=== PATIENT | female | born 1940 | race Caucasian/White ===

== ENCOUNTER 2017-03-20 16:36 | Emergency (ER) | payer MEDICARE, MEDICAID ==
[~2017-03-20] VITALS: Ht 165.1 cm; Wt 63.5 kg
[~2017-03-20 16:36] MED LIST: ACET-93 PO; ACHD5005 PO; ACYC800T PO; ALBU0.632 IH; ALPR.25T PO; ALPR0.254 PO; ALPR0.2550; AMIT50TA3 PO; ASP325T PO; ASP81TEC PO; ATOR40TA; AZIT-21 PO; AZIT500T2 PO; AZTH250C PO; BACL10TA PO; BSP10T; BSP10T PO; BSP5T; BUDE10.2 IH; BUDE6HFA IH; CEFD300C3 PO; CLOP75TA28 PO; CPR500T PO; DEXL60CA3; DIAZ5TAB3 PO; DICLOFENAC; DOXY100C2 PO; DULO30CA PO; DULO30CA48 PO; ENAL2.5T PO; ENXP60I.6 SQ; ESZO2TAB4 PO; FLUO20CA42; FLUT16SP22; FLUT1AER IH; FRSM20T PO; HYDR1TAB PO; IBUP-2055 PO; LEVO88TA54 PO; LOPE2CAP PO; LOSA100T28 PO; LOSA100T3 PO; LRT10T; LVT.025T; LVT.05T; LVT.1T PO; MECL-106 PO; MELO-198 PO; MESA1.2T2 PO; METH10TA8 PO; METH4TAB PO; METO-370 PO; METO25TA PO; METR500T PO; MRTZ15T; MSL400TEC PO; MTHL5T PO; NITR-65 PO; NYST1000 PO; OMEG1CAP57 PO; OMEP20CA12 PO; OMEP20TA2 PO; ONDA4TAB10 PO; ONDA4TAB11 PO; ONDN4T PO; PANT40SU; PANT40TA3 PO; PHEN200T27 PO; PNT40TEC; PNT40TEC PO; POLY17PO23 PO; POTA8TAB PO; PRD20T PO; PRM25T; PRM25T PO; PROM12.59 PO; PRX10T PO; SENN1TAB76 PO; SIMV40TA2 PO; SIMV40TA4 PO; SLMFT1E; SLMFT1E INH; TIOT18CA IH; TIOT18CA2 IH; TLT2T; TOLTA4 PO; TRAM50TA2 PO; TRM50T; TRM50T PO; WRF1T PO; WRF2T PO; WRF5T PO; methylin PO
--- OUTSIDE RECORDS SUMMARY | 2017-03-20 16:43 | XMS REPORT | Continuity of Care Document ---
Author Author [facility] Organization [facility] Address Unknown Phone Unavailable Allergies Active Description Code Type Severity Reaction Onset Reported/Identified Relationship to Patient Clinical Status Yes Penicillins [id number] Drug Allergy Moderate HIVES, CAN TAKE 12/18/2011 Yes propoxyphene [id number] Drug Allergy Unknown N/A 12/18/2011 Yes codeine [id number] Drug Allergy Unknown N/A 02/09/2015 Yes morphine [id number] Drug Allergy Unknown PATIENT TAKES V 02/09/2015 Medications There is no data. Problems Date Dx Coded Attending Type Code Diagnosis Diagnosed By 09/07/2009 Ot 244.9 09/07/2009 Ot 300.4 09/07/2009 Ot 305.1 09/07/2009 Ot 491.22 09/07/2009 Ot 530.81 09/07/2009 Ot 715.90 09/07/2009 Ot 737.10 09/07/2009 Ot 780.52 09/07/2009 Ot 780.71 09/07/2009 Ot V12.79 12/16/2009 Ot 724.5 12/16/2009 Ot 787.03 12/16/2009 Ot 787.91 12/16/2009 Ot V58.69 12/25/2009 Ot 241.0 12/25/2009 Ot 244.9 12/25/2009 Ot 255.9 12/25/2009 Ot 496 12/25/2009 Ot 518.89 12/25/2009 Ot 723.4 12/25/2009 Ot 789.00 12/25/2009 Ot 791.9 12/25/2009 Ot 794.30 01/15/2010 Ot 305.1 01/15/2010 Ot 491.22 01/15/2010 Ot V12.61 05/18/2010 Ot 244.9 05/18/2010 Ot 300.4 05/18/2010 Ot 305.1 05/18/2010 Ot 414.01 05/18/2010 Ot 426.3 05/18/2010 Ot 491.21 05/18/2010 Ot 530.81 05/18/2010 Ot 715.90 05/18/2010 Ot 780.79 05/18/2010 Ot 780.99 05/18/2010 Ot 799.02 05/26/2010 Ot 244.9 05/26/2010 Ot 266.2 05/26/2010 Ot 272.4 05/26/2010 Ot 285.29 05/26/2010 Ot 300.4 05/26/2010 Ot 305.1 05/26/2010 Ot 401.9 05/26/2010 Ot 410.72 05/26/2010 Ot 414.01 05/26/2010 Ot 434.91 05/26/2010 Ot 496 05/26/2010 Ot 530.81 05/26/2010 Ot 715.90 05/26/2010 Ot 780.71 05/26/2010 Ot 784.59 06/02/2010 Ot 079.99 06/02/2010 Ot 787.01 08/14/2010 Ot 244.9 HYPOTHYROIDISM NOS 08/14/2010 Ot 401.9 HYPERTENSION NOS 08/14/2010 Ot 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, SPEECH LA 08/14/2010 Ot 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,HEMIPLEGIA AFFECTING 08/14/2010 Ot 729.1 MYALGIA AND MYOSITIS NOS 08/14/2010 Ot 780.79 OTH MALAISE FATIGUE 08/14/2010 Ot V58.61 ANTICOAGULANTS,LT,CURRENT USE 08/14/2010 Ot V58.66 LONG-TERM ( CURRENT) USE OF ASPIRIN 08/14/2010 Ot V58.69 OTH MED,LT, CURRENT USE 08/24/2010 Ot 244.9 HYPOTHYROIDISM NOS 08/24/2010 Ot 272.4 HYPERLIPIDEMIA NEC/NOS 08/24/2010 Ot 285.9 ANEMIA NOS 08/24/2010 Ot 300.4 DYSTHYMIC DISORDER 08/24/2010 Ot 305.1 TOBACCO USE DISORDER 08/24/2010 Ot 401.9 HYPERTENSION NOS 08/24/2010 Ot 412 OLD MYOCARDIAL INFARCT 08/24/2010 Ot 435.9 TRANS CEREB ISCHEMIA NOS 08/24/2010 Ot 496 CHR AIRWAY OBSTRUCT NEC 08/24/2010 Ot 729.1 MYALGIA AND MYOSITIS NOS 08/24/2010 Ot V12.54 PERSONAL HX OF TIA, CEREBRAL INFARCTION 10/07/2010 Ot 244.9 HYPOTHYROIDISM NOS 10/07/2010 Ot 272.4 HYPERLIPIDEMIA NEC/NOS 10/07/2010 Ot 300.4 DYSTHYMIC DISORDER 10/07/2010 Ot 305.1 TOBACCO USE DISORDER 10/07/2010 Ot 401.9 HYPERTENSION NOS 10/07/2010 Ot 412 OLD MYOCARDIAL INFARCT 10/07/2010 Ot 496 CHR AIRWAY OBSTRUCT NEC 10/07/2010 Ot 729.1 MYALGIA AND MYOSITIS NOS 10/07/2010 Ot 780.71 CHRONIC FATIGUE SYNDROME 10/07/2010 Ot 790.92 COAGULATION PROFILE, ABNORMAL 10/07/2010 Ot V12.54 PERSONAL HX OF TIA, CEREBRAL INFARCTION 10/07/2010 Ot V58.61 ANTICOAGULANTS,LT,CURRENT USE 10/07/2010 Ot V58.66 LONG-TERM ( CURRENT) USE OF ASPIRIN 10/07/2010 Ot V58.69 OTH MED,LT, CURRENT USE 12/23/2010 Ot 244.9 HYPOTHYROIDISM NOS 12/23/2010 Ot 285.9 ANEMIA NOS 12/23/2010 Ot 305.1 TOBACCO USE DISORDER 12/23/2010 Ot 401.9 HYPERTENSION NOS 12/23/2010 Ot 486 PNEUMONIA, ORGANISM NOS 12/23/2010 Ot 491.21 OBSTR CHRONIC BRONCHITIS, W (ACUTE) EXAC 12/23/2010 Ot 535.50 UNSP GASTRITIS GASTRODUODENITIS W/O ME 12/23/2010 Ot V04.81 ND FOR PROPHYLACTIC VACCIN AND INOCULATI 05/18/2011 Ot 305.1 TOBACCO USE DISORDER 05/18/2011 Ot 414.01 CORONARY ATHEROSCLEROSIS OF [place] CORON 05/18/2011 Ot 486 PNEUMONIA, ORGANISM NOS 05/18/2011 Ot 491.21 OBSTR CHRONIC BRONCHITIS, W (ACUTE) EXAC 05/18/2011 Ot 530.81 ESOPHAGEAL REFLUX 05/18/2011 Ot V12.59 HX- CIRCULATORY SYST DIS,NEC 08/06/2011 Ot 244.9 HYPOTHYROIDISM NOS 08/06/2011 Ot 276.51 DEHYDRATION 08/06/2011 Ot 401.9 HYPERTENSION NOS 08/06/2011 Ot 496 CHR AIRWAY OBSTRUCT NEC 08/06/2011 Ot 593.9 RENAL URETERAL DIS NOS 08/06/2011 Ot 780.79 OTH MALAISE FATIGUE 08/06/2011 Ot 787.03 VOMITING ALONE 12/13/2011 Ot 275.2 DIS MAGNESIUM METABOLISM 12/13/2011 Ot 276.52 HYPOVOLEMIA 12/13/2011 Ot 276.8 HYPOPOTASSEMIA 12/13/2011 Ot 285.9 ANEMIA NOS 12/13/2011 Ot 288.60 LEUKOCYTOSIS , UNSPECIFIED 12/13/2011 Ot 305.1 TOBACCO USE DISORDER 12/13/2011 Ot 401.9 HYPERTENSION NOS 12/13/2011 Ot 428.0 CONGESTIVE HEART FAILURE NOS 12/13/2011 Ot 496 CHR AIRWAY OBSTRUCT NEC 12/13/2011 Ot 530.81 ESOPHAGEAL REFLUX 12/13/2011 Ot 560.1 PARALYTIC ILEUS 12/13/2011 Ot 599.0 URIN TRACT INFECTION NOS 12/13/2011 Ot V04.81 ND FOR PROPHYLACTIC VACCIN AND INOCULATI 12/13/2011 Ot V12.54 PERSONAL HX OF TIA, CEREBRAL INFARCTION 12/16/2011 Ot 491.21 OBSTR CHRONIC BRONCHITIS, W (ACUTE) EXAC 12/16/2011 Ot 786.05 SHORTNESS OF BREATH 12/16/2011 Ot 791.9 ABN URINE FINDINGS NEC 12/21/2011 Ot 244.9 HYPOTHYROIDISM NOS 12/21/2011 Ot 272.4 HYPERLIPIDEMIA NEC/NOS 12/21/2011 Ot 276.8 HYPOPOTASSEMIA 12/21/2011 Ot 300.00 ANXIETY STATE NOS 12/21/2011 Ot 311 DEPRESSIVE DISORDER NEC 12/21/2011 Ot 491.22 OBSTRUCTIVE CHRONIC BRONCHITIS WITH ACUT 12/21/2011 Ot V04.81 ND FOR PROPHYLACTIC VACCIN AND INOCULATI 12/21/2011 Ot V15.82 HISTORY OF TOBACCO USE 08/06/2012 KATELYN ADAIR MD Ot 466.0 ACUTE BRONCHITIS 08/06/2012 KATELYN ADAIR MD Ot 491.21 OBSTR CHRONIC BRONCHITIS, W (ACUTE) EXAC 08/06/2012 KATELYN ADAIR MD Ot 786.2 COUGH 04/18/2014 KIERAN MOONEY Ot 599.0 URIN TRACT INFECTION NOS 04/18/2014 KIERAN MOONEY Ot 789.00 ABDOMINAL PAIN, UNSPECIFIED SITE 04/18/2014 Ot 255.9 04/18/2014 Ot 783.21 04/18/2014 Ot 787.01 04/18/2014 Ot 789.00 04/18/2014 Ot V76.12 04/18/2014 Ot 241.0 04/18/2014 Ot V76.12 04/18/2014 Ot 496 04/18/2014 Ot V58.61 04/18/2014 Ot V58.83 04/18/2014 Ot V58.61 04/18/2014 Ot V58.83 04/18/2014 Ot V58.61 04/18/2014 Ot V58.83 04/18/2014 Ot 436 04/18/2014 Ot V58.61 04/18/2014 Ot 266.2 04/18/2014 Ot 285.9 04/18/2014 Ot 311 04/18/2014 Ot 401.9 04/18/2014 Ot 414.00 04/18/2014 Ot 436 04/18/2014 Ot 496 04/18/2014 Ot 530.81 04/18/2014 Ot V58.61 04/18/2014 Ot V58.61 04/18/2014 Ot V58.83 04/18/2014 Ot V58.61 04/18/2014 Ot V58.83 04/18/2014 Ot V58.61 04/18/2014 Ot V58.83 04/18/2014 Ot 790.92 04/18/2014 Ot V58.61 04/18/2014 Ot V58.69 08/21/2014 Ot 241.0 08/21/2014 Ot V76.12 08/21/2014 Ot 496 08/21/2014 Ot V58.61 08/21/2014 Ot V58.83 08/21/2014 Ot V58.61 08/21/2014 Ot V58.83 08/21/2014 Ot V58.61 08/21/2014 Ot V58.83 08/21/2014 Ot 436 08/21/2014 Ot V58.61 08/21/2014 Ot 266.2 08/21/2014 Ot 285.9 08/21/2014 Ot 311 08/21/2014 Ot 401.9 08/21/2014 Ot 414.00 08/21/2014 Ot 436 08/21/2014 Ot 496 08/21/2014 Ot 530.81 08/21/2014 Ot V58.61 08/21/2014 Ot V58.61 08/21/2014 Ot V58.83 08/21/2014 Ot V58.61 08/21/2014 Ot V58.83 08/21/2014 Ot V58.61 08/21/2014 Ot V58.83 08/21/2014 Ot 790.92 08/21/2014 Ot V58.61 08/21/2014 Ot V58.69 08/25/2014 ORENDER DO, DALILA S Ot 348.89 08/25/2014 ORENDER DO, DALILA S Ot 433.10 08/25/2014 ORENDER DO, DALILA S Ot 433.30 08/25/2014 ORENDER DO, DALILA S Ot 723.1 08/25/2014 ORENDER DO, DALILA S Ot 780.4 08/25/2014 ORENDER DO, DALILA S Ot V12.54 08/25/2014 ORENDER DO, DALILA S Ot 348.89 08/25/2014 ORENDER DO, DALILA S Ot 433.10 08/25/2014 ORENDER DO, DALILA S Ot 433.30 08/25/2014 ORENDER DO, DALILA S Ot 723.1 08/25/2014 ORENDER DO, DALILA S Ot 780.4 08/25/2014 ORENDER DO, DALILA S Ot V12.54 09/10/2014 ORENDER DO, DALILA S Ot 348.89 09/10/2014 ORENDER DO, DALILA S Ot 433.10 09/10/2014 ORENDER DO, DALILA S Ot 433.30 09/10/2014 ORENDER DO, DALILA S Ot 723.1 09/10/2014 ORENDER DO, DALILA S Ot 780.4 09/10/2014 ORENDER DO, DALILA S Ot V12.54 09/23/2014 ORENDER DO, DALILA S Ot 348.89 09/23/2014 ORENDER DO, DALILA S Ot 433.10 09/23/2014 ORENDER DO, DALILA S Ot 433.30 09/23/2014 ORENDER DO, DALILA S Ot 723.1 09/23/2014 ORENDER DO, DALILA S Ot 780.4 09/23/2014 ORENDER DO, DALILA S Ot V12.54 02/11/2015 ORENDER DO, DALILA S Ot E03.9 HYPOTHYROIDISM, UNSPECIFIED 02/11/2015 ORENDER DO, DALILA S Ot F17.210 NICOTINE DEPENDENCE, CIGARETTES, UNCOMPL 02/11/2015 LOLIKESHIA AMOS GALVINLINE S Ot I10 ESSENTIAL (PRIMARY) HYPERTENSION 02/11/2015 DALILA CASIANO DO S Ot J44.9 CHRONIC OBSTRUCTIVE PULMONARY DISEASE, U 02/11/2015 DALILA CASIANO DO S Ot K21.9 GASTRO-ESOPHAGEAL REFLUX DISEASE WITHOUT 02/11/2015 DALILA CASIANO DO S Ot K57.92 DVTRCLI OF INTEST, PART UNSP, W/O PERF O 02/11/2015 OH GALVIN DALILA S Ot N39.0 URINARY TRACT INFECTION, SITE NOT SPECIF 02/26/2015 Ot 241.0 02/26/2015 Ot V76.12 02/26/2015 Ot 496 02/26/2015 Ot V58.61 02/26/2015 Ot V58.83 02/26/2015 Ot V58.61 02/26/2015 Ot V58.83 02/26/2015 Ot V58.61 02/26/2015 Ot V58.83 02/26/2015 Ot 436 02/26/2015 Ot V58.61 02/26/2015 Ot 266.2 02/26/2015 Ot 285.9 02/26/2015 Ot 311 02/26/2015 Ot 401.9 02/26/2015 Ot 414.00 02/26/2015 Ot 436 02/26/2015 Ot 496 02/26/2015 Ot 530.81 02/26/2015 Ot V58.61 02/26/2015 Ot V58.61 02/26/2015 Ot V58.83 02/26/2015 Ot V58.61 02/26/2015 Ot V58.83 02/26/2015 Ot V58.61 02/26/2015 Ot V58.83 02/26/2015 Ot 790.92 02/26/2015 Ot V58.61 02/26/2015 Ot V58.69 02/26/2015 DALILA CASIANO DO S Ot 348.89 02/26/2015 DALILA CASIANO DO S Ot 433.10 02/26/2015 DALILA CASIANO DO S Ot 433.30 02/26/2015 DALILA CASIANO DO Ot 723.1 02/26/2015 DALILA CASIANO DO S Ot 780.4 02/26/2015 LOLINDSELVIN GALVIN, DALILA S Ot V12.54 03/05/2015 LOLINDSELVIN GALVIN, DALILA S Ot E03.9 HYPOTHYROIDISM, UNSPECIFIED 03/05/2015 LOLINDSELVIN GALVIN, DALILA S Ot F17.210 NICOTINE DEPENDENCE, CIGARETTES, UNCOMPL 03/05/2015 LLOINDER DO, DALILA S Ot I10 ESSENTIAL (PRIMARY) HYPERTENSION 03/05/2015 OH GALVIN, DALILA S Ot J44.9 CHRONIC OBSTRUCTIVE PULMONARY DISEASE, U 03/05/2015 OH GALVIN, DALILA S Ot K21.9 GASTRO-ESOPHAGEAL REFLUX DISEASE WITHOUT 03/05/2015 LOLINDER DOAMOSDALILA S Ot R55 SYNCOPE AND COLLAPSE 03/05/2015 OH GALVIN, DALILA S Ot S00.03XA CONTUSION OF SCALP, INITIAL ENCOUNTER 03/05/2015 AMOS CASIANO DOLINE S Ot S40.921A UNSP SUPERFICIAL INJURY OF RIGHT UPPER A 03/05/2015 AMOS CASIANO DOLINE S Ot W19.XXXA UNSPECIFIED FALL, INITIAL ENCOUNTER 03/05/2015 AMOS CASIANO DOLINE S Ot Y92.[address] IN SINGLE-FAMILY (PRIVATE) HO 03/05/2015 OH GALVIN, DALILA S Ot Y93.E2 ACTIVITY, LAUNDRY 03/05/2015 OH GALVIN, DALILA S Ot Z86.73 PRSNL HX OF TIA (TIA), AND CEREB INFRC W 03/19/2015 OH GALVIN, DALILA S Ot R41.0 03/19/2015 LOLINDER DO, DALILA S Ot Z86.73 03/19/2015 LOLINDER DO, DALILA S Ot Z91.81 04/03/2015 LOLINDER DO, DALILA S Ot R41.0 04/03/2015 LOLINDER DO, DALILA S Ot Z86.73 04/03/2015 LOLINDER DO, DALILA S Ot Z91.81 07/19/2015 Ot 491.21 OBSTR CHRONIC BRONCHITIS, W (ACUTE) EXAC 07/19/2015 Ot 786.05 SHORTNESS OF BREATH 07/19/2015 Ot 791.9 ABN URINE FINDINGS NEC 11/19/2015 Ot 491.21 OBSTR CHRONIC BRONCHITIS, W (ACUTE) EXAC 11/19/2015 Ot 786.05 SHORTNESS OF BREATH 11/19/2015 Ot 791.9 ABN URINE FINDINGS NEC 12/28/2015 Ot 790.92 COAGULATION PROFILE, ABNORMAL 12/28/2015 Ot V58.61 ANTICOAGULANTS,LT,CURRENT USE 12/28/2015 Ot V58.69 OTH MED,LT, CURRENT USE 12/28/2015 ORENDER DO DALILA S Ot 348.89 OTHER CONDITIONS OF BRAIN 12/28/2015 LOLINDER DO DALILA S Ot 433.10 CAROTID ARTERY OCCLUSION W O CEREBRAL IN 12/28/2015 LOLINDER DO, DALILA S Ot 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 ARTERY OCCLUSION WO CEREBRA 12/28/2015 LOLINDER DO DALILA S Ot 723.1 CERVICALGIA 12/28/2015 LOLINDER DO DALILA S Ot 780.4 DIZZINESS AND GIDDINESS 12/28/2015 LOLINDER DO DALILA S Ot V12.54 PERSONAL HX OF TIA, CEREBRAL INFARCTION 12/28/2015 LOLINDER DO DALILA S Ot R41.0 DISORIENTATION, UNSPECIFIED 12/28/2015 LOLINDER DO, DALILA S Ot Z86.73 PRSNL HX OF TIA (TIA), AND CEREB INFRC W 12/28/2015 LOLINDER DO DALILA S Ot Z91.81 HISTORY OF FALLING 12/31/2015 LOLINDER DO DALILA S Ot E03.9 HYPOTHYROIDISM, UNSPECIFIED 12/31/2015 LOLINDER DO DALILA S Ot E86.0 DEHYDRATION 12/31/2015 LOLINDER DO DALILA S Ot E87.6 HYPOKALEMIA 12/31/2015 LOLINDER DO, DALILA S Ot F17.210 NICOTINE DEPENDENCE, CIGARETTES, UNCOMPL 12/31/2015 LOLINDER DO DALILA S Ot F32.9 MAJOR DEPRESSIVE DISORDER, SINGLE EPISOD 12/31/2015 LOLINDER DO, DALILA S Ot F41.9 ANXIETY DISORDER, UNSPECIFIED 12/31/2015 LOLINDER DO DALILA S Ot I10 ESSENTIAL (PRIMARY) HYPERTENSION 12/31/2015 LOLINDER DO DALILA S Ot J44.9 CHRONIC OBSTRUCTIVE PULMONARY DISEASE, U 12/31/2015 LOLINDER DO, DALILA S Ot K21.9 GASTRO-ESOPHAGEAL REFLUX DISEASE WITHOUT 12/31/2015 ORENDER DO, DALILA S Ot K56.60 UNSPECIFIED INTESTINAL OBSTRUCTION 12/31/2015 ORENDER DO, DALILA S Ot K56.69 OTHER INTESTINAL OBSTRUCTION 12/31/2015 ORENDER DO, DALILA S Ot K59.00 CONSTIPATION, UNSPECIFIED 12/31/2015 ORENDER DO, DALILA S Ot M19.90 UNSPECIFIED OSTEOARTHRITIS, UNSPECIFIED 12/31/2015 ORENDER DO, DALILA S Ot N17.9 ACUTE KIDNEY FAILURE, UNSPECIFIED 12/31/2015 ORENDER DO, DALILA S Ot N28.9 DISORDER OF KIDNEY AND URETER, UNSPECIFI 12/31/2015 ORENDER DO, DALILA S Ot R25.1 TREMOR, UNSPECIFIED 12/31/2015 ORENDER DO, DALILA S Ot Z86.73 PRSNL HX OF TIA (TIA), AND CEREB INFRC W 07/18/2016 Ot 491.21 OBSTR CHRONIC BRONCHITIS, W (ACUTE) EXAC 07/18/2016 Ot 786.05 SHORTNESS OF BREATH 07/18/2016 Ot 791.9 ABN URINE FINDINGS NEC Procedures Code Description Performed By Performed On 45.16 12/22/2010 45.23 12/22/2010 [id number] DRAINAGE OF ESOPHAGAST JUNCT WITH DRAIN 12/28/2015 Results Test Result Range Complete blood count (CBC) with automated white blood cell (WBC) differential - 12/28/15 06:35 Blood leukocytes automated count (number/volume) 16.1 10*3/uL 4.3-11.0 Blood erythrocytes automated count (number/volume) 4.80 10*6/uL 4.35-5.85 Venous blood hemoglobin measurement (mass/volume) 14.9 g/dL 11.5-16.0 Blood hematocrit (volume fraction) 44 % 35-52 Automated erythrocyte mean corpuscular volume 93 [foz_us] 80-99 Automated erythrocyte mean corpuscular hemoglobin (mass per erythrocyte) 31 pg 25-34 Automated erythrocyte mean corpuscular hemoglobin concentration measurement ( mass/volume) 34 g/dL 32-36 Automated erythrocyte distribution width ratio 13.7 % 10.0-14.5 Automated blood platelet count (count/volume) 151 10*3/uL 130-400 Automated blood platelet mean volume measurement 12.2 [foz_us] 7.4-10.4 Automated blood neutrophils/100 leukocytes 84 % 42-75 Automated blood lymphocytes/100 leukocytes 8 % 12-44 Blood monocytes/100 leukocytes 7 % 0-12 Automated blood eosinophils/100 leukocytes 0 % 0-10 Automated blood basophils/100 leukocytes 0 % 0-10 Blood neutrophils automated count (number/volume) 13.5 10*3 1.8-7.8 Blood lymphocytes automated count (number/volume) 1.3 10*3 1.0-4.0 Blood monocytes automated count (number/volume) 1.2 10*3 0.0-1.0 Automated eosinophil count 0.1 10*3/uL 0.0-0.3 Automated blood basophil count (count/volume) 0.0 10*3/uL 0.0-0.1 Comprehensive metabolic panel - 12/28/15 06:35 Serum or plasma sodium measurement (moles/volume) 137 mmol/L 135-145 Serum or plasma potassium measurement (moles/volume) 4.7 mmol/L 3.6-5.0 Serum or plasma chloride measurement (moles/volume) 108 mmol/L 98-107 Carbon dioxide 16 mmol/L 21-32 Serum or plasma anion gap determination (moles/volume) 13 mmol/L 5-14 Serum or plasma urea nitrogen measurement (mass/volume) 32 mg/dL 7-18 Serum or plasma creatinine measurement (mass/volume) 1.75 mg/dL 0.60-1.30 Serum or plasma urea nitrogen/creatinine mass ratio 18 NRG Serum or plasma creatinine measurement with calculation of estimated glomerular filtration rate 28 NRG Serum or plasma glucose measurement (mass/volume) 170 mg/dL 70-105 Serum or plasma calcium measurement (mass/volume) 10.3 mg/dL 8.5-10.1 Serum or plasma total bilirubin measurement (mass/volume) 0.6 mg/dL 0.1-1.0 Serum or plasma alkaline phosphatase measurement (enzymatic activity/volume) 118 U/L 40-136 Serum or plasma aspartate aminotransferase measurement (enzymatic activity/ volume) 21 U/L 5-34 Serum or plasma alanine aminotransferase measurement (enzymatic activity/volume ) 16 U/L 0-55 Serum or plasma protein measurement (mass/volume) 7.6 g/dL 6.4-8.2 Serum or plasma albumin measurement (mass/volume) 4.4 g/dL 3.2-4.5 Serum or plasma troponin i.cardiac measurement (mass/volume) - 12/28/15 06:35 Serum or plasma troponin i.cardiac measurement (mass/volume) < ng/ mL <0.30 Lipase - 12/28/15 06:35 Lipase 23 U/L 8-78 Blood manual differential performed detection - 12/28/15 06:35 Blood monocytes/100 leukocytes 3 % NRG Manual blood segmented neutrophils/100 leukocytes 86 % NRG Blood band neutrophils/100 leukocytes 2 % NRG Manual blood lymphocytes/100 leukocytes 8 % NRG Manual eosinophils/100 leukocytes in nose 0 % NRG Manual blood basophils/100 leukocytes 0 % NRG Blood lymphocytes variant/100 leukocytes 1 % NRG Blood erythrocyte morphology finding identification NORMAL NRG Complete urinalysis with reflex to culture - 12/28/15 06:53 Urine color determination YELLOW NRG Urine clarity determination SLIGHTLY CLOUDY NRG Urine pH measurement by test strip 5 5-9 Specific gravity of urine by test strip 1.020 1.016- 1.022 Urine protein assay by test strip, semi-quantitative 2+ NEGATIVE Urine glucose detection by automated test strip NEGATIVE NEGATIVE Erythrocytes detection in urine sediment by light microscopy 1+ NEGATIVE Urine ketones detection by automated test strip 1+ NEGATIVE Urine nitrite detection by test strip NEGATIVE NEGATIVE Urine total bilirubin detection by test strip 2+ NEGATIVE Urine urobilinogen measurement by automated test strip (mass/volume) 4 mg/dL NORMAL Urine leukocyte esterase detection by dipstick 3+ NEGATIVE Automated urine sediment erythrocyte count by microscopy (number/high power field) [HPF] NRG Automated urine sediment leukocyte count by microscopy (number/high power field ) [HPF] NRG Bacteria detection in urine sediment by light microscopy FEW NRG Squamous epithelial cells detection in urine sediment by light microscopy 25-50 NRG Crystals detection in urine sediment by light microscopy NONE NRG Casts detection in urine sediment by light microscopy NONE NRG Mucus detection in urine sediment by light microscopy NEGATIVE NRG Complete urinalysis with reflex to culture YES NRG Renal epithelial cells detection in urine sediment by light microscopy 0-2 NRG Bacterial urine culture - 12/28/15 06:53 URINE CULTURE RESULTS MORE THAN 3 ISOLATES NRG Bacterial blood culture - 12/28/15 07:36 Bacterial blood culture NG NRG Blood lactic acid measurement (moles/volume) - 12/28/15 09:36 Blood lactic acid measurement (moles/volume) 1.6 mmol/L 0.5-2.0 Bacterial blood culture - 12/28/15 09:45 Bacterial blood culture [facility] Complete blood count (CBC) with automated white blood cell (WBC) differential - 12/29/15 04:20 Blood leukocytes automated count (number/volume) 8.6 10*3/uL 4.3-11.0 Blood erythrocytes automated count (number/volume) 3.61 10*6/uL 4.35-5.85 Venous blood hemoglobin measurement (mass/volume) 11.1 g/dL 11.5-16.0 Blood hematocrit (volume fraction) 34 % 35-52 Automated erythrocyte mean corpuscular volume 93 [foz_us] 80-99 Automated erythrocyte mean corpuscular hemoglobin (mass per erythrocyte) 31 pg 25-34 Automated erythrocyte mean corpuscular hemoglobin concentration measurement ( mass/volume) 33 g/dL 32-36 Automated erythrocyte distribution width ratio 13.4 % 10.0-14.5 Automated blood platelet count (count/volume) 110 10*3/uL 130-400 Automated blood platelet mean volume measurement 12.4 [foz_us] 7.4-10.4 Automated blood neutrophils/100 leukocytes 64 % 42-75 Automated blood lymphocytes/100 leukocytes 19 % 12-44 Blood monocytes/100 leukocytes 14 % 0-12 Automated blood eosinophils/100 leukocytes 2 % 0-10 Automated blood basophils/100 leukocytes 1 % 0-10 Blood neutrophils automated count (number/volume) 5.5 10*3 1.8-7.8 Blood lymphocytes automated count (number/volume) 1.7 10*3 1.0-4.0 Blood monocytes automated count (number/volume) 1.2 10*3 0.0-1.0 Automated eosinophil count 0.2 10*3/uL 0.0-0.3 Automated blood basophil count (count/volume) 0.1 10*3/uL 0.0-0.1 Comprehensive metabolic panel - 12/29/15 04:20 Serum or plasma sodium measurement (moles/volume) 141 mmol/L 135-145 Serum or plasma potassium measurement (moles/volume) 3.8 mmol/L 3.6-5.0 Serum or plasma chloride measurement (moles/volume) 118 mmol/L 98-107 Carbon dioxide 13 mmol/L 21-32 Serum or plasma anion gap determination (moles/volume) 10 mmol/L 5-14 Serum or plasma urea nitrogen measurement (mass/volume) 28 mg/dL 7-18 Serum or plasma creatinine measurement (mass/volume) 0.82 mg/dL 0.60-1.30 Serum or plasma urea nitrogen/creatinine mass ratio 34 NRG Serum or plasma creatinine measurement with calculation of estimated glomerular filtration rate > NRG Serum or plasma glucose measurement (mass/volume) 87 mg/dL 70-105 Serum or plasma calcium measurement (mass/volume) 8.4 mg/dL 8.5-10.1 Serum or plasma total bilirubin measurement (mass/volume) 0.4 mg/dL 0.1-1.0 Serum or plasma alkaline phosphatase measurement (enzymatic activity/volume) 77 U/L 40-136 Serum or plasma aspartate aminotransferase measurement (enzymatic activity/ volume) 18 U/L 5-34 Serum or plasma alanine aminotransferase measurement (enzymatic activity/volume ) 10 U/L 0-55 Serum or plasma protein measurement (mass/volume) 5.4 g/dL 6.4-8.2 Serum or plasma albumin measurement (mass/volume) 3.2 g/dL 3.2-4.5 Complete blood count (CBC) with automated white blood cell (WBC) differential - 12/30/15 05:25 Blood leukocytes automated count (number/volume) 6.1 10*3/uL 4.3-11.0 Blood erythrocytes automated count (number/volume) 3.18 10*6/uL 4.35-5.85 Venous blood hemoglobin measurement (mass/volume) 9.7 g/dL 11.5-16.0 Blood hematocrit (volume fraction) 30 % 35-52 Automated erythrocyte mean corpuscular volume 94 [foz_us] 80-99 Automated erythrocyte mean corpuscular hemoglobin (mass per erythrocyte) 31 pg 25-34 Automated erythrocyte mean corpuscular hemoglobin concentration measurement ( mass/volume) 33 g/dL 32-36 Automated erythrocyte distribution width ratio 12.9 % 10.0-14.5 Automated blood platelet count (count/volume) 94 10*3/uL 130-400 Automated blood platelet mean volume measurement 12.2 [foz_us] 7.4-10.4 Automated blood neutrophils/100 leukocytes 62 % 42-75 Automated blood lymphocytes/100 leukocytes 23 % 12-44 Blood monocytes/100 leukocytes 12 % 0-12 Automated blood eosinophils/100 leukocytes 3 % 0-10 Automated blood basophils/100 leukocytes 1 % 0-10 Blood neutrophils automated count (number/volume) 3.8 10*3 1.8-7.8 Blood lymphocytes automated count (number/volume) 1.4 10*3 1.0-4.0 Blood monocytes automated count (number/volume) 0.7 10*3 0.0-1.0 Automated eosinophil count 0.2 10*3/uL 0.0-0.3 Automated blood basophil count (count/volume) 0.1 10*3/uL 0.0-0.1 Comprehensive metabolic panel - 12/30/15 05:25 Serum or plasma sodium measurement (moles/volume) 139 mmol/L 135-145 Serum or plasma potassium measurement (moles/volume) 3.5 mmol/L 3.6-5.0 Serum or plasma chloride measurement (moles/volume) 116 mmol/L 98-107 Carbon dioxide 11 mmol/L 21-32 Serum or plasma anion gap determination (moles/volume) 12 mmol/L 5-14 Serum or plasma urea nitrogen measurement (mass/volume) 19 mg/dL 7-18 Serum or plasma creatinine measurement (mass/volume) 0.74 mg/dL 0.60-1.30 Serum or plasma urea nitrogen/creatinine mass ratio 26 NRG Serum or plasma creatinine measurement with calculation of estimated glomerular filtration rate > NRG Serum or plasma glucose measurement (mass/volume) 62 mg/dL 70-105 Serum or plasma calcium measurement (mass/volume) 8.4 mg/dL 8.5-10.1 Serum or plasma total bilirubin measurement (mass/volume) 0.4 mg/dL 0.1-1.0 Serum or plasma alkaline phosphatase measurement (enzymatic activity/volume) 73 U/L 40-136 Serum or plasma aspartate aminotransferase measurement (enzymatic activity/ volume) 16 U/L 5-34 Serum or plasma alanine aminotransferase measurement (enzymatic activity/volume ) 11 U/L 0-55 Serum or plasma protein measurement (mass/volume) 5.4 g/dL 6.4-8.2 Serum or plasma albumin measurement (mass/volume) 3.2 g/dL 3.2-4.5 Encounters ACCT No. Visit Date/Time Discharge Status Pt. Type Provider Facility Loc./Unit Complaint [id number] 12/28/2015 09:32:00 12/31/2015 11:30:00 DIS Inpatient LOLINDER AMOS GALVINLINE S [facility] 4TH ABD PAIN WITH N/V SBO [id number] 03/04/2015 15:28:00 03/05/2015 11:50:00 DIS Inpatient ORENDER DOCRESENCIODALILA S [facility] 4TH SYNCOPE [id number] 03/04/2015 14:15:00 03/04/2015 23:59:59 CLS Preadmit CRESENCIO CASIANO DOQUELINE S [id number] 02/26/2015 10:34:00 02/26/2015 23:59:59 CLS Outpatient LOLINDER DO DALILA S [facility] RAD CONFUSION, FALLS [id number] 02/09/2015 15:02:00 02/11/2015 16:35:00 DIS Inpatient LOLINDER DO DALILA S [facility] 4TH DIVERTICULITIS [id number] 08/21/2014 13:57:00 08/21/2014 23:59:59 CLS Outpatient ROSENDASELVIN GALVIN DALILA S [facility] RAD CVA,VERTIGO,NECK PAIN [id number] 04/18/2014 18:17:00 04/18/2014 22:02:00 DIS Emergency KIERAN MOONEY [facility] ER HEAD AND ABD PAIN [id number] 08/06/2012 07:48:00 08/06/2012 10:35:00 DIS Emergency KATELYN ADAIR MD [facility] ER COUGH/CONGESTION/SOA [id number] 04/18/2014 22:06:00 Document Registration [id number] 04/18/2014 22:06:00 Document Registration [id number] 04/18/2014 22:05:00 Document Registration [id number] 04/18/2014 22:05:00 Document Registration [id number] 04/18/2014 22:05:00 Document Registration [id number] 12/18/2011 11:54:00 Document Registration [id number] 12/16/2011 10:42:00 Document Registration [id number] 12/08/2011 22:39:00 Document Registration [id number] 08/06/2011 15:27:00 Document Registration [id number] 05/16/2011 03:58:00 Document Registration [id number] 12/19/2010 13:30:00 Document Registration [id number] 11/29/2010 13:37:00 Document Registration [id number] 10/05/2010 14:30:00 Document Registration [id number] 08/19/2010 14:45:00 Document Registration [id number] 08/14/2010 17:19:00 Document Registration [id number] 07/06/2010 10:30:00 Document Registration [id number] 06/28/2010 11:36:00 Document Registration [id number] 06/25/2010 09:50:00 Document Registration [id number] 06/19/2010 13:05:00 Document Registration [id number] 06/14/2010 11:00:00 Document Registration [id number] 06/07/2010 11:00:00 Document Registration [id number] 06/02/2010 13:08:00 Document Registration [id number] 05/31/2010 13:10:00 Document Registration [id number] 05/28/2010 11:21:00 Document Registration [id number] 05/22/2010 17:25:00 Document Registration [id number] 05/16/2010 16:20:00 Document Registration [id number] 03/22/2010 15:14:00 Document Registration [id number] 02/19/2010 10:32:00 Document Registration [id number] 01/12/2010 17:26:00 Document Registration [id number] 01/01/2010 11:01:00 Document Registration [id number] 12/25/2009 15:56:00 Document Registration [id number] 12/16/2009 11:38:00 Document Registration [id number] 09/05/2009 06:23:00 Document Registration [id number] 01/19/2009 10:20:00 Document Registration [id number] 10/29/2008 10:14:00 Document Registration
[2017-03-20] MEDS ORDERED: RX-TRAMADOL 50 MG (ULTRAM) TAB PPK#4 PO STA (17:07)
[2017-03-20] MEDS ORDERED: SULF1TAB35 PO (17:13)
[2017-03-20] MEDS ORDERED: HYDR-757 PO (17:13)
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
[2017-03-20] MEDS ORDERED: LIDOCAINE 1% INJ 20 ML (XYLOCAINE) VIAL INJ ONE (17:15)
[2017-03-20] MEDS ORDERED: cefTRIAXone 1 GM (ROCEPHIN) VIAL IM ONE (17:15)
[2017-03-20 17:42] VITALS: BP 136/71
[2017-03-20] MEDS ORDERED: BACITRACIN OINTMENT 28 GM TUBE TOP SCH (21:00)
== END 2017-03-20 17:43 | disposition home or self-care (01) ==
LOC: EDUNIT# 16:36 → ER 16:38
DX: T21.15XA Burn of first degree of buttock, initial encounter (principal); T31.0 Burns involving less than 10% of body surface; J44.9 Chronic obstructive pulmonary disease, unspecified; I50.9 Heart failure, unspecified; K21.9 Gastro-esophageal reflux disease without esophagitis; E03.9 Hypothyroidism, unspecified; Z86.73 Personal history of transient ischemic attack (TIA), and cerebral infarction without residual deficits; Z87.891 Personal history of nicotine dependence; Z79.82 Long term (current) use of aspirin; Z90.710 Acquired absence of both cervix and uterus; Z90.49 Acquired absence of other specified parts of digestive tract; X11.0XXA Contact with hot water in bath or tub, initial encounter
CPT/HCPCS: 99283

== ENCOUNTER → 2017-04-06 | Outpatient (CLI) | payer MEDICARE, MEDICAID ==
[~2017-04-06] MED LIST changes: +HYDR-757 PO; +SULF1TAB35 PO
--- NOTE | 2017-04-06 15:07 | Diagnostic Imaging Report ---
PROCEDURE: CT head without contrast. TECHNIQUE: Multiple contiguous axial images were obtained through the brain without the use of intravenous contrast. INDICATION: Fall and slurred speech. COMPARISON: Comparison is made with prior head CT from 02/26/2015. FINDINGS: There is a moderate sized region of encephalomalacia in the left posterior parietal-occipital lobe consistent with prior infarct. This is similar to prior study. There is significant periventricular hypodensity noted consistent with chronic microvascular ischemia. There is an old lacunar infarct in the right basal ganglia. No sulcal effacement, midline shift or hemorrhage is detected. Cisterns are patent. The visualized paranasal sinuses are clear. IMPRESSION: Chronic and senescent changes. No acute intracranial process is detected. Dictated by: Dictated on workstation # [id number]
[2017-04-06 15:16] LABS: BASOPHILS # (AUTO) 0.1 10^3/uL (0.0-0.1); BASOPHILS % (AUTO) 1 % (0-10); EOSINOPHILS # (AUTO) 0.1 10^3/uL (0.0-0.3); EOSINOPHILS % (AUTO) 2 % (0-10); HEMATOCRIT 25 % (35-52); HEMOGLOBIN 7.7 G/DL (11.5-16.0); LYMPHOCYTES # (AUTO) 1.3 X 10^3 (1.0-4.0); LYMPHOCYTES % (AUTO) 17 % (12-44); MEAN CORPUSCULAR HEMOGLOBIN 27 PG (25-34); MEAN CORPUSCULAR HGB CONC 31 G/DL (32-36); MEAN CORPUSCULAR VOLUME 85 FL (80-99); MEAN PLATELET VOLUME 12.5 FL (7.4-10.4); MONOCYTES # (AUTO) 0.9 X 10^3 (0.0-1.0); MONOCYTES % (AUTO) 11 % (0-12); NEUTROPHILS # (AUTO) 5.5 X 10^3 (1.8-7.8); NEUTROPHILS % (AUTO) 70 % (42-75); PLATELET COUNT 198 10^3/uL (130-400); RED BLOOD COUNT 2.88 10^6/uL (4.35-5.85); RED CELL DISTRIBUTION WIDTH 14.5 % (10.0-14.5); WHITE BLOOD COUNT 7.9 10^3/uL (4.3-11.0)
[2017-04-06 15:26] LABS: CLARITY,URINE CLEAR; COLOR,URINE YELLOW; GLUCOSE, URINE (UA) NEGATIVE (NEGATIVE); KETONES,URINE NEGATIVE (NEGATIVE); LEUKOCYTE ESTERASE ,URINE 3+ (NEGATIVE); NITRITE,URINE NEGATIVE (NEGATIVE); PH,URINE 5 (5-9); PROTEIN,URINE 1+ (NEGATIVE); UROBILINOGEN,URINE NORMAL (NORMAL)
[2017-04-06 15:33] LABS: BILIRUBIN,URINE 2+ (NEGATIVE)
[2017-04-06 15:36] LABS: ALBUMIN 4.1 GM/DL (3.2-4.5); BILIRUBIN,TOTAL 0.3 MG/DL (0.1-1.0); CREATININE SERUM 1.45 MG/DL (0.60-1.30); POTASSIUM 4.6 MMOL/L (3.6-5.0); TOTAL PROTEIN 7.5 GM/DL (6.4-8.2)
[2017-04-06 15:36] LABS: BACTERIA,URINE TRACE /HPF; RBC,URINE 0-2 /HPF; WBC,URINE 25-50 /HPF
[2017-04-06 15:56] LABS: FREE T4 (FREE THYROXINE) 0.89 NG/DL (0.70-1.48)
== END ==
LOC: RAD 14:40
PROVIDERS: ATTEND Family Medicine
DX: G93.89 Other specified disorders of brain (principal); R53.1 Weakness; R47.81 Slurred speech; W19.XXXA Unspecified fall, initial encounter; Z86.73 Personal history of transient ischemic attack (TIA), and cerebral infarction without residual deficits
CPT/HCPCS: 36415; 70450; 80053; 81000; 84439; 84443; 85025; 87088

== ENCOUNTER 2017-04-11 10:19 | Outpatient (CLI) | payer MEDICARE, MEDICAID ==
[~2017-04-11] VITALS: Ht 165.1 cm; Wt 63.7 kg
[2017-04-11] VITALS (8 sets, daily range): BP systolic 116–145; BP diastolic 47–73
[2017-04-11] MEDS ORDERED: diphenhydrAMINE 25 MG TAB (BENADRYL) PO ONE ×2 (10:45→16:45)
[2017-04-11] MEDS ORDERED: ACETAMINOPHEN 325 MG TABLET/CAPLET (TYLENOL) PO ONE (10:45)
[2017-04-11] MEDS ORDERED: FUROSEMIDE 40 MG/4 ML INJ (LASIX) IV ONE ×2 (10:45→16:45)
[2017-04-11] MEDS ORDERED: NS IV 500 ML 500 ML IV SCH (10:45)
[2017-04-11] MEDS ORDERED: CATHETER FLUSH 10 ML SYR IV PRN (10:45)
[2017-04-11] MEDS ORDERED: FUROSEMIDE 40 MG/4 ML INJ (LASIX) ONE ×2 (15:01→16:36)
[2017-04-11 15:02] LABS: HEMOGLOBIN 8.6 G/DL (11.5-16.0)
== END 2017-04-11 17:15 | disposition home or self-care (01) ==
LOC: SDC 10:19
PROVIDERS: ATTEND Family Medicine
DX: D64.9 Anemia, unspecified (principal)
CPT/HCPCS: 36415; 36430; 85014; 85018; 86850; 86900; 86901; 86920

== ENCOUNTER 2017-04-14 17:12 | Inpatient (IN) | payer MEDICARE, MEDICAID ==
[~2017-04-14] VITALS: Ht 160 cm; Wt 55.1 kg
[~2017-04-14 17:12] MED LIST changes: -FLUT16SP22; +FLUT16SP22 NSEACH
[2017-04-14 18:37] LABS: BASOPHILS # (AUTO) 0.1 10^3/uL (0.0-0.1); BASOPHILS % (AUTO) 1 % (0-10); EOSINOPHILS # (AUTO) 0.2 10^3/uL (0.0-0.3); EOSINOPHILS % (AUTO) 3 % (0-10); HEMATOCRIT 37 % (35-52); HEMOGLOBIN 12.1 G/DL (11.5-16.0); LYMPHOCYTES # (AUTO) 1.4 X 10^3 (1.0-4.0); LYMPHOCYTES % (AUTO) 19 % (12-44); MEAN CORPUSCULAR HEMOGLOBIN 28 PG (25-34); MEAN CORPUSCULAR HGB CONC 32 G/DL (32-36); MEAN CORPUSCULAR VOLUME 85 FL (80-99); MEAN PLATELET VOLUME 12.9 FL (7.4-10.4); MONOCYTES # (AUTO) 0.8 X 10^3 (0.0-1.0); MONOCYTES % (AUTO) 11 % (0-12); NEUTROPHILS # (AUTO) 4.8 X 10^3 (1.8-7.8); NEUTROPHILS % (AUTO) 66 % (42-75); PLATELET COUNT 110 10^3/uL (130-400); RED CELL DISTRIBUTION WIDTH 15.5 % (10.0-14.5); WHITE BLOOD COUNT 7.3 10^3/uL (4.3-11.0)
[2017-04-14 19:01] LABS: ALBUMIN 4.3 GM/DL (3.2-4.5); BILIRUBIN,TOTAL 0.4 MG/DL (0.1-1.0); CALCIUM 9.5 MG/DL (8.5-10.1); CREATININE SERUM 2.63 MG/DL (0.60-1.30); POTASSIUM 5.3 MMOL/L (3.6-5.0); TOTAL PROTEIN 7.8 GM/DL (6.4-8.2)
--- NOTE | 2017-04-14 19:11 | ED General ---
General Chief Complaint: Dizziness/Syncope Stated Complaint: DIZZINESS Nursing Triage Note: PT CO OF BEING DIZZY FOR A COUPLE DAYS, SINCE TRANSFUSION, STATES HAS ABD PAIN 6/10 Nursing Sepsis Screen: No Definite Risk Source of Information: Family Exam Limitations: No Limitations History of Present Illness Date Seen by Provider: Apr 14, 2017 Time Seen by Provider: 19:07 Initial Comments The patient is a 76-year-old white female brought here with her daughter. The patient apparently has been falling at home and has been very unsteady on her feet. She seems to have been confused. The daughter states that recently she was thought to have had a mini stroke but the scan was negative. The patient is confused to questioning and poorly able to follow commands. Timing/Duration: 6-7 Days Associated Systoms: Weakness, Other (poor balance and at times slurred speech) Allergies and Home Medications Allergies Coded Allergies: Penicillins (Verified Allergy, Intermediate, HIVES, CAN TAKE ROCEPHIN, 18/03) codeine (Verified Allergy, Unknown, 02/09/15) morphine (Verified Allergy, Unknown, PATIENT TAKES VICODIN AT HOME PER VIN, 02/09/15) propoxyphene (Verified Allergy, Unknown, 12/18/11) Home Medications Acetaminophen 500 Mg Tablet, 1,000 MG PO Q6H PRN for PAIN, (Reported) TAKES 2 (500 MG) TABLETS Alprazolam 0.25 Mg Tablet, 0.25 MG PO BID PRN for ANXIETY, (Reported) Aspirin 81 Mg Tabec, 81 MG PO DAILY, (Reported) Clopidogrel Bisulfate 75 Mg Tablet, 75 MG PO DAILY, (Reported) Duloxetine HCl 30 Mg Capsule.dr, 30 MG PO BID, (Reported) Fluticasone Propionate 16 Gm [place].susp, 2 SPRAYS NA HS, (Reported) Fluticasone/Vilanterol 1 Each Blst.w.dev, 1 PUFF IH DAILY PRN for SHORTNESS OF BREATH, (Reported) Hydrocodone Bit/Acetaminophen 1 Each Tablet, 1 TAB PO Q4H PRN for MILD TO MODERATE PAIN, (Reported) Hydrocodone/Acetaminophen 1 Each Tablet, 1 EACH PO Q4H PRN for PAIN-MODERATE TO SEVERE, #20 Prescribed by: PARISH RUELAS on 03/20/17 1148 Levothyroxine Sodium 88 Mcg Tablet, 88 MCG PO DAILY, (Reported) Losartan Potassium 100 Mg Tablet, 100 MG PO DAILY, (Reported) Mesalamine 1.2 Gm Tablet.dr, 2.4 GM PO DAILY, (Reported) TAKES 2 (1.2 GM) TABLETS Metoprolol Succinate 50 Mg Tab.er.24h, 50 MG PO DAILY, (Reported) Ondansetron HCl 4 Mg Tablet, 4 MG PO Q4H PRN for NAUSEA/VOMITING, (Reported) Pantoprazole Sodium 40 Mg Tablet.dr, 40 MG PO DAILY, (Reported) Simvastatin 40 Mg Tablet, 40 MG PO DAILY, (Reported) Sulfamethoxazole/Trimethoprim 1 Each Tablet, 1 EACH PO BID, #14 Prescribed by: PARISH RUELAS on 03/20/17 1713 Tiotropium [place] 1 Inh Aerp, 1 PUFF IH DAILY, (Reported) Tolterodine Tartrate 4 Mg Cap, 4 MG PO HS, #30 Prescribed by: DALILA CASIANO on 12/31/15 0935 Constitutional: see HPI EENTM: no symptoms reported Respiratory: cough Cardiovascular: no symptoms reported Gastrointestinal: no symptoms reported Genitourinary: no symptoms reported Musculoskeletal: muscle weakness Skin: other (excoriation of both shins) Psychiatric/Neurological: Other (confused. Not clear about where she is or the date or day) Hematologic/Lymphatic: Other (had a blood transfusion on 04/11. 2 units packed red blood cells) Immunological/Allergic: no symptoms reported Past Fnvlvka-Dmieuk-Gzfcbr Hx Patient Social History Alcohol Use: Denies Use Smoking Status: Former Smoker Type Used: Cigarettes Recent Foreign Travel: No Contact w/Someone Who Travel: No Recent Infectious Disease Expo: No Recent Hopitalizations: Yes (BLOOD TRANSFUSION) Immunizations Up To Date Date of Pneumonia Vaccine: Dec 19, 2011 Date of Influenza Vaccine: Dec 03, 2015 Seasonal Allergies Seasonal Allergies: No Surgeries History of Surgeries: Yes (COLON RESECTION) Surgeries: Appendectomy, Gallbladder, Hysterectomy Respiratory History of Respiratory Disorde: Yes Respiratory Disorders: Chronic Bronchitis, COPD Currently Using CPAP: No Cardiovascular History of Cardiac Disorders: Yes (CHF) Neurological History of Neurological Disord: Yes Neurological Disorders: Stroke Reproductive System Hx Reproductive Disorders: No Female Reproductive Disorders: Denies Gastrointestinal History of Gastrointestinal Di: No Gastrointestinal Disorders: Gastroesophageal Reflux, Diverticulosis Musculoskeletal History of Musculoskeletal Dis: Yes Musculoskeletal Disorders: Arthritis, Chronic Back Pain Endocrine History of Endocrine Disorders: Yes Endocrine Disorders: Hypothyroidsim HEENT Loss of Vision: Denies Hearing Impairment: Denies Cancer History of Cancer: No Psychosocial History of Psychiatric Problem: No Integumentary History of Skin or Integumenta: No Blood Transfusions History of Blood Disorders: Yes (ANEMIA) Adverse Reaction to a Blood Tr: No Family Medical History Significant Family History: No Pertinent Family Hx Family Medial History: Patient reports no known family medical history. Physical Exam Vital Signs Vital Sign - Last 12Hours 04/14/17 17:30 Temp 96.3 Pulse 57 Resp 18 B/P (MAP) 103/56 (72) Pulse Ox 93 Capillary Refill : Less Than 3 Seconds General Appearance: No Apparent Distress, WD/WN Eyes: Bilateral Eye Normal Inspection HEENT: Normal ENT Inspection Neck: Normal Inspection Respiratory: Chest Non Tender, Lungs Clear, Normal Breath Sounds, No Accessory Muscle Use, No Respiratory Distress Cardiovascular: Regular Rate, Rhythm, No Edema, No Gallop, No JVD, No Murmur, Normal Peripheral Pulses Gastrointestinal: Normal Bowel Sounds, No Organomegaly, No Pulsatile Mass, Non Tender, Soft Neurologic/Psychiatric: Alert, Oriented x3, No Motor/Sensory Deficits, Normal Mood/Affect Skin: Normal Color, Warm/Dry Lymphatic: No Adenopathy (multiple excoriations on the anterior surfaces of both shins consistent with picking) Progress/Results/Core Measures Suspected Sepsis Recent Fever Within 48 Hours: No Infection Criteria Present: None New/Unexplained Altered Menta: No Sepsis Screen: No Definite Risk Sepsis Diagnosis: SIRS Temperature:96.3 Pulse: 57 Respiratory Rate: 18 Laboratory Tests 04/14/17 18:30: White Blood Count 7.3 Blood Pressure 103 /56 Mean: 72 Laboratory Tests 04/14/17 18:30: Creatinine 2.63H, Platelet Count 110L, Total Bilirubin 0.4 Results/Orders Lab Results Laboratory Tests Test 04/14/17 18:30 04/14/17 20:25 Range/Units White Blood Count 7.3 4.3-11.0 10^3/uL Red Blood Count 4.40 4.35-5.85 10^6/uL Hemoglobin 12.1 # 11.5-16.0 G/DL Hematocrit 37 35-52 % Mean Corpuscular Volume 85 80-99 FL Mean Corpuscular Hemoglobin 28 25-34 PG Mean Corpuscular Hemoglobin Concent 32 32-36 G/DL Red Cell Distribution Width 15.5 H 10.0-14.5 % Platelet Count 110 L 130-400 10^3/uL Mean Platelet Volume 12.9 H 7.4-10.4 FL Neutrophils (%) (Auto) 66 42-75 % Lymphocytes (%) (Auto) 19 12-44 % Monocytes (%) (Auto) 11 0-12 % Eosinophils (%) (Auto) 3 0-10 % Basophils (%) (Auto) 1 0-10 % Neutrophils # (Auto) 4.8 1.8-7.8 X 10^3 Lymphocytes # (Auto) 1.4 1.0-4.0 X 10^3 Monocytes # (Auto) 0.8 0.0-1.0 X 10^3 Eosinophils # (Auto) 0.2 0.0-0.3 10^3/uL Basophils # (Auto) 0.1 0.0-0.1 10^3/uL Sodium Level 136 135-145 MMOL/L Potassium Level 5.3 H 3.6-5.0 MMOL/L Chloride Level 111 H 98-107 MMOL/L Carbon Dioxide Level 14 L 21-32 MMOL/L Anion Gap 11 5-14 MMOL/L Blood Urea Nitrogen 38 H 7-18 MG/DL Creatinine 2.63 H 0.60-1.30 MG/DL Estimat Glomerular Filtration Rate 18 BUN/Creatinine Ratio 14 Glucose Level 115 H 70-105 MG/DL Calcium Level 9.5 8.5-10.1 MG/DL Total Bilirubin 0.4 0.1-1.0 MG/DL Aspartate Amino Transf (AST/SGOT) 28 5-34 U/L Alanine Aminotransferase (ALT/SGPT) 11 0-55 U/L Alkaline Phosphatase 102 40-136 U/L Total Protein 7.8 6.4-8.2 GM/DL Albumin 4.3 3.2-4.5 GM/DL Urine Color SUZETTE H Urine Clarity VERY CLOUDY H Urine pH 5 5-9 Urine Specific [place] 1.020 1.016-1.022 Urine Protein 2+ H NEGATIVE Urine Glucose (UA) NEGATIVE NEGATIVE Urine Ketones NEGATIVE NEGATIVE Urine Nitrite NEGATIVE NEGATIVE Urine Bilirubin 2+ H NEGATIVE Urine Urobilinogen 1 NORMAL MG/DL Urine Leukocyte Esterase 3+ H NEGATIVE Urine RBC (Auto) 2+ H NEGATIVE Urine RBC 5-10 H /HPF Urine WBC TNTC H /HPF Urine Squamous Epithelial Cells 25-50 H /HPF Urine Crystals NONE /LPF Urine Bacteria MODERATE H /HPF Urine Casts NONE /LPF Urine Mucus NEGATIVE /LPF Urine Culture Indicated YES My Orders Orders - RORO LINDSAY MD Ekg Tracing (04/14/17 18:05) Cbc With Automated Diff (04/14/17 18:23) Comprehensive Metabolic Panel (04/14/17 18:23) Ua Culture If Indicated (04/14/17 18:23) Ct Abdomen/Pelvis Wo (04/14/17 20:21) Ns Iv 1000 Ml (Sodium Chloride 0.9%) (04/14/17 20:45) Urine Culture (04/14/17 20:25) Vital Signs/I&O Vital Sign - Last 12Hours 04/14/17 17:30 Temp 96.3 Pulse 57 Resp 18 B/P (MAP) 103/56 (72) Pulse Ox 93 Capillary Refill : Less Than 3 Seconds Blood Pressure Mean: 72 Departure Communication (Admissions) Progress Notes 2021 after having discussed her lack of balance falling and slurred speech the recent CT scan was reviewed. This suggested that she had at least 2 areas of previous infarct. The daughter states that they were unaware of this. Shortly thereafter she states that she is not happy that they brought her here because of abdominal pain and this has not been addressed. 2109 CT scan showed no pathologic processes in the abdomen. Evidence was noted to have cholecystectomy, appendectomy, and bowel resection with anastomosis of the rectosigmoid area. UA was finally obtained and shows WBCs too numerous to count. Impression Impression: Primary Impression: urinary tract infection Disposition: ADMITTED INPATIENT Condition: Stable/Unchanged Admissions Decision to Admit Reason: Admit from ER (General) Decision to Admit/Date: Apr 14, 2017 Time/Decision to Admit Time: 21:10 Departure-Patient Inst. Referrals: DALILA CASIANO DO (PCP/Family) Primary Care Physician RORO LINDSAY MD Apr 14, 2017 19:11
[2017-04-14 20:35] LABS: CLARITY,URINE VERY CLOUDY; COLOR,URINE AMBER; GLUCOSE, URINE (UA) NEGATIVE (NEGATIVE); KETONES,URINE NEGATIVE (NEGATIVE); LEUKOCYTE ESTERASE ,URINE 3+ (NEGATIVE); NITRITE,URINE NEGATIVE (NEGATIVE); PH,URINE 5 (5-9); PROTEIN,URINE 2+ (NEGATIVE); UROBILINOGEN,URINE 1 MG/DL (NORMAL)
--- NOTE | 2017-04-14 20:41 | Diagnostic Imaging Report ---
PROCEDURE: CT abdomen and pelvis without contrast. TECHNIQUE: Multiple contiguous axial images were obtained through the abdomen and pelvis without the use of intravenous contrast. INDICATION: Abdominal pain after transfusion Lung bases are clear. Liver appears normal. Gallbladder surgically absent. Pancreas is normal. Spleen is upper limits of normal in size. There is a small sliding hiatal hernia. Adrenals appear normal. The kidneys appear normal. There is some calcific atherosclerosis of the aorta but no aneurysm. There is no intraperitoneal free air or free fluid. Uterus is surgically absent. The appendix is reportedly surgically absent. Small bowel is not dilated. There is an anastomotic suture line at the rectosigmoid junction from prior surgery. Urinary bladder is unremarkable. IMPRESSION: Unremarkable CT abdomen and pelvis Dictated by: Dictated on workstation # [id number]
[2017-04-14 20:46] LABS: BILIRUBIN,URINE 2+ (NEGATIVE)
[2017-04-14 20:49] LABS: BACTERIA,URINE MODERATE /HPF; SQUAMOUS EPITHELIAL CELL,UR 25-50 /HPF; WBC,URINE TNTC /HPF
[2017-04-14] MEDS: NS IV 1000 ML 1,000 ML IV SCH ×2 (21:13→22:14)
[2017-04-14] MEDS ORDERED: ACETAMINOPHEN 500 MG TAB (TYLENOL) PO ONE (21:30)
[2017-04-14] MEDS ORDERED: fentaNYL INJECTION 100 MCG/2 ML AMP IVP PRN (21:45)
[2017-04-14] MEDS ORDERED: ONDANSETRON 4 MG (ZOFRAN) ORAL DISSOLVE TAB PO PRN (21:45)
[2017-04-14] MEDS ORDERED: ACETAMINOPHEN 500 MG TAB (TYLENOL) PO PRN (21:45)
[2017-04-14] MEDS ORDERED: ONDANSETRON 4 MG/2 ML (SDV) Z0FRAN IV PRN (21:45)
[2017-04-14] MEDS ORDERED: POLYETHYLENE GLYCOL 17 GM (MIRALAX) PACK PO PRN (21:45)
[2017-04-14 22:00] VITALS: BP 130/70
[2017-04-14] MEDS: ALPRAZolam 0.25 MG (XANAX) TAB PO PRN (22:20)
[2017-04-14] MEDS ORDERED: ACETAMINOPHEN 325 MG TABLET/CAPLET (TYLENOL) PO PRN (22:45)
[2017-04-14] MEDS ORDERED: NS IV 1000 ML 1,000 ML IV SCH (22:45)
[2017-04-14] MEDS: cefTRIAXone 1,000 MG/D5W 50 ML IVPB IV SCH ×2 (23:38)
[2017-04-15] VITALS: BP 148/65
[2017-04-15 04:00] VITALS: BP 109/56
[2017-04-15 05:29] LABS: BASOPHILS # (AUTO) 0.1 10^3/uL (0.0-0.1); BASOPHILS % (AUTO) 1 % (0-10); EOSINOPHILS # (AUTO) 0.3 10^3/uL (0.0-0.3); EOSINOPHILS % (AUTO) 6 % (0-10); HEMATOCRIT 31 % (35-52); HEMOGLOBIN 9.9 G/DL (11.5-16.0); LYMPHOCYTES # (AUTO) 1.7 X 10^3 (1.0-4.0); LYMPHOCYTES % (AUTO) 30 % (12-44); MEAN CORPUSCULAR HEMOGLOBIN 28 PG (25-34); MEAN CORPUSCULAR HGB CONC 32 G/DL (32-36); MEAN CORPUSCULAR VOLUME 86 FL (80-99); MEAN PLATELET VOLUME 12.1 FL (7.4-10.4); MONOCYTES # (AUTO) 0.9 X 10^3 (0.0-1.0); MONOCYTES % (AUTO) 16 % (0-12); NEUTROPHILS # (AUTO) 2.7 X 10^3 (1.8-7.8); NEUTROPHILS % (AUTO) 48 % (42-75); PLATELET COUNT 87 10^3/uL (130-400); RED CELL DISTRIBUTION WIDTH 15.3 % (10.0-14.5); WHITE BLOOD COUNT 5.6 10^3/uL (4.3-11.0)
[2017-04-15 05:55] LABS: CALCIUM 8.5 MG/DL (8.5-10.1); CREATININE SERUM 2.47 MG/DL (0.60-1.30); POTASSIUM 4.1 MMOL/L (3.6-5.0)
[2017-04-15 08:00] VITALS: BP 121/72
[2017-04-15] MEDS ORDERED: INFLUENZA TRIvalent 2017-2018 0.5 ML/45 MCG SYR IM ONE (08:30)
[2017-04-15] MEDS: NS IV 1000 ML 1,000 ML IV SCH ×2 (09:37→20:28)
--- NOTE | 2017-04-15 10:47 | History & Physical-Hospitalist ---
HPI History of Present Illness: HPI/Chief Complaint CC: Abdominal pain with ARF HPI: This is a 76-year-old white female with history of UTIs who presents to the emergency room with dizziness and abdominal pain. Patient was found to have UTI and acute renal failure with dehydration and confusion. She does live alone it appears that she does have significant dementia like presentation so unsure if she will need some sort of placement at time of discharge. Patient has not had a bowel movement for [address] scan and consulted Dr. Vo general surgery and we will start bowel regimen today get up and around and ambulate and restart her home medications after reconciliation is completed. Patient reports mild abdominal pain that that is much improved. Will continue IV fluid to support acute renal failure. Source: patient Exam Limitations: other (cognitive deficiency?) Date Seen 04/15/17 Time Seen by Provider: 11:00 Attending Physician Celestina Nicholas DO PCP Celestina Nicholas DO Referring Physician Date of Admission Apr 14, 2017 at 21:21 Home Medications & Allergies Home Medications Reviewed patient Home Medication Reconciliation Form Allergies Allergies Coded Allergies Penicillins (Verified Allergy, Intermediate, HIVES, CAN TAKE ROCEPHIN, 12/18/11 ) codeine (Verified Allergy, Unknown, 02/09/15) morphine (Verified Allergy, Unknown, PATIENT TAKES VICODIN AT HOME PER VIN, 02/09/15) propoxyphene (Verified Allergy, Unknown, 12/18/11) Past Auhhmcz-Ciejtn-Zdpdze Hx Patient Social History Marrital Status: Alcohol Use: Denies Use Recreational Drug Use: No Smoking Status: Former Smoker Former Smoker, Quit: Apr 14, 2016 Type Used: Cigarettes Physical Abuse Screen: No Sexual Abuse: No Recent Foreign Travel: No Contact w/other who traveled: No Recent Hopitalizations: Yes (BLOOD TRANSFUSION) Recent Infectious Disease Expo: No Immunizations Up To Date Date of Pneumonia Vaccine: Dec 19, 2015 Date of Influenza Vaccine: Dec 03, 2015 Seasonal Allergies Seasonal Allergies: No Surgeries Yes (COLON RESECTION) Appendectomy, Gallbladder, Hysterectomy Respiratory Yes COPD Currently Using CPAP: No Cardiovascular Yes (CHF) Neurological Yes Stroke Reproductive System Hx Reproductive Disorders: No Female Reproductive Disorders: Denies Genitourinary Yes Bladder Infection, Renal Failure Gastrointestinal Yes Gastroesophageal Reflux, Diverticulosis Musculoskeletal Yes Arthritis, Chronic Back Pain Endocrine History of Endocrine Disorders: Yes Endocrine Disorders: Hypothyroidsim HEENT Loss of Vision: Denies Hearing Impairment: Denies Cancer No Psychosocial History of Psychiatric Problem: No Integumentary History of Skin or Integumenta: No Blood Transfusions History of Blood Disorders: Yes (ANEMIA) Adverse Reaction to a Blood Tr: No Family Medical History Significant Family History: No Pertinent Family Hx Family Hx: Patient reports no known family medical history. Review of Systems Constitutional: see HPI, dizziness, weakness EENTM: no symptoms reported Respiratory: no symptoms reported Cardiovascular: no symptoms reported Gastrointestinal: abdominal pain (LLQ), loss of appetite Genitourinary: decreased output, dysuria, frequency Musculoskeletal: no symptoms reported Skin: no symptoms reported Psychiatric/Neurological: No Symptoms Reported All Other Systems Reviewed Negative Unless Noted: Yes Physical Exam Physical Exam Vital Signs Vital Sign - Last 12Hours 04/14/17 04/14/17 17:30 21:50 Temp 96.3 Pulse 57 Resp 18 B/P (MAP) 103/56 (72) Pulse Ox 93 O2 Delivery Room Air Capillary Refill : Less Than 3 Seconds General Appearance: No Apparent Distress, WD/WN, Chronically ill Eyes: Bilateral Eye Normal Inspection, Bilateral Eye PERRL HEENT: PERRL/EOMI, Normal ENT Inspection, Pharynx Normal Neck: Full Range of Motion, Normal Inspection, Non Tender, Supple, Carotid Bruit Respiratory: Chest Non Tender, Lungs Clear, Normal Breath Sounds, No Accessory Muscle Use, No Respiratory Distress Cardiovascular: Regular Rate, Rhythm, No Edema, No Gallop, No JVD, No Murmur, Normal Peripheral Pulses Gastrointestinal: Normal Bowel Sounds, No Organomegaly, No Pulsatile Mass, Non Tender, Soft Back: Normal Inspection, No CVA Tenderness, No Vertebral Tenderness Extremity: Normal Capillary Refill, Normal Inspection, Normal Range of Motion, Non Tender, No Calf Tenderness, No Pedal Edema Neurologic/Psychiatric: Alert, Oriented x3 (but poor recent recall), No Motor/ Sensory Deficits, Normal Mood/Affect Skin: Normal Color, Warm/Dry Lymphatic: No Adenopathy Results Results/Procedures Lab Laboratory Tests 04/14/17 18:30 04/15/17 05:02 Assessment/Plan Admission Diagnosis Assessment: Acute UTI with history of UTIs Acute renal failure Dehydration Abdominal pain likely due to constipation Dementia? Vascular disease History of congestive heart failure? Assessment and Plan Plan: Continue IV fluid Reconcile all home meds and restart Check labs in a.m. Ambulate Bowel regimen Appreciate Dr. Vo consultation Clinical Quality Measures DVT/VTE Risk/Contraindication: Risk Factor Score Per Nursin RFS Level Per Nursing on Admit: 3=High RAFAELA MOHR DO Apr 15, 2017 10:47
[2017-04-15 12:00] VITALS: BP 144/74
[2017-04-15] MEDS: BISACODYL 10 MG SUPP (DULCOLAX) PR SCH ×2 (12:05→20:31)
[2017-04-15] MEDS: LACTULOSE SYRUP 10GM/15ML (ENULOSE) 30ML UDC PO SCH ×2 (13:26→20:31)
[2017-04-15] MEDS: SENNA W/DOCUSATE (SENOKOT S) TABLET PO SCH ×2 (13:27→20:31)
[2017-04-15 15:15] VITALS: BP 129/68
[2017-04-15] MEDS: RT-ALBUTEROL/IPRATROPIUM 3 ML (DUONEB) VIAL INH SCH ×2 (15:15→20:00)
--- NOTE | 2017-04-15 15:33 | Consultation ---
History of Present Illness History of Present Illness Patient Consulted On(billy/time) 04/15/17 08:28 Date Seen by Provider: Apr 15, 2017 Time Seen by Provider: 08:28 History of Present Illness Consult requested by Dr. Hsu for abdominal pain. Patient is a 76 year old female with recent history of falls and history of urinary tract infections. Patient poor historian and no family present with her at this time. Patient with abdominal pain yesterday around lower abdomen. She states it was severe about a 10/10 and now it is feeling much better. Patient admitted with UTI and acute renal failure. She had a ct scan performed which has no acute findings. She denies any nausea vomiting fever sweats chills shortness of breath or chest pain. Allergies and Home Medications Allergies Coded Allergies: Penicillins (Verified Allergy, Intermediate, HIVES, CAN TAKE ROCEPHIN, 18/03) codeine (Verified Allergy, Unknown, 02/09/15) morphine (Verified Allergy, Unknown, PATIENT TAKES VICODIN AT HOME PER VIN, 02/09/15) propoxyphene (Verified Allergy, Unknown, 12/18/11) Home Medications Acetaminophen 500 Mg Tablet, 1,000 MG PO Q6H PRN for PAIN, (Reported) TAKES 2 (500 MG) TABLETS Alprazolam 0.25 Mg Tablet, 0.25 MG PO BID PRN for ANXIETY, (Reported) Aspirin 81 Mg Tabec, 81 MG PO DAILY, (Reported) Clopidogrel Bisulfate 75 Mg Tablet, 75 MG PO DAILY, (Reported) Duloxetine HCl 30 Mg Capsule.dr, 30 MG PO BID, (Reported) Fluticasone Propionate 16 Gm [place].susp, 2 SPRAYS NA HS, (Reported) Fluticasone/Vilanterol 1 Each Blst.w.dev, 1 PUFF IH DAILY PRN for SHORTNESS OF BREATH, (Reported) Hydrocodone Bit/Acetaminophen 1 Each Tablet, 1 TAB PO Q4H PRN for MILD TO MODERATE PAIN, (Reported) Hydrocodone/Acetaminophen 1 Each Tablet, 1 EACH PO Q4H PRN for PAIN-MODERATE TO SEVERE, #20 Prescribed by: PARISH RUELAS on 03/20/17 7908 Levothyroxine Sodium 88 Mcg Tablet, 88 MCG PO DAILY, (Reported) Losartan Potassium 100 Mg Tablet, 100 MG PO DAILY, (Reported) Mesalamine 1.2 Gm Tablet.dr, 2.4 GM PO DAILY, (Reported) TAKES 2 (1.2 GM) TABLETS Metoprolol Succinate 50 Mg Tab.er.24h, 50 MG PO DAILY, (Reported) Ondansetron HCl 4 Mg Tablet, 4 MG PO Q4H PRN for NAUSEA/VOMITING, (Reported) Pantoprazole Sodium 40 Mg Tablet.dr, 40 MG PO DAILY, (Reported) Simvastatin 40 Mg Tablet, 40 MG PO DAILY, (Reported) Sulfamethoxazole/Trimethoprim 1 Each Tablet, 1 EACH PO BID, #14 Prescribed by: PARISH RUELAS on 03/20/17 1713 Tiotropium [place] 1 Inh Aerp, 1 PUFF IH DAILY, (Reported) Tolterodine Tartrate 4 Mg Cap, 4 MG PO HS, #30 Prescribed by: DALILA CASIANO on 12/31/15 0935 Past Rqtalpi-Wokyfm-Gmkukt Hx Patient Social History Alcohol Use: Denies Use Recreational Drug Use: No Smoking Status: Former Smoker Former Smoker, Quit: Apr 14, 2016 Type Used: Cigarettes Recent Foreign Travel: No Contact w/Someone Who Travel: No Recent Infectious Disease Expo: No Recent Hopitalizations: Yes (BLOOD TRANSFUSION) Physical Abuse Screen: No Sexual Abuse: No Immunizations Up To Date Date of Pneumonia Vaccine: Dec 19, 2015 Date of Influenza Vaccine: Dec 03, 2015 Seasonal Allergies Seasonal Allergies: No Surgeries History of Surgeries: Yes (COLON RESECTION) Surgeries: Appendectomy, Gallbladder, Hysterectomy Respiratory History of Respiratory Disorde: Yes Respiratory Disorders: Chronic Bronchitis, COPD Cardiovascular History of Cardiac Disorders: Yes (CHF) Neurological History of Neurological Disord: Yes Neurological Disorders: Stroke Reproductive System Hx Reproductive Disorders: No Female Reproductive Disorders: Denies Genitourinary History of Genitourinary Disor: Yes Genitourinary Disorders: Bladder Infection, Renal Failure Gastrointestinal History of Gastrointestinal Di: Yes Gastrointestinal Disorders: Gastroesophageal Reflux, Diverticulosis Musculoskeletal History of Musculoskeletal Dis: Yes Musculoskeletal Disorders: Arthritis, Chronic Back Pain Endocrine History of Endocrine Disorders: Yes Endocrine Disorders: Hypothyroidsim HEENT Loss of Vision: Denies Hearing Impairment: Denies Cancer History of Cancer: No Psychosocial History of Psychiatric Problem: No Integumentary History of Skin or Integumenta: No Blood Transfusions History of Blood Disorders: Yes (ANEMIA) Adverse Reaction to a Blood Tr: No Family Medical History Significant Family History: No Pertinent Family Hx Family Medial History: Patient reports no known family medical history. Review of Systems-General Constitutional: no symptoms reported EENTM: no symptoms reported Respiratory: no symptoms reported Cardiovascular: no symptoms reported Gastrointestinal: see HPI Genitourinary: no symptoms reported Musculoskeletal: no symptoms reported Skin: no symptoms reported Psychiatric/Neurological: No Symptoms Reported Physical Exam-General Problems Physical Exam Vital Signs Vital Sign - Last 12Hours 04/14/17 04/14/17 04/15/17 17:30 21:50 11:54 Temp 96.3 Pulse 57 Resp 18 B/P (MAP) 103/56 (72) Pulse Ox 93 O2 Delivery Room Air FiO2 21 Capillary Refill : Less Than 3 Seconds General Appearance: no apparent distress HEENT: normal ENT inspection Neck: supple Respiratory: no respiratory distress, no accessory muscle use Cardiovascular: regular rate, rhythm Gastrointestinal: non tender (no palpable masses no guarding or rebounding.), soft Rectal: deferred Back: no CVA tenderness Extremities: non-tender, normal inspection Neurologic/Psychiatric: alert (oriented x 1), No oriented x 3 Skin: warm/dry Lymphatic: no adenopathy Data Review Labs Laboratory Tests 04/14/17 18:30: White Blood Count 7.3, Red Blood Count 4.40, Hemoglobin 12.1#, Hematocrit 37, Mean Corpuscular Volume 85, Mean Corpuscular Hemoglobin 28, Mean Corpuscular Hemoglobin Concent 32, Red Cell Distribution Width 15.5H, Platelet Count 110L, Mean Platelet Volume 12.9H, Neutrophils (%) (Auto) 66, Lymphocytes (%) (Auto) 19 , Monocytes (%) (Auto) 11, Eosinophils (%) (Auto) 3, Basophils (%) (Auto) 1, Neutrophils # (Auto) 4.8, Lymphocytes # (Auto) 1.4, Monocytes # (Auto) 0.8, Eosinophils # (Auto) 0.2, Basophils # (Auto) 0.1, Sodium Level 136, Potassium Level 5.3H, Chloride Level 111H, Carbon Dioxide Level 14L, Anion Gap 11, Blood Urea Nitrogen 38H, Creatinine 2.63H, Estimat Glomerular Filtration Rate 18, BUN/ Creatinine Ratio 14, Glucose Level 115H, Calcium Level 9.5, Total Bilirubin 0.4 , Aspartate Amino Transf (AST/SGOT) 28, Alanine Aminotransferase (ALT/SGPT) 11, Alkaline Phosphatase 102, Total Protein 7.8, Albumin 4.3 04/14/17 20:25: Urine Color AMBERH, Urine Clarity VERY CLOUDYH, Urine pH 5, Urine Specific [place] 1.020, Urine Protein 2+H, Urine Glucose (UA) NEGATIVE, Urine Ketones NEGATIVE, Urine Nitrite NEGATIVE, Urine Bilirubin 2+H, Urine Urobilinogen 1, Urine Leukocyte Esterase 3+H, Urine RBC (Auto) 2+H, Urine RBC 5-10H, Urine WBC TNTCH, Urine Squamous Epithelial Cells 25-50H, Urine Crystals NONE, Urine Bacteria MODERATEH, Urine Casts NONE, Urine Mucus NEGATIVE, Urine Culture Indicated YES 04/15/17 05:02: White Blood Count 5.6, Red Blood Count 3.60L, Hemoglobin 9.9L, Hematocrit 31L, Mean Corpuscular Volume 86, Mean Corpuscular Hemoglobin 28, Mean Corpuscular Hemoglobin Concent 32, Red Cell Distribution Width 15.3H, Platelet Count 87L, Mean Platelet Volume 12.1H, Neutrophils (%) (Auto) 48, Lymphocytes (%) (Auto) 30 , Monocytes (%) (Auto) 16H, Eosinophils (%) (Auto) 6, Basophils (%) (Auto) 1, Neutrophils # (Auto) 2.7, Lymphocytes # (Auto) 1.7, Monocytes # (Auto) 0.9, Eosinophils # (Auto) 0.3, Basophils # (Auto) 0.1, Sodium Level 138, Potassium Level 4.1, Chloride Level 113H, Carbon Dioxide Level 16L, Anion Gap 9, Blood Urea Nitrogen 36H, Creatinine 2.47H, Estimat Glomerular Filtration Rate 19, BUN/ Creatinine Ratio 15, Glucose Level 101, Calcium Level 8.5 Assessment/Plan Assessment/Plan Assessment/Plan b/l lower abdominal pain UTI acute renal failure dehydration confusion admitted to medicine Iv fluids abx abdominal pain unknown etiology ? constipation, no acute findings by CT scan, by exam nontender seems to have some confusion possibly from UTI or may be at baseline bowel regimen no surgical intervention Clinical Quality Measures DVT/VTE Risk/Contraindication: Risk Factor Score Per Nursin RFS Level Per Nursing on Admit: 3=High KELLE VARGAS DO Apr 15, 2017 15:33
[2017-04-15] MEDS ORDERED: NON-FORMULARY MEDICATION 1 EA EA (Ondansetron HCl 4 MG) PO PRN (17:30)
[2017-04-15] MEDS ORDERED: ACETAMINOPHEN 500 MG TAB (TYLENOL) PO PRN (17:30)
[2017-04-15] MEDS ORDERED: ALPRAZolam 0.25 MG (XANAX) TAB PO PRN (17:30)
[2017-04-15 19:55] VITALS: BP 159/70
[2017-04-15] MEDS: ALPRAZolam 0.25 MG (XANAX) TAB PO PRN (20:28)
[2017-04-15] MEDS: TOLTERODINE LA 4 MG (DETROL) CAP PO SCH (20:52)
[2017-04-15] MEDS: DULoxetine 30 MG (CYMBALTA) CAP PO SCH (20:53)
[2017-04-15] MEDS ORDERED: ONDANSETRON 4 MG/2 ML (SDV) Z0FRAN IV PRN (21:45)
[2017-04-15] MEDS: cefTRIAXone 1,000 MG/D5W 50 ML IVPB IV SCH ×2 (21:47)
[2017-04-16] VITALS (7 sets, daily range): BP systolic 124–151; BP diastolic 60–83
[2017-04-16] MEDS: RT-ALBUTEROL/IPRATROPIUM 3 ML (DUONEB) VIAL INH SCH ×3 (02:30→20:11)
[2017-04-16 06:13] LABS: BASOPHILS % (AUTO) 1 % (0-10); EOSINOPHILS # (AUTO) 0.3 10^3/uL (0.0-0.3); EOSINOPHILS % (AUTO) 5 % (0-10); HEMATOCRIT 30 % (35-52); HEMOGLOBIN 9.5 G/DL (11.5-16.0); LYMPHOCYTES # (AUTO) 1.1 X 10^3 (1.0-4.0); LYMPHOCYTES % (AUTO) 20 % (12-44); MEAN CORPUSCULAR HEMOGLOBIN 28 PG (25-34); MEAN CORPUSCULAR HGB CONC 32 G/DL (32-36); MEAN CORPUSCULAR VOLUME 87 FL (80-99); MONOCYTES # (AUTO) 0.8 X 10^3 (0.0-1.0); MONOCYTES % (AUTO) 13 % (0-12); NEUTROPHILS # (AUTO) 3.5 X 10^3 (1.8-7.8); NEUTROPHILS % (AUTO) 62 % (42-75); PLATELET COUNT 74 10^3/uL (130-400); RED BLOOD COUNT 3.44 10^6/uL (4.35-5.85); RED CELL DISTRIBUTION WIDTH 15.6 % (10.0-14.5); WHITE BLOOD COUNT 5.7 10^3/uL (4.3-11.0)
[2017-04-16 06:33] LABS: ALBUMIN 3.4 GM/DL (3.2-4.5); BILIRUBIN,TOTAL 0.2 MG/DL (0.1-1.0); CALCIUM 8.8 MG/DL (8.5-10.1); CREATININE SERUM 1.32 MG/DL (0.60-1.30); POTASSIUM 4.6 MMOL/L (3.6-5.0); TOTAL PROTEIN 6.1 GM/DL (6.4-8.2)
[2017-04-16] MEDS: BISACODYL 10 MG SUPP (DULCOLAX) PR SCH ×2 (08:09→20:12)
[2017-04-16] MEDS: PANTOPRAZOLE 40 MG (PROTONIX) TAB PO SCH (09:46)
[2017-04-16] MEDS: LEVOTHYROXINE 88 MCG (LEVOTHORID) TAB PO SCH (09:46)
[2017-04-16] MEDS: meTOproloL SUCCINATE 50 MG (TOPROL XL) TAB PO SCH (09:46)
[2017-04-16] MEDS: DULoxetine 30 MG (CYMBALTA) CAP PO SCH ×2 (09:46→20:08)
[2017-04-16] MEDS: SIMvastatin 40 MG (ZOCOR) TAB PO SCH (09:46)
[2017-04-16] MEDS: LACTULOSE SYRUP 10GM/15ML (ENULOSE) 30ML UDC PO SCH ×2 (09:46→20:12)
[2017-04-16] MEDS: SENNA W/DOCUSATE (SENOKOT S) TABLET PO SCH ×2 (09:47→20:12)
[2017-04-16] MEDS: CLOPIDOGREL 75 MG (PLAVIX) TABLET PO SCH (09:47)
[2017-04-16] MEDS: ASPIRIN E.C. 81 MG (ECOTRIN) TAB PO SCH (09:47)
[2017-04-16] MEDS: MESALAMINE 2.4 GM PO SCH (10:42)
--- NOTE | 2017-04-16 11:29 | Progress Note-Hospitalist ---
Progress Note HPI/CC on Admission CC: Abdominal pain with ARF HPI: This is a 76-year-old white female with history of UTIs who presents to the emergency room with dizziness and abdominal pain. Patient was found to have UTI and acute renal failure with dehydration and confusion. She does live alone it appears that she does have significant dementia like presentation so unsure if she will need some sort of placement at time of discharge. Patient has not had a bowel movement for [address] scan and consulted Dr. Vo general surgery and we will start bowel regimen today get up and around and ambulate and restart her home medications after reconciliation is completed. Patient reports mild abdominal pain that that is much improved. Will continue IV fluid to support acute renal failure. Progress Notes/Assess & Plan Date Seen 04/16/17 Time Seen by Provider: 10:30 Admission Dx/Process Assessment: Acute UTI with history of UTIs Acute renal failure Dehydration Abdominal pain likely due to constipation Dementia? Vascular disease History of congestive heart failure? Diagonsis/Assessment & Plan Patient doing much better Daughter from [place] is at the bedside Updated patient on improved lab results and success with bowel regimen Patient has a walker at home Is able to ambulate well and will help lock fluid to facilitate ambulation Likely ready to go tomorrow Patient appears to need assisted living but it appears that that is not in the family plans No fever, vital signs stable, pleasant, improved, sitting in chair Regular rate and rhythm, clear to auscultation bilaterally No edema Laboratory Tests 04/16/17 04:48 Assessment: Acute UTI with history of UTIs UCX pending and Rocephin to continue empirically Acute renal failure improved Dehydration resolved will DC IVF Abdominal pain likely due to constipation now much improved since constipation resolved Dementia? Vascular disease History of congestive heart failure? Plan: HL IV fluid Reconciled all home meds and restarted Check labs in a.m. Ambulate Bowel regimen to continue Appreciate Dr. Vo consultation Dispo per PCP RAFAELA MOHR DO Apr 16, 2017 11:29
[2017-04-16] MEDS ORDERED: MIRA25TA PO (13:01)
[2017-04-16] MEDS ORDERED: LATA2.5D5 OU (13:01)
[2017-04-16] MEDS ORDERED: MESA1.2T3 PO (13:01)
[2017-04-16] MEDS ORDERED: HYDR-3812 PO (13:02)
[2017-04-16] MEDS ORDERED: ASPI-983 PO (13:16)
[2017-04-16] MEDS ORDERED: LD5O35 TP (13:16)
--- NOTE | 2017-04-16 14:50 | Progress Note ---
Subjective Date Seen by Provider: Apr 16, 2017 Time Seen by Provider: 14:44 Subjective/Events-last exam Patient doing well. She had bowel movements and abdominal pain resolved. She still has some confusion. Family at bedside and stating difficult to get her ambulate. She has no new complaints. Denies n/v fever sweats chills shortness of breath or chest pain. Objective Exam Vital Signs Date Time Temp Pulse Resp B/P (MAP) Pulse Ox O2 Delivery O2 Flow Rate FiO2 04/16/17 12:00 97.6 71 18 151/69 (96) 93 Room Air 04/16/17 09:37 Nasal Cannula 2.00 04/16/17 08:00 97.4 77 18 145/65 (91) 100 Room Air 04/16/17 04:00 98.1 77 20 136/83 (100) 99 Room Air 04/16/17 02:31 94 Nasal Cannula 3.00 04/16/17 00:00 98.8 59 20 124/74 (91) 99 Room Air 04/15/17 20:00 9 Room Air 04/15/17 19:55 98.0 63 21 159/70 (99) 98 Room Air 04/15/17 15:15 95 Room Air 04/15/17 15:15 98.1 57 18 129/68 (88) 93 Room Air I & O 04/16/17 07:00 Intake Total 2560 ml Output Total 350 ml Balance 2210 ml Capillary Refill : Less Than 3 Seconds General Appearance: No Apparent Distress, WD/WN, Chronically ill HEENT: PERRL/EOMI, Normal ENT Inspection, Pharynx Normal Neck: Full Range of Motion, Normal Inspection, Non Tender, Supple, Carotid Bruit Respiratory: Chest Non Tender, Lungs Clear, Normal Breath Sounds, No Accessory Muscle Use, No Respiratory Distress Cardiovascular: Regular Rate, Rhythm, No Edema, No Gallop, No JVD, No Murmur, Normal Peripheral Pulses Gastrointestinal: non tender (no palpable masses no guarding or rebounding.), soft Extremity: Normal Capillary Refill, Normal Inspection, Normal Range of Motion, Non Tender, No Calf Tenderness, No Pedal Edema Neurologic/Psychiatric: Alert, No Oriented x3 (confused on person/place/time), No Motor/Sensory Deficits, Normal Mood/Affect Skin: Normal Color, Warm/Dry Lymphatic: No Adenopathy Results Lab Laboratory Tests 04/16/17 04:48: White Blood Count 5.7, Red Blood Count 3.44L, Hemoglobin 9.5L, Hematocrit 30L, Mean Corpuscular Volume 87, Mean Corpuscular Hemoglobin 28, Mean Corpuscular Hemoglobin Concent 32, Red Cell Distribution Width 15.6H, Platelet Count 74L, Mean Platelet Volume 13.0H, Neutrophils (%) (Auto) 62, Lymphocytes (%) (Auto) 20 , Monocytes (%) (Auto) 13H, Eosinophils (%) (Auto) 5, Basophils (%) (Auto) 1, Neutrophils # (Auto) 3.5, Lymphocytes # (Auto) 1.1, Monocytes # (Auto) 0.8, Eosinophils # (Auto) 0.3, Basophils # (Auto) 0.0, Sodium Level 139, Potassium Level 4.6, Chloride Level 117H, Carbon Dioxide Level 15L, Anion Gap 7, Blood Urea Nitrogen 21H, Creatinine 1.32H, Estimat Glomerular Filtration Rate 39, BUN/ Creatinine Ratio 16, Glucose Level 115H, Calcium Level 8.8, Total Bilirubin 0.2 , Aspartate Amino Transf (AST/SGOT) 14, Alanine Aminotransferase (ALT/SGPT) 8, Alkaline Phosphatase 77, Total Protein 6.1L, Albumin 3.4 Microbiology 04/14/17 Urine Culture - Preliminary, Resulted Strep Or Related Genus Assessment/Plan Assessment/Plan Assessment/Plan b/l lower abdominal pain likely secondary to constipation which now resolved UTI acute renal failure dehydration confusion difficulty with ambulation treating UTI seems to have some confusion with talking to family this has been deteriorating with history of falls I discussed with family consideration for at least placement for rehab to increase strength bowel regimen no surgical intervention PT ordered Will sign off call if needed Clinical Quality Measures DVT/VTE Risk/Contraindication: Risk Factor Score Per Nursin RFS Level Per Nursing on Admit: 3=High KELLE VARGAS DO Apr 16, 2017 14:50
[2017-04-16] MEDS: TOLTERODINE LA 4 MG (DETROL) CAP PO SCH (20:08)
[2017-04-16] MEDS: cefTRIAXone 1,000 MG/D5W 50 ML IVPB IV SCH ×2 (21:50)
[2017-04-17 06:09] LABS: BASOPHILS # (AUTO) 0.1 10^3/uL (0.0-0.1); BASOPHILS % (AUTO) 1 % (0-10); EOSINOPHILS # (AUTO) 0.4 10^3/uL (0.0-0.3); EOSINOPHILS % (AUTO) 7 % (0-10); HEMATOCRIT 30 % (35-52); HEMOGLOBIN 9.7 G/DL (11.5-16.0); LYMPHOCYTES # (AUTO) 1.3 X 10^3 (1.0-4.0); LYMPHOCYTES % (AUTO) 24 % (12-44); MEAN CORPUSCULAR HEMOGLOBIN 28 PG (25-34); MEAN CORPUSCULAR HGB CONC 32 G/DL (32-36); MEAN CORPUSCULAR VOLUME 86 FL (80-99); MEAN PLATELET VOLUME 12.5 FL (7.4-10.4); MONOCYTES # (AUTO) 0.6 X 10^3 (0.0-1.0); MONOCYTES % (AUTO) 10 % (0-12); NEUTROPHILS # (AUTO) 3.1 X 10^3 (1.8-7.8); NEUTROPHILS % (AUTO) 57 % (42-75); PLATELET COUNT 73 10^3/uL (130-400); RED BLOOD COUNT 3.52 10^6/uL (4.35-5.85); RED CELL DISTRIBUTION WIDTH 15.6 % (10.0-14.5); WHITE BLOOD COUNT 5.4 10^3/uL (4.3-11.0)
[2017-04-17 06:31] LABS: ALBUMIN 3.5 GM/DL (3.2-4.5); BILIRUBIN,TOTAL 0.2 MG/DL (0.1-1.0); CALCIUM 9.1 MG/DL (8.5-10.1); CREATININE SERUM 1.22 MG/DL (0.60-1.30); POTASSIUM 5.2 MMOL/L (3.6-5.0); TOTAL PROTEIN 6.4 GM/DL (6.4-8.2)
[2017-04-17] MEDS: RT-ALBUTEROL/IPRATROPIUM 3 ML (DUONEB) VIAL INH SCH ×2 (07:09→11:43)
[2017-04-17 08:00] VITALS: BP 145/54
[2017-04-17] MEDS: SENNA W/DOCUSATE (SENOKOT S) TABLET PO SCH (08:40)
[2017-04-17] MEDS: LEVOTHYROXINE 88 MCG (LEVOTHORID) TAB PO SCH (08:40)
[2017-04-17] MEDS: PANTOPRAZOLE 40 MG (PROTONIX) TAB PO SCH (08:40)
[2017-04-17] MEDS: SIMvastatin 40 MG (ZOCOR) TAB PO SCH (08:40)
[2017-04-17] MEDS: DULoxetine 30 MG (CYMBALTA) CAP PO SCH (08:40)
[2017-04-17] MEDS: meTOproloL SUCCINATE 50 MG (TOPROL XL) TAB PO SCH (08:40)
[2017-04-17] MEDS: CLOPIDOGREL 75 MG (PLAVIX) TABLET PO SCH (08:41)
[2017-04-17] MEDS: BISACODYL 10 MG SUPP (DULCOLAX) PR SCH (08:41)
[2017-04-17] MEDS: MESALAMINE 2.4 GM PO SCH (08:41)
[2017-04-17] MEDS: LACTULOSE SYRUP 10GM/15ML (ENULOSE) 30ML UDC PO SCH (08:41)
[2017-04-17] MEDS: ASPIRIN E.C. 81 MG (ECOTRIN) TAB PO SCH (08:41)
--- NOTE | 2017-04-17 12:01 | Physical Therapy Evaluation ---
PT Evaluation-General Medical Diagnosis Admission Date Apr 14, 2017 at 21:21 Medical Diagnosis: UTI/ARF Onset Date: Apr 14, 2017 Therapy Diagnosis Therapy Diagnosis: general debility/weakness Height/Weight Height (Feet): 5 Height (Inches): 3.00 Weight (Pounds): 121 Weight (Ounces): 7.8 Precautions Precautions/Isolations: Fall Prevention, Standard Precautions Weight Bear Status Right Lower Extremity: Right Full Weight Bearing Left Lower Extremity: Left Full Weight Bearing Referral Physician: Cecilia Reason for Referral: Evaluation/Treatment Medical History Pertinent Medical History: Arthritis, CVA, Dementia, GERD, Hypothroidism Current History c/o dizziness, poor balance, dehydration Reviewed History: Yes Social History Home: Apartment Current Living Status: Alone Entry Into Home: Stairs With Railing PT Steps Into Home: 2 Prior/Core FIM Prior Level of Function Functional [place] Measure 0=Not Assessed/NA 4=Minimal Assistance 1=Total Assistance 5=Supervision or Setup 2=Maximal Assistance 6=Modified [place] 3=Moderate Assistance 7=Complete [place] Bed Mobility: 7 Transfers (B,C,W/C) (FIM): 7 Gait: 7 per family, patient did not use FWW PT Evaluation-Current Subjective Patient and family agree to PT. Patient denies pain. Pain Numeric Pain Scale: 0-No Pain Location: No Pain Reported Objective Patient Orientation: Confused Problem Solving: Fair ROM/Strength ROM Lower Extremities bilateral LE WNL Strength Lower Extremities right knee flexion/extension 4-/5; hip flexion 4-/5; DF/PF 4-/5; abd/add 4-/5 left knee flexion/extension 4-/5; hip flexion 4-/5; DF/PF 4-/5; abd/add 4-/5 Integumentary/Posture Integumentary refer to nursing notes Bowel Incontinence: No Bladder Incontinence: No Posture WFL Neuromuscular (Tone, Coordination, Reflexes) diminished coordination; WBOS with ambulation with FWW, shuffle gait sequence; noted decreased proprioception Sensory Vision: Functional Hearing: Impaired Sensation Right Lower Extremit: Intact Sensation Left Lower Extremity: Intact Transfers Functional [place] Measure 0=Not Assessed/NA 4=Minimal Assistance 1=Total Assistance 5=Supervision or Setup 2=Maximal Assistance 6=Modified [place] 3=Moderate Assistance 7=Complete [place] Transfers (B, C, W/C) (FIM): 4 Scootin Rollin Supine to/from Sit: 5 Sit to/from Stand: 4 CGA for safety with use of gait belt Gait Mode of Locomotion: Walk Anticipated Mode of Locomotion: Walk Gait (FIM): 4 Distance (FIM): 3=150 ft Distance: 200'x2 Gait Level of Assist: 4 Gait Persons Needed: 1 Gait Assistive Device: FWW Comments/Gait Description extended UE's, WBOS, shuffle gait sequence, CGA for safety Stairs Stairs (FIM): 1 #of Steps: 2 Level of Assist: 3 Balance Sitting Dynamic: Normal Standing Static: Fair Standing Dynamic: Fair Assessment/Needs 76 y.o. female, will benefit from skilled PT to address functional strength and mobility. Patient does present with safety concerns with ambulation and step use. From a PT standpoint, patient would benefit from shelter facility for continued care to ensure safe return to home. Family desires return to home with home health. PT voiced concern to family and SW. Rehab Potential: Fair Post Rehab Potential-Barriers: safety at home PT Fdc Goals Assistant Service Manager Goals PT Fdc Goals Time Frame: Apr 28, 2017 Transfers (B,C,W/C) (FIM): 6 Gait (FIM): 6 Gait distance (FIM): 3=150 ft Distance: 200' Gait Level of Assist: 6 Gait Assistive Device: FWW PT Plan Problem List Problem List: Activity Tolerance, Safety, Balance, Gait, Bed Mobility Treatment/Plan Treatment Plan: Continue Plan of Care Treatment Plan: Bed Mobility, Education, Functional Activity Mike, Functional Strength, Gait, Safety, Therapeutic Exercise, Transfers Treatment Duration: Apr 28, 2017 Frequency: 6 times per week Estimated Hrs Per Day: .25 hour per day Patient and/or Family Agrees t: Yes Safety Risks/Education Patient Education: Gait Training, Steps Teaching Recipient: Patient, Family Teaching Methods: Demonstration, Discussion Response to Teaching: Verbalize Understanding, Return Demonstration, Reinforcement Needed Discharge Recommendations Therapy D/C Recommendations: Physical Therapy Home Care (family), Detention (TCU/NH) (PT) [facility] Recommendations-D/C: Front Wheeled Walker Time/GCodes Time In: 1109 Time Out: 1121 Total Billed Treatment Time: 12 Total Billed Treatment 1 visit EVModC 12 min G Codes Necessary: GARY Barnard PT Apr 17, 2017 12:01
[2017-04-17] MEDS ORDERED: CEFD300C3 PO (12:52)
--- NOTE | 2017-04-17 12:56 | D/C HH Face to Face Order ---
D/C Face to Face Orders Instructions for Patient Patient Instructions/FollowUp: Fwup with me in 1 week Physician to follow Patient: y Discharge Diet for Home: No Restrictions Patient Problems: UTI CVA with weakness COPD GERD Acute on Chronic Anemia Goals for Patient: Increase strength Gait training Monitor vitals Medication Monitoring Patient Data-Allergies,Ht & Wt Patient Allergies: Coded Allergies: Penicillins (Verified Allergy, Intermediate, HIVES, CAN TAKE ROCEPHIN, 18/03) codeine (Verified Allergy, Unknown, 02/09/15) morphine (Verified Allergy, Unknown, PATIENT TAKES VICODIN AT HOME PER VIN, 02/09/15) propoxyphene (Verified Allergy, Unknown, 12/18/11) Height (Feet): 5 Height (Inches): 3.00 Weight (Pounds): 121 Weight (Ounces): 7.8 Home Health Need/Face to Face Date of Face to Face: Apr 17, 2017 Clinical Findings: Generalized weakness and fatigue, Instability, Muscle weakness, Shortness of breath, Unsteady gait I have seen Pt [id number]: Yes Discharged To: Home Diagnosis/Conditions: UTI CVA with weakness COPD GERD Acute on Chronic Anemia Problems/Diagnosis/Condition: Patient is Homebound due to: CognItive deficits, Evan fall risk due to instabilty, Muscle weakness, Shortness of breath/distress Homebound Status Due to the above stated illness, injury or surgical procedure (medical condition or diagnosis) and associated clinical findings, the patient is homebound because of his/her inability to leave home except with aid of a supportive device and/or person AND leaving the home requires a considerable and taxing effort or is medically contraindicated. Pt req the following assistanc: Walker Home Health Nursing Orders Home Health Services Order: Nursing Services, Physical Therapy-Evaluate & Treat Home Health Infusion Therapy Line Type: Saline Lock Site Location: Hand Therapy Orders Therapy Orders: Physical Therapy, PT to assess for OT Therapy Specific Orders: Eval assistive deivces, Teach strategies/cognitive deficits, Teach enviro modifications/safety, Gait training, Increase strength/ endurance Certify Stmt I certify that this patient is under my care and that I, a nurse practitioner or a physician; a assistant softball coach working with me, had a face to face encounter that - meets the physician face to face encounter requirements with this patient as dated. DALILA CASIANO DO Apr 17, 2017 12:56
[2017-04-17 16:00] VITALS: BP 145/54
--- NOTE | 2017-04-17 21:25 | Discharge Summary ---
Diagnosis/Chief Complaint Date of Admission Apr 14, 2017 at 21:21 Date of Discharge Apr 17, 2017 at 16:20 Discharge Date: Apr 17, 2017 Discharge Diagnosis 1. Acute UTI with Strep--improved 2. Acute Renal Failure--improved 3. Acute Dehydration--improved 4. Lower Abdominal Pain--likely from constipation--improved 5. Recent Acute Anemia--S/P transfusion--H/H stable 6. History of CVA with Vascular Dementia--stable 7. Weakness with History of Falls and High Fall Risk--PT started and will do home health with PT, did discuss placement with family but they are not ready at this time 8. COPD--stable 9. Hypertension--stable Discharge Summary Hospital Course Hospital Course This is a 76 year old female brought to the emergency room with weakness and worsening confusion. She was found to have dehydration with acute renal failure with a creatinine of 2.63 and a UTI. It was decided to admit her for further evaluation and treatment. She was also complaining of lower abdominal pain. She was admitted and given IVF rehydration. Her dehydration and acute renal failure improved and her creatinine was down to 1.22 on discharge. She was treated with rocephin for her UTI and her urine culture grew out Strep. She also had surgical consult due to her lower abdominal pain but this was felt to be due to constipation as her pain improved with bowel movements. She had a recent outpatient blood transfusion but her H/H were stable during this hospital stay even with the restart of her plavix and aspirin. She was started with PT due to weakness and was up ambulating with a walker prior to discharge. Placement in [place] or a NH were discussed with the family due to the patient's history of stroke with worsening weakness, high fall risk and vascular dementia but the patient and the family wish to go home at this time with home health and get a hospital bed as well as any other medical equipment needed to assist the patient to do ADLs and remain at home safely and see how she does. Labs Laboratory Tests 04/15/17 05:02: Red Blood Count 3.60L, Hemoglobin 9.9L, Hematocrit 31L, Red Cell Distribution Width 15.3H, Platelet Count 87L, Mean Platelet Volume 12.1H, Monocytes (%) (Auto ) 16H, Chloride Level 113H, Carbon Dioxide Level 16L, Blood Urea Nitrogen 36H, Creatinine 2.47H 04/16/17 04:48: Red Blood Count 3.44L, Hemoglobin 9.5L, Hematocrit 30L, Red Cell Distribution Width 15.6H, Platelet Count 74L, Mean Platelet Volume 13.0H, Monocytes (%) (Auto ) 13H, Chloride Level 117H, Carbon Dioxide Level 15L, Blood Urea Nitrogen 21H, Creatinine 1.32H, Glucose Level 115H, Total Protein 6.1L 04/17/17 05:33: Red Blood Count 3.52L, Hemoglobin 9.7L, Hematocrit 30L, Red Cell Distribution Width 15.6H, Platelet Count 73L, Mean Platelet Volume 12.5H, Eosinophils # (Auto ) 0.4H 04/17/17 05:53: Chloride Level 116H, Carbon Dioxide Level 15L, Potassium Level 5.2H Procedures None. Discharge Physical Examination Allergies: Coded Allergies: Penicillins (Verified Allergy, Intermediate, HIVES, CAN TAKE ROCEPHIN, 18/03) codeine (Verified Allergy, Unknown, 02/09/15) morphine (Verified Allergy, Unknown, PATIENT TAKES VICODIN AT HOME PER VIN, 02/09/15) propoxyphene (Verified Allergy, Unknown, 12/18/11) Vitals & I&Os Vital Signs Date Time Temp Pulse Resp B/P (MAP) Pulse Ox O2 Delivery O2 Flow Rate FiO2 04/17/17 16:00 86 18 145/54 94 Room Air 04/17/17 08:00 98.1 04/16/17 09:37 2.00 04/15/17 11:54 21 General Appearance: Alert, Oriented X3, Cooperative, No Acute Distress Respiratory: Normal Air Movement Cardiovascular: Regular Rate Abdominal: Normal Bowel Sounds, Soft, No Tenderness Extremities: No Clubbing, No Cyanosis, No Edema Psych/Mental Status: Mental Status NL, Mood NL Discharge Home Medications Reviewed and agree with Discharge Medication list on patient's Discharge Instruction sheet Instructions to Patient/Family Please see electronic discharge instructions given to patient. Clinical Quality Measures DVT/VTE Risk/Contraindication: Risk Factor Score Per Nursin RFS Level Per Nursing on Admit: 3=High DALILA CASIANO DO Apr 17, 2017 21:25
[2017-04-17] MEDS ORDERED: cefTRIAXone 1,000 MG/NS 50 ML IVPB IV SCH ×2 (22:30)
== END 2017-04-17 16:20 | disposition home health service (06) | DRG 683 ==
LOC: EDUNIT# 17:12 → ER 17:13 → 4TH 21:21
PROVIDERS: ADMIT Internal Medicine; ATTEND Family Medicine
DX: N17.9 Acute kidney failure, unspecified (principal); N39.0 Urinary tract infection, site not specified; E86.0 Dehydration; K59.00 Constipation, unspecified; R41.0 Disorientation, unspecified; F01.50 Vascular dementia, unspecified severity, without behavioral disturbance, psychotic disturbance, mood disturbance, and anxiety; I10 Essential (primary) hypertension; J44.9 Chronic obstructive pulmonary disease, unspecified; K21.9 Gastro-esophageal reflux disease without esophagitis; I99.9 Unspecified disorder of circulatory system; R26.81 Unsteadiness on feet; M19.91 Primary osteoarthritis, unspecified site; M54.9 Dorsalgia, unspecified; D64.9 Anemia, unspecified; Z91.81 History of falling; Z87.891 Personal history of nicotine dependence; Z90.49 Acquired absence of other specified parts of digestive tract; Z86.79 Personal history of other diseases of the circulatory system; Z86.73 Personal history of transient ischemic attack (TIA), and cerebral infarction without residual deficits
CPT/HCPCS: 36415; 74176; 80048; 80053; 81000; 85025; 87088; 93005; 94640; 94760

== ENCOUNTER → 2017-05-02 | Outpatient (CLI) | payer MEDICARE, MEDICAID ==
[~2017-05-02] MED LIST changes: +ASPI-983 PO; +HYDR-3812 PO; +LATA2.5D5 OU; +LD5O35 TP; +MESA1.2T3 PO; +MIRA25TA PO; +ONDA8TAB13 PO; +SUCR1TAB
--- NOTE | 2017-05-02 15:30 | Diagnostic Imaging Report ---
PROCEDURE: US carotid duplex, bilateral. TECHNIQUE: Multiple real-time grayscale images were obtained over the carotid arteries in various projections, bilaterally. Additional duplex Doppler and color Doppler images were also obtained. INDICATION: Carotid artery disease. FINDINGS: Mild plaquing is identified at both carotid bifurcations and proximal internal carotid arteries. No significant velocity elevation is seen. Both vertebral arteries demonstrate antegrade flow. IMPRESSION: Mild bilateral carotid plaque. There is no evidence of a hemodynamically significant stenosis. Dictated by: Dictated on workstation # [id number]
== END ==
LOC: RAD 14:24
PROVIDERS: ATTEND Family Medicine
DX: I65.23 Occlusion and stenosis of bilateral carotid arteries (principal)
CPT/HCPCS: 93880

== ENCOUNTER 2017-05-03 11:43 | Emergency (ER) | payer MEDICARE, MEDICAID ==
[~2017-05-03] VITALS: Ht 157.5 cm; Wt 65.8 kg
[~2017-05-03 11:43] MED LIST changes: -ONDA8TAB13 PO; -SUCR1TAB
[2017-05-03] MEDS ORDERED: FAMOTIDINE 20MG/2ML IV (PEPCID) IV STA (12:08)
[2017-05-03] MEDS ORDERED: KETOROLAC 30 MG/ML VIAL IVP STA (12:08)
[2017-05-03] MEDS ORDERED: NS IV 1000 ML 1,000 ML IV ONE ×2 (12:08→14:03)
[2017-05-03] MEDS ORDERED: SUCR1TAB (12:12)
[2017-05-03] MEDS ORDERED: ONDANSETRON 4 MG/2 ML (SDV) Z0FRAN IVP ONE ×2 (12:15→16:15)
[2017-05-03 12:25] LABS: BASOPHILS % (AUTO) 1 % (0-10); EOSINOPHILS # (AUTO) 0.2 10^3/uL (0.0-0.3); EOSINOPHILS % (AUTO) 3 % (0-10); HEMATOCRIT 34 % (35-52); HEMOGLOBIN 10.9 G/DL (11.5-16.0); LYMPHOCYTES # (AUTO) 1.1 X 10^3 (1.0-4.0); LYMPHOCYTES % (AUTO) 14 % (12-44); MEAN CORPUSCULAR HEMOGLOBIN 28 PG (25-34); MEAN CORPUSCULAR HGB CONC 32 G/DL (32-36); MEAN CORPUSCULAR VOLUME 86 FL (80-99); MONOCYTES # (AUTO) 0.7 X 10^3 (0.0-1.0); MONOCYTES % (AUTO) 9 % (0-12); NEUTROPHILS # (AUTO) 5.6 X 10^3 (1.8-7.8); NEUTROPHILS % (AUTO) 74 % (42-75); PLATELET COUNT 100 10^3/uL (130-400); RED BLOOD COUNT 3.93 10^6/uL (4.35-5.85); RED CELL DISTRIBUTION WIDTH 15.4 % (10.0-14.5); WHITE BLOOD COUNT 7.7 10^3/uL (4.3-11.0)
--- NOTE | 2017-05-03 12:43 | ED Abdominal Pain ---
General Chief Complaint: Abdominal/GI Problems Stated Complaint: ABD PAIN,HEAD PAIN Nursing Triage Note: ARRIVED VIA WC TO ROOM 08. WITH COMPLAINTS OF ABD PAIN FRO ONE MONTH. STATES SHE HAS SEEN A AND HAS HAD A CT SCAN. Sepsis Screen: No Definite Risk Source of Information: Patient, Family Exam Limitations: No Limitations History of Present Illness Date Seen by Provider: May 03, 2017 Time Seen by Provider: 11:55 Initial Comments 76-year-old female patient presents to the emergency department with complaints of 1 month onset of epigastric and lower abdominal pain and headaches. Patient does have a lengthy history for migraine headaches, but states symptoms have been worse over the last month. Patient has been seen by Dr. Nicholas's office and has had a CT head (04/06/17), CT abdomen/yixyiz35/26/18), and carotid ultrasound (05/02/17) within the last month as an outpatient. Patient states she was treated for a urinary tract infection approximately 2 weeks ago, but states symptoms did not resolve completely. Denies fever or chills. Timing/Duration: Constant, Other (1 month onset) Severity/Quality: Moderate Location: Epigastric, Suprapubic Radiation: No Radiation Activities at Onset: None Modifying Factors: Worsens With Palpation Allergies and Home Medications Allergies Coded Allergies: Penicillins (Verified Allergy, Intermediate, HIVES, CAN TAKE ROCEPHIN, 18/03) codeine (Verified Allergy, Unknown, 02/09/15) morphine (Verified Allergy, Unknown, PATIENT TAKES VICODIN AT HOME PER VIN, 02/09/15) propoxyphene (Verified Allergy, Unknown, 12/18/11) Home Medications Acetaminophen 500 Mg Tablet, 1,000 MG PO Q6H PRN for PAIN, (Reported) TAKES 2 (500 MG) TABLETS Aspirin 81 Mg Tablet.dr, 81 MG PO DAILY, (Reported) ON HOLD Cefdinir 300 Mg Capsule, 300 MG PO BID, #10 Prescribed by: DALILA NICHOLAS on 04/17/17 1252 Clopidogrel Bisulfate 75 Mg Tablet, 75 MG PO DAILY, (Reported) ON HOLD Duloxetine HCl 30 Mg Capsule.dr, 30 MG PO BID, (Reported) Fluticasone Propionate 16 Gm Lee.susp, 2 SPRAYS NSEACH HS, (Reported) Fluticasone/Vilanterol 1 Each Blst.w.dev, 1 PUFF IH DAILY PRN for SHORTNESS OF BREATH, (Reported) Hydrocodone/Acetaminophen 1 Each Tablet, 1 TAB PO Q4H PRN for PAIN-MODERATE TO SEVERE, (Reported) Latanoprost 2.5 Ml Drops, 1 DROP OU HS, (Reported) Levothyroxine Sodium 88 Mcg Tablet, 88 MCG PO DAILY, (Reported) Lidocaine HCl 35 Gm Oint, TP PRN PRN for SKIN LESIONS, (Reported) Mesalamine 1.2 Gm Tablet.dr, 2.4 GM PO DAILY, (Reported) TAKES 2 (1.2 GM) TABLETS Metoprolol Succinate 50 Mg Tab.er.24h, 50 MG PO DAILY, (Reported) Mirabegron 25 Mg Tab.er.24h, 25 MG PO HS, (Reported) Ondansetron 8 Mg Tab.rapdis, 8 MG PO Q6H PRN for NAUSEA/VOMITING-1ST LINE, #10 Ref 0 Prescribed by: KIERAN GUSMAN on 05/03/17 1613 Ondansetron HCl 4 Mg Tablet, 4 MG PO Q4H PRN for NAUSEA/VOMITING, (Reported) Pantoprazole Sodium 40 Mg Tablet.dr, 40 MG PO BID, (Reported) Simvastatin 40 Mg Tablet, 40 MG PO DAILY, (Reported) Sucralfate 1 Gm Tablet, (Reported) Review of Systems Constitutional: No chills, No diaphoresis, No dizziness, No fever, No malaise, No weakness EENTM: No Symptoms Reported Respiratory: Denies Cough, Denies Shortness of Air, Denies SOA With Exertion Cardiovascular: Denies Chest Pain, Denies Edema, Denies Lightheadedness, Denies Palpitations, Denies Syncope Gastrointestinal: See HPI, Denies Abdomen Distended, Abdominal Pain, Denies Blood Streaked Stools, Denies Constipated, Denies Diarrhea, Denies Nausea, Poor Appetite, Denies Poor Fluid Intake, Denies Rectal Bleeding, Denies Vomiting Genitourinary: See HPI, Denies Burning, Denies Discharge, Denies Frequency, Denies Flank Pain, Pain (suprapubic pain), Other (hesitancy) Musculoskeletal: no symptoms reported Skin: no symptoms reported Psychiatric/Neurological: See HPI, Headache, Denies Numbness, Denies Paresthesia, Denies Tingling, Denies Tremors, Denies Weakness All Other Systems Reviewed Negative Unless Noted: Yes (Negative excepted noted.) Past Wsmnbxa-Noswux-Qqbrse Hx Patient Social History Alcohol Use: Denies Use Recreational Drug Use: No Smoking Status: Former Smoker Type Used: Cigarettes Former Smoker, Quit: Apr 14, 2016 Recent Foreign Travel: No Contact w/Someone Who Travel: No Recent Infectious Disease Expo: No Recent Hopitalizations: Yes (BLOOD TRANSFUSION) Immunizations Up To Date Date of Pneumonia Vaccine: Dec 19, 2015 Date of Influenza Vaccine: Dec 03, 2015 Seasonal Allergies Seasonal Allergies: No Surgeries History of Surgeries: Yes (COLON RESECTION) Surgeries: Appendectomy, Gallbladder, Hysterectomy Respiratory History of Respiratory Disorde: Yes Respiratory Disorders: Chronic Bronchitis, COPD Currently Using CPAP: No Cardiovascular History of Cardiac Disorders: Yes (CHF) Neurological History of Neurological Disord: Yes Neurological Disorders: Headaches /Migraines, Stroke, TIA Reproductive System Hx Reproductive Disorders: No Female Reproductive Disorders: Denies Genitourinary History of Genitourinary Disor: Yes Genitourinary Disorders: Bladder Infection, Renal Failure Gastrointestinal History of Gastrointestinal Di: Yes Gastrointestinal Disorders: Gastroesophageal Reflux, Diverticulosis Musculoskeletal History of Musculoskeletal Dis: Yes Musculoskeletal Disorders: Arthritis, Chronic Back Pain Endocrine History of Endocrine Disorders: Yes Endocrine Disorders: Hypothyroidsim HEENT Loss of Vision: Denies Hearing Impairment: Denies Cancer History of Cancer: No Psychosocial History of Psychiatric Problem: No Integumentary History of Skin or Integumenta: No Blood Transfusions History of Blood Disorders: Yes (ANEMIA) Adverse Reaction to a Blood Tr: No Reviewed Nursing Assessment Reviewed/Agree w Nursing PMH: Yes Family Medical History Significant Family History: No Pertinent Family Hx Family Medial History: Patient reports no known family medical history. Physical Exam Vital Signs VS - Last 72 Hours, by Label 05/03/17 05/03/17 11:47 16:44 Temp 97.8 Pulse 63 57 Resp 18 18 B/P (MAP) 138/92 (107) 151/66 Pulse Ox 98 98 Capillary Refill : Less Than 3 Seconds General Appearance: WD/WN, no apparent distress HEENT: PERRL/EOMI, normal ENT inspection, TMs normal, pharynx normal Neck: non-tender, supple, normal inspection Respiratory: lungs clear, normal breath sounds, no respiratory distress, no accessory muscle use Cardiovascular: normal peripheral pulses, regular rate, rhythm, no edema, no gallop, no murmur Gastrointestinal: normal bowel sounds, soft, no organomegaly, no pulsatile mass , No distended, guarding (moderate epigastric ttp and mild suprapubic ttp), No rebound, tenderness (epigastric and suprapubic tenderness) Extremities: no pedal edema, no calf tenderness, normal capillary refill, pelvis stable Back: normal inspection, no CVA tenderness Neurologic/Psychiatric: 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 Normal finger to nose bilaterally. No pronator drift.) Skin: normal color, warm/dry Progress/Results/Core Measures Results/Orders Lab Results Laboratory Tests Test 05/03/17 12:12 05/03/17 14:50 Range/Units White Blood Count 7.7 4.3-11.0 10^3/uL Red Blood Count 3.93 L 4.35-5.85 10^6/uL Hemoglobin 10.9 L 11.5-16.0 G/DL Hematocrit 34 L 35-52 % Mean Corpuscular Volume 86 80-99 FL Mean Corpuscular Hemoglobin 28 25-34 PG Mean Corpuscular Hemoglobin Concent 32 32-36 G/DL Red Cell Distribution Width 15.4 H 10.0-14.5 % Platelet Count 100 L 130-400 10^3/uL Mean Platelet Volume 12.0 H 7.4-10.4 FL Neutrophils (%) (Auto) 74 42-75 % Lymphocytes (%) (Auto) 14 12-44 % Monocytes (%) (Auto) 9 0-12 % Eosinophils (%) (Auto) 3 0-10 % Basophils (%) (Auto) 1 0-10 % Neutrophils # (Auto) 5.6 1.8-7.8 X 10^3 Lymphocytes # (Auto) 1.1 1.0-4.0 X 10^3 Monocytes # (Auto) 0.7 0.0-1.0 X 10^3 Eosinophils # (Auto) 0.2 0.0-0.3 10^3/uL Basophils # (Auto) 0.0 0.0-0.1 10^3/uL Sodium Level 139 135-145 MMOL/L Potassium Level 4.6 3.6-5.0 MMOL/L Chloride Level 108 H 98-107 MMOL/L Carbon Dioxide Level 25 21-32 MMOL/L Anion Gap 6 5-14 MMOL/L Blood Urea Nitrogen 22 H 7-18 MG/DL Creatinine 1.05 0.60-1.30 MG/DL Estimat Glomerular Filtration Rate 51 BUN/Creatinine Ratio 21 Glucose Level 112 H 70-105 MG/DL Calcium Level 9.7 8.5-10.1 MG/DL Total Bilirubin 0.4 0.1-1.0 MG/DL Aspartate Amino Transf (AST/SGOT) 18 5-34 U/L Alanine Aminotransferase (ALT/SGPT) 10 0-55 U/L Alkaline Phosphatase 77 40-136 U/L Total Protein 7.2 6.4-8.2 GM/DL Albumin 4.0 3.2-4.5 GM/DL Lipase 32 8-78 U/L Urine Color YELLOW Urine Clarity CLEAR Urine pH 5 5-9 Urine Specific Clarence 1.010 L 1.016-1.022 Urine Protein NEGATIVE NEGATIVE Urine Glucose (UA) NEGATIVE NEGATIVE Urine Ketones NEGATIVE NEGATIVE Urine Nitrite NEGATIVE NEGATIVE Urine Bilirubin NEGATIVE NEGATIVE Urine Urobilinogen NORMAL NORMAL MG/DL Urine Leukocyte Esterase 1+ H NEGATIVE Urine RBC (Auto) NEGATIVE NEGATIVE Urine RBC RARE /HPF Urine WBC 2-5 /HPF Urine Squamous Epithelial Cells 0-2 /HPF Urine Crystals NONE /LPF Urine Bacteria NONE /HPF Urine Casts NONE /LPF Urine Mucus NEGATIVE /LPF Urine Culture Indicated NO My Orders Orders - KIERAN GUSMAN Cbc With Automated Diff (05/03/17 12:08) Comprehensive Metabolic Panel (05/03/17 12:08) Lipase (05/03/17 12:08) Ua Culture If Indicated (05/03/17 12:08) Saline Lock/Iv-Start (05/03/17 12:08) Ns Iv 1000 Ml (Sodium Chloride 0.9%) (05/03/17 12:08) Ondansetron Injection (Zofran Injectio (05/03/17 12:15) Ketorolac Injection (Toradol Injection) (05/03/17 12:08) Famotidine Injection (Pepcid Injection) (05/03/17 12:08) Ct Head Wo (05/03/17 13:05) Ct Abdomen/Pelvis W (05/03/17 13:05) Iohexol Injection (Omnipaque 350 Mg/Ml 1 (05/03/17 13:15) Ns (Ivpb) (Sodium Chloride 0.9%) (05/03/17 13:15) Acetaminophen Tablet (Tylenol Tablet) (05/03/17 13:16) Ns Iv 1000 Ml (Sodium Chloride 0.9%) (05/03/17 14:03) Hydrocodone/Apap 5/325 Tablet (Lortab 5 (05/03/17 16:09) Ondansetron Injection (Zofran Injectio (05/03/17 16:15) Medications Given in ED Current Medications Medications Dose Ordered Sig/Kemi Route Start Time Stop Time Status Last Admin Dose Admin Iohexol 100 ml ONCE ONCE IV 05/03/17 13:15 05/03/17 13:16 DC 05/03/17 13:33 100 ML Sodium Chloride 250 ml ONCE ONCE IV 05/03/17 13:15 05/03/17 13:16 DC 05/03/17 13:33 80 ML Sodium Chloride 1,000 ml @ 0 mls/hr Q0M ONCE IV 05/03/17 12:08 05/03/17 12:10 DC 05/03/17 12:29 1,000 MLS/HR Vital Signs/I&O Vital Sign - Last 12Hours 05/03/17 05/03/17 11:47 16:44 Temp 97.8 Pulse 63 57 Resp 18 18 B/P (MAP) 138/92 (107) 151/66 Pulse Ox 98 98 Blood Pressure Mean: 107 Diagnostic Imaging Diagonstic Imaging: CT Plain Films/CT/US/NM/MRI: head Comments COMPARISON: Recent head CT from 04/06/2017. FINDINGS: The ventricular size and sulcal pattern remains stable. Extensive periventricular hypodensity persists, consistent with chronic microvascular ischemia. The large region of encephalomalacia in the left posterior parietal-occipital lobe is unchanged. The small lacunar infarct in the right encinas radiata is unchanged. No sulcal effacement, midline shift, or hemorrhage is detected. The cisterns remain patent. The visualized paranasal sinuses are clear. IMPRESSION: Stable chronic changes when compared with the prior study from 04/06/2017. No acute intracranial process is detected. Dictated by: Dictated on workstation # [id number] Reviewed: Reviewed by Me (radiology report reviewed by me) Diagonstic Imaging: CT Plain Films/CT/US/NM/MRI: abdomen, pelvis Comments COMPARISON: Comparison is made with prior CT from 04/14/2017. FINDINGS: Lung bases are clear. There is generalized low density throughout the liver, suggestive of hepatic steatosis. No discrete liver mass is identified. The gallbladder is surgically absent. The pancreas and spleen are unremarkable. There is mild low-density nodular enlargement of bilateral adrenal glands, most consistent with adenomas. This appears stable. The kidneys are stable. Aorta is heavily calcified but nonaneurysmal. The visualized bowel loops appear to be of normal caliber. No bowel distention is seen. There are postsurgical changes involving a loop of bowel in the pelvis. No free fluid or free air is identified. The bladder is unremarkable. No abdominal or pelvic lymphadenopathy is seen. The bony structures appear nonacute. IMPRESSION: Overall stable CT of the abdomen and pelvis when compared with prior exam from 04/14/2017. No acute feature is identified. Dictated by: Dictated on workstation # [id number] Reviewed: Reviewed by Me (radiology report reviewed by me) Departure Communication (Admissions) Progress Notes Patient seen and evaluated. Previous labs and studies reviewed in the EMR. Labs drawn, and CT head/CT abd&pelvis obtained. Patient initially given 1L NS, Zofran 4 mg, pepcid 20 mg, and 15 mg of toradol. Patient continue to c/o headache and was given tylenol at her request. All laboratory and diagnostic findings discussed with the patient. Initially patient denied having any residual headache or nausea. After the Patient's family requested patient to have something more for pain and nausea prior to discharge, patient then states she does have a slight headache and nausea. Patient was given 1 dose of hydrocodone and Zofran prior to discharge. Patient states she has an appointment with Dr. Nicholas tomorrow for recheck. Patient to keep the appointment tomorrow with Dr. Nicholas and I have instructed her to return to the ED if symptoms worsen. Impression Impression: Primary Impression: Epigastric abdominal pain Additional Impressions: Lower abdominal pain Chronic headache Qualified Codes: R51 - Headache History of Cheema's esophagus Disposition: HOME, SELF-CARE Condition: Improved Departure-Patient Inst. Decision time for Depature: 16:11 Referrals: DALILA NICHOLAS DO (PCP) Primary Care Physician Patient Instructions: Acute Abdomen (Belly Pain), Adult (DC), Headache, Adult ( DC) Add. Discharge Instructions: All discharge instructions reviewed with patient and/or family. Voiced understanding. Medications as instructed. Tylenol Extra Strength over-the- counter as directed for pain or headache. Push fluids. Avoid a high fiber diet. Colace stool softener twice daily as needed. Follow-up with Dr. NICHOLAS tomorrow in her office as previously scheduled. You may need to follow-up with a general surgeon for upper and lower endoscopy. Return to the emergency department for worsened pain, headache, fever, changes in behavior, slurred speech, facial drooping, chest pain, shortness of air, vomiting, vomiting blood , black stools, rectal bleeding, numbness, weakness, or any other concerns. Scripts Ondansetron (Ondansetron Odt) 8 Mg Tab.rapdis 8 MG PO Q6H Y for NAUSEA/VOMITING-1ST LINE, #10 TAB 0 Refills Prov: KIERAN GUSMAN 05/03/17 KIERAN GUSMAN May 03, 2017 12:43
[2017-05-03 12:45] LABS: BILIRUBIN,TOTAL 0.4 MG/DL (0.1-1.0); CALCIUM 9.7 MG/DL (8.5-10.1); CREATININE SERUM 1.05 MG/DL (0.60-1.30); POTASSIUM 4.6 MMOL/L (3.6-5.0); TOTAL PROTEIN 7.2 GM/DL (6.4-8.2)
[2017-05-03] MEDS ORDERED: IOHEXOL 350 MG/ML 100 ML (OMNIPAQUE 350) VIAL IV ONE (13:15)
[2017-05-03] MEDS ORDERED: NS 250 ML (IVPB) BAG IV ONE (13:15)
[2017-05-03] MEDS ORDERED: ACETAMINOPHEN 500 MG TAB (TYLENOL) PO STA (13:16)
--- NOTE | 2017-05-03 14:06 | Diagnostic Imaging Report ---
PROCEDURE: CT head without contrast. TECHNIQUE: Multiple contiguous axial images were obtained through the brain without the use of intravenous contrast. INDICATION: Worsening headache. COMPARISON: Recent head CT from 04/06/2017. FINDINGS: The ventricular size and sulcal pattern remains stable. Extensive periventricular hypodensity persists, consistent with chronic microvascular ischemia. The large region of encephalomalacia in the left posterior parietal-occipital lobe is unchanged. The small lacunar infarct in the right encinas radiata is unchanged. No sulcal effacement, midline shift, or hemorrhage is detected. The cisterns remain patent. The visualized paranasal sinuses are clear. IMPRESSION: Stable chronic changes when compared with the prior study from 04/06/2017. No acute intracranial process is detected. Dictated by: Dictated on workstation # [id number]
--- NOTE | 2017-05-03 14:10 | Diagnostic Imaging Report ---
PROCEDURE: CT abdomen and pelvis with contrast. TECHNIQUE: Multiple contiguous axial images were obtained through the abdomen and pelvis after administration of intravenous contrast. INDICATION: Abdominal pain. Patient has prior history of colon resection. COMPARISON: Comparison is made with prior CT from 04/14/2017. FINDINGS: Lung bases are clear. There is generalized low density throughout the liver, suggestive of hepatic steatosis. No discrete liver mass is identified. The gallbladder is surgically absent. The pancreas and spleen are unremarkable. There is mild low-density nodular enlargement of bilateral adrenal glands, most consistent with adenomas. This appears stable. The kidneys are stable. Aorta is heavily calcified but nonaneurysmal. The visualized bowel loops appear to be of normal caliber. No bowel distention is seen. There are postsurgical changes involving a loop of bowel in the pelvis. No free fluid or free air is identified. The bladder is unremarkable. No abdominal or pelvic lymphadenopathy is seen. The bony structures appear nonacute. IMPRESSION: Overall stable CT of the abdomen and pelvis when compared with prior exam from 04/14/2017. No acute feature is identified. Dictated by: Dictated on workstation # [id number]
[2017-05-03 15:24] LABS: BILIRUBIN,URINE NEGATIVE (NEGATIVE); CLARITY,URINE CLEAR; COLOR,URINE YELLOW; GLUCOSE, URINE (UA) NEGATIVE (NEGATIVE); KETONES,URINE NEGATIVE (NEGATIVE); LEUKOCYTE ESTERASE ,URINE 1+ (NEGATIVE); NITRITE,URINE NEGATIVE (NEGATIVE); PH,URINE 5 (5-9); PROTEIN,URINE NEGATIVE (NEGATIVE); UROBILINOGEN,URINE NORMAL (NORMAL)
[2017-05-03 15:33] LABS: RBC,URINE RARE /HPF; SQUAMOUS EPITHELIAL CELL,UR 0-2 /HPF
[2017-05-03] MEDS ORDERED: HYDROcodone/APAP 5 MG/325 MG (LORTAB) TAB PO STA (16:09)
[2017-05-03] MEDS ORDERED: ONDA8TAB13 PO (16:13)
[2017-05-03 16:44] VITALS: BP 151/66
== END 2017-05-03 16:44 | disposition home or self-care (01) ==
LOC: EDUNIT# 11:43 → ER 11:45
DX: R10.13 Epigastric pain (principal); R10.30 Lower abdominal pain, unspecified; R51 Headache; G89.29 Other chronic pain; J44.9 Chronic obstructive pulmonary disease, unspecified; I50.9 Heart failure, unspecified; K21.9 Gastro-esophageal reflux disease without esophagitis; E03.9 Hypothyroidism, unspecified; G43.909 Migraine, unspecified, not intractable, without status migrainosus; Z86.73 Personal history of transient ischemic attack (TIA), and cerebral infarction without residual deficits; Z87.448 Personal history of other diseases of urinary system; Z88.0 Allergy status to penicillin; Z88.5 Allergy status to narcotic agent; Z88.8 Allergy status to other drugs, medicaments and biological substances; Z79.82 Long term (current) use of aspirin; Z87.891 Personal history of nicotine dependence; Z90.710 Acquired absence of both cervix and uterus; Z90.49 Acquired absence of other specified parts of digestive tract
CPT/HCPCS: 36415; 70450; 74177; 80053; 81000; 83690; 85025; 96374; 96375

== ENCOUNTER 2017-06-13 12:11 | Emergency (ER) | payer MEDICARE, MEDICAID ==
[~2017-06-13] VITALS: Ht 152.4 cm; Wt 54.4 kg
[~2017-06-13 12:11] MED LIST changes: +ONDA8TAB13 PO; +SUCR1TAB
[2017-06-13] MEDS ORDERED: NS IV 500 ML 500 ML IV ONE ×2 (12:29→14:37)
[2017-06-13 12:47] LABS: BASOPHILS # (AUTO) 0.1 10^3/uL (0.0-0.1); BASOPHILS % (AUTO) 2 % (0-10); EOSINOPHILS # (AUTO) 0.3 10^3/uL (0.0-0.3); EOSINOPHILS % (AUTO) 5 % (0-10); HEMATOCRIT 40 % (35-52); LYMPHOCYTES # (AUTO) 1.4 X 10^3 (1.0-4.0); LYMPHOCYTES % (AUTO) 22 % (12-44); MEAN CORPUSCULAR HEMOGLOBIN 27 PG (25-34); MEAN CORPUSCULAR HGB CONC 33 G/DL (32-36); MEAN CORPUSCULAR VOLUME 84 FL (80-99); MONOCYTES % (AUTO) 15 % (0-12); NEUTROPHILS # (AUTO) 3.7 X 10^3 (1.8-7.8); NEUTROPHILS % (AUTO) 57 % (42-75); PLATELET COUNT 132 10^3/uL (130-400); RED BLOOD COUNT 4.75 10^6/uL (4.35-5.85); RED CELL DISTRIBUTION WIDTH 14.9 % (10.0-14.5); WHITE BLOOD COUNT 6.4 10^3/uL (4.3-11.0)
[2017-06-13 12:48] LABS: CLARITY,URINE CLEAR; COLOR,URINE YELLOW; GLUCOSE, URINE (UA) NEGATIVE (NEGATIVE); KETONES,URINE 3+ (NEGATIVE); LEUKOCYTE ESTERASE ,URINE 2+ (NEGATIVE); NITRITE,URINE NEGATIVE (NEGATIVE); PH,URINE 5 (5-9); PROTEIN,URINE 2+ (NEGATIVE); UROBILINOGEN,URINE 1 MG/DL (NORMAL)
[2017-06-13 13:05] LABS: ALANINE AMINOTRANSFERASE 13 U/L (0-55); ALBUMIN 4.3 GM/DL (3.2-4.5); ALKALINE PHOSPHATASE 87 U/L (40-136); BILIRUBIN,TOTAL 0.4 MG/DL (0.1-1.0); BUN/CREATININE RATIO 20; CALCIUM 9.8 MG/DL (8.5-10.1); CARBON DIOXIDE 20 MMOL/L (21-32); CHLORIDE 108 MMOL/L (98-107); CREATININE SERUM 1.03 MG/DL (0.60-1.30); GFR ESTIMATED 52; GLUCOSE 107 MG/DL (70-105); POTASSIUM 3.4 MMOL/L (3.6-5.0); SODIUM 139 MMOL/L (135-145); TOTAL PROTEIN 7.4 GM/DL (6.4-8.2)
--- NOTE | 2017-06-13 13:06 | ED General ---
General Chief Complaint: Abdominal/GI Problems Stated Complaint: VOMITING/DIZZINESS Nursing Triage Note: PT CO OF N/V/D FOR 2 WEEKS, HAS RECENTLY HAS EGD, COLONOSCOPY AND SWOLLOWED CAPSULE. DONT KNOW RESULTS YET. PT STATES HAS WEAKNESS AND SOME DIZZINESS AT TIMES Nursing Sepsis Screen: No Definite Risk Source of Information: Patient Exam Limitations: No Limitations History of Present Illness Date Seen by Provider: Jun 13, 2017 Time Seen by Provider: 12:25 Initial Comments Here with report of nausea, vomiting and diarrhea over the last 2 weeks. She has had upper and lower endoscopy and swallow study with capsule. Recently has felt increasingly weak. Denies fever or chills. Does report vomiting and diarrhea. Timing/Duration: 1 Week Severity: Moderate Associated Systoms: No Chest Pain, No Cough, No Fever/Chills, No Headaches, Loss of Appetite, Nausea/Vomiting, No Shortness of Air, Weakness Allergies and Home Medications Allergies Coded Allergies: Penicillins (Verified Allergy, Intermediate, HIVES, CAN TAKE ROCEPHIN, 18/03) codeine (Verified Allergy, Unknown, 02/09/15) morphine (Verified Allergy, Unknown, PATIENT TAKES VICODIN AT HOME PER VIN, 02/09/15) propoxyphene (Verified Allergy, Unknown, 12/18/11) Home Medications Acetaminophen 500 Mg Tablet, 1,000 MG PO Q6H PRN for PAIN, (Reported) TAKES 2 (500 MG) TABLETS Aspirin 81 Mg Tablet.dr, 81 MG PO DAILY, (Reported) ON HOLD Cefdinir 300 Mg Capsule, 300 MG PO BID Prescribed by: DALIAL CASIANO on 04/17/17 1252 Clopidogrel Bisulfate 75 Mg Tablet, 75 MG PO DAILY, (Reported) ON HOLD Duloxetine HCl 30 Mg Capsule.dr, 30 MG PO BID, (Reported) Fluticasone Propionate 16 Gm [place].susp, 2 SPRAYS NSEACH HS, (Reported) Fluticasone/Vilanterol 1 Each Blst.w.dev, 1 PUFF IH DAILY PRN for SHORTNESS OF BREATH, (Reported) Hydrocodone/Acetaminophen 1 Each Tablet, 1 TAB PO Q4H PRN for PAIN-MODERATE TO SEVERE, (Reported) Latanoprost 2.5 Ml Drops, 1 DROP OU HS, (Reported) Levothyroxine Sodium 88 Mcg Tablet, 88 MCG PO DAILY, (Reported) Lidocaine HCl 35 Gm Oint, TP PRN PRN for SKIN LESIONS, (Reported) Mesalamine 1.2 Gm Tablet.dr, 2.4 GM PO DAILY, (Reported) TAKES 2 (1.2 GM) TABLETS Metoprolol Succinate 50 Mg Tab.er.24h, 50 MG PO DAILY, (Reported) Mirabegron 25 Mg Tab.er.24h, 25 MG PO HS, (Reported) Ondansetron 8 Mg Tab.rapdis, 8 MG PO Q6H PRN for NAUSEA/VOMITING-1ST LINE Prescribed by: KIERAN GUSMAN on 05/03/17 1613 Ondansetron HCl 4 Mg Tablet, 4 MG PO Q4H PRN for NAUSEA/VOMITING, (Reported) Pantoprazole Sodium 40 Mg Tablet.dr, 40 MG PO BID, (Reported) Simvastatin 40 Mg Tablet, 40 MG PO DAILY, (Reported) Patient Home Medication List Home Medication List Reviewed: Yes Constitutional: see HPI, No chills, No fever, malaise, weakness EENTM: no symptoms reported Respiratory: no symptoms reported Gastrointestinal: diarrhea, vomiting Genitourinary: no symptoms reported, No dysuria : No Musculoskeletal: no symptoms reported Skin: no symptoms reported Psychiatric/Neurological: No Symptoms Reported All Other Systems Reviewed Negative Unless Noted: Yes Past Ctcwzvl-Zqlmfn-Fidcas Hx Patient Social History Alcohol Use: Denies Use Recreational Drug Use: No (SMOKE) Smoking Status: Former Smoker Type Used: Cigarettes Former Smoker, Quit: Apr 14, 2016 Recent Foreign Travel: No Contact w/Someone Who Travel: No Recent Infectious Disease Expo: No Recent Hopitalizations: Yes (BLOOD TRANSFUSION) Physical Abuse: No Sexual Abuse: No Immunizations Up To Date Date of Pneumonia Vaccine: Dec 19, 2015 Date of Influenza Vaccine: Dec 03, 2015 Seasonal Allergies Seasonal Allergies: No Surgeries History of Surgeries: Yes (COLON RESECTION) Surgeries: Appendectomy, Gallbladder, Hysterectomy Respiratory History of Respiratory Disorde: Yes Respiratory Disorders: Chronic Bronchitis, COPD Currently Using CPAP: No Cardiovascular History of Cardiac Disorders: Yes (CHF) Neurological History of Neurological Disord: Yes Neurological Disorders: Headaches /Migraines, Stroke, TIA Reproductive System Hx Reproductive Disorders: No Female Reproductive Disorders: Denies Genitourinary History of Genitourinary Disor: Yes Genitourinary Disorders: Bladder Infection, Renal Failure Gastrointestinal History of Gastrointestinal Di: Yes Gastrointestinal Disorders: Gastroesophageal Reflux, Diverticulosis Musculoskeletal History of Musculoskeletal Dis: Yes Musculoskeletal Disorders: Arthritis, Chronic Back Pain Endocrine History of Endocrine Disorders: Yes Endocrine Disorders: Hypothyroidsim HEENT Loss of Vision: Denies Hearing Impairment: Denies Cancer History of Cancer: No Psychosocial History of Psychiatric Problem: No Suicide Risk Score: 0 Integumentary History of Skin or Integumenta: No Blood Transfusions History of Blood Disorders: Yes (ANEMIA) Adverse Reaction to a Blood Tr: No Reviewed Nursing Assessment Reviewed/Agree w Nursing PMH: Yes Family Medical History Significant Family History: No Pertinent Family Hx Family Medial History: Patient reports no known family medical history. Physical Exam Vital Signs Vital Signs - First Documented 06/13/17 12:20 Temp 97.9 Pulse 70 Resp 18 B/P (MAP) 149/80 (103) Pulse Ox 98 O2 Delivery Room Air Capillary Refill : Less Than 3 Seconds General Appearance: No Apparent Distress, WD/WN HEENT: PERRL/EOMI, Pharynx Normal Neck: Non Tender, Supple Respiratory: Lungs Clear, Normal Breath Sounds Cardiovascular: Regular Rate, Rhythm, No Murmur Gastrointestinal: Non Tender, Soft Back: Normal Inspection, No CVA Tenderness, No Vertebral Tenderness Extremity: Normal Range of Motion, Non Tender Neurologic/Psychiatric: Alert, Oriented x3 Skin: Normal Color, Warm/Dry Progress/Results/Core Measures Suspected Sepsis Recent Fever Within 48 Hours: No Infection Criteria Present: None New/Unexplained Altered Menta: No Sepsis Screen: No Definite Risk Sepsis Diagnosis: SIRS Temperature:97.9 Pulse: 70 Respiratory Rate: 18 Laboratory Tests 06/13/17 12:30: White Blood Count 6.4 Blood Pressure 149 /80 Mean: 103 Laboratory Tests 06/13/17 12:30: Creatinine 1.03, Platelet Count 132, Total Bilirubin 0.4 Results/Orders Lab Results Laboratory Tests Test 06/13/17 12:30 06/13/17 12:35 Range/Units White Blood Count 6.4 4.3-11.0 10^3/uL Red Blood Count 4.75 4.35-5.85 10^6/uL Hemoglobin 13.0 11.5-16.0 G/DL Hematocrit 40 35-52 % Mean Corpuscular Volume 84 80-99 FL Mean Corpuscular Hemoglobin 27 25-34 PG Mean Corpuscular Hemoglobin Concent 33 32-36 G/DL Red Cell Distribution Width 14.9 H 10.0-14.5 % Platelet Count 132 130-400 10^3/uL Mean Platelet Volume 12.0 H 7.4-10.4 FL Neutrophils (%) (Auto) 57 42-75 % Lymphocytes (%) (Auto) 22 12-44 % Monocytes (%) (Auto) 15 H 0-12 % Eosinophils (%) (Auto) 5 0-10 % Basophils (%) (Auto) 2 0-10 % Neutrophils # (Auto) 3.7 1.8-7.8 X 10^3 Lymphocytes # (Auto) 1.4 1.0-4.0 X 10^3 Monocytes # (Auto) 1.0 0.0-1.0 X 10^3 Eosinophils # (Auto) 0.3 0.0-0.3 10^3/uL Basophils # (Auto) 0.1 0.0-0.1 10^3/uL Sodium Level 139 135-145 MMOL/L Potassium Level 3.4 L 3.6-5.0 MMOL/L Chloride Level 108 H 98-107 MMOL/L Carbon Dioxide Level 20 L 21-32 MMOL/L Anion Gap 11 5-14 MMOL/L Blood Urea Nitrogen 21 H 7-18 MG/DL Creatinine 1.03 0.60-1.30 MG/DL Estimat Glomerular Filtration Rate 52 BUN/Creatinine Ratio 20 Glucose Level 107 H 70-105 MG/DL Calcium Level 9.8 8.5-10.1 MG/DL Total Bilirubin 0.4 0.1-1.0 MG/DL Aspartate Amino Transf (AST/SGOT) 24 5-34 U/L Alanine Aminotransferase (ALT/SGPT) 13 0-55 U/L Alkaline Phosphatase 87 40-136 U/L Troponin I < 0.30 <0.30 NG/ML C-Reactive Protein High Sensitivity 0.10 0.00-0.50 MG/DL Total Protein 7.4 6.4-8.2 GM/DL Albumin 4.3 3.2-4.5 GM/DL Urine Color YELLOW Urine Clarity CLEAR Urine pH 5 5-9 Urine Specific [place] 1.025 H 1.016-1.022 Urine Protein 2+ H NEGATIVE Urine Glucose (UA) NEGATIVE NEGATIVE Urine Ketones 3+ H NEGATIVE Urine Nitrite NEGATIVE NEGATIVE Urine Bilirubin 2+ H NEGATIVE Urine Urobilinogen 1 NORMAL MG/DL Urine Leukocyte Esterase 2+ H NEGATIVE Urine RBC (Auto) NEGATIVE NEGATIVE Urine RBC RARE /HPF Urine WBC 5-10 H /HPF Urine Squamous Epithelial Cells 2-5 /HPF Urine Crystals NONE /LPF Urine Bacteria TRACE /HPF Urine Casts NONE /LPF Urine Mucus SMALL H /LPF Urine Culture Indicated YES My Orders Orders - MEMO TORRES MD Cbc With Automated Diff (06/13/17 12:29) Comprehensive Metabolic Panel (06/13/17 12:29) Hs C Reactive Protein (06/13/17 12:29) Troponin I (06/13/17 12:29) Ua Culture If Indicated (06/13/17 12:29) Chest 1 View, Ap/Pa Only (06/13/17 12:29) Saline Lock/Iv-Start (06/13/17 12:29) Ekg Tracing (06/13/17 12:29) Monitor-Rhythm Ecg Trace Only (06/13/17 12:29) Straight Cath For Spec.-Adult (06/13/17 12:29) Saline Lock/Iv-Start (06/13/17 12:29) Ns Iv 500 Ml (Sodium Chloride 0.9%) (06/13/17 12:29) Urine Culture (06/13/17 12:35) Saline Lock/Iv-Start (06/13/17 14:37) Ns Iv 500 Ml (Sodium Chloride 0.9%) (06/13/17 14:37) Ceftriaxone Injection (Rocephin Injectio (06/13/17 14:55) Medications Given in ED Current Medications Medications Dose Ordered Sig/Kemi Route Start Time Stop Time Status Last Admin Dose Admin Sodium Chloride 500 ml @ 0 mls/hr Q0M ONCE IV 06/13/17 12:29 06/13/17 12:32 DC 06/13/17 13:20 500 MLS/HR Sodium Chloride 500 ml @ 0 mls/hr Q0M ONCE IV 06/13/17 14:37 06/13/17 14:38 DC 06/13/17 14:57 500 MLS/HR Vital Signs/I&O Vital Sign - Last 12Hours 06/13/17 12:20 Temp 97.9 Pulse 70 Resp 18 B/P (MAP) 149/80 (103) Pulse Ox 98 O2 Delivery Room Air Capillary Refill : Less Than 3 Seconds Blood Pressure Mean: 103 Progress Note : Progress Note Seen and evaluated. IV, labs, EKG, chest x-ray and UA ordered. Normal saline 500 mL bolus ordered. Monitor patient. Improved somewhat after IV fluids but still reports weakness. We will consider observation versus admission. 1245: Repeat normal saline 500 mL bolus. 1500: We will go ahead and give 1 g of Rocephin IV given her recent history of nausea and vomiting for possible urinary tract infection and we will attempt outpatient therapy at this point. Patient and family agree. I did have a long discussion with her about if she feels like she still capable at home. The [id number] does have concerns with the patient is still wanting to stay at home and does not want to pursue other options such as residential placement at this time. She does have help at home but it is not 7 care. Both the [id number] and the patient are in agreement with attempting outpatient therapy with return tomorrow if she is not improving. She does seem to be perking up some after IV fluids. We will do outpatient Omnicef and ondansetron as needed for urinary tract infection and nausea. Patient is in agreement with this. PO challenge here. ECG Initial ECG Impression Date: Jun 13, 2017 Initial ECG Impression Time: 13:03 Initial ECG Rate: 62 Initial ECG Rhythm: Normal Sinus Initial ECG Comparisson: Unchanged Comment Sinus rhythm with normal axis. No evidence of ST elevation [place]. Nonspecific intraventricular conduction delay similar to previous known left bundle branch block from 04/14/17. Interpreted by me. Diagnostic Imaging Diagonstic Imaging: Xray Plain Films/CT/US/NM/MRI: chest Comments VIA [facility], [facility]. [place], [place] NAME: MARIOLA OLIVEIRA [facility] REC#: [id number] PT STATUS: REG ER : 1940 PHYSICIAN: MEMO TORRES MD ADMIT DATE: 06/13/17/ER Draft Date of Exam:06/13/17 CHEST 1 VIEW, AP/PA ONLY INDICATION: Nausea, vomiting, and diarrhea for two weeks. TIME OF EXAM: 01:26 p.m. COMPARISON: Comparison is made with prior chest radiograph from 12/28/2015. FINDINGS: The heart size is normal. The lungs are clear. There is a rectangular opacity overlying the left lung base, indeterminate. This could potentially be overlying the patient. No effusion or pneumothorax is seen. IMPRESSION: No acute cardiopulmonary process is detected. Dictated on workstation # [id number] Dict: 06/13/17 1336 Trans: 06/13/17 1340 [id number] Interpreted by: YAYO ANDRES MD Electronically signed by: Departure Impression Impression: Primary Impression: Urinary tract infection Qualified Codes: N30.00 - Acute cystitis without hematuria Additional Impressions: Nausea and vomiting Qualified Codes: R11.2 - Nausea with vomiting, unspecified Dehydration Diarrhea, unspecified Qualified Codes: R19.7 - Diarrhea, unspecified Disposition: 01 HOME, SELF-CARE Condition: Stable Departure-Patient Inst. Decision time for Depature: 15:05 Referrals: DALILA CASIANO DO (PCP/Family) Primary Care Physician Patient Instructions: Dehydration, Adult (DC), Diarrhea in Adolescents and Adults, Nausea and Vomiting, Adult (DC), Urinary Tract Infection, Adult (DC) Add. Discharge Instructions: All discharge instructions reviewed with patient and/or family. Voiced understanding. Clear liquid or light diet for the next 24 hours and then advance as tolerated. Follow-up with your Dr. in a few days for recheck. Return within 24 hours for recheck and further evaluation if not improving or earlier if worsening. Return for worsening, fever, vomiting, weakness, breathing problems or other concerns as needed. Scripts Ondansetron (Ondansetron Odt) 4 Mg Tab.rapdis 4 MG PO Q6H Y for NAUSEA/VOMITING, #8 TAB 0 Refills Prov: MEMO TORRES MD 06/13/17 Cefdinir (Cefdinir) 300 Mg Capsule 300 MG PO BID, #14 CAP 0 Refills Prov: MEMO TORRES MD 06/13/17 MEMO TORRES MD Jun 13, 2017 13:05
[2017-06-13 13:19] LABS: BACTERIA,URINE TRACE /HPF; BILIRUBIN,URINE 2+ (NEGATIVE); RBC,URINE RARE /HPF
--- NOTE | 2017-06-13 13:40 | Diagnostic Imaging Report ---
INDICATION: Nausea, vomiting, and diarrhea for two weeks. TIME OF EXAM: 01:26 p.m. COMPARISON: Comparison is made with prior chest radiograph from 12/28/2015. FINDINGS: The heart size is normal. The lungs are clear. There is a rectangular opacity overlying the left lung base, indeterminate. This could potentially be overlying the patient. No effusion or pneumothorax is seen. IMPRESSION: No acute cardiopulmonary process is detected. Dictated by: Dictated on workstation # [id number]
[2017-06-13] MEDS ORDERED: cefTRIAXone 1 GM (ROCEPHIN) VIAL ONE (14:55)
[2017-06-13] MEDS ORDERED: CEFD300C3 PO (15:10)
[2017-06-13] MEDS ORDERED: ONDA4TAB11 PO (15:10)
[2017-06-13 15:50] VITALS: BP 132/77
== END 2017-06-13 15:50 | disposition home or self-care (01) ==
LOC: EDUNIT# 12:11 → ER 12:13
DX: N39.0 Urinary tract infection, site not specified (principal); E86.0 Dehydration; R11.2 Nausea with vomiting, unspecified; R19.7 Diarrhea, unspecified; E03.9 Hypothyroidism, unspecified; K21.9 Gastro-esophageal reflux disease without esophagitis; I50.9 Heart failure, unspecified; J44.9 Chronic obstructive pulmonary disease, unspecified; G43.909 Migraine, unspecified, not intractable, without status migrainosus; Z87.19 Personal history of other diseases of the digestive system; Z86.73 Personal history of transient ischemic attack (TIA), and cerebral infarction without residual deficits; Z90.710 Acquired absence of both cervix and uterus; Z90.49 Acquired absence of other specified parts of digestive tract; Z87.891 Personal history of nicotine dependence; Z79.82 Long term (current) use of aspirin; Z88.0 Allergy status to penicillin; Z88.6 Allergy status to analgesic agent
CPT/HCPCS: 36415; 51701; 71045; 80053; 81000; 84484; 85025; 86141; 87088; 93005; 93041; 96361; 96374

== ENCOUNTER 2018-02-22 16:57 | Emergency (ER) | payer MEDICARE, MEDICAID ==
[~2018-02-22] VITALS: Ht 162.6 cm; Wt 59.0 kg
[~2018-02-22 16:57] MED LIST changes: +HYDR-4226 PO; -HYDR-757 PO; -LOSA100T28 PO; +LOSA100T8 PO
[2018-02-22] MEDS ORDERED: RT-ALBUTEROL/IPRATROPIUM 3 ML (DUONEB) VIAL ONE (17:07)
[2018-02-22] MEDS ORDERED: NS IV 1000 ML 1,000 ML IV SCH (17:08)
--- NOTE | 2018-02-22 17:12 | ED Respiratory ---
General Chief Complaint: General Problems/Pain Stated Complaint: LETHARGIC Source: patient, EMS Exam Limitations: no limitations (ANNE MARIE LEIVA) History of Present Illness Date Seen by Provider: Feb 22, 2018 Time Seen by Provider: 16:53 Initial Comments The patient presents to ER by EMS with chief complaint that she for the past couple weeks had some loose stools but yesterday she had a regular formed normal stool. She has a history of surgery on her abdomen for bowel obstruction years ago. She is normally on laxatives but they have helped that when she is having loose stools and today however she is just feeling weak and tired and couldn't get out of bed. Normally she walks with a walker rather independent. From she did have some pain which is unusual in both her legs so the staff gave her some Tylenol that made her pain go away. They then called and spoke with the primary care doctor asked for labs to be drawn or some kind of workup and they instructed the patient to go the ER for evaluation more urgently. Patient says she's had a little bit of shortness of breath but no cough today no fevers chills nausea vomiting. She has a history of being a smoker but denies taking any breathing treatments. She denies COPD or asthma. (ANNE MARIE LEIVA) Allergies and Home Medications Allergies Coded Allergies: Penicillins (Verified Allergy, Intermediate, HIVES, CAN TAKE ROCEPHIN, 18/03) codeine (Verified Allergy, Unknown, 02/09/15) morphine (Verified Allergy, Unknown, PATIENT TAKES VICODIN AT HOME PER VIN, 02/09/15) propoxyphene (Verified Allergy, Unknown, 12/18/11) Home Medications Acetaminophen 500 Mg Tablet, 1,000 MG PO Q6H PRN for PAIN, (Reported) TAKES 2 (500 MG) TABLETS Aspirin 81 Mg Tablet.dr, 81 MG PO DAILY, (Reported) ON HOLD Cefdinir 300 Mg Capsule, 300 MG PO BID Prescribed by: DALILA NICHOLAS on 04/17/17 1252 Cefdinir 300 Mg Capsule, 300 MG PO BID Prescribed by: MEMO TORRES on 06/13/17 1510 Clopidogrel Bisulfate 75 Mg Tablet, 75 MG PO DAILY, (Reported) ON HOLD Duloxetine HCl 30 Mg Capsule.dr, 30 MG PO BID, (Reported) Fluticasone Propionate 16 Gm [place].susp, 2 SPRAYS NSEACH HS, (Reported) Fluticasone/Vilanterol 1 Each Blst.w.dev, 1 PUFF IH DAILY PRN for SHORTNESS OF BREATH, (Reported) Hydrocodone/Acetaminophen 1 Each Tablet, 1 TAB PO Q4H PRN for PAIN-MODERATE TO SEVERE, (Reported) Latanoprost 2.5 Ml Drops, 1 DROP OU HS, (Reported) Levothyroxine Sodium 88 Mcg Tablet, 88 MCG PO DAILY, (Reported) Lidocaine HCl 35 Gm Oint, TP PRN PRN for SKIN LESIONS, (Reported) Mesalamine 1.2 Gm Tablet.dr, 2.4 GM PO DAILY, (Reported) TAKES 2 (1.2 GM) TABLETS Metoprolol Succinate 50 Mg Tab.er.24h, 50 MG PO DAILY, (Reported) Mirabegron 25 Mg Tab.er.24h, 25 MG PO HS, (Reported) Ondansetron 8 Mg Tab.rapdis, 8 MG PO Q6H PRN for NAUSEA/VOMITING-1ST LINE Prescribed by: KIERAN GUSMAN on 05/03/17 1613 Ondansetron 4 Mg Tab.rapdis, 4 MG PO Q6H PRN for NAUSEA/VOMITING Prescribed by: MEMO TORRES on 06/13/17 1510 Ondansetron HCl 4 Mg Tablet, 4 MG PO Q4H PRN for NAUSEA/VOMITING, (Reported) Pantoprazole Sodium 40 Mg Tablet.dr, 40 MG PO BID, (Reported) Simvastatin 40 Mg Tablet, 40 MG PO DAILY, (Reported) Patient Home Medication List Home Medication List Reviewed: Yes (ANNE MARIE LEIVA) Review of Systems Review of Systems Constitutional: No chills, No diaphoresis EENTM: No hearing loss, No ear pain Respiratory: No cough, No dyspnea on exertion, No phlegm; short of breath, wheezing Cardiovascular: No chest pain, No palpitations Gastrointestinal: No abdominal pain, No constipation, No diarrhea, No nausea, No vomiting Genitourinary: No discharge, No dysuria : No Musculoskeletal: No back pain; other (bilateral leg pains) Skin: No change in color, No change in hair/nails Psychiatric/Neurological: Denies Anxiety, Denies Depressed (ANNE MARIE LEIVA) Past Ourvchf-Qvjrgc-Yepcqa Hx Patient Social History Alcohol Use: Denies Use Recreational Drug Use: No Smoking Status: Former Smoker Type Used: Cigarettes Former Smoker, Quit: Apr 14, 2016 Recent Foreign Travel: No Contact w/Someone Who Travel: No Recent Hopitalizations: Yes (BLOOD TRANSFUSION) (ANNE MARIE LEIVA) Immunizations Up To Date Date of Pneumonia Vaccine: Dec 19, 2015 Date of Influenza Vaccine: Dec 03, 2015 (ANNE MARIE LEIVA) Seasonal Allergies Seasonal Allergies: No (ANNE MARIE LEIVA) Past Medical History Surgeries: Yes (COLON RESECTION) Appendectomy, Gallbladder, Hysterectomy Respiratory: Yes Chronic Bronchitis, COPD Currently Using CPAP: No Cardiac: Yes (CHF) Neurological: Yes Headaches /Migraines, Stroke, TIA Reproductive Disorders: No Female Reproductive Disorders: Denies Genitourinary: Yes Bladder Infection, Renal Failure Gastrointestinal: Yes Gastroesophageal Reflux, Diverticulosis Musculoskeletal: Yes Arthritis, Chronic Back Pain Endocrine: Yes Hypothyroidsim Loss of Vision: Denies Hearing Impairment: Denies Cancer: No Psychosocial: No Integumentary: No Blood Disorders: Yes (ANEMIA) Adverse Reaction/Blood Tranf: No (ANNE MARIE LEIVA) Family Medical History Patient reports no known family medical history. No Pertinent Family Hx (ANNE MARIE LEIVA) Physical Exam Vital Signs - First Documented 02/22/18 02/22/18 17:08 17:22 Temp 98.6 Pulse 78 Resp 20 B/P (MAP) 150/80 (103) Pulse Ox 94 O2 Delivery Room Air (MEMO TORRES MD) Capillary Refill : (ANNE MARIE LEIVA) Height: 5'0" Weight: 120lbs. 7.8oz. [id number]; 21.5 BMI Method:Stated General Appearance: WD/WN, no apparent distress Eyes: Bilateral Eye Normal Inspection, Bilateral Eye PERRL, Bilateral Eye EOMI HEENT: PERRL/EOMI, normal ENT inspection, TMs normal, pharynx normal Neck: non-tender, full range of motion, supple, normal inspection Respiratory: chest non-tender, lungs clear, normal breath sounds, no respiratory distress, no accessory muscle use Cardiovascular: normal peripheral pulses, regular rate, rhythm, no edema Gastrointestinal: normal bowel sounds, soft, tenderness (mild left-sided diffuse tenderness) Extremities: normal range of motion, non-tender, normal inspection, no pedal edema, no calf tenderness, normal capillary refill Neurologic/Psychiatric: no motor/sensory deficits, alert, normal mood/affect, oriented x 3 Skin: normal color, warm/dry (ANNE MARIE LEIVA) Progress/Results/Core Measures Suspected Sepsis SIRS Temperature: Pulse: Respiratory Rate: Laboratory Tests 02/22/18 17:36: Blood Pressure / Mean: Laboratory Tests 02/22/18 17:36: (ANNE MARIE LEIVA) Results/Orders Lab Results Laboratory Tests Test 02/22/18 17:36 02/22/18 17:44 Range/Units White Blood Count 6.2 4.3-11.0 10^3/uL Red Blood Count 3.94 L 4.35-5.85 10^6/uL Hemoglobin 12.7 11.5-16.0 G/DL Hematocrit 39 35-52 % Mean Corpuscular Volume 98 80-99 FL Mean Corpuscular Hemoglobin 32 25-34 PG Mean Corpuscular Hemoglobin Concent 33 32-36 G/DL Red Cell Distribution Width 11.9 10.0-14.5 % Platelet Count 196 130-400 10^3/uL Mean Platelet Volume 12.1 H 7.4-10.4 FL Neutrophils (%) (Auto) 58 42-75 % Lymphocytes (%) (Auto) 22 12-44 % Monocytes (%) (Auto) 13 H 0-12 % Eosinophils (%) (Auto) 6 0-10 % Basophils (%) (Auto) 1 0-10 % Neutrophils # (Auto) 3.6 1.8-7.8 X 10^3 Lymphocytes # (Auto) 1.3 1.0-4.0 X 10^3 Monocytes # (Auto) 0.8 0.0-1.0 X 10^3 Eosinophils # (Auto) 0.4 H 0.0-0.3 10^3/uL Basophils # (Auto) 0.1 0.0-0.1 10^3/uL Sodium Level 138 135-145 MMOL/L Potassium Level 3.8 3.6-5.0 MMOL/L Chloride Level 103 98-107 MMOL/L Carbon Dioxide Level 26 21-32 MMOL/L Anion Gap 9 5-14 MMOL/L Blood Urea Nitrogen 14 7-18 MG/DL Creatinine 0.79 0.60-1.30 MG/DL Estimat Glomerular Filtration Rate > 60 BUN/Creatinine Ratio 18 Glucose Level 94 70-105 MG/DL Calcium Level 10.0 8.5-10.1 MG/DL Corrected Calcium 9.8 8.5-10.1 MG/DL Magnesium Level 2.3 1.8-2.4 MG/DL Total Bilirubin 0.4 0.1-1.0 MG/DL Aspartate Amino Transf (AST/SGOT) 20 5-34 U/L Alanine Aminotransferase (ALT/SGPT) 12 0-55 U/L Alkaline Phosphatase 82 40-136 U/L Total Protein 7.1 6.4-8.2 GM/DL Albumin 4.3 3.2-4.5 GM/DL Urine Color YELLOW Urine Clarity VERY CLOUDY H Urine pH 6.5 5-9 Urine Specific [place] 1.010 L 1.016-1.022 Urine Protein 1+ H NEGATIVE Urine Glucose (UA) NEGATIVE NEGATIVE Urine Ketones NEGATIVE NEGATIVE Urine Nitrite NEGATIVE NEGATIVE Urine Bilirubin NEGATIVE NEGATIVE Urine Urobilinogen NORMAL NORMAL MG/DL Urine Leukocyte Esterase 3+ H NEGATIVE Urine RBC (Auto) 1+ H NEGATIVE Urine RBC NONE /HPF Urine WBC >100 H /HPF Urine Squamous Epithelial Cells >50 H /HPF Urine Renal Epithelial Cells 5-10 /HPF Urine Crystals NONE /LPF Urine Bacteria LARGE H /HPF Urine Casts NONE /LPF Urine Mucus NEGATIVE /LPF Urine Culture Indicated YES (MEMO TORRES MD) My Orders Orders - MEMO TORRES MD Ceftriaxone For Iv Use (Rocephin For I (02/22/18 19:30) Nitrofurantoin Capsule,Macro (Macrobid C (02/22/18 19:30) Ketorolac Injection (Toradol Injection) (02/22/18 19:30) (MEMO TORRES MD) Medications Given in ED Current Medications Medications Dose Ordered Sig/Kemi Route Start Time Stop Time Status Last Admin Dose Admin Acetaminophen 1,000 mg ONCE ONCE PO 02/22/18 17:45 02/22/18 17:46 DC 02/22/18 18:17 1,000 MG Albuterol/ Ipratropium 3 ml ONCE ONCE INH 02/22/18 17:15 02/22/18 17:16 DC 02/22/18 17:21 3 ML (MEMO TORRES MD) Vital Signs/I&O 02/22/18 02/22/18 17:08 17:22 Temp 98.6 Pulse 78 Resp 20 B/P (MAP) 150/80 (103) Pulse Ox 94 93 O2 Delivery Room Air (MEMO TORRES MD) Vital Signs/I&O Capillary Refill : (ANNE MARIE LEIVA) Progress Note : Time: 17:41 Progress Note Weakness and diffuse bilateral lower extremity pain. She's recently had a lot of loose stools and so she could have electrolyte disorders. She is clinically dry on appearance. We will check labs, urinalysis get a chest x-ray and give her breathing treatments she's having some wheezing. After the breathing treatment and her wheezing did improve mildly and she still satting very well on her baseline 2 L per nasal cannula. We'll also check a CPK and consider discontinuing her statins to see if her leg tenderness improves. She denies any pain on arrival but now she's saying she still has no pain but she's hurting about a 7 out of 10 bilateral lower extremities and would like some Tylenol. Bilateral lower extremities move have good pulses and so we reviewed her previous heart history and she did have a heart catheter in 2010 was showing no obstructive coronary artery disease. There is no edema or other evidence of vascular or neurologic compromise. (ANNE MARIE LEIVA) Progress Note : Progress Note 1930: Patient does have findings consistent with urinary tract infection. She still has a little bit of pain. I did discuss the case with Dr. Nicholas. At this point we will initiate treatment with Rocephin 1 g IV and nitrofurantoin and continue that as outpatient. She is doing a little better after fluids. She did receive Tylenol earlier. We will give Toradol 15 mg IV for some mild continued pain. Family at bedside and concerns about best place for her during this illness. We discussed several options and they're okay with her going back to assisted given current findings and concerns. Discharged assisted with return precautions. Family verbalize understanding instructions and agreement with plan. (MEMO TORRES MD) Diagnostic Imaging Diagonstic Imaging: Xray Plain Films/CT/US/NM/MRI: chest (1v) Reviewed: Reviewed by Me Diagonstic Imaging: Xray Plain Films/CT/US/NM/MRI: abdomen (1kub) Reviewed: Reviewed by Me (ABBIE,ANNE MARIE J) Comments NAME: MARIOLA OLIVEIRA [facility] REC#: [id number] PT STATUS: REG ER : 1940 PHYSICIAN: ANNE MARIE LEIVA MD ADMIT DATE: 02/22/18/ER Signed Date of Exam: 02/22/18 CHEST 1 VIEW, AP/PA ONLY INDICATION: Generalized weakness and lethargy. PA chest obtained at 06:31 p.m. and compared to 06/13/2017. Heart and mediastinal silhouette are normal in appearance. There is no pneumothorax or pleural fluid. There is no focal infiltrate. There are mild chronic-appearing increased interstitial markings which are similar to the prior study. IMPRESSION: No acute process in the chest and no significant change from 06/13/2017. Dictated by: Dictated on workstation # [id number] Dict: 02/22/18 181 Trans: 02/22/181845 Interpreted by: ELA LAM MD Electronically signed by: ELA LAM MD 02/22/181845 Comments NAME: MARIOLA OLIVEIRA [facility] REC#: [id number] PT STATUS: REG ER : 1940 PHYSICIAN: ANNE MARIE LEIVA MD ADMIT DATE: 02/22/18/ER Signed Date of Exam: 02/22/18 ABDOMEN/KUB 1VIEW INDICATION: Generalized weakness and lethargy. KUB obtained at 6:34 p.m. FINDINGS: There are surgical clips in the right upper quadrant. There are vascular calcifications over the left upper quadrant. The abdominal bowel gas pattern is nonspecific. There is no overt obstruction or ileus. There is mild dextroscoliotic change of the lumbar spine with diffuse degenerative change. IMPRESSION: Nonspecific bowel gas pattern with no overt obstruction or ileus. Postop changes in the right upper quadrant. Dictated by: Dictated on workstation # [id number] Dict: 02/22/18 182 Trans: 02/22/181845 Interpreted by: ELA LAM MD Electronically signed by: ELA LAM MD 02/22/181845 (MEMO TORRES MD) Departure Impression Primary Impression: Urinary tract infection Qualified Codes: N30.00 - Acute cystitis without hematuria Additional Impression: Bilateral leg pain Disposition: HOME, SELF-CARE Condition: Stable Departure-Patient Inst. Decision time for Depature: 19:39 (MEMO TORRES MD) Referrals: DALILA NICHOLAS DO (PCP/Family) Primary Care Physician Patient Instructions: Muscle and Bone Pain (DC), Urinary Tract Infection, Adult (DC) Add. Discharge Instructions: All discharge instructions reviewed with patient and/or family. Voiced understanding. Continue medications as directed. Take antibiotics as directed. Follow-up with your Dr. in a few days for recheck. Return for worse pain, fever, vomiting , weakness, breathing problems or other concerns as needed. Scripts Nitrofurantoin Macrocrystal (Nitrofurantoin) 100 Mg Capsule 100 MG PO BID, #14 CAP 0 Refills Prov: MEMO TORRES MD 02/22/18 ANNE MARIE LEIVA Feb 22, 2018 17:12 MEMO TORRES MD Feb 22, 2018 19:41
[2018-02-22] MEDS ORDERED: RT-ALBUTEROL/IPRATROPIUM 3 ML (DUONEB) VIAL INH ONE (17:15)
[2018-02-22 17:44] LABS: BASOPHILS # (AUTO) 0.1 10^3/uL (0.0-0.1); BASOPHILS % (AUTO) 1 % (0-10); EOSINOPHILS # (AUTO) 0.4 10^3/uL (0.0-0.3); EOSINOPHILS % (AUTO) 6 % (0-10); HEMATOCRIT 39 % (35-52); HEMOGLOBIN 12.7 G/DL (11.5-16.0); LYMPHOCYTES # (AUTO) 1.3 X 10^3 (1.0-4.0); LYMPHOCYTES % (AUTO) 22 % (12-44); MEAN CORPUSCULAR HEMOGLOBIN 32 PG (25-34); MEAN CORPUSCULAR HGB CONC 33 G/DL (32-36); MEAN CORPUSCULAR VOLUME 98 FL (80-99); MEAN PLATELET VOLUME 12.1 FL (7.4-10.4); MONOCYTES # (AUTO) 0.8 X 10^3 (0.0-1.0); MONOCYTES % (AUTO) 13 % (0-12); NEUTROPHILS # (AUTO) 3.6 X 10^3 (1.8-7.8); NEUTROPHILS % (AUTO) 58 % (42-75); PLATELET COUNT 196 10^3/uL (130-400); RED BLOOD COUNT 3.94 10^6/uL (4.35-5.85); RED CELL DISTRIBUTION WIDTH 11.9 % (10.0-14.5); WHITE BLOOD COUNT 6.2 10^3/uL (4.3-11.0)
[2018-02-22] MEDS ORDERED: ACETAMINOPHEN 500 MG TAB (TYLENOL) PO ONE (17:45)
--- OUTSIDE RECORDS SUMMARY | 2018-02-22 17:46 | XMS REPORT | Continuity of Care Document ---
Author Author [facility] Organization [facility] Address Unknown Phone Unavailable Allergies Active Description Code Type Severity Reaction Onset Reported/Identified Relationship to Patient Clinical Status Yes Penicillins [id number] Drug Allergy Moderate HIVES, CAN TAKE 12/18/2011 Yes propoxyphene [id number] Drug Allergy Unknown N/A 12/18/2011 Yes codeine [id number] Drug Allergy Unknown N/A 02/09/2015 Yes morphine [id number] Drug Allergy Unknown PATIENT TAKES V 02/09/2015 [...] DISORDER 05/18/2011 Ot 414.01 CORONARY ATHEROSCLEROSIS OF CIRCLE CORON 05/18/2011 Ot 486 PNEUMONIA, ORGANISM NOS [...] V58.61 08/21/2014 Ot V58.69 08/25/2014 ORENDER DO, CELESTINA S Ot 348.89 08/25/2014 ORENDER DO, CELESTINA S Ot 433.10 08/25/2014 ORENDER DO, CELESTINA S Ot 433.30 08/25/2014 ORENDER DO, CELESTINA S Ot 723.1 08/25/2014 ORENDER DO, CELESTINA S Ot 780.4 08/25/2014 ORENDER DO, CELESTINA S Ot V12.54 08/25/2014 ORENDER DO, CELESTINA S Ot 348.89 08/25/2014 ORENDER DO, CELESTINA S Ot 433.10 08/25/2014 ORENDER DO, CELESTINA S Ot 433.30 08/25/2014 ORENDER DO, CELESTINA S Ot 723.1 08/25/2014 ORENDER DO, CELESTINA S Ot 780.4 08/25/2014 ORENDER DO, CELESTINA S Ot V12.54 09/10/2014 ORENDER DO, CELESTINA S Ot 348.89 09/10/2014 ORENDER DO, CELESTINA S Ot 433.10 09/10/2014 ORENDER DO, CELESTINA S Ot 433.30 09/10/2014 ORENDER DO, CELESTINA S Ot 723.1 09/10/2014 ORENDER DO, CELESTINA S Ot 780.4 09/10/2014 ORENDER DO, CELESTINA S Ot V12.54 09/23/2014 ORENDER DO, CELESTINA S Ot 348.89 09/23/2014 ORENDER DO, CELESTINA S Ot 433.10 09/23/2014 ORENDER DO, CELESTINA S Ot 433.30 09/23/2014 ORENDER DO, CELESTINA S Ot 723.1 09/23/2014 ORENDER DO, CELESTINA S Ot 780.4 09/23/2014 ORENDER DO, CELESTINA S Ot V12.54 02/11/2015 ORENDER DO, CELESTINA S Ot E03.9 HYPOTHYROIDISM, UNSPECIFIED 02/11/2015 ORENDER DO, CELESTINA S Ot F17.210 NICOTINE DEPENDENCE, CIGARETTES, UNCOMPL 02/11/2015 AMOS NICHOLAS DOLINE S Ot I10 ESSENTIAL (PRIMARY) HYPERTENSION 02/11/2015 LOLIKESHIA GALVIN CELESTINA S Ot J44.9 CHRONIC OBSTRUCTIVE PULMONARY DISEASE, U 02/11/2015 LOLIJOSHUASELVIN DO CELESTINA S Ot K21.9 GASTRO-ESOPHAGEAL REFLUX DISEASE WITHOUT 02/11/2015 OH GALVIN CELESTINA S Ot K57.92 DVTRCLI OF INTEST, PART UNSP, W/O PERF O 02/11/2015 LOLIJOSHUASELVIN GALVIN CELESTINA S Ot N39.0 URINARY TRACT INFECTION, SITE [...] 02/26/2015 Ot V58.61 02/26/2015 Ot V58.69 02/26/2015 CELESTINA NICHOLAS DO Ot 348.89 02/26/2015 CELESTINA NICHOLAS DO Ot 433.10 02/26/2015 CELESTINA NICHOLAS DO Ot 433.30 02/26/2015 CELESTINA NICHOLAS DO Ot 723.1 02/26/2015 CELESTINA NICHOLAS DO Ot 780.4 02/26/2015 LOLINDSELVIN GALVIN, CELESTINA S Ot V12.54 03/05/2015 LOLINDER , CELESTINA S Ot E03.9 HYPOTHYROIDISM, UNSPECIFIED 03/05/2015 LOLINDSELVIN DO, CELESTINA S Ot F17.210 NICOTINE DEPENDENCE, CIGARETTES, UNCOMPL 03/05/2015 LOLINDER DO, CELESTINA S Ot I10 ESSENTIAL (PRIMARY) HYPERTENSION 03/05/2015 LOLINDSELVIN GALVIN, CELESTINA S Ot J44.9 CHRONIC OBSTRUCTIVE PULMONARY DISEASE, U 03/05/2015 OH DO, CELESTINA S Ot K21.9 GASTRO-ESOPHAGEAL REFLUX DISEASE WITHOUT 03/05/2015 LOLINDER DOAMOSCELESTINA S Ot R55 SYNCOPE AND COLLAPSE 03/05/2015 OH GALVIN, CELESTINA S Ot S00.03XA CONTUSION OF SCALP, INITIAL ENCOUNTER 03/05/2015 AOMS NICHOLAS DOLINE S Ot S40.921A UNSP SUPERFICIAL INJURY OF RIGHT UPPER A 03/05/2015 AMOS NICHOLAS DOLINE S Ot W19.XXXA UNSPECIFIED FALL, INITIAL ENCOUNTER 03/05/2015 AMOS NICHOLAS DOLINE S Ot Y92.[address] IN SINGLE-FAMILY (PRIVATE) HO 03/05/2015 OH GALVIN, CELESTINA S Ot Y93.E2 ACTIVITY, LAUNDRY 03/05/2015 OH DO, CELESTINA S Ot Z86.73 PRSNL HX OF TIA (TIA), AND CEREB INFRC W 03/19/2015 OH DO, CELESTINA S Ot R41.0 03/19/2015 LOLINDER DO, CELESTINA S Ot Z86.73 03/19/2015 LOLINDER DO, CELESTINA S Ot Z91.81 04/03/2015 LOLINDER DO, CELESTINA S Ot R41.0 04/03/2015 LOLINDER DO, CELESTINA S Ot Z86.73 04/03/2015 LOLINDER DO, CELESTINA S Ot Z91.81 07/19/2015 Ot 491.21 OBSTR [...] OTH MED,LT, CURRENT USE 12/28/2015 ORENDER DO CELESTINA S Ot 348.89 OTHER CONDITIONS OF BRAIN 12/28/2015 LOLINDER DO, CELESTINA S Ot 433.10 CAROTID ARTERY OCCLUSION W O CEREBRAL IN 12/28/2015 LOLINDER DO, CELESTINA S Ot 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 ARTERY OCCLUSION WO CEREBRA 12/28/2015 LOLINDER DO CELESTINA S Ot 723.1 CERVICALGIA 12/28/2015 LOLINDER DO CELESTINA S Ot 780.4 DIZZINESS AND GIDDINESS 12/28/2015 LOLINDER DO CELESTINA S Ot V12.54 PERSONAL HX OF TIA, CEREBRAL INFARCTION 12/28/2015 LOLINDER DO, CELESTINA S Ot R41.0 DISORIENTATION, UNSPECIFIED 12/28/2015 LOLINDER DO, CELESTINA S Ot Z86.73 PRSNL HX OF TIA (TIA), AND CEREB INFRC W 12/28/2015 LOLINDER DO, CELESTINA S Ot Z91.81 HISTORY OF FALLING 12/31/2015 LOLINDER DO CELESTINA S Ot E03.9 HYPOTHYROIDISM, UNSPECIFIED 12/31/2015 LOLINDER DO CELESTINA S Ot E86.0 DEHYDRATION 12/31/2015 ORENDER DO CELESTINA S Ot E87.6 HYPOKALEMIA 12/31/2015 LOLINDER DO CELESTINA S Ot F17.210 NICOTINE DEPENDENCE, CIGARETTES, UNCOMPL 12/31/2015 LOLINDER DO CELESTINA S Ot F32.9 MAJOR DEPRESSIVE DISORDER, SINGLE EPISOD 12/31/2015 LOLINDER DO, CELESTINA S Ot F41.9 ANXIETY DISORDER, UNSPECIFIED 12/31/2015 LOLINDER DO CELESTINA S Ot I10 ESSENTIAL (PRIMARY) HYPERTENSION 12/31/2015 LOLINDSELVIN GALVIN CELESTINA S Ot J44.9 CHRONIC OBSTRUCTIVE PULMONARY DISEASE, U 12/31/2015 LOLINDER DO, CELESTINA S Ot K21.9 GASTRO-ESOPHAGEAL REFLUX DISEASE WITHOUT 12/31/2015 ORENDER DO, CELESTINA S Ot K56.60 UNSPECIFIED INTESTINAL OBSTRUCTION 12/31/2015 ORENDER DO, CELESTINA S Ot K56.69 OTHER INTESTINAL OBSTRUCTION 12/31/2015 ORENDER DO, CELESTINA S Ot K59.00 CONSTIPATION, UNSPECIFIED 12/31/2015 ORENDER DO, CELESTINA S Ot M19.90 UNSPECIFIED OSTEOARTHRITIS, UNSPECIFIED 12/31/2015 ORENDER DO, CELESTINA S Ot N17.9 ACUTE KIDNEY FAILURE, UNSPECIFIED 12/31/2015 ORENDER DO, CELESTINA S Ot N28.9 DISORDER OF KIDNEY AND URETER, UNSPECIFI 12/31/2015 ORENDER DO, CELESTINA S Ot R25.1 TREMOR, UNSPECIFIED 12/31/2015 ORENDER DO, CELESTINA S Ot Z86.73 PRSNL HX OF TIA (TIA), AND CEREB INFRC W 07/18/2016 Ot 491.21 OBSTR CHRONIC BRONCHITIS, W (ACUTE) EXAC 07/18/2016 Ot 786.05 SHORTNESS OF BREATH 07/18/2016 Ot 791.9 ABN URINE FINDINGS NEC 03/20/2017 ROSENDAER DO, CELESTINA S Ot 348.89 OTHER CONDITIONS OF BRAIN 03/20/2017 LOLINDER DO, CELESTINA S Ot 433.10 CAROTID ARTERY OCCLUSION W O CEREBRAL IN 03/20/2017 LOLINDER DO, CELESTINA S Ot 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 ARTERY OCCLUSION WO CEREBRA 03/20/2017 LOLINDER DO, CELESTINA S Ot 723.1 CERVICALGIA 03/20/2017 LOLINDER DO, CELESTINA S Ot 780.4 DIZZINESS AND GIDDINESS 03/20/2017 LOLINDER DO, CELESTINA S Ot V12.54 PERSONAL HX OF TIA, CEREBRAL INFARCTION 03/20/2017 LOLINDER DO, CELESTINA S Ot R41.0 DISORIENTATION, UNSPECIFIED 03/20/2017 LOLINDER DO, CELESTINA S Ot Z86.73 PRSNL HX OF TIA (TIA), AND CEREB INFRC W 03/20/2017 LOLINDER DO, CELESTINA S Ot Z91.81 HISTORY OF FALLING 03/20/2017 PARISH RUELAS APRN Ot E03.9 HYPOTHYROIDISM, UNSPECIFIED 03/20/2017 PARISH RUELAS APRN Ot I50.9 HEART FAILURE, UNSPECIFIED 03/20/2017 PARISH RUELAS APRN Ot J44.9 CHRONIC OBSTRUCTIVE PULMONARY DISEASE, U 03/20/2017 PARISH RUELAS APRN Ot K21.9 GASTRO-ESOPHAGEAL REFLUX DISEASE WITHOUT 03/20/2017 PARISH RUELAS APRN Ot T21.15XA BURN OF FIRST DEGREE OF BUTTOCK, INITIAL 03/20/2017 PARISH RUELAS APRN Ot T31.0 JOSUE INVOLVING LESS THAN 10% OF BODY PATEL 03/20/2017 PARISH RUELAS APRN Ot X11.0XXA CONTACT WITH HOT WATER IN BATH OR TUB, I 03/20/2017 PARISH RUELAS APRN Ot 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 03/20/2017 PARISH RUELAS APRN Ot Z86.73 PRSNL HX OF TIA (TIA), AND CEREB INFRC W 03/20/2017 PARISH RUELAS APRN Ot Z87.891 PERSONAL HISTORY OF NICOTINE DEPENDENCE 03/20/2017 PARISH RUELAS APRN Ot Z90.49 ACQUIRED ABSENCE OF OTHER SPECIFIED PART 03/20/2017 PARISH RUELAS APRN Ot Z90.710 ACQUIRED ABSENCE OF BOTH CERVIX AND UTER 03/20/2017 CRESENCIO NICHOLAS DOQUELINE S Ot 348.89 OTHER CONDITIONS OF BRAIN 03/20/2017 OH GALVIN CELESTINA S Ot 433.10 CAROTID ARTERY OCCLUSION W O CEREBRAL IN 03/20/2017 OH GALVIN CELESTINA S Ot 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 ARTERY OCCLUSION WO CEREBRA 03/20/2017 ROSENDAER , CELESTINA S Ot 723.1 CERVICALGIA 03/20/2017 LOLINDER , CELESTINA S Ot 780.4 DIZZINESS AND GIDDINESS 03/20/2017 OH GALVIN CELESTINA S Ot V12.54 PERSONAL HX OF TIA, CEREBRAL INFARCTION 03/20/2017 CRESENCIO NICHOLAS DOQUELINE S Ot R41.0 DISORIENTATION, UNSPECIFIED 03/20/2017 CRESENCIO NICHOLAS DOQUELINE S Ot Z86.73 PRSNL HX OF TIA (TIA), AND CEREB INFRC W 03/20/2017 AMOS NICHOLAS DOLINE S Ot Z91.81 HISTORY OF FALLING 04/06/2017 AMOS NICHOLAS DOLINE S Ot 348.89 OTHER CONDITIONS OF BRAIN 04/06/2017 AMOS NICHOLAS DOLINE S Ot 433.10 CAROTID ARTERY OCCLUSION W O CEREBRAL IN 04/06/2017 AMOS NICHOLAS DOLINE S Ot 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 ARTERY OCCLUSION WO CEREBRA 04/06/2017 OH GALVIN, CELESTINA S Ot 723.1 CERVICALGIA 04/06/2017 LOLINDER , CELESTINA S Ot 780.4 DIZZINESS AND GIDDINESS 04/06/2017 AMOS NICHOLAS DOLINE S Ot V12.54 PERSONAL HX OF TIA, CEREBRAL INFARCTION 04/06/2017 AMOS NICHOLAS DOLINE S Ot R41.0 DISORIENTATION, UNSPECIFIED 04/06/2017 AMOS NICHOLAS DOLINE S Ot Z86.73 PRSNL HX OF TIA (TIA), AND CEREB INFRC W 04/06/2017 AMOS NICHOLAS DOLINE S Ot Z91.81 HISTORY OF FALLING 04/06/2017 AMOS NICHOLAS DOLINE S Ot R53.1 WEAKNESS 04/07/2017 AMOS NICHOLAS DOLINE S Ot G93.89 OTHER SPECIFIED DISORDERS OF BRAIN 04/07/2017 AMOS NICHOLAS DOLINE S Ot R47.81 SLURRED SPEECH 04/07/2017 AMOS NICHOLAS DOLINE S Ot R53.1 WEAKNESS 04/07/2017 AMOS NICHOLAS DOLINE S Ot W19.XXXA UNSPECIFIED FALL, INITIAL ENCOUNTER 04/07/2017 AMOS NICHOLAS DOLINE S Ot Z86.73 PRSNL HX OF TIA (TIA), AND CEREB INFRC W 04/11/2017 AMOS NICHOLAS DOLINE S Ot 348.89 OTHER CONDITIONS OF BRAIN 04/11/2017 AMOS NICHOLAS DOLINE S Ot 433.10 CAROTID ARTERY OCCLUSION W O CEREBRAL IN 04/11/2017 OH GALVIN, CELESTINA S Ot 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 ARTERY OCCLUSION WO CEREBRA 04/11/2017 OH GALVIN, CELESTINA S Ot 723.1 CERVICALGIA 04/11/2017 OH GALVIN, CELESTINA S Ot 780.4 DIZZINESS AND GIDDINESS 04/11/2017 LOLINDER DO CELESTINA S Ot V12.54 PERSONAL HX OF TIA, CEREBRAL INFARCTION 04/11/2017 LOLINDER DO CELESTINA S Ot R41.0 DISORIENTATION, UNSPECIFIED 04/11/2017 ORENDER DO CELESTINA S Ot Z86.73 PRSNL HX OF TIA (TIA), AND CEREB INFRC W 04/11/2017 LOLINDER DO CELESTINA S Ot Z91.81 HISTORY OF FALLING 04/11/2017 LOLINDER DO CELESTINA S Ot G93.89 OTHER SPECIFIED DISORDERS OF BRAIN 04/11/2017 LOLINDER DOAMOSCELESTINA S Ot R47.81 SLURRED SPEECH 04/11/2017 LOLINDER DOAMOSCELESTINA S Ot R53.1 WEAKNESS 04/11/2017 LOLINDER DOAMOSCELESTINA S Ot W19.XXXA UNSPECIFIED FALL, INITIAL ENCOUNTER 04/11/2017 ROSENDAER AMOS GALVINLINE S Ot Z86.73 PRSNL HX OF TIA (TIA), AND CEREB INFRC W 04/11/2017 LOLINDER DO CELESTINA S Ot D64.9 ANEMIA, UNSPECIFIED 04/13/2017 ORENDER DO, CELESTINA S Ot D64.9 ANEMIA, UNSPECIFIED 04/17/2017 LOLINDER DOAMOSCELESTINA S Ot D64.9 ANEMIA, UNSPECIFIED 04/17/2017 LOLINDER DOAMOSCELESTINA S Ot E86.0 DEHYDRATION 04/17/2017 LOLINDER AMOS GALVINLINE S Ot F01.50 VASCULAR DEMENTIA WITHOUT BEHAVIORAL DIS 04/17/2017 LOLINDER AMOS GALVINLINE S Ot I10 ESSENTIAL (PRIMARY) HYPERTENSION 04/17/2017 LOLINDER DOCRESENCIOCELESTINA S Ot I99.9 UNSPECIFIED DISORDER OF CIRCULATORY SYST 04/17/2017 LOLINDER AMOS GALVINLINE S Ot J44.9 CHRONIC OBSTRUCTIVE PULMONARY DISEASE, U 04/17/2017 LOLINDER AMOS GALVINLINE S Ot K21.9 GASTRO-ESOPHAGEAL REFLUX DISEASE WITHOUT 04/17/2017 ORENDER DOCRESENCIOCELESTINA S Ot K59.00 CONSTIPATION, UNSPECIFIED 04/17/2017 LOLINDER DOCRESENCIOCELESTINA S Ot M19.91 PRIMARY OSTEOARTHRITIS, UNSPECIFIED SITE 04/17/2017 ORENDER DOAMOSCELESTINA S Ot M54.9 DORSALGIA, UNSPECIFIED 04/17/2017 LOLINDER DOAMOSCELESTINA S Ot N17.9 ACUTE KIDNEY FAILURE, UNSPECIFIED 04/17/2017 LOLINDER DOAMOSCELESTINA S Ot N39.0 URINARY TRACT INFECTION, SITE NOT SPECIF 04/17/2017 LOLINDER AMOS GALVINLINE S Ot R26.81 UNSTEADINESS ON FEET 04/17/2017 LOLINDER DO, CELESTINA S Ot R41.0 DISORIENTATION, UNSPECIFIED 04/17/2017 ORENDER DO, CELESTINA S Ot Z86.73 PRSNL HX OF TIA (TIA), AND CEREB INFRC W 04/17/2017 LOLINDER DOAMOSCELESTINA S Ot Z86.79 PERSONAL HISTORY OF OTHER DISEASES OF TH 04/17/2017 LOLINDAMOS MONTALVO DOLINE S Ot Z87.891 PERSONAL HISTORY OF NICOTINE DEPENDENCE 04/17/2017 LOLINDER AMOS GALVINLINE S Ot Z90.49 ACQUIRED ABSENCE OF OTHER SPECIFIED PART 04/17/2017 LOLINDER DOAMOSCELESTINA S Ot Z91.81 HISTORY OF FALLING 04/28/2017 LOLINDER DO, CELESTINA S Ot G93.89 OTHER SPECIFIED DISORDERS OF BRAIN 04/28/2017 LOLINDER DO, CELESTINA S Ot R47.81 SLURRED SPEECH 04/28/2017 LOLINDER DO, CELESTINA S Ot R53.1 WEAKNESS 04/28/2017 ORENDER DO, CELESTINA S Ot W19.XXXA UNSPECIFIED FALL, INITIAL ENCOUNTER 04/28/2017 LOLINDER AMOS GALVINLINE S Ot Z86.73 PRSNL HX OF TIA (TIA), AND CEREB INFRC W 05/01/2017 ORENDER DO, CELESTINA S Ot I65.01 OCCLUSION AND STENOSIS OF RIGHT VERTEBRA 05/01/2017 ORENDER DO, CELESTINA S Ot I65.01 OCCLUSION AND STENOSIS OF RIGHT VERTEBRA 05/02/2017 ORENDER DO, CELESTINA S Ot G93.89 OTHER SPECIFIED DISORDERS OF BRAIN 05/02/2017 LOLINDER DO, CELESTINA S Ot R47.81 SLURRED SPEECH 05/02/2017 ORENDER DO, CELESTINA S Ot R53.1 WEAKNESS 05/02/2017 ORENDER DO, CELESTINA S Ot W19.XXXA UNSPECIFIED FALL, INITIAL ENCOUNTER 05/02/2017 CELESTINA NICHOLAS DO S Ot Z86.73 PRSNL HX OF TIA (TIA), AND CEREB INFRC W 05/03/2017 AMOS NICHOLAS DOLINE S Ot 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 05/03/2017 OH GALVIN, CELESTINA S Ot 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 05/03/2017 KIERAN MOONEY Ot E03.9 HYPOTHYROIDISM, UNSPECIFIED 05/03/2017 KIERAN MOONEY Ot G43.909 MIGRAINE, UNSP, NOT INTRACTABLE, WITHOUT 05/03/2017 KIERAN MOONEY Ot G89.29 OTHER CHRONIC PAIN 05/03/2017 KIERAN MOONEY Ot I50.9 HEART FAILURE, UNSPECIFIED 05/03/2017 KIERAN MOONEY Ot J44.9 CHRONIC OBSTRUCTIVE PULMONARY DISEASE, U 05/03/2017 KIERAN MOONEY Ot K21.9 GASTRO-ESOPHAGEAL REFLUX DISEASE WITHOUT 05/03/2017 KIERAN MOONEY Ot R10.13 EPIGASTRIC PAIN 05/03/2017 KIERAN MOONEY Ot R10.30 LOWER ABDOMINAL PAIN, UNSPECIFIED 05/03/2017 KIERAN MOONEY Ot R51 HEADACHE 05/03/2017 KIERAN MOONEY Ot Z79.82 MCFP (CURRENT) USE OF ASPIRIN 05/03/2017 KIERAN MOONEY Ot Z86.73 PRSNL HX OF TIA (TIA), AND CEREB INFRC W 05/03/2017 KIERAN MOONEY Ot Z87.448 PERSONAL HISTORY OF OTHER DISEASES OF UR 05/03/2017 KIERAN MOONEY Ot Z87.891 PERSONAL HISTORY OF NICOTINE DEPENDENCE 05/03/2017 KIERAN MOONEY Ot Z88.0 ALLERGY STATUS TO PENICILLIN 05/03/2017 KIERAN MOONEY Ot Z88.5 ALLERGY STATUS TO NARCOTIC AGENT STATUS 05/03/2017 KIERAN MOONEY Ot Z88.8 ALLERGY STATUS TO OTH DRUG/MEDS/BIOL SUB 05/03/2017 KIERAN MOONEY Ot Z90.49 ACQUIRED ABSENCE OF OTHER SPECIFIED PART 05/03/2017 KIERAN MOONEY Ot Z90.710 ACQUIRED ABSENCE OF BOTH CERVIX AND UTER 05/05/2017 KIERAN MOONEY Ot E03.9 HYPOTHYROIDISM, UNSPECIFIED 05/05/2017 KIERAN MOONEY Ot G43.909 MIGRAINE, UNSP, NOT INTRACTABLE, WITHOUT 05/05/2017 KIERAN MOONEY Ot G89.29 OTHER CHRONIC PAIN 05/05/2017 KIERAN MOONEY Ot I50.9 HEART FAILURE, UNSPECIFIED 05/05/2017 KIERAN MOONEY Ot J44.9 CHRONIC OBSTRUCTIVE PULMONARY DISEASE, U 05/05/2017 KIERAN MOONEY Ot K21.9 GASTRO-ESOPHAGEAL REFLUX DISEASE WITHOUT 05/05/2017 KIERAN MOONEY Ot R10.13 EPIGASTRIC PAIN 05/05/2017 KIERAN MOONEY Ot R10.30 LOWER ABDOMINAL PAIN, UNSPECIFIED 05/05/2017 KIERAN MOONEY Ot R51 HEADACHE 05/05/2017 KIERAN MOONEY Ot 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 05/05/2017 KIERAN MOONEY Ot Z86.73 PRSNL HX OF TIA (TIA), AND CEREB INFRC W 05/05/2017 KIERAN MOONEY Ot Z87.448 PERSONAL HISTORY OF OTHER DISEASES OF UR 05/05/2017 KIERAN MOONEY Ot Z87.891 PERSONAL HISTORY OF NICOTINE DEPENDENCE 05/05/2017 KIERAN MOONEY Ot Z88.0 ALLERGY STATUS TO PENICILLIN 05/05/2017 KIERAN MOONEY Ot Z88.5 ALLERGY STATUS TO NARCOTIC AGENT STATUS 05/05/2017 KIERAN MOONEY Ot Z88.8 ALLERGY STATUS TO OTH DRUG/MEDS/BIOL SUB 05/05/2017 KIERAN MOONEY Ot Z90.49 ACQUIRED ABSENCE OF OTHER SPECIFIED PART 05/05/2017 KIERAN MOONEY Ot Z90.710 ACQUIRED ABSENCE OF BOTH CERVIX AND UTER 05/23/2017 CELESTINA NICHOLAS DO Ot 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 06/02/2017 Celestina Nicholas W 290.40 VASCULAR DEMENTIA, UNCOMPLICATED 06/02/2017 Celestina Nicholas W 401.0 MALIGNANT ESSENTIAL HYPERTENSION 06/02/2017 Celestina Nicholas W 491.20 OBSTRUCTIVE CHRONIC BRONCHITIS, WITHOUT EXACERBATION 06/02/2017 Celestina Nicholas A 599.0 URINARY TRACT INFECTION, SITE NOT SPECIFIED 06/02/2017 Celestina Nicholas W 728.87 MUSCLE WEAKNESS (GENERALIZED) 06/02/2017 Celestina Nicholas W F01.50 VASCULAR DEMENTIA WITHOUT BEHAVIORAL DISTURBANCE 06/02/2017 Celestina Nicholas W I10 ESSENTIAL (PRIMARY) HYPERTENSION 06/02/2017 Celestina Nicholas W J44.9 CHRONIC OBSTRUCTIVE PULMONARY DISEASE, UNSPECIFIED 06/02/2017 Celestina Nicholas W M62.81 MUSCLE WEAKNESS (GENERALIZED) 06/02/2017 Celestina Nicholas A N39.0 URINARY TRACT INFECTION, SITE NOT SPECIFIED 06/13/2017 MEMO TORRES MD, Ot E03.9 HYPOTHYROIDISM, UNSPECIFIED 06/13/2017 MEMO TORRES MD Ot E86.0 DEHYDRATION 06/13/2017 MEMO TORRES MD Ot G43.909 MIGRAINE, UNSP, NOT INTRACTABLE, WITHOUT 06/13/2017 MEMO TORRES MD Ot I50.9 HEART FAILURE, UNSPECIFIED 06/13/2017 MEMO TORRES MD, Ot J44.9 CHRONIC OBSTRUCTIVE PULMONARY DISEASE, U 06/13/2017 MEMO TORRES MD Ot K21.9 GASTRO-ESOPHAGEAL REFLUX DISEASE WITHOUT 06/13/2017 MEMO TORRES MD Ot N39.0 URINARY TRACT INFECTION, SITE NOT SPECIF 06/13/2017 MEMO TORRES MD Ot R11.2 NAUSEA WITH VOMITING, UNSPECIFIED 06/13/2017 MEMO TORRES MD Ot R19.7 DIARRHEA, UNSPECIFIED 06/13/2017 MEMO TORRES MD Ot Z79.82 MCFP (CURRENT) USE OF ASPIRIN 06/13/2017 MEMO TORRES MD Ot Z86.73 PRSNL HX OF TIA (TIA), AND CEREB INFRC W 06/13/2017 MEMO TORRES MD Ot Z87.19 PERSONAL HISTORY OF OTHER DISEASES OF TH 06/13/2017 MEMO TORRES MD, Ot Z87.891 PERSONAL HISTORY OF NICOTINE DEPENDENCE 06/13/2017 MEMO TORRES MD Ot Z88.0 ALLERGY STATUS TO PENICILLIN 06/13/2017 MEMO TORRES MD Ot Z88.6 ALLERGY STATUS TO ANALGESIC AGENT STATUS 06/13/2017 MEMO TORRES MD Ot Z90.49 ACQUIRED ABSENCE OF OTHER SPECIFIED PART 06/13/2017 MEMO TORRES MD Ot Z90.710 ACQUIRED ABSENCE OF BOTH CERVIX AND UTER 06/15/2017 MEMO TORRES MD Ot E03.9 HYPOTHYROIDISM, UNSPECIFIED 06/15/2017 MEMO TORRES MD Ot E86.0 DEHYDRATION 06/15/2017 MEMO TORRES MD Ot G43.909 MIGRAINE, UNSP, NOT INTRACTABLE, WITHOUT 06/15/2017 MEMO TORRES MD Ot I50.9 HEART FAILURE, UNSPECIFIED 06/15/2017 MEMO TORRES MD, Ot J44.9 CHRONIC OBSTRUCTIVE PULMONARY DISEASE, U 06/15/2017 MEMO TORRES MD Ot K21.9 GASTRO-ESOPHAGEAL REFLUX DISEASE WITHOUT 06/15/2017 MEMO TORRES MD Ot N39.0 URINARY TRACT INFECTION, SITE NOT SPECIF 06/15/2017 MEMO TORRES MD Ot R11.2 NAUSEA WITH VOMITING, UNSPECIFIED 06/15/2017 MEMO TORRES MD Ot R19.7 DIARRHEA, UNSPECIFIED 06/15/2017 MEMO TORRES MD Ot 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 06/15/2017 MEMO TORRES MD Ot Z86.73 PRSNL HX OF TIA (TIA), AND CEREB INFRC W 06/15/2017 MEMO TRORES MD Ot Z87.19 PERSONAL HISTORY OF OTHER DISEASES OF TH 06/15/2017 MEMO TORRES MD Ot Z87.891 PERSONAL HISTORY OF NICOTINE DEPENDENCE 06/15/2017 MEMO TORRES MD Ot Z88.0 ALLERGY STATUS TO PENICILLIN 06/15/2017 MEMO TORRES MD Ot Z88.6 ALLERGY STATUS TO ANALGESIC AGENT STATUS 06/15/2017 MEMO TORRES MD Ot Z90.49 ACQUIRED ABSENCE OF OTHER SPECIFIED PART 06/15/2017 MEMO TORRES MD Ot Z90.710 ACQUIRED ABSENCE OF BOTH CERVIX AND UTER 06/16/2017 CELESTINA NICHOLAS DO Ot 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 06/19/2017 MEMO TORRES MD Ot E03.9 HYPOTHYROIDISM, UNSPECIFIED 06/19/2017 MEMO TORRES MD, Ot E86.0 DEHYDRATION 06/19/2017 MEMO TORRES MD Ot G43.909 MIGRAINE, UNSP, NOT INTRACTABLE, WITHOUT 06/19/2017 MEMO TORRES MD Ot I50.9 HEART FAILURE, UNSPECIFIED 06/19/2017 MEMO TORRES MD, Ot J44.9 CHRONIC OBSTRUCTIVE PULMONARY DISEASE, U 06/19/2017 MEMO TORRES MD, Ot K21.9 GASTRO-ESOPHAGEAL REFLUX DISEASE WITHOUT 06/19/2017 MEMO TORRES MD Ot N39.0 URINARY TRACT INFECTION, SITE NOT SPECIF 06/19/2017 MEMO TORRES MD Ot R11.2 NAUSEA WITH VOMITING, UNSPECIFIED 06/19/2017 MEMO TORRES MD Ot R19.7 DIARRHEA, UNSPECIFIED 06/19/2017 MEMO TORRES MD Ot Z79.82 [facility] (CURRENT) USE OF ASPIRIN 06/19/2017 MEMO TORRES MD Ot Z86.73 PRSNL HX OF TIA (TIA), AND CEREB INFRC W 06/19/2017 MEMO TORRES MD Ot Z87.19 PERSONAL HISTORY OF OTHER DISEASES OF TH 06/19/2017 MEMO TORRES MD Ot Z87.891 PERSONAL HISTORY OF NICOTINE DEPENDENCE 06/19/2017 MEMO TORRES MD Ot Z88.0 ALLERGY STATUS TO PENICILLIN 06/19/2017 MEMO TORRES MD Ot Z88.6 ALLERGY STATUS TO ANALGESIC AGENT STATUS 06/19/2017 MEMO TORRES MD Ot Z90.49 ACQUIRED ABSENCE OF OTHER SPECIFIED PART 06/19/2017 MEMO TORRES MD Ot Z90.710 ACQUIRED ABSENCE OF BOTH CERVIX AND UTER Procedures Code Description Performed By Performed On 45.16 12/22/2010 45.23 12/22/2010 [id number] DRAINAGE OF ESOPHAGAST JUNCT WITH DRAIN 12/28/2015 [...] culture - 12/28/15 09:45 Bacterial blood culture NG NRG Complete blood count (CBC) with automated white [...] automated white blood cell (WBC) differential - 04/06/17 15:12 Blood leukocytes automated count (number/volume) 7.9 10*3/uL 4.3-11.0 Blood erythrocytes automated count (number/volume) 2.88 10*6/uL 4.35-5.85 Venous blood hemoglobin measurement (mass/volume) 7.7 g/dL 11.5-16.0 Blood hematocrit (volume fraction) 25 % 35-52 Automated erythrocyte mean corpuscular volume 85 [foz_us] 80-99 Automated erythrocyte mean corpuscular hemoglobin (mass per erythrocyte) 27 pg 25-34 Automated erythrocyte mean corpuscular hemoglobin concentration measurement ( mass/volume) 31 g/dL 32-36 Automated erythrocyte distribution width ratio 14.5 % 10.0-14.5 Automated blood platelet count (count/volume) 198 10*3/uL 130-400 Automated blood platelet mean volume measurement 12.5 [foz_us] 7.4-10.4 Automated blood neutrophils/100 leukocytes 70 % 42-75 Automated blood lymphocytes/100 leukocytes 17 % 12-44 Blood monocytes/100 leukocytes 11 % 0-12 Automated blood eosinophils/100 leukocytes 2 % 0-10 Automated blood basophils/100 leukocytes 1 % 0-10 Blood neutrophils automated count (number/volume) 5.5 10*3 1.8-7.8 Blood lymphocytes automated count (number/volume) 1.3 10*3 1.0-4.0 Blood monocytes automated count (number/volume) 0.9 10*3 0.0-1.0 Automated eosinophil count 0.1 10*3/uL 0.0-0.3 Automated blood basophil count (count/volume) 0.1 10*3/uL 0.0-0.1 Comprehensive metabolic panel - 04/06/17 15:12 Serum or plasma sodium measurement (moles/volume) 140 mmol/L 135-145 Serum or plasma potassium measurement (moles/volume) 4.6 mmol/L 3.6-5.0 Serum or plasma chloride measurement (moles/volume) 112 mmol/L 98-107 Carbon dioxide 15 mmol/L 21-32 Serum or plasma anion gap determination (moles/volume) 13 mmol/L 5-14 Serum or plasma urea nitrogen measurement (mass/volume) 24 mg/dL 7-18 Serum or plasma creatinine measurement (mass/volume) 1.45 mg/dL 0.60-1.30 Serum or plasma urea nitrogen/creatinine mass ratio 17 NRG Serum or plasma creatinine measurement with calculation of estimated glomerular filtration rate 35 NRG Serum or plasma glucose measurement (mass/volume) 121 mg/dL 70-105 Serum or plasma calcium measurement (mass/volume) 9.0 mg/dL 8.5-10.1 Serum or plasma total bilirubin measurement (mass/volume) 0.3 mg/dL 0.1-1.0 Serum or plasma alkaline phosphatase measurement (enzymatic activity/volume) 84 U/L 40-136 Serum or plasma aspartate aminotransferase measurement (enzymatic activity/ volume) 20 U/L 5-34 Serum or plasma alanine aminotransferase measurement (enzymatic activity/volume ) 12 U/L 0-55 Serum or plasma protein measurement (mass/volume) 7.5 g/dL 6.4-8.2 Serum or plasma albumin measurement (mass/volume) 4.1 g/dL 3.2-4.5 THYROID STIMULATING HORMONE - 04/06/17 15:12 THYROID STIMULATING HORMONE 4.88 u[iU]/mL 0.35-4.94 Serum or plasma thyroxine (T4) free measurement (mass/volume) - 04/06/17 15:12 Serum or plasma thyroxine (T4) free measurement (mass/volume) 0.89 ng/dL 0.70-1.48 Complete urinalysis with reflex to culture - 04/06/17 15:23 Urine color determination YELLOW NRG Urine clarity determination CLEAR NRG Urine pH measurement by test strip 5 5-9 Specific gravity of urine by test strip 1.020 1.016- 1.022 Urine protein assay by test strip, semi-quantitative 1+ NEGATIVE Urine glucose detection by automated test strip NEGATIVE NEGATIVE Erythrocytes detection in urine sediment by light microscopy 1+ NEGATIVE Urine ketones detection by automated test strip NEGATIVE NEGATIVE Urine nitrite detection by test strip NEGATIVE NEGATIVE Urine total bilirubin detection by test strip 2+ NEGATIVE Urine urobilinogen measurement by automated test strip (mass/volume) NORMAL NORMAL Urine leukocyte esterase detection by dipstick 3+ NEGATIVE Automated urine sediment erythrocyte count by microscopy (number/high power field) [HPF] NRG Automated urine sediment leukocyte count by microscopy (number/high power field ) [HPF] NRG Bacteria detection in urine sediment by light microscopy TRACE NRG Squamous epithelial cells detection in urine sediment by light microscopy 10-25 NRG Crystals detection in urine sediment by light microscopy NONE NRG Casts detection in urine sediment by light microscopy NONE NRG Mucus detection in urine sediment by light microscopy NEGATIVE NRG Complete urinalysis with reflex to culture YES NRG Bacterial urine culture - 04/06/17 15:23 Bacterial urine culture [id number] NRG COLONY COUNT 10,000/ML - 100,000/ML NRG FTX;REPORTABLE (AND NOT GROUP D STREP) NRG RED CELLS LEUKO REDUCED AS1 - 04/11/17 10:48 RED CELLS LEUKO REDUCED AS1 TRANSFUSED 04/11/17 1457 NRG Blood type T Indirect antibody screen panel - 04/11/17 10:48 ABO+Rh group OP NRG Transfusion band number [id number] NRG Blood group antibody screen NEGATIVE NRG Whole blood hemoglobin and hematocrit panel - 04/11/17 14:54 Venous blood hemoglobin measurement (mass/volume) 8.6 g/dL 11.5-16.0 Blood hematocrit (volume fraction) 27 % 35-52 Complete blood count (CBC) with automated white blood cell (WBC) differential - 04/14/17 18:30 Blood leukocytes automated count (number/volume) 7.3 10*3/uL 4.3-11.0 Blood erythrocytes automated count (number/volume) 4.40 10*6/uL 4.35-5.85 Venous blood hemoglobin measurement (mass/volume) 12.1 g/dL 11.5-16.0 Blood hematocrit (volume fraction) 37 % 35-52 Automated erythrocyte mean corpuscular volume 85 [foz_us] 80-99 Automated erythrocyte mean corpuscular hemoglobin (mass per erythrocyte) 28 pg 25-34 Automated erythrocyte mean corpuscular hemoglobin concentration measurement ( mass/volume) 32 g/dL 32-36 Automated erythrocyte distribution width ratio 15.5 % 10.0-14.5 Automated blood platelet count (count/volume) 110 10*3/uL 130-400 Automated blood platelet mean volume measurement 12.9 [foz_us] 7.4-10.4 Automated blood neutrophils/100 leukocytes 66 % 42-75 Automated blood lymphocytes/100 leukocytes 19 % 12-44 Blood monocytes/100 leukocytes 11 % 0-12 Automated blood eosinophils/100 leukocytes 3 % 0-10 Automated blood basophils/100 leukocytes 1 % 0-10 Blood neutrophils automated count (number/volume) 4.8 10*3 1.8-7.8 Blood lymphocytes automated count (number/volume) 1.4 10*3 1.0-4.0 Blood monocytes automated count (number/volume) 0.8 10*3 0.0-1.0 Automated eosinophil count 0.2 10*3/uL 0.0-0.3 Automated blood basophil count (count/volume) 0.1 10*3/uL 0.0-0.1 Comprehensive metabolic panel - 04/14/17 18:30 Serum or plasma sodium measurement (moles/volume) 136 mmol/L 135-145 Serum or plasma potassium measurement (moles/volume) 5.3 mmol/L 3.6-5.0 Serum or plasma chloride measurement (moles/volume) 111 mmol/L 98-107 Carbon dioxide 14 mmol/L 21-32 Serum or plasma anion gap determination (moles/volume) 11 mmol/L 5-14 Serum or plasma urea nitrogen measurement (mass/volume) 38 mg/dL 7-18 Serum or plasma creatinine measurement (mass/volume) 2.63 mg/dL 0.60-1.30 Serum or plasma urea nitrogen/creatinine mass ratio 14 NRG Serum or plasma creatinine measurement with calculation of estimated glomerular filtration rate 18 NRG Serum or plasma glucose measurement (mass/volume) 115 mg/dL 70-105 Serum or plasma calcium measurement (mass/volume) 9.5 mg/dL 8.5-10.1 Serum or plasma total bilirubin measurement (mass/volume) 0.4 mg/dL 0.1-1.0 Serum or plasma alkaline phosphatase measurement (enzymatic activity/volume) 102 U/L 40-136 Serum or plasma aspartate aminotransferase measurement (enzymatic activity/ volume) 28 U/L 5-34 Serum or plasma alanine aminotransferase measurement (enzymatic activity/volume ) 11 U/L 0-55 Serum or plasma protein measurement (mass/volume) 7.8 g/dL 6.4-8.2 Serum or plasma albumin measurement (mass/volume) 4.3 g/dL 3.2-4.5 Complete urinalysis with reflex to culture - 04/14/17 20:25 Urine color determination SUZETTE NRG Urine clarity determination VERY CLOUDY NRG Urine pH measurement by test strip 5 5-9 Specific gravity of urine by test strip 1.020 1.016- 1.022 Urine protein assay by test strip, semi-quantitative 2+ NEGATIVE Urine glucose detection by automated test strip NEGATIVE NEGATIVE Erythrocytes detection in urine sediment by light microscopy 2+ NEGATIVE Urine ketones detection by automated test strip NEGATIVE NEGATIVE Urine nitrite detection by test strip NEGATIVE NEGATIVE Urine total bilirubin detection by test strip 2+ NEGATIVE Urine urobilinogen measurement by automated test strip (mass/volume) 1 mg/dL NORMAL Urine leukocyte esterase detection by dipstick 3+ NEGATIVE Automated urine sediment erythrocyte count by microscopy (number/high power field) [HPF] NRG Automated urine sediment leukocyte count by microscopy (number/high power field ) TNTC NRG Bacteria detection in urine sediment by light microscopy MODERATE NRG Squamous epithelial cells detection in urine sediment by light microscopy 25-50 NRG Crystals detection in urine sediment by light microscopy NONE NRG Casts detection in urine sediment by light microscopy NONE NRG Mucus detection in urine sediment by light microscopy NEGATIVE NRG Complete urinalysis with reflex to culture YES NRG Bacterial urine culture - 04/14/17 20:25 Bacterial urine culture [id number] NRG COLONY COUNT 10,000/ML - 100,000/ML NRG FTX;REPORTABLE (AND NOT GROUP D STREP) NRG URINE CULTURE RESULTS <10,000/ML NRG Whole blood basic metabolic panel - 04/15/17 05:02 Serum or plasma sodium measurement (moles/volume) 138 mmol/L 135-145 Serum or plasma potassium measurement (moles/volume) 4.1 mmol/L 3.6-5.0 Serum or plasma chloride measurement (moles/volume) 113 mmol/L 98-107 Carbon dioxide 16 mmol/L 21-32 Serum or plasma anion gap determination (moles/volume) 9 mmol/L 5-14 Serum or plasma urea nitrogen measurement (mass/volume) 36 mg/dL 7-18 Serum or plasma creatinine measurement (mass/volume) 2.47 mg/dL 0.60-1.30 Serum or plasma urea nitrogen/creatinine mass ratio 15 NRG Serum or plasma creatinine measurement with calculation of estimated glomerular filtration rate 19 NRG Serum or plasma glucose measurement (mass/volume) 101 mg/dL 70-105 Serum or plasma calcium measurement (mass/volume) 8.5 mg/dL 8.5-10.1 Complete blood count (CBC) with automated white blood cell (WBC) differential - 04/15/17 05:02 Blood leukocytes automated count (number/volume) 5.6 10*3/uL 4.3-11.0 Blood erythrocytes automated count (number/volume) 3.60 10*6/uL 4.35-5.85 Venous blood hemoglobin measurement (mass/volume) 9.9 g/dL 11.5-16.0 Blood hematocrit (volume fraction) 31 % 35-52 Automated erythrocyte mean corpuscular volume 86 [foz_us] 80-99 Automated erythrocyte mean corpuscular hemoglobin (mass per erythrocyte) 28 pg 25-34 Automated erythrocyte mean corpuscular hemoglobin concentration measurement ( mass/volume) 32 g/dL 32-36 Automated erythrocyte distribution width ratio 15.3 % 10.0-14.5 Automated blood platelet count (count/volume) 87 10*3/uL 130-400 Automated blood platelet mean volume measurement 12.1 [foz_us] 7.4-10.4 Automated blood neutrophils/100 leukocytes 48 % 42-75 Automated blood lymphocytes/100 leukocytes 30 % 12-44 Blood monocytes/100 leukocytes 16 % 0-12 Automated blood eosinophils/100 leukocytes 6 % 0-10 Automated blood basophils/100 leukocytes 1 % 0-10 Blood neutrophils automated count (number/volume) 2.7 10*3 1.8-7.8 Blood lymphocytes automated count (number/volume) 1.7 10*3 1.0-4.0 Blood monocytes automated count (number/volume) 0.9 10*3 0.0-1.0 Automated eosinophil count 0.3 10*3/uL 0.0-0.3 Automated blood basophil count (count/volume) 0.1 10*3/uL 0.0-0.1 Complete blood count (CBC) with automated white blood cell (WBC) differential - 04/16/17 04:48 Blood leukocytes automated count (number/volume) 5.7 10*3/uL 4.3-11.0 Blood erythrocytes automated count (number/volume) 3.44 10*6/uL 4.35-5.85 Venous blood hemoglobin measurement (mass/volume) 9.5 g/dL 11.5-16.0 Blood hematocrit (volume fraction) 30 % 35-52 Automated erythrocyte mean corpuscular volume 87 [foz_us] 80-99 Automated erythrocyte mean corpuscular hemoglobin (mass per erythrocyte) 28 pg 25-34 Automated erythrocyte mean corpuscular hemoglobin concentration measurement ( mass/volume) 32 g/dL 32-36 Automated erythrocyte distribution width ratio 15.6 % 10.0-14.5 Automated blood platelet count (count/volume) 74 10*3/uL 130-400 Automated blood platelet mean volume measurement 13.0 [foz_us] 7.4-10.4 Automated blood neutrophils/100 leukocytes 62 % 42-75 Automated blood lymphocytes/100 leukocytes 20 % 12-44 Blood monocytes/100 leukocytes 13 % 0-12 Automated blood eosinophils/100 leukocytes 5 % 0-10 Automated blood basophils/100 leukocytes 1 % 0-10 Blood neutrophils automated count (number/volume) 3.5 10*3 1.8-7.8 Blood lymphocytes automated count (number/volume) 1.1 10*3 1.0-4.0 Blood monocytes automated count (number/volume) 0.8 10*3 0.0-1.0 Automated eosinophil count 0.3 10*3/uL 0.0-0.3 Automated blood basophil count (count/volume) 0.0 10*3/uL 0.0-0.1 Comprehensive metabolic panel - 04/16/17 04:48 Serum or plasma sodium measurement (moles/volume) 139 mmol/L 135-145 Serum or plasma potassium measurement (moles/volume) 4.6 mmol/L 3.6-5.0 Serum or plasma chloride measurement (moles/volume) 117 mmol/L 98-107 Carbon dioxide 15 mmol/L 21-32 Serum or plasma anion gap determination (moles/volume) 7 mmol/L 5-14 Serum or plasma urea nitrogen measurement (mass/volume) 21 mg/dL 7-18 Serum or plasma creatinine measurement (mass/volume) 1.32 mg/dL 0.60-1.30 Serum or plasma urea nitrogen/creatinine mass ratio 16 NRG Serum or plasma creatinine measurement with calculation of estimated glomerular filtration rate 39 NRG Serum or plasma glucose measurement (mass/volume) 115 mg/dL 70-105 Serum or plasma calcium measurement (mass/volume) 8.8 mg/dL 8.5-10.1 Serum or plasma total bilirubin measurement (mass/volume) 0.2 mg/dL 0.1-1.0 Serum or plasma alkaline phosphatase measurement (enzymatic activity/volume) 77 U/L 40-136 Serum or plasma aspartate aminotransferase measurement (enzymatic activity/ volume) 14 U/L 5-34 Serum or plasma alanine aminotransferase measurement (enzymatic activity/volume ) 8 U/L 0-55 Serum or plasma protein measurement (mass/volume) 6.1 g/dL 6.4-8.2 Serum or plasma albumin measurement (mass/volume) 3.4 g/dL 3.2-4.5 Complete blood count (CBC) with automated white blood cell (WBC) differential - 04/17/17 05:33 Blood leukocytes automated count (number/volume) 5.4 10*3/uL 4.3-11.0 Blood erythrocytes automated count (number/volume) 3.52 10*6/uL 4.35-5.85 Venous blood hemoglobin measurement (mass/volume) 9.7 g/dL 11.5-16.0 Blood hematocrit (volume fraction) 30 % 35-52 Automated erythrocyte mean corpuscular volume 86 [foz_us] 80-99 Automated erythrocyte mean corpuscular hemoglobin (mass per erythrocyte) 28 pg 25-34 Automated erythrocyte mean corpuscular hemoglobin concentration measurement ( mass/volume) 32 g/dL 32-36 Automated erythrocyte distribution width ratio 15.6 % 10.0-14.5 Automated blood platelet count (count/volume) 73 10*3/uL 130-400 Automated blood platelet mean volume measurement 12.5 [foz_us] 7.4-10.4 Automated blood neutrophils/100 leukocytes 57 % 42-75 Automated blood lymphocytes/100 leukocytes 24 % 12-44 Blood monocytes/100 leukocytes 10 % 0-12 Automated blood eosinophils/100 leukocytes 7 % 0-10 Automated blood basophils/100 leukocytes 1 % 0-10 Blood neutrophils automated count (number/volume) 3.1 10*3 1.8-7.8 Blood lymphocytes automated count (number/volume) 1.3 10*3 1.0-4.0 Blood monocytes automated count (number/volume) 0.6 10*3 0.0-1.0 Automated eosinophil count 0.4 10*3/uL 0.0-0.3 Automated blood basophil count (count/volume) 0.1 10*3/uL 0.0-0.1 Comprehensive metabolic panel - 04/17/17 05:53 Serum or plasma sodium measurement (moles/volume) 140 mmol/L 135-145 Serum or plasma potassium measurement (moles/volume) 5.2 mmol/L 3.6-5.0 Serum or plasma chloride measurement (moles/volume) 116 mmol/L 98-107 Carbon dioxide 15 mmol/L 21-32 Serum or plasma anion gap determination (moles/volume) 9 mmol/L 5-14 Serum or plasma urea nitrogen measurement (mass/volume) 18 mg/dL 7-18 Serum or plasma creatinine measurement (mass/volume) 1.22 mg/dL 0.60-1.30 Serum or plasma urea nitrogen/creatinine mass ratio 15 NRG Serum or plasma creatinine measurement with calculation of estimated glomerular filtration rate 43 NRG Serum or plasma glucose measurement (mass/volume) 89 mg/dL 70-105 Serum or plasma calcium measurement (mass/volume) 9.1 mg/dL 8.5-10.1 Serum or plasma total bilirubin measurement (mass/volume) 0.2 mg/dL 0.1-1.0 Serum or plasma alkaline phosphatase measurement (enzymatic activity/volume) 76 U/L 40-136 Serum or plasma aspartate aminotransferase measurement (enzymatic activity/ volume) 15 U/L 5-34 Serum or plasma alanine aminotransferase measurement (enzymatic activity/volume ) 9 U/L 0-55 Serum or plasma protein measurement (mass/volume) 6.4 g/dL 6.4-8.2 Serum or plasma albumin measurement (mass/volume) 3.5 g/dL 3.2-4.5 CBC with Auto Diff - 04/19/17 10:30 Baso% 1.60 % 0.00-2.50 Eos 0.4 K/uL 0.0-0.7 Eos% 7.8 % 0.0-7.0 Hct 37.1 % 36.0-46.0 Hgb 11.5 g/dL 13.0-15.0 Lym 1.05 K/uL 0.60-3.40 Lym% 18.6 % 10.0-50.0 MCH 27.1 pg 27.0-31.0 MCHC 31.0 g/dL 32.0-36.0 MCV 87.5 fL 80.0-97.0 [place]% 11.2 % 0.0-12.0 MPV 13.2 fL 7.4-10.0 Ma[place]% 60.8 % 37.0-80.0 Plt 102 K/uL 150-400 RBC 4.24 M/uL 3.60-5.00 RDW 15.5 % 11.6-14.8 WBC 5.65 K/uL 5.00-10.00 Mauro 3.44 K/uL 2.00-6.90 [place] 0.6 K/uL 0.0-0.9 Baso 0.1 K/uL 0.0-0.2 Complete blood count (CBC) with automated white blood cell (WBC) differential - 05/03/17 12:12 Blood leukocytes automated count (number/volume) 7.7 10*3/uL 4.3-11.0 Blood erythrocytes automated count (number/volume) 3.93 10*6/uL 4.35-5.85 Venous blood hemoglobin measurement (mass/volume) 10.9 g/dL 11.5-16.0 Blood hematocrit (volume fraction) 34 % 35-52 Automated erythrocyte mean corpuscular volume 86 [foz_us] 80-99 Automated erythrocyte mean corpuscular hemoglobin (mass per erythrocyte) 28 pg 25-34 Automated erythrocyte mean corpuscular hemoglobin concentration measurement ( mass/volume) 32 g/dL 32-36 Automated erythrocyte distribution width ratio 15.4 % 10.0-14.5 Automated blood platelet count (count/volume) 100 10*3/uL 130-400 Automated blood platelet mean volume measurement 12.0 [foz_us] 7.4-10.4 Automated blood neutrophils/100 leukocytes 74 % 42-75 Automated blood lymphocytes/100 leukocytes 14 % 12-44 Blood monocytes/100 leukocytes 9 % 0-12 Automated blood eosinophils/100 leukocytes 3 % 0-10 Automated blood basophils/100 leukocytes 1 % 0-10 Blood neutrophils automated count (number/volume) 5.6 10*3 1.8-7.8 Blood lymphocytes automated count (number/volume) 1.1 10*3 1.0-4.0 Blood monocytes automated count (number/volume) 0.7 10*3 0.0-1.0 Automated eosinophil count 0.2 10*3/uL 0.0-0.3 Automated blood basophil count (count/volume) 0.0 10*3/uL 0.0-0.1 Comprehensive metabolic panel - 05/03/17 12:12 Serum or plasma sodium measurement (moles/volume) 139 mmol/L 135-145 Serum or plasma potassium measurement (moles/volume) 4.6 mmol/L 3.6-5.0 Serum or plasma chloride measurement (moles/volume) 108 mmol/L 98-107 Carbon dioxide 25 mmol/L 21-32 Serum or plasma anion gap determination (moles/volume) 6 mmol/L 5-14 Serum or plasma urea nitrogen measurement (mass/volume) 22 mg/dL 7-18 Serum or plasma creatinine measurement (mass/volume) 1.05 mg/dL 0.60-1.30 Serum or plasma urea nitrogen/creatinine mass ratio 21 NRG Serum or plasma creatinine measurement with calculation of estimated glomerular filtration rate 51 NRG Serum or plasma glucose measurement (mass/volume) 112 mg/dL 70-105 Serum or plasma calcium measurement (mass/volume) 9.7 mg/dL 8.5-10.1 Serum or plasma total bilirubin measurement (mass/volume) 0.4 mg/dL 0.1-1.0 Serum or plasma alkaline phosphatase measurement (enzymatic activity/volume) 77 U/L 40-136 Serum or plasma aspartate aminotransferase measurement (enzymatic activity/ volume) 18 U/L 5-34 Serum or plasma alanine aminotransferase measurement (enzymatic activity/volume ) 10 U/L 0-55 Serum or plasma protein measurement (mass/volume) 7.2 g/dL 6.4-8.2 Serum or plasma albumin measurement (mass/volume) 4.0 g/dL 3.2-4.5 Lipase - 05/03/17 12:12 Lipase 32 U/L 8-78 Complete urinalysis with reflex to culture - 05/03/17 14:50 Urine color determination YELLOW NRG Urine clarity determination CLEAR NRG Urine pH measurement by test strip 5 5-9 Specific gravity of urine by test strip 1.010 1.016- 1.022 Urine protein assay by test strip, semi-quantitative NEGATIVE NEGATIVE Urine glucose detection by automated test strip NEGATIVE NEGATIVE Erythrocytes detection in urine sediment by light microscopy NEGATIVE NEGATIVE Urine ketones detection by automated test strip NEGATIVE NEGATIVE Urine nitrite detection by test strip NEGATIVE NEGATIVE Urine total bilirubin detection by test strip NEGATIVE NEGATIVE Urine urobilinogen measurement by automated test strip (mass/volume) NORMAL NORMAL Urine leukocyte esterase detection by dipstick 1+ NEGATIVE Automated urine sediment erythrocyte count by microscopy (number/high power field) RARE NRG Automated urine sediment leukocyte count by microscopy (number/high power field ) [HPF] NRG Bacteria detection in urine sediment by light microscopy NONE NRG Squamous epithelial cells detection in urine sediment by light microscopy 0-2 NRG Crystals detection in urine sediment by light microscopy NONE NRG Casts detection in urine sediment by light microscopy NONE NRG Mucus detection in urine sediment by light microscopy NEGATIVE NRG Complete urinalysis with reflex to culture NO NRG Complete blood count (CBC) with automated white blood cell (WBC) differential - 06/13/17 12:30 Blood leukocytes automated count (number/volume) 6.4 10*3/uL 4.3-11.0 Blood erythrocytes automated count (number/volume) 4.75 10*6/uL 4.35-5.85 Venous blood hemoglobin measurement (mass/volume) 13.0 g/dL 11.5-16.0 Blood hematocrit (volume fraction) 40 % 35-52 Automated erythrocyte mean corpuscular volume 84 [foz_us] 80-99 Automated erythrocyte mean corpuscular hemoglobin (mass per erythrocyte) 27 pg 25-34 Automated erythrocyte mean corpuscular hemoglobin concentration measurement ( mass/volume) 33 g/dL 32-36 Automated erythrocyte distribution width ratio 14.9 % 10.0-14.5 Automated blood platelet count (count/volume) 132 10*3/uL 130-400 Automated blood platelet mean volume measurement 12.0 [foz_us] 7.4-10.4 Automated blood neutrophils/100 leukocytes 57 % 42-75 Automated blood lymphocytes/100 leukocytes 22 % 12-44 Blood monocytes/100 leukocytes 15 % 0-12 Automated blood eosinophils/100 leukocytes 5 % 0-10 Automated blood basophils/100 leukocytes 2 % 0-10 Blood neutrophils automated count (number/volume) 3.7 10*3 1.8-7.8 Blood lymphocytes automated count (number/volume) 1.4 10*3 1.0-4.0 Blood monocytes automated count (number/volume) 1.0 10*3 0.0-1.0 Automated eosinophil count 0.3 10*3/uL 0.0-0.3 Automated blood basophil count (count/volume) 0.1 10*3/uL 0.0-0.1 Comprehensive metabolic panel - 06/13/17 12:30 Serum or plasma sodium measurement (moles/volume) 139 mmol/L 135-145 Serum or plasma potassium measurement (moles/volume) 3.4 mmol/L 3.6-5.0 Serum or plasma chloride measurement (moles/volume) 108 mmol/L 98-107 Carbon dioxide 20 mmol/L 21-32 Serum or plasma anion gap determination (moles/volume) 11 mmol/L 5-14 Serum or plasma urea nitrogen measurement (mass/volume) 21 mg/dL 7-18 Serum or plasma creatinine measurement (mass/volume) 1.03 mg/dL 0.60-1.30 Serum or plasma urea nitrogen/creatinine mass ratio 20 NRG Serum or plasma creatinine measurement with calculation of estimated glomerular filtration rate 52 NRG Serum or plasma glucose measurement (mass/volume) 107 mg/dL 70-105 Serum or plasma calcium measurement (mass/volume) 9.8 mg/dL 8.5-10.1 Serum or plasma total bilirubin measurement (mass/volume) 0.4 mg/dL 0.1-1.0 Serum or plasma alkaline phosphatase measurement (enzymatic activity/volume) 87 U/L 40-136 Serum or plasma aspartate aminotransferase measurement (enzymatic activity/ volume) 24 U/L 5-34 Serum or plasma alanine aminotransferase measurement (enzymatic activity/volume ) 13 U/L 0-55 Serum or plasma protein measurement (mass/volume) 7.4 g/dL 6.4-8.2 Serum or plasma albumin measurement (mass/volume) 4.3 g/dL 3.2-4.5 Serum or plasma troponin i.cardiac measurement (mass/volume) - 06/13/17 12:30 Serum or plasma troponin i.cardiac measurement (mass/volume) < ng/ mL <0.30 Serum or plasma C reactive protein measurement (mass/volume) - 06/13/17 12:30 Serum or plasma C reactive protein measurement (mass/volume) 0.10 mg /dL 0.00-0.50 Complete urinalysis with reflex to culture - 06/13/17 12:35 Urine color determination YELLOW NRG Urine clarity determination CLEAR NRG Urine pH measurement by test strip 5 5-9 Specific gravity of urine by test strip 1.025 1.016- 1.022 Urine protein assay by test strip, semi-quantitative 2+ NEGATIVE Urine glucose detection by automated test strip NEGATIVE NEGATIVE Erythrocytes detection in urine sediment by light microscopy NEGATIVE NEGATIVE Urine ketones detection by automated test strip 3+ NEGATIVE Urine nitrite detection by test strip NEGATIVE NEGATIVE Urine total bilirubin detection by test strip 2+ NEGATIVE Urine urobilinogen measurement by automated test strip (mass/volume) 1 mg/dL NORMAL Urine leukocyte esterase detection by dipstick 2+ NEGATIVE Automated urine sediment erythrocyte count by microscopy (number/high power field) RARE NRG Automated urine sediment leukocyte count by microscopy (number/high power field ) [HPF] NRG Bacteria detection in urine sediment by light microscopy TRACE NRG Squamous epithelial cells detection in urine sediment by light microscopy 2-5 NRG Crystals detection in urine sediment by light microscopy NONE NRG Casts detection in urine sediment by light microscopy NONE NRG Mucus detection in urine sediment by light microscopy SMALL NRG Complete urinalysis with reflex to culture YES NRG Bacterial urine culture - 06/13/17 12:35 Bacterial urine culture NG NRG Thyroid Stimulating Hormone - 07/19/17 09:58 TSH 3.52 mIU/mL 0.32-5.00 C.difficile, DNA Amplification - 10/27/17 03:25 C.difficile, DNA Amplification NEGATIVE: No DNA evidence of toxogenic C. difficile detected. Negative GI Profile Stool PCR - 01/18/18 10:30 CAMPYLOBACTER NOT DETECTED NOT DETECTED C DIFFICILE TOXIN A/B NOT DETECTED NOT DETECTED PLESIOMONAS SHIGELLOIDES NOT DETECTED NOT DETECTED SALMONELLA NOT DETECTED NOT DETECTED VIBRIO NOT DETECTED NOT DETECTED VIBRIO CHOLERAE NOT DETECTED NOT DETECTED YERSINIA ENTEROCOLITICA NOT DETECTED NOT DETECTED ENTEROAGGREGATIVE E COLI NOT DETECTED NOT DETECTED ENTEROPATHOGENIC E COLI NOT DETECTED NOT DETECTED ENTEROTOXIGENIC E COLI NOT DETECTED NOT DETECTED [id number] E COLI NOT DETECTED NOT DETECTED E COLI O157 NOT APPLICABLE NOT DETECTED SHIGELLA/ENTEROINVASIVE E COLI NOT DETECTED NOT DETECTED CRYPTOSPORIDIUM NOT DETECTED NOT DETECTED CYCLOSPORA CAYETANENSIS NOT DETECTED NOT DETECTED ENTAMOEBA HISTOLYTICA NOT DETECTED NOT DETECTED GIARDIA LAMBLIA NOT DETECTED NOT DETECTED ADENOVIRUS F 40/41 NOT DETECTED NOT DETECTED ASTROVIRUS NOT DETECTED NOT DETECTED NOROVIRUS GI/GII NOT DETECTED NOT DETECTED ROTAVIRUS A NOT DETECTED NOT DETECTED SAPOVIRUS NOT DETECTED NOT DETECTED TIBC - 02/13/18 17:51 Iron 61 ug/dL 70-200 Iron Saturation 24.52 % 15.00-55.00 TIBC 249 ug/dL 273-456 UIBC 199 ug/dL 200-370 Encounters ACCT No. Visit Date/Time Discharge Status Pt. Type Provider Facility Loc./Unit Complaint [id number] 06/13/2017 12:13:00 06/13/2017 15:50:00 DIS Emergency MEMO TORRES MD [facility] ER VOMITING/DIZZINESS [id number] 05/03/2017 11:45:00 05/03/2017 16:44:00 DIS Emergency KIERAN MOONEY [facility] ER ABD PAIN,HEAD PAIN [id number] 05/02/2017 14:24:00 05/02/2017 23:59:59 CLS Outpatient CELESTINA NICHOLAS DO [facility] [facility] RAD CAROTID ARTERY DISEASE [id number] 04/14/2017 21:21:00 04/17/2017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
[2018-02-22 18:03] LABS: ALANINE AMINOTRANSFERASE 12 U/L (0-55); ALBUMIN 4.3 GM/DL (3.2-4.5); ALKALINE PHOSPHATASE 82 U/L (40-136); BILIRUBIN,TOTAL 0.4 MG/DL (0.1-1.0); BUN/CREATININE RATIO 18; CARBON DIOXIDE 26 MMOL/L (21-32); CHLORIDE 103 MMOL/L (98-107); CREATININE SERUM 0.79 MG/DL (0.60-1.30); GFR ESTIMATED > 60; GLUCOSE 94 MG/DL (70-105); MAGNESIUM 2.3 MG/DL (1.8-2.4); POTASSIUM 3.8 MMOL/L (3.6-5.0); SODIUM 138 MMOL/L (135-145); TOTAL PROTEIN 7.1 GM/DL (6.4-8.2)
[2018-02-22 18:11] LABS: BILIRUBIN,URINE NEGATIVE (NEGATIVE); CLARITY,URINE VERY CLOUDY; COLOR,URINE YELLOW; GLUCOSE, URINE (UA) NEGATIVE (NEGATIVE); KETONES,URINE NEGATIVE (NEGATIVE); LEUKOCYTE ESTERASE ,URINE 3+ (NEGATIVE); NITRITE,URINE NEGATIVE (NEGATIVE); PH,URINE 6.5 (5-9); PROTEIN,URINE 1+ (NEGATIVE); UROBILINOGEN,URINE NORMAL (NORMAL)
--- NOTE | 2018-02-22 18:23 | Diagnostic Imaging Report ---
INDICATION: Generalized weakness and lethargy. PA chest obtained at 06:31 p.m. and compared to 06/13/2017. Heart and mediastinal silhouette are normal in appearance. There is no pneumothorax or pleural fluid. There is no focal infiltrate. There are mild chronic-appearing increased interstitial markings which are similar to the prior study. IMPRESSION: No acute process in the chest and no significant change from 06/13/2017. Dictated by: Dictated on workstation # [id number]
[2018-02-22 18:27] LABS: BACTERIA,URINE LARGE /HPF; SQUAMOUS EPITHELIAL CELL,UR >50 /HPF; WBC,URINE >100 /HPF
--- NOTE | 2018-02-22 18:27 | Diagnostic Imaging Report ---
INDICATION: Generalized weakness and lethargy. KUB obtained at 6:34 p.m. FINDINGS: There are surgical clips in the right upper quadrant. There are vascular calcifications over the left upper quadrant. The abdominal bowel gas pattern is nonspecific. There is no overt obstruction or ileus. There is mild dextroscoliotic change of the lumbar spine with diffuse degenerative change. IMPRESSION: Nonspecific bowel gas pattern with no overt obstruction or ileus. Postop changes in the right upper quadrant. Dictated by: Dictated on workstation # [id number]
[2018-02-22] MEDS ORDERED: NITROFURANTOIN 100 MG (MACROBID) CAPSULE PO ONE (19:30)
[2018-02-22] MEDS ORDERED: KETOROLAC 30 MG/ML VIAL IVP STA (19:30)
[2018-02-22] MEDS ORDERED: cefTRIAXone FOR IV USE 1,000 MG in NS (IVPB) 50 ML IV ONE (19:30)
[2018-02-22] MEDS ORDERED: NITR100C PO (19:41)
[2018-02-22 21:15] VITALS: BP 172/84
== END 2018-02-22 21:15 | disposition home or self-care (01) ==
LOC: EDUNIT# 16:57 → ER 16:58
DX: N39.0 Urinary tract infection, site not specified (principal); M79.604 Pain in right leg; M79.605 Pain in left leg; J44.9 Chronic obstructive pulmonary disease, unspecified; I11.0 Hypertensive heart disease with heart failure; I50.9 Heart failure, unspecified; G43.909 Migraine, unspecified, not intractable, without status migrainosus; K21.9 Gastro-esophageal reflux disease without esophagitis; E03.9 Hypothyroidism, unspecified; D64.9 Anemia, unspecified; Z86.73 Personal history of transient ischemic attack (TIA), and cerebral infarction without residual deficits; Z98.890 Other specified postprocedural states; Z87.448 Personal history of other diseases of urinary system; Z87.19 Personal history of other diseases of the digestive system; Z88.0 Allergy status to penicillin; Z88.5 Allergy status to narcotic agent; Z88.8 Allergy status to other drugs, medicaments and biological substances; Z79.82 Long term (current) use of aspirin; Z87.891 Personal history of nicotine dependence; Z90.49 Acquired absence of other specified parts of digestive tract; Z90.710 Acquired absence of both cervix and uterus; Z79.02 Long term (current) use of antithrombotics/antiplatelets; Z79.51 Long term (current) use of inhaled steroids
CPT/HCPCS: 36415; 71045; 74018; 80053; 81000; 83735; 85025; 87077; 87088; 87186; 94640

== ENCOUNTER 2018-03-06 10:55 | Inpatient (IN) | payer MEDICARE, MEDICAID ==
[~2018-03-06] VITALS: Ht 162.6 cm; Wt 59.1 kg
[~2018-03-06 10:55] MED LIST changes: +FLUT16SP22 NS; -FLUT16SP22 NSEACH; +MEROPENEM 1,000 MG in NS (IVPB) 100 ML IV SCH; +NITR100C PO; +ONDANSETRON 4 MG/2 ML (SDV) Z0FRAN IV PRN; -SUCR1TAB; +SUCR1TAB PO
[2018-03-06 11:00] VITALS: BP 103/71
[2018-03-06] MEDS: SUCRALFATE 1 GM (CARAFATE) TAB PO SCH ×3 (11:49→20:20)
[2018-03-06] MEDS: MEROPENEM 500 MG in NS (IVPB) 100 ML IV SCH ×2 (11:49→17:46)
[2018-03-06] MEDS: LEVOTHYROXINE 100 MCG (LEVOTHROID) TAB PO SCH (11:49)
[2018-03-06] MEDS: ASPIRIN E.C. 81 MG (ECOTRIN) TAB PO SCH (11:49)
[2018-03-06] MEDS: CLOPIDOGREL 75 MG (PLAVIX) TABLET PO SCH (11:49)
[2018-03-06] MEDS: sulfaSALAzine 500 MG (AZULFIDINE) TAB PO SCH ×2 (11:49→17:48)
[2018-03-06] MEDS: DULoxetine 30 MG (CYMBALTA) CAP PO SCH ×2 (11:49→20:20)
[2018-03-06] MEDS: PANTOPRAZOLE 40 MG (PROTONIX) TAB PO SCH (11:49)
--- NOTE | 2018-03-06 12:35 | History & Physicial ---
History of Present Illness History of Present Illness Reason for visit/HPI This is a 77 year old female who is a resident of a local [place] who has a history of recurrent UTIs. He most recent urine culture grew out ESBL enterococcus so she will be admitted for IV meropenem. She also reports diarrhea. She has a history of ulcerative colitis and has had a recent colonoscopy with GI but is having ongoing diarrhea. Date of Admission Mar 06, 2018 at 10:55 Date Seen by a Provider: Mar 06, 2018 Time Seen by a Provider: 12:30 I consulted on this patient on 03/06/18 12:30 Attending Physician Dalila Nicholas DO Admitting Physician Dalila Nicholas DO Consult Allergies and Home Medications Allergies Coded Allergies: Penicillins (Verified Allergy, Intermediate, HIVES, CAN TAKE ROCEPHIN, 18/03) codeine (Verified Allergy, Unknown, 02/09/15) morphine (Verified Allergy, Unknown, PATIENT TAKES VICODIN AT HOME PER VIN, 02/09/15) propoxyphene (Verified Allergy, Unknown, 12/18/11) Home Medications Acetaminophen 500 Mg Tablet, 1,000 MG PO Q6H PRN for PAIN, (Reported) TAKES 2 (500 MG) TABLETS Aspirin 81 Mg Tablet.dr, 81 MG PO DAILY, (Reported) ON HOLD Cefdinir 300 Mg Capsule, 300 MG PO BID Prescribed by: DALILA NICHOLAS on 04/17/17 1252 Cefdinir 300 Mg Capsule, 300 MG PO BID Prescribed by: MEMO TORRES on 06/13/17 1510 Clopidogrel Bisulfate 75 Mg Tablet, 75 MG PO DAILY, (Reported) ON HOLD Duloxetine HCl 30 Mg Capsule.dr, 30 MG PO BID, (Reported) Fluticasone Propionate 16 Gm [place].susp, 2 SPRAYS NSEACH HS, (Reported) Fluticasone/Vilanterol 1 Each Blst.w.dev, 1 PUFF IH DAILY PRN for SHORTNESS OF BREATH, (Reported) Hydrocodone/Acetaminophen 1 Each Tablet, 1 TAB PO Q4H PRN for PAIN-MODERATE TO SEVERE, (Reported) Latanoprost 2.5 Ml Drops, 1 DROP OU HS, (Reported) Levothyroxine Sodium 88 Mcg Tablet, 88 MCG PO DAILY, (Reported) Lidocaine HCl 35 Gm Oint, TP PRN PRN for SKIN LESIONS, (Reported) Mesalamine 1.2 Gm Tablet.dr, 2.4 GM PO DAILY, (Reported) TAKES 2 (1.2 GM) TABLETS Metoprolol Succinate 50 Mg Tab.er.24h, 50 MG PO DAILY, (Reported) Mirabegron 25 Mg Tab.er.24h, 25 MG PO HS, (Reported) Nitrofurantoin Macrocrystal 100 Mg Capsule, 100 MG PO BID Prescribed by: MEMO TORRES on 02/22/18 194 Ondansetron 8 Mg Tab.rapdis, 8 MG PO Q6H PRN for NAUSEA/VOMITING-1ST LINE Prescribed by: KIERAN GUSMAN on 05/03/17 1613 Ondansetron 4 Mg Tab.rapdis, 4 MG PO Q6H PRN for NAUSEA/VOMITING Prescribed by: MEMO TORRES on 06/13/17 1510 Ondansetron HCl 4 Mg Tablet, 4 MG PO Q4H PRN for NAUSEA/VOMITING, (Reported) Pantoprazole Sodium 40 Mg Tablet.dr, 40 MG PO BID, (Reported) Simvastatin 40 Mg Tablet, 40 MG PO DAILY, (Reported) Patient Home Medication List Home Medication List Reviewed: Yes Past Hibkwvk-Yuyhbi-Tnlitd Hx Patient Social History Smoking Status: Former Smoker Former Smoker, Quit: Sep 07, 2017 Type Used: Cigarettes Recent Foreign Travel: No Contact w/other who traveled: No Recent Hopitalizations: Yes (BLOOD TRANSFUSION) Immunizations Up To Date Date of Pneumonia Vaccine: Dec 19, 2015 Date of Influenza Vaccine: Dec 03, 2015 Seasonal Allergies Seasonal Allergies: No Surgeries Yes (COLON RESECTION) Appendectomy, Gallbladder, Hysterectomy Respiratory Yes COPD Currently Using CPAP: No Cardiovascular Yes (CHF) High Cholesterol, Hypertension Neurological Yes Headaches /Migraines, Stroke, TIA Reproductive System Hx Reproductive Disorders: No Female Reproductive Disorders: Denies Genitourinary Yes Bladder Infection, Renal Failure Gastrointestinal Yes Gastroesophageal Reflux, Obstructive Bowel, Diverticulosis Musculoskeletal Yes Arthritis, Chronic Back Pain Endocrine History of Endocrine Disorders: Yes Endocrine Disorders: Hypothyroidsim HEENT Loss of Vision: Denies Hearing Impairment: Denies Cancer No Psychosocial History of Psychiatric Problem: Yes Behavioral Health Disorders: Depression Integumentary History of Skin or Integumenta: No Blood Transfusions History of Blood Disorders: Yes (ANEMIA) Adverse Reaction to a Blood Tr: No Family Medical History Significant Family History: No Pertinent Family Hx Family Hx: Patient reports no known family medical history. Review of Systems Constitutional: weakness, weight loss EENTM: No see HPI, No no symptoms reported, No ear discharge, No hearing loss, No ear pain, No blurred vision, No double vision, No eye pain, No tearing, No vision loss, No dental problems, No hoarseness, No mouth pain, No mouth swelling , No epistaxis, No nose congestion, No nose pain, No throat pain, No throat swelling, No other Respiratory: short of breath (COPD) Cardiovascular: No no symptoms reported, No see HPI, No chest pain, No edema, No Hx of Intervention, No palpitations, No syncope, No vascular heart diseas, No other Gastrointestinal: diarrhea Genitourinary: frequency Musculoskeletal: No no symptoms reported, No see HPI, No back pain, No gout, No joint pain, No joint swelling, No muscle pain, No muscle stiffness, No muscle cramps, No muscle twitching, No muscle weakness, No neck pain, No other Skin: No no symptoms reported, No see HPI, No change in color, No change in hair/nails, No dryness, No hx of skin cancer, No lesions, No lumps, No pruritus , No rash, No other Psychiatric/Neurological: Pre-Existing Deficit, Weakness Physical Exam Vital Signs Vital Signs - First Documented 03/06/18 11:00 Temp 98.1 Pulse 111 Resp 22 B/P (MAP) 103/71 (82) Pulse Ox 93 O2 Delivery Room Air Capillary Refill : Height, Weight, BMI Height: 5'4.00" Weight: 130lbs. 7.8oz. 58.597947gn; 21.5 BMI Method:Stated General Appearance: No Apparent Distress HEENT: Normal ENT Inspection Neck: Supple Respiratory: Lungs Clear Cardiovascular: Regular Rate, Rhythm, Systolic Murmur, Gallop/S4 Gastrointestinal: Normal Bowel Sounds, Non Tender, Soft Rectal: Deferred Back: No CVA Tenderness Extremity: Non Tender, No Calf Tenderness, No Pedal Edema Neurologic/Psychiatric: Alert Skin: Warm/Dry Assessment/Plan Assessment and Plan 1. Acute UTI with ESBL Enterococcus--admit for IV meropenem 2. Diarrhea--check stool studies and resume colestid but increase to TID 3. HTN--resume home meds 4. Hypothyroidism--check TSH and free T4 5. History of CVA--resume plavix/ASA 6. GERD--resume protonix Admission Diagnosis Admission Status: Inpatient Order (span 2 midnights) Reason for Inpatient Admission: Needs at least 3 days of IV abx DALILA NICHOLAS DO Mar 06, 2018 12:35
[2018-03-06 12:46] LABS: BASOPHILS # (AUTO) 0.1 10^3/uL (0.0-0.1); BASOPHILS % (AUTO) 1 % (0-10); EOSINOPHILS # (AUTO) 0.8 10^3/uL (0.0-0.3); EOSINOPHILS % (AUTO) 8 % (0-10); HEMATOCRIT 41 % (35-52); HEMOGLOBIN 13.4 G/DL (11.5-16.0); LYMPHOCYTES # (AUTO) 1.7 X 10^3 (1.0-4.0); LYMPHOCYTES % (AUTO) 16 % (12-44); MEAN CORPUSCULAR HEMOGLOBIN 31 PG (25-34); MEAN CORPUSCULAR HGB CONC 33 G/DL (32-36); MEAN CORPUSCULAR VOLUME 97 FL (80-99); MEAN PLATELET VOLUME 11.5 FL (7.4-10.4); MONOCYTES # (AUTO) 1.3 X 10^3 (0.0-1.0); MONOCYTES % (AUTO) 13 % (0-12); NEUTROPHILS # (AUTO) 6.8 X 10^3 (1.8-7.8); NEUTROPHILS % (AUTO) 63 % (42-75); PLATELET COUNT 292 10^3/uL (130-400); RED BLOOD COUNT 4.27 10^6/uL (4.35-5.85); RED CELL DISTRIBUTION WIDTH 12.1 % (10.0-14.5); WHITE BLOOD COUNT 10.7 10^3/uL (4.3-11.0)
[2018-03-06 13:02] LABS: CALCIUM 10.1 MG/DL (8.5-10.1); CREATININE SERUM 0.92 MG/DL (0.60-1.30); POTASSIUM 3.7 MMOL/L (3.6-5.0)
[2018-03-06] MEDS ORDERED: FOLI1TAB24 PO (13:17)
[2018-03-06] MEDS ORDERED: MINE120C3 TP (13:17)
[2018-03-06] MEDS ORDERED: C,E,1CAP PO (13:17)
[2018-03-06] MEDS ORDERED: DOCU-143 PO (13:17)
[2018-03-06] MEDS ORDERED: CHOL5000 PO (13:17)
[2018-03-06] MEDS ORDERED: ACET325T49 PO (13:17)
[2018-03-06] MEDS ORDERED: ALBU2.5V4 NEB (13:17)
[2018-03-06] MEDS ORDERED: COLE1TAB PO (13:17)
[2018-03-06] MEDS ORDERED: LEVO100T7 PO (13:17)
[2018-03-06] MEDS ORDERED: CNC1KV IM (13:17)
[2018-03-06] MEDS ORDERED: FERR325T18 PO (13:17)
[2018-03-06] MEDS ORDERED: DULO30CA3 PO (13:17)
[2018-03-06] MEDS ORDERED: ONDN4T PO (13:17)
[2018-03-06] MEDS ORDERED: MULT-166 PO (13:17)
[2018-03-06] MEDS ORDERED: MAGN400O7 PO (13:17)
[2018-03-06] MEDS ORDERED: SULF500T7 PO (13:37)
[2018-03-06 13:42] LABS: FREE T4 (FREE THYROXINE) 1.17 NG/DL (0.70-1.48)
[2018-03-06] MEDS: RT-ALBUTEROL/IPRATROPIUM 3 ML (DUONEB) VIAL INH SCH ×4 (13:46→22:30)
[2018-03-06] MEDS: COLESTIPOL 1 GM (COLESTID) TAB PO SCH ×2 (14:04→20:20)
[2018-03-06 15:55] VITALS: BP 125/82
[2018-03-06 19:15] VITALS: BP 104/69
[2018-03-07] VITALS: BP 125/64
[2018-03-07] MEDS: MEROPENEM 500 MG in NS (IVPB) 100 ML IV SCH ×4 (01:16→17:37)
[2018-03-07] MEDS: RT-ALBUTEROL/IPRATROPIUM 3 ML (DUONEB) VIAL INH SCH ×6 (02:37→21:21)
[2018-03-07 04:00] VITALS: BP 123/57
[2018-03-07] MEDS: LEVOTHYROXINE 100 MCG (LEVOTHROID) TAB PO SCH (06:42)
[2018-03-07] MEDS: SUCRALFATE 1 GM (CARAFATE) TAB PO SCH ×4 (06:42→20:33)
[2018-03-07 08:00] VITALS: BP 153/83
[2018-03-07] MEDS: sulfaSALAzine 500 MG (AZULFIDINE) TAB PO SCH ×4 (09:02→20:33)
[2018-03-07] MEDS: COLESTIPOL 1 GM (COLESTID) TAB PO SCH ×3 (09:02→20:33)
[2018-03-07] MEDS: PANTOPRAZOLE 40 MG (PROTONIX) TAB PO SCH (09:02)
[2018-03-07] MEDS: ASPIRIN E.C. 81 MG (ECOTRIN) TAB PO SCH (09:02)
[2018-03-07] MEDS: CLOPIDOGREL 75 MG (PLAVIX) TABLET PO SCH (09:02)
[2018-03-07] MEDS: DULoxetine 30 MG (CYMBALTA) CAP PO SCH ×2 (09:02→20:33)
[2018-03-07] MEDS: ACETAMINOPHEN 500 MG TAB (TYLENOL) PO PRN (09:04)
[2018-03-07 12:00] VITALS: BP 139/79
--- NOTE | 2018-03-07 12:30 | Progress Note (SOAP) ---
Subjective Date Seen by a Provider: Mar 07, 2018 Time Seen by a Provider: 12:28 Subjective/Events-last exam Fwup UTI with ESBL, diarrhea, HTN. Diarrhea improved. Feels okay. Objective Exam Vital Signs Date Time Temp Pulse Resp B/P (MAP) Pulse Ox O2 Delivery O2 Flow Rate FiO2 03/07/18 10:07 92 Nasal Cannula 2.00 03/07/18 08:10 98 Room Air 03/07/18 08:00 97.1 119 24 153/83 (106) 98 Room Air 03/07/18 07:03 93 Nasal Cannula 2.00 03/07/18 04:00 97.0 105 18 123/57 (79) 96 Nasal Cannula 2.00 03/07/18 02:37 94 Nasal Cannula 2.00 03/07/18 00:00 98.4 94 18 125/64 (84) 92 Nasal Cannula 2.00 03/06/18 22:30 91 Nasal Cannula 2.00 03/06/18 19:15 97.2 119 20 104/69 (81) 94 Nasal Cannula 2.00 03/06/18 19:01 91 Nasal Cannula 2.00 03/06/18 15:55 97.3 108 18 125/82 (96) 95 Room Air 03/06/18 13:50 92 Nasal Cannula 2.00 I & O 03/07/18 06:59 Intake Total 770 ml Output Total 100 ml Balance 670 ml Capillary Refill : General Appearance: No Apparent Distress Respiratory: Lungs Clear Cardiovascular: Regular Rate, Rhythm Gastrointestinal: normal bowel sounds, non tender, soft Extremity: Non Tender, No Calf Tenderness, No Pedal Edema Neurologic/Psychiatric: Alert, Oriented x3 Results Lab Laboratory Tests 03/06/18 12:30: White Blood Count 10.7, Red Blood Count 4.27L, Hemoglobin 13.4, Hematocrit 41, Mean Corpuscular Volume 97, Mean Corpuscular Hemoglobin 31, Mean Corpuscular Hemoglobin Concent 33, Red Cell Distribution Width 12.1, Platelet Count 292, Mean Platelet Volume 11.5H, Neutrophils (%) (Auto) 63, Lymphocytes (%) (Auto) 16 , Monocytes (%) (Auto) 13H, Eosinophils (%) (Auto) 8, Basophils (%) (Auto) 1, Neutrophils # (Auto) 6.8, Lymphocytes # (Auto) 1.7, Monocytes # (Auto) 1.3H, Eosinophils # (Auto) 0.8H, Basophils # (Auto) 0.1, Sodium Level 138, Potassium Level 3.7, Chloride Level 108H, Carbon Dioxide Level 18L, Anion Gap 12, Blood Urea Nitrogen 22H, Creatinine 0.92, Estimat Glomerular Filtration Rate 59, BUN/ Creatinine Ratio 24, Glucose Level 103, Calcium Level 10.1, Thyroid Stimulating Hormone (TSH) 2.26, Free Thyroxine 1.17 Assessment/Plan Assessment/Plan Assess & Plan/Chief Complaint 1. ESBL UTI--on meropenem 2. Diarrhea--improved with starting colestid 3. Hypertension--resume metoprolol 4. History of CVA--back on aspirin/plavix Clinical Quality Measures Admission Status Admission Dx 1. Acute UTI with ESBL Enterococcus--admit for IV meropenem 2. Diarrhea--check stool studies and resume colestid but increase to TID 3. HTN--resume home meds 4. Hypothyroidism--check TSH and free T4 5. History of CVA--resume plavix/ASA 6. GERD--resume protonix DVT/VTE Risk/Contraindication: Risk Factor Score Per Nursin RFS Level Per Nursing on Admit: 3=High DALILA CASIANO DO Mar 07, 2018 12:30
[2018-03-07] MEDS: meTOproloL SUCCINATE 50 MG (TOPROL XL) TAB PO SCH (13:09)
[2018-03-07 15:49] VITALS: BP 135/61
[2018-03-07] MEDS ORDERED: NON-FORMULARY MEDICATION 1 EA EA (Mirabegron (Myrbetriq) 25 MG) PO SCH (21:00)
[2018-03-07] MEDS: FLUTICASONE NASAL SPRAY (FLONASE) 16 GM BTL NS SCH (22:12)
[2018-03-07] MEDS: LATANOPROST 0.005% (XALATAN) OPHTH SOLN 2.5 ML OU SCH (22:13)
[2018-03-08] VITALS: BP 113/57
[2018-03-08] MEDS: MEROPENEM 500 MG in NS (IVPB) 100 ML IV SCH ×5 (00:30→23:35)
[2018-03-08] MEDS: RT-ALBUTEROL/IPRATROPIUM 3 ML (DUONEB) VIAL INH SCH ×6 (01:27→21:12)
[2018-03-08] MEDS: SUCRALFATE 1 GM (CARAFATE) TAB PO SCH ×4 (06:12→21:15)
[2018-03-08] MEDS: LEVOTHYROXINE 100 MCG (LEVOTHROID) TAB PO SCH (06:12)
[2018-03-08 08:00] VITALS: BP 122/61
[2018-03-08] MEDS: PANTOPRAZOLE 40 MG (PROTONIX) TAB PO SCH (08:34)
[2018-03-08] MEDS: DULoxetine 30 MG (CYMBALTA) CAP PO SCH ×2 (08:34→21:15)
[2018-03-08] MEDS: meTOproloL SUCCINATE 50 MG (TOPROL XL) TAB PO SCH (08:35)
[2018-03-08] MEDS: sulfaSALAzine 500 MG (AZULFIDINE) TAB PO SCH ×4 (08:35→21:15)
[2018-03-08] MEDS: ASPIRIN E.C. 81 MG (ECOTRIN) TAB PO SCH (08:35)
[2018-03-08] MEDS: CLOPIDOGREL 75 MG (PLAVIX) TABLET PO SCH (08:35)
[2018-03-08] MEDS: COLESTIPOL 1 GM (COLESTID) TAB PO SCH ×3 (08:53→21:14)
[2018-03-08] MEDS ORDERED: meTOproloL SUCCINATE 50 MG (TOPROL XL) TAB PO SCH (09:00)
[2018-03-08] MEDS ORDERED: PATIENT MAY USE OWN MED,SINGLE MED PO SCH (14:45)
[2018-03-08 16:03] VITALS: BP 117/56
[2018-03-08] MEDS ORDERED: MYRBETRIQ 25 MG PO SCH (21:00)
[2018-03-08] MEDS: FLUTICASONE NASAL SPRAY (FLONASE) 16 GM BTL NS SCH (21:14)
[2018-03-08] MEDS: LATANOPROST 0.005% (XALATAN) OPHTH SOLN 2.5 ML OU SCH (21:14)
[2018-03-09] VITALS: BP_SYST 115; BP_SYST 121; BP_DIAS 69; BP_DIAS 70
[2018-03-09] MEDS: RT-ALBUTEROL/IPRATROPIUM 3 ML (DUONEB) VIAL INH SCH ×3 (01:12→10:50)
[2018-03-09] MEDS: MEROPENEM 500 MG in NS (IVPB) 100 ML IV SCH ×2 (05:45→11:53)
[2018-03-09] MEDS: ACETAMINOPHEN 500 MG TAB (TYLENOL) PO PRN (05:45)
[2018-03-09] MEDS: LEVOTHYROXINE 100 MCG (LEVOTHROID) TAB PO SCH (05:45)
[2018-03-09] MEDS: SUCRALFATE 1 GM (CARAFATE) TAB PO SCH ×2 (05:45→11:53)
[2018-03-09 08:00] VITALS: BP 136/82
[2018-03-09] MEDS ORDERED: MYRBETRIQ 25 MG PO SCH (09:00)
[2018-03-09] MEDS: DULoxetine 30 MG (CYMBALTA) CAP PO SCH (09:59)
[2018-03-09] MEDS: ASPIRIN E.C. 81 MG (ECOTRIN) TAB PO SCH (09:59)
[2018-03-09] MEDS: CLOPIDOGREL 75 MG (PLAVIX) TABLET PO SCH (09:59)
[2018-03-09] MEDS: PANTOPRAZOLE 40 MG (PROTONIX) TAB PO SCH (09:59)
[2018-03-09] MEDS: sulfaSALAzine 500 MG (AZULFIDINE) TAB PO SCH ×2 (09:59→11:53)
[2018-03-09] MEDS: meTOproloL SUCCINATE 50 MG (TOPROL XL) TAB PO SCH (09:59)
[2018-03-09] MEDS: COLESTIPOL 1 GM (COLESTID) TAB PO SCH ×2 (10:00→11:53)
[2018-03-09] MEDS ORDERED: COLE1TAB PO (13:06)
[2018-03-09] MEDS ORDERED: NITR-65 PO (13:06)
--- NOTE | 2018-03-09 13:09 | Discharge Inst-Skilled Nursing ---
Discharge Inst-Skilled NF Patient Instructions Patient Problems: ESBL UTI Weakness Fall risk Consult/Follow Up/Orders Follow Up Appt.: 2 weeks Skilled NF Admit to: Mine Certification (SNF) I certify that SNF services are required to be given on an inpatient basis because of the above named patient's need for jail care on a continuing basis for the conditions(s) for which he/she was receiving inpatient hospital services prior to his/her transfer to the SNF. Fpc Facility Order: Nursing Services, Technical Sales Director-Evaluate & Treat, Physical Therapy-Evaluate & Treat Discharge Diet: No Restrictions Daily Activity as Tolerated: Yes New & Resume Previous Orders Other Instructions Macrobid for 1 week post discharge then reculture urine 48hrs after she is done with macrobid Celestina Nicholas Mar 09, 2018 13:07 CELESTINA NICHOLAS DO Mar 09, 2018 13:09
--- NOTE | 2018-03-09 13:11 | Progress Note (SOAP) ---
Subjective Date Seen by a Provider: Mar 08, 2018 Time Seen by a Provider: 12:30 Subjective/Events-last exam Fwup UTI with ESBL, diarrhea, HTN, weakness. Still no BM. No further burning with urination. Feeling good. Objective Exam Vital Signs Date Time Temp Pulse Resp B/P (MAP) Pulse Ox O2 Delivery O2 Flow Rate FiO2 03/09/18 10:50 91 Nasal Cannula 2.00 03/09/18 08:00 98.0 99 24 136/82 (100) 98 Nasal Cannula 2.00 03/09/18 08:00 Room Air 03/09/18 06:40 91 Nasal Cannula 2.00 03/09/18 01:12 90 Nasal Cannula 2.00 03/09/18 00:00 98.6 71 18 121/69 (86) 96 Nasal Cannula 2.00 03/08/18 21:12 87 Room Air 03/08/18 20:00 Room Air 03/08/18 18:39 92 Room Air 03/08/18 16:03 97.3 78 22 117/56 (76) 94 Room Air 03/08/18 14:39 91 Nasal Cannula 2.00 I & O 03/09/18 07:00 Intake Total 1565 ml Balance 1565 ml Capillary Refill : Less Than 3 Seconds General Appearance: No Apparent Distress Neck: Supple Respiratory: Lungs Clear Cardiovascular: Regular Rate, Rhythm Gastrointestinal: normal bowel sounds, non tender, soft Extremity: Non Tender, No Calf Tenderness, No Pedal Edema Neurologic/Psychiatric: Alert, Oriented x3 Results Lab Microbiology 03/08/18 C. difficile GDH Antigen & Toxins - Final, Resulted 03/08/18 Stool Culture - Preliminary, Resulted Presumptive Usual Lluvia Assessment/Plan Assessment/Plan Assess & Plan/Chief Complaint 1. ESBL UTI--on meropenem through tomorrow 2. Diarrhea--improved with starting colestid 3. Hypertension--resumed metoprolol 4. History of CVA--back on aspirin/plavix Clinical Quality Measures Admission Status Admission Dx 1. Acute UTI with ESBL Enterococcus--admit for IV meropenem 2. Diarrhea--check stool studies and resume colestid but increase to TID 3. HTN--resume home meds 4. Hypothyroidism--check TSH and free T4 5. History of CVA--resume plavix/ASA 6. GERD--resume protonix DVT/VTE Risk/Contraindication: Risk Factor Score Per Nursin RFS Level Per Nursing on Admit: 3=High DALILA CASIANO DO Mar 09, 2018 13:11
--- NOTE | 2018-03-09 13:17 | Discharge Summary ---
Diagnosis/Chief Complaint Date of Admission Mar 06, 2018 at 10:55 Date of Discharge Discharge Date: Mar 09, 2018 Discharge Diagnosis 1. UTI with ESBL Enterococcus--did full 3 days of meropenem 2. Diarrhea with history of colitis--improved with increased dose of colestid 3. Weakness with Fall Risk--DC back to SNF for PT/OT 4. Hypertension--stable 5. History of CVA--continue with plavix/aspirin 6. GERD--back on protonix and carafate Reason Hospital Visit This is a 77 year old female who is a [place] local [place] who has a history of recurrent UTIs. He most recent urine culture grew out ESBL enterococcus so she will be admitted for IV meropenem. She also reports diarrhea. She has a history of ulcerative colitis and has had a recent colonoscopy with GI but is having ongoing diarrhea. Discharge Summary Hospital Course Hospital Course This is a 77 year old female who is a resident of a [facility] who has a history of recurrent UTIs. He most recent urine culture grew out ESBL enterococcus so she will be admitted for IV meropenem. She also reports diarrhea. She has a history of ulcerative colitis and has had a recent colonoscopy with GI but is having ongoing diarrhea. She was admitted to the medical floor in contact precautions and treated with meropenem for a full 3 days. Her colestid was restarted but increased to TID and her diarrhea resolved with this. Her home medications were resumed and her blood pressure as well as her GERD and mental status were stable during her hospital stay. Within 24hrs of the antibiotics she had no further dysuria and by the time of discharge she stated she was feeling better than she had in a some time. [place] and will do 1 week of macrobid then have a reculture of her urine 48hrs after that. I will fwup with her in my office in 2 weeks. Procedures None. Discharge Physical Examination Allergies: Coded Allergies: Penicillins (Verified Allergy, Intermediate, HIVES, CAN TAKE ROCEPHIN, 18/03) codeine (Verified Allergy, Unknown, 02/09/15) morphine (Verified Allergy, Unknown, PATIENT TAKES VICODIN AT HOME PER VIN, 02/09/15) propoxyphene (Verified Allergy, Unknown, 12/18/11) Vitals & I&Os Vital Signs Date Time Temp Pulse Resp B/P (MAP) Pulse Ox O2 Delivery O2 Flow Rate FiO2 03/09/18 10:50 91 Nasal Cannula 2.00 03/09/18 08:00 98.0 99 24 136/82 (100) General Appearance: Alert, Oriented X3, Cooperative, No Acute Distress Respiratory: Clear to Auscultation Cardiovascular: Regular Rate Abdominal: Normal Bowel Sounds, Soft, No Tenderness Extremities: No Clubbing, No Cyanosis, No Edema Psych/Mental Status: Mental Status NL, Mood NL Discharge Home Medications Reviewed and agree with Discharge Medication list on patient's Discharge Instruction sheet Instructions to Patient/Family Please see electronic discharge instructions given to patient. Clinical Quality Measures DVT/VTE Risk/Contraindication: Risk Factor Score Per Nursin RFS Level Per Nursing on Admit: 3=High DALILA CASIANO DO Mar 09, 2018 13:17
== END 2018-03-09 13:45 | DRG 690 ==
LOC: 4TH 10:55
PROVIDERS: ADMIT Family Medicine; ATTEND Family Medicine
DX: N39.0 Urinary tract infection, site not specified (principal); B95.2 Enterococcus as the cause of diseases classified elsewhere; R19.7 Diarrhea, unspecified; E03.9 Hypothyroidism, unspecified; K21.9 Gastro-esophageal reflux disease without esophagitis; J44.9 Chronic obstructive pulmonary disease, unspecified; Z66 Do not resuscitate; E78.00 Pure hypercholesterolemia, unspecified; I11.0 Hypertensive heart disease with heart failure; I50.9 Heart failure, unspecified; G43.909 Migraine, unspecified, not intractable, without status migrainosus; K57.90 Diverticulosis of intestine, part unspecified, without perforation or abscess without bleeding; M19.91 Primary osteoarthritis, unspecified site; M54.9 Dorsalgia, unspecified; F32.9 Major depressive disorder, single episode, unspecified; R63.4 Abnormal weight loss; R53.1 Weakness; Z86.73 Personal history of transient ischemic attack (TIA), and cerebral infarction without residual deficits; Z87.19 Personal history of other diseases of the digestive system; Z87.891 Personal history of nicotine dependence; Z90.49 Acquired absence of other specified parts of digestive tract; Z16.12 Extended spectrum beta lactamase (ESBL) resistance
CPT/HCPCS: 36415; 80048; 84439; 84443; 85025; 87015; 87045; 87046; 87324; 87449; 87899; 94640; 94760

== ENCOUNTER 2018-03-10 16:45 | Inpatient (IN) | payer MEDICARE, MEDICAID ==
[~2018-03-10] VITALS: Ht 160 cm; Wt 60.0 kg
[~2018-03-10 16:45] MED LIST changes: +ACET325T49 PO; +ALBU2.5V4 NEB; +C,E,1CAP PO; +CHOL5000 PO; +CNC1KV IM; +COLE1TAB PO; +DOCU-143 PO; +DULO30CA3 PO; +FERR325T18 PO; +FOLI1TAB24 PO; +LEVO100T7 PO; +MAGN400O7 PO; -MEROPENEM 1,000 MG in NS (IVPB) 100 ML IV SCH; +MINE120C3 TP; +MULT-166 PO; -ONDANSETRON 4 MG/2 ML (SDV) Z0FRAN IV PRN; +SULF500T7 PO
[2018-03-10] MEDS ORDERED: NS IV 500 ML 500 ML IV ONE (16:53)
--- OUTSIDE RECORDS SUMMARY | 2018-03-10 16:54 | XMS REPORT | Continuity of Care Document ---
Author Author [facility] Organization [facility] Address Unknown Phone Unavailable Allergies Active Description Code Type Severity Reaction Onset Reported/Identified Relationship to Patient Clinical Status Yes Penicillins [id number] Drug Allergy Moderate HIVES, CAN TAKE 12/18/2011 Yes propoxyphene [id number] Drug Allergy Unknown N/A 12/18/2011 Yes codeine [id number] Drug Allergy Unknown N/A 02/09/2015 Yes morphine [id number] Drug Allergy Unknown PATIENT TAKES V 02/09/2015 [...] DISORDER 05/18/2011 Ot 414.01 CORONARY ATHEROSCLEROSIS OF [place] CORON 05/18/2011 Ot 486 PNEUMONIA, ORGANISM NOS [...] S Ot I10 ESSENTIAL (PRIMARY) HYPERTENSION 02/11/2015 CELESTINA NICHOLAS DO S Ot J44.9 CHRONIC OBSTRUCTIVE PULMONARY DISEASE, U 02/11/2015 CELESTINA NICHOLAS DO S Ot K21.9 GASTRO-ESOPHAGEAL REFLUX DISEASE WITHOUT 02/11/2015 CELESTINA NICHOLAS DO S Ot K57.92 DVTRCLI OF INTEST, PART UNSP, W/O PERF O 02/11/2015 OH GALVIN CELESTINA S Ot N39.0 URINARY TRACT [...] 02/26/2015 Ot V58.69 02/26/2015 CELESTINA NICHOLAS DO S Ot 348.89 02/26/2015 CELESTINA NICHOLAS DO S Ot 433.10 02/26/2015 CELESTINA NICHOLAS DO S Ot 433.30 02/26/2015 CELESTINA NICHOLAS DO Ot 723.1 02/26/2015 CELESTINA NICHOLAS DO S Ot 780.4 02/26/2015 LOLINDSELVIN GALVIN, CELESTINA S Ot V12.54 03/05/2015 LOLINDSELVIN GALVIN, CELESTINA S Ot E03.9 HYPOTHYROIDISM, UNSPECIFIED 03/05/2015 LOLINDSELVIN GALVIN, CELESTINA S Ot F17.210 NICOTINE DEPENDENCE, CIGARETTES, UNCOMPL 03/05/2015 LOLINDER DO, CELESTINA S Ot I10 ESSENTIAL (PRIMARY) HYPERTENSION 03/05/2015 OH GALVIN, CELESTINA S Ot J44.9 CHRONIC OBSTRUCTIVE PULMONARY DISEASE, U 03/05/2015 OH GALVIN, CELESTINA S Ot K21.9 GASTRO-ESOPHAGEAL REFLUX DISEASE WITHOUT 03/05/2015 LOLINDER DOAMOSCELESTINA S Ot R55 SYNCOPE AND COLLAPSE 03/05/2015 OH GALVIN, CELESTINA S Ot S00.03XA CONTUSION OF SCALP, INITIAL ENCOUNTER 03/05/2015 AMOS NICHOLAS DOLINE S Ot S40.921A UNSP SUPERFICIAL INJURY OF RIGHT UPPER A 03/05/2015 AMOS NICHOLAS DOLINE S Ot W19.XXXA UNSPECIFIED FALL, INITIAL ENCOUNTER 03/05/2015 AMOS NICHOLAS DOLINE S Ot Y92.[address] IN SINGLE-FAMILY (PRIVATE) HO 03/05/2015 OH GALVIN, CELESTINA S Ot Y93.E2 ACTIVITY, LAUNDRY 03/05/2015 OH GALVIN, CELESTINA S Ot Z86.73 PRSNL HX OF TIA (TIA), AND CEREB INFRC W 03/19/2015 OH GALVIN, CELESTINA S Ot R41.0 03/19/2015 LOLINDER DO, [...] OTHER CONDITIONS OF BRAIN 12/28/2015 LOLINDER DO CELESTINA S Ot 433.10 CAROTID ARTERY OCCLUSION W O CEREBRAL IN 12/28/2015 LOLINDER DO, CELESTINA S Ot 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 ARTERY OCCLUSION WO CEREBRA 12/28/2015 LOLINDER DO CELESTINA S Ot 723.1 CERVICALGIA 12/28/2015 LOLINDER DO CELESTINA S Ot 780.4 DIZZINESS AND GIDDINESS 12/28/2015 LOLINDER DO CELESTINA S Ot V12.54 PERSONAL HX OF TIA, CEREBRAL INFARCTION 12/28/2015 LOLINDER DO CELESTINA S Ot R41.0 DISORIENTATION, UNSPECIFIED 12/28/2015 LOLINDER DO, CELESTINA S Ot Z86.73 PRSNL HX OF TIA (TIA), AND CEREB INFRC W 12/28/2015 LOLINDER DO CELESTINA S Ot Z91.81 HISTORY OF FALLING 12/31/2015 LOLINDER DO CELESTINA S Ot E03.9 HYPOTHYROIDISM, UNSPECIFIED 12/31/2015 LOLINDER DO CELESTINA S Ot E86.0 DEHYDRATION 12/31/2015 LOLINDER DO CELESTINA S Ot E87.6 HYPOKALEMIA 12/31/2015 LOLINDER DO, CELESTINA S Ot F17.210 NICOTINE DEPENDENCE, CIGARETTES, UNCOMPL 12/31/2015 LOLINDER DO CELESTINA S Ot F32.9 MAJOR DEPRESSIVE DISORDER, SINGLE EPISOD 12/31/2015 LOLINDER DO, CELESTINA S Ot F41.9 ANXIETY DISORDER, UNSPECIFIED 12/31/2015 LOLINDER DO CELESTINA S Ot I10 ESSENTIAL (PRIMARY) HYPERTENSION 12/31/2015 LOLINDER DO CELESTINA S Ot J44.9 CHRONIC OBSTRUCTIVE PULMONARY [...] Ot 791.9 ABN URINE FINDINGS NEC 03/20/2017 LOLINDER DO, CELESTINA S Ot 348.89 OTHER CONDITIONS [...] CELESTINA S Ot R41.0 DISORIENTATION, UNSPECIFIED 03/20/2017 ORENDER DO, CELESTINA S Ot Z86.73 PRSNL [...] I 03/20/2017 PARISH RUELAS APRN Ot Z79.82 LONG-TERM (CURRENT) USE OF ASPIRIN 03/20/2017 PARISH RUELAS APRN Ot Z86.73 PRSNL HX OF TIA (TIA), AND CEREB INFRC W 03/20/2017 PARISH RUELAS APRN Ot Z87.891 PERSONAL HISTORY OF NICOTINE DEPENDENCE 03/20/2017 PARISH RUELAS APRN Ot Z90.49 ACQUIRED ABSENCE OF OTHER SPECIFIED PART 03/20/2017 PARISH RUELAS APRN Ot Z90.710 ACQUIRED ABSENCE OF BOTH CERVIX AND UTER 03/20/2017 OH GALVIN, CELESTINA S Ot 348.89 OTHER CONDITIONS OF BRAIN 03/20/2017 OH GALVIN, CELESTINA S Ot 433.10 CAROTID ARTERY OCCLUSION W O CEREBRAL IN 03/20/2017 OH GALVIN, CELESTINA S Ot 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 ARTERY OCCLUSION WO CEREBRA 03/20/2017 LOLINDER DO, CELESTINA S Ot 723.1 CERVICALGIA 03/20/2017 LOLINDER DO, CELESTINA S Ot 780.4 DIZZINESS AND GIDDINESS 03/20/2017 ROSENDAER , CELESTINA S Ot V12.54 PERSONAL HX OF TIA, CEREBRAL INFARCTION 03/20/2017 OH GALVIN, CELESTINA S Ot R41.0 DISORIENTATION, UNSPECIFIED 03/20/2017 ROSENDAER DO CELESTINA S Ot Z86.73 PRSNL HX OF TIA (TIA), AND CEREB INFRC W 03/20/2017 CELESTINA NICHOLAS DO Ot Z91.81 HISTORY OF FALLING 04/06/2017 AMOS NICHOLAS DOLINE S Ot 348.89 OTHER CONDITIONS OF BRAIN 04/06/2017 CELESTINA NICHOLAS DO S Ot 433.10 CAROTID ARTERY OCCLUSION W O CEREBRAL IN 04/06/2017 AMOS NICHOLAS DOLINE S Ot 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 ARTERY OCCLUSION WO CEREBRA 04/06/2017 AMOS NICHOLAS DOLINE S Ot 723.1 CERVICALGIA 04/06/2017 OH GALVIN, CELESTINA S Ot 780.4 DIZZINESS AND GIDDINESS 04/06/2017 AMOS NICHOLAS DOLINE S Ot V12.54 PERSONAL HX OF TIA, CEREBRAL INFARCTION 04/06/2017 AMOS NICHOLAS DOLINE S Ot R41.0 DISORIENTATION, UNSPECIFIED 04/06/2017 AMOS NICHOLAS DOLINE S Ot Z86.73 PRSNL HX OF TIA (TIA), AND CEREB INFRC W 04/06/2017 CELESTINA NICHOLAS DO S Ot Z91.81 HISTORY OF FALLING 04/06/2017 AMOS NICHOLAS DOLINE S Ot R53.1 WEAKNESS 04/07/2017 AMOS NICHOLAS DOLINE S Ot G93.89 OTHER SPECIFIED DISORDERS OF BRAIN 04/07/2017 CELESTINA NICHOLAS DO S Ot R47.81 SLURRED SPEECH 04/07/2017 AMOS NICHOLAS DOLINE S Ot R53.1 WEAKNESS 04/07/2017 CELESTINA NICHOLAS DO S Ot W19.XXXA UNSPECIFIED FALL, INITIAL ENCOUNTER [...] S Ot 780.4 DIZZINESS AND GIDDINESS 04/11/2017 ORENDER DO CELESTINA S Ot V12.54 PERSONAL HX OF TIA, CEREBRAL INFARCTION 04/11/2017 LOLINDER DO, CELESTINA S Ot R41.0 DISORIENTATION, UNSPECIFIED 04/11/2017 ORENDER DO, CELESTINA S Ot Z86.73 PRSNL HX OF TIA (TIA), AND CEREB INFRC W 04/11/2017 ORENDER DO CELESTINA S Ot Z91.81 HISTORY OF FALLING 04/11/2017 ORENDER DO, CELESTINA S Ot G93.89 OTHER SPECIFIED DISORDERS OF BRAIN 04/11/2017 LOLINDER DO, CELESTINA S Ot R47.81 SLURRED SPEECH 04/11/2017 LOLINDER DO, CELESTINA S Ot R53.1 WEAKNESS 04/11/2017 LOLINDER DOCRESENCIOCELESTINA S Ot W19.XXXA UNSPECIFIED FALL, INITIAL ENCOUNTER 04/11/2017 LOLINDER DO CELESTINA S Ot Z86.73 PRSNL HX OF TIA (TIA), AND CEREB INFRC W 04/11/2017 LOLINDER DO CELESTINA S Ot D64.9 ANEMIA, UNSPECIFIED 04/13/2017 ORENDER DO, CELESTINA S Ot D64.9 ANEMIA, UNSPECIFIED 04/17/2017 ORENDER DO, CELESTINA S Ot D64.9 ANEMIA, UNSPECIFIED 04/17/2017 ORENDER DO, CELESTINA S Ot E86.0 DEHYDRATION 04/17/2017 LOLINDER DOCRESENCIOCELESTINA S Ot F01.50 VASCULAR DEMENTIA WITHOUT BEHAVIORAL DIS 04/17/2017 LOLINDER CRESENCIO GALVINCELESTINA S Ot I10 ESSENTIAL (PRIMARY) HYPERTENSION 04/17/2017 LOLINDER DO, CELESTINA S Ot I99.9 UNSPECIFIED DISORDER OF CIRCULATORY SYST 04/17/2017 LOLINDER DO, CELESTINA S Ot J44.9 CHRONIC OBSTRUCTIVE PULMONARY DISEASE, U 04/17/2017 LOLINDER DO CELESTINA S Ot K21.9 GASTRO-ESOPHAGEAL REFLUX DISEASE WITHOUT 04/17/2017 ORENDER DO, CELESTINA S Ot K59.00 CONSTIPATION, UNSPECIFIED 04/17/2017 ORENDER DO, CELESTINA S Ot M19.91 PRIMARY OSTEOARTHRITIS, UNSPECIFIED SITE 04/17/2017 LOLINDER DO, CELESTINA S Ot M54.9 DORSALGIA, UNSPECIFIED 04/17/2017 LOLINDER CELESTINA GALVIN S Ot N17.9 ACUTE KIDNEY FAILURE, UNSPECIFIED 04/17/2017 LOLINDER CELESTINA GALVIN S Ot N39.0 URINARY TRACT INFECTION, SITE NOT SPECIF 04/17/2017 LOLINDER CELESTINA GALVIN S Ot R26.81 UNSTEADINESS ON FEET 04/17/2017 LOLINDER DOAMOSCELESTINA S Ot R41.0 DISORIENTATION, UNSPECIFIED 04/17/2017 LOLINDER DOAMOSCELESTINA S Ot Z86.73 PRSNL HX OF TIA (TIA), AND CEREB INFRC W 04/17/2017 LOLINDER DOAMOSCELESTINA S Ot Z86.79 PERSONAL HISTORY OF OTHER DISEASES OF TH 04/17/2017 CELESTINA NICHOLAS DO S Ot Z87.891 PERSONAL HISTORY OF NICOTINE DEPENDENCE 04/17/2017 LOLINDER AMOS GALVINLINE S Ot Z90.49 ACQUIRED ABSENCE OF OTHER SPECIFIED PART 04/17/2017 LOLINDER AMOS GALVINLINE S Ot Z91.81 HISTORY OF FALLING 04/28/2017 LOLINDER DO, CELESTINA S Ot G93.89 OTHER SPECIFIED DISORDERS OF BRAIN 04/28/2017 LOLINDER DO, CELESTINA S Ot R47.81 SLURRED SPEECH 04/28/2017 LOLINDER DO, CELESTINA S Ot R53.1 WEAKNESS 04/28/2017 LOLINDER DOAMOSCELESTINA S Ot W19.XXXA UNSPECIFIED FALL, INITIAL ENCOUNTER 04/28/2017 ROSENDAER AMOS GALVINLINE S Ot Z86.73 PRSNL HX OF TIA (TIA), AND CEREB INFRC W 05/01/2017 LOLINDER DO, CELESTINA S Ot I65.01 OCCLUSION AND [...] Ot W19.XXXA UNSPECIFIED FALL, INITIAL ENCOUNTER 05/02/2017 OH GALVIN, CELESTINA S Ot Z86.73 PRSNL HX OF TIA (TIA), AND CEREB INFRC W 05/03/2017 OH GALVIN, CELESTINA S Ot 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 05/03/2017 LOLINDSELVIN GALVIN, CELESTINA S Ot I65.23 OCCLUSION AND [...] R51 HEADACHE 05/03/2017 KIERAN MOONEY Ot Z79.82 LONG-TERM (CURRENT) USE OF ASPIRIN 05/03/2017 KIERAN MOONEY [...] R51 HEADACHE 05/05/2017 KIERAN MOONEY Ot Z79.82 LONG-TERM (CURRENT) USE OF ASPIRIN 05/05/2017 KIERAN MOONEY [...] Ot E03.9 HYPOTHYROIDISM, UNSPECIFIED 06/13/2017 MEMO TORRES MD, Ot E86.0 DEHYDRATION 06/13/2017 MEMO TORRES MD [...] UNSPECIFIED 06/13/2017 MEMO TORRES MD Ot Z79.82 LONG-TERM (CURRENT) USE OF ASPIRIN 06/13/2017 MEMO TORRES [...] UNSPECIFIED 06/15/2017 MEMO TORRES MD Ot Z79.82 LONG-TERM (CURRENT) USE OF ASPIRIN 06/15/2017 MEMO TORRES MD Ot Z86.73 PRSNL HX OF TIA (TIA), AND CEREB INFRC W 06/15/2017 MEMO TORRES MD Ot Z87.19 PERSONAL HISTORY [...] UNSP, NOT INTRACTABLE, WITHOUT 06/19/2017 MEMO TORRES MD, Ot I50.9 HEART FAILURE, UNSPECIFIED 06/19/2017 MEMO TORRES MD, Ot J44.9 CHRONIC OBSTRUCTIVE PULMONARY DISEASE, U 06/19/2017 MEMO TORRES MD, Ot K21.9 GASTRO-ESOPHAGEAL REFLUX DISEASE WITHOUT 06/19/2017 MEMO TORRES MD, Ot N39.0 URINARY TRACT INFECTION, SITE NOT SPECIF 06/19/2017 MEMO TORRES MD, Ot R11.2 NAUSEA WITH VOMITING, UNSPECIFIED 06/19/2017 MEMO TORRES MD, Ot R19.7 DIARRHEA, UNSPECIFIED 06/19/2017 MEMO TORRES MD, Ot Z79.82 LONG-TERM (CURRENT) USE OF ASPIRIN 06/19/2017 MEMO TORRES MD Ot Z86.73 PRSNL HX OF TIA (TIA), AND CEREB INFRC W 06/19/2017 MEMO TORRES MD, Ot Z87.19 PERSONAL HISTORY OF OTHER DISEASES OF TH 06/19/2017 MEMO TORRES MD Ot Z87.891 PERSONAL HISTORY OF NICOTINE DEPENDENCE 06/19/2017 MEMO TORRES MD Ot Z88.0 ALLERGY STATUS TO PENICILLIN 06/19/2017 MEMO TORRES MD, Ot Z88.6 ALLERGY STATUS TO ANALGESIC AGENT STATUS 06/19/2017 MEMO TORRES MD, Ot Z90.49 ACQUIRED ABSENCE OF OTHER SPECIFIED PART 06/19/2017 MEMO TORRES MD Ot Z90.710 ACQUIRED ABSENCE OF BOTH CERVIX AND UTER 02/22/2018 CELESTINA NICHOLAS DO Ot 348.89 OTHER CONDITIONS OF BRAIN 02/22/2018 CELESTINA NICHOLAS DO Ot 433.10 CAROTID ARTERY OCCLUSION W O CEREBRAL IN 02/22/2018 CELESTINA NICHOLAS DO Ot 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 ARTERY OCCLUSION WO CEREBRA 02/22/2018 CELESTINA NICHOLAS DO S Ot 723.1 CERVICALGIA 02/22/2018 CELESTINA NICHOLAS DO S Ot 780.4 DIZZINESS AND GIDDINESS 02/22/2018 CELESTINA NICHOLAS DO Ot V12.54 PERSONAL HX OF TIA, CEREBRAL INFARCTION 02/22/2018 CELESTINA NICHOLAS DO S Ot R41.0 DISORIENTATION, UNSPECIFIED 02/22/2018 CELESTINA NICHOLAS DO S Ot Z86.73 PRSNL HX OF TIA (TIA), AND CEREB INFRC W 02/22/2018 CELESTINA NICHOLAS DO S Ot Z91.81 HISTORY OF FALLING 02/22/2018 CELESTINA NICHOLAS DO S Ot G93.89 OTHER SPECIFIED DISORDERS OF BRAIN 02/22/2018 CELESTINA NICHOLAS DO S Ot R47.81 SLURRED SPEECH 02/22/2018 CELESTINA NICHOLAS DO S Ot R53.1 WEAKNESS 02/22/2018 CELESTINA NICHOLAS DO Ot W19.XXXA UNSPECIFIED FALL, INITIAL ENCOUNTER 02/22/2018 CELESTINA NICHOLAS DO Ot Z86.73 PRSNL HX OF TIA (TIA), AND CEREB INFRC W 02/22/2018 CELESTINA NICHOLAS DO Ot 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 02/22/2018 MEMO TORRES MD Ot D64.9 ANEMIA, UNSPECIFIED 02/22/2018 MEMO TORRES MD Ot E03.9 HYPOTHYROIDISM, UNSPECIFIED 02/22/2018 MEMO TORRES MD Ot G43.909 MIGRAINE, UNSP, NOT INTRACTABLE, WITHOUT 02/22/2018 MEMO TORRES MD Ot I11.0 HYPERTENSIVE HEART DISEASE WITH HEART FA 02/22/2018 MEMO TORRES MD Ot I50.9 HEART FAILURE, UNSPECIFIED 02/22/2018 MEMO TORRES MD Ot J44.9 CHRONIC OBSTRUCTIVE PULMONARY DISEASE, U 02/22/2018 MEMO TORRES MD Ot K21.9 GASTRO-ESOPHAGEAL REFLUX DISEASE WITHOUT 02/22/2018 MEMO TORRES MD Ot M79.604 PAIN IN RIGHT LEG 02/22/2018 MEMO TORRES MD, Ot M79.605 PAIN IN LEFT LEG 02/22/2018 MEMO TORRES MD, Ot N39.0 URINARY TRACT INFECTION, SITE NOT SPECIF 02/22/2018 MEMO TORRES MD, Ot R53.83 OTHER FATIGUE 02/22/2018 MEMO TORRES MD, Ot Z79.02 SUPERVISOR SLEEPING BAG DEPARTMENT (CURRENT) USE OF 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 02/22/2018 MEMO TORRES MD, Ot Z79.51 SUPERVISOR SLEEPING BAG DEPARTMENT (CURRENT) USE OF INHALED STERO 02/22/2018 MEMO TORRES MD, Ot Z79.82 LONG-TERM (CURRENT) USE OF ASPIRIN 02/22/2018 MEMO TORRES MD, Ot Z86.73 PRSNL HX OF TIA (TIA), AND CEREB INFRC W 02/22/2018 MEMO TORRES MD Ot Z87.19 PERSONAL HISTORY OF OTHER DISEASES OF TH 02/22/2018 MEMO TORRES MD Ot Z87.448 PERSONAL HISTORY OF OTHER DISEASES OF UR 02/22/2018 MEMO TORRES MD Ot Z87.891 PERSONAL HISTORY OF NICOTINE DEPENDENCE 02/22/2018 MEMO TORRES MD Ot Z88.0 ALLERGY STATUS TO PENICILLIN 02/22/2018 MEMO TORRES MD Ot Z88.5 ALLERGY STATUS TO NARCOTIC AGENT STATUS 02/22/2018 MEMO TORRES MD Ot Z88.8 ALLERGY STATUS TO OTH DRUG/MEDS/BIOL SUB 02/22/2018 MEMO TORRES MD Ot Z90.49 ACQUIRED ABSENCE OF OTHER SPECIFIED PART 02/22/2018 MEMO TORRES MD Ot Z90.710 ACQUIRED ABSENCE OF BOTH CERVIX AND UTER 02/22/2018 MEMO TORRES MD Ot Z98.890 OTHER SPECIFIED POSTPROCEDURAL STATES 03/06/2018 CELESTINA NICHOLAS DO Ot 348.89 OTHER CONDITIONS OF BRAIN 03/06/2018 CELESTINA NICHOLAS DO Ot 433.10 CAROTID ARTERY OCCLUSION W O CEREBRAL IN 03/06/2018 CELESTINA NICHOLAS DO Ot 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 ARTERY OCCLUSION WO CEREBRA 03/06/2018 ORENDER DO, CELESTINA S Ot 723.1 CERVICALGIA 03/06/2018 LOLINDSELVIN GALVIN CELESTINA S Ot 780.4 DIZZINESS AND GIDDINESS 03/06/2018 OH GALVIN CELESTINA S Ot V12.54 PERSONAL HX OF TIA, CEREBRAL INFARCTION 03/06/2018 OH GALVIN CELESTINA S Ot R41.0 DISORIENTATION, UNSPECIFIED 03/06/2018 LOLINDER CELESTINA S Ot Z86.73 PRSNL HX OF TIA (TIA), AND CEREB INFRC W 03/06/2018 LOLINDER CELESTINA S Ot Z91.81 HISTORY OF FALLING 03/06/2018 OH GALVIN CELESTINA S Ot G93.89 OTHER SPECIFIED DISORDERS OF BRAIN 03/06/2018 LOLIKESHIA GALVIN CELESTINA S Ot R47.81 SLURRED SPEECH 03/06/2018 OH GALVIN CELESTINA S Ot R53.1 WEAKNESS 03/06/2018 OH GALVIN CELESTINA S Ot W19.XXXA UNSPECIFIED FALL, INITIAL ENCOUNTER 03/06/2018 OH GALVIN CELESTINA S Ot Z86.73 PRSNL HX OF TIA (TIA), AND CEREB INFRC W 03/06/2018 OH GALVIN CELESTINA S Ot 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 03/08/2018 LOLIKESHIA DO CELESTINA S Ot B95.2 ENTEROCOCCUS THE CAUSE OF DISEASES CL 03/08/2018 LOLIJOSHUAER DO CELESTINA S Ot E03.9 HYPOTHYROIDISM, UNSPECIFIED 03/08/2018 LOLINDER DO CELESTINA S Ot E78.00 PURE HYPERCHOLESTEROLEMIA, UNSPECIFIED 03/08/2018 LOLINDER DO CELESTINA S Ot F32.9 MAJOR DEPRESSIVE DISORDER, SINGLE EPISOD 03/08/2018 LOLINDER DO CELESTINA S Ot G43.909 MIGRAINE, UNSP, NOT INTRACTABLE, WITHOUT 03/08/2018 LOLINDER DOCRESENCIOCELESTINA S Ot I10 ESSENTIAL (PRIMARY) HYPERTENSION 03/08/2018 LOLINDER DO CELESTINA S Ot I11.0 HYPERTENSIVE HEART DISEASE WITH HEART FA 03/08/2018 ROSENDAER AMOS GALVINLINE S Ot I50.9 HEART FAILURE, UNSPECIFIED 03/08/2018 LOLINDER DO, CELESTINA S Ot J44.9 CHRONIC OBSTRUCTIVE PULMONARY DISEASE, U 03/08/2018 LOLINDER DO, CELESTINA S Ot K21.9 GASTRO-ESOPHAGEAL REFLUX DISEASE WITHOUT 03/08/2018 ORENDER DO, CELESTINA S Ot K57.90 DVRTCLOS OF INTEST, PART UNSP, W/O PERF 03/08/2018 LOLINDER DO, CELESTINA S Ot M19.91 PRIMARY OSTEOARTHRITIS, UNSPECIFIED SITE 03/08/2018 LOLINDER DO, CELESTINA S Ot M54.9 DORSALGIA, UNSPECIFIED 03/08/2018 ORENDER DO, CELESTINA S Ot N39.0 URINARY TRACT INFECTION, SITE NOT SPECIF 03/08/2018 ORENDER DO, CELESTINA S Ot R19.7 DIARRHEA, UNSPECIFIED 03/08/2018 ORENDER DO, CELESTINA S Ot R53.1 WEAKNESS 03/08/2018 LOLINDER DO, CELESTINA S Ot R63.4 ABNORMAL WEIGHT LOSS 03/08/2018 LOLINDER DO CELESTINA S Ot Z66 DO NOT RESUSCITATE 03/08/2018 LOLINDER , CELESTINA S Ot Z86.73 PRSNL HX OF TIA (TIA), AND CEREB INFRC W 03/08/2018 LOLINDER DO, CELESTINA S Ot Z87.19 PERSONAL HISTORY OF OTHER DISEASES OF TH 03/08/2018 AMOS NICHOLAS DOLINE S Ot Z87.891 PERSONAL HISTORY OF NICOTINE DEPENDENCE 03/08/2018 LOLINDSELVIN GALVIN, CELESTINA S Ot Z90.49 ACQUIRED ABSENCE OF OTHER SPECIFIED PART 03/09/2018 OH GALVIN CELESTINA S Ot B95.2 ENTEROCOCCUS THE CAUSE OF DISEASES CL 03/09/2018 LOLINDER DO, CELESTINA S Ot E03.9 HYPOTHYROIDISM, UNSPECIFIED 03/09/2018 ORENDER DO, CELESTINA S Ot E78.00 PURE HYPERCHOLESTEROLEMIA, UNSPECIFIED 03/09/2018 ORENDER DO, CELESTINA S Ot F32.9 MAJOR DEPRESSIVE DISORDER, SINGLE EPISOD 03/09/2018 LOLINDER DO, CELESTINA S Ot G43.909 MIGRAINE, UNSP, NOT INTRACTABLE, WITHOUT 03/09/2018 ORENDER DO, CELESTINA S Ot I10 ESSENTIAL (PRIMARY) HYPERTENSION 03/09/2018 LOLINDER DO, CELESTINA S Ot I11.0 HYPERTENSIVE HEART DISEASE WITH HEART FA 03/09/2018 OH GALVIN, CELESTINA S Ot I50.9 HEART FAILURE, UNSPECIFIED 03/09/2018 LOLINDSELVIN GALVIN CELESTINA S Ot J44.9 CHRONIC OBSTRUCTIVE PULMONARY DISEASE, U 03/09/2018 LOLINDSELVIN GALVIN, CELESTINA S Ot K21.9 GASTRO-ESOPHAGEAL REFLUX DISEASE WITHOUT 03/09/2018 LOLINDER , CELESTINA S Ot K57.90 DVRTCLOS OF INTEST, PART UNSP, W/O PERF 03/09/2018 LOLINDSELVIN GALVIN, CELESTINA S Ot M19.91 PRIMARY OSTEOARTHRITIS, UNSPECIFIED SITE 03/09/2018 LOLINDSELVIN GALVIN CELESTINA S Ot M54.9 DORSALGIA, UNSPECIFIED 03/09/2018 LOLINDER DO, CELESTINA S Ot N39.0 URINARY TRACT INFECTION, SITE NOT SPECIF 03/09/2018 OH GALVIN CELESTINA S Ot R19.7 DIARRHEA, UNSPECIFIED 03/09/2018 LOLINDER DO CELESTINA S Ot R53.1 WEAKNESS 03/09/2018 LOLINDER CELESTINA S Ot R63.4 ABNORMAL WEIGHT LOSS 03/09/2018 OH GALVIN CELESTINA S Ot Z66 DO NOT RESUSCITATE 03/09/2018 OH GALVIN CELESTINA S Ot Z86.73 PRSNL HX OF TIA (TIA), AND CEREB INFRC W 03/09/2018 OH GALVIN CELESTINA S Ot Z87.19 PERSONAL HISTORY OF OTHER DISEASES OF TH 03/09/2018 OH GALVIN CELESTINA S Ot Z87.891 PERSONAL HISTORY OF NICOTINE DEPENDENCE 03/09/2018 OH GALVIN CELESTINA S Ot Z90.49 ACQUIRED ABSENCE OF OTHER SPECIFIED PART Procedures Code Description Performed By Performed On 45.16 12/22/2010 45.23 12/22/2010 [id number] DRAINAGE OF ESOPHAGAST JUNCT WITH DRAIN 12/28/2015 [...] culture - 04/06/17 15:23 Bacterial urine culture [id number] NRG COLONY COUNT 10,000/ML - 100,000/ML NRG FTX;REPORTABLE (AND NOT GROUP D STREP) NRG RED CELLS LEUKO REDUCED AS1 - 04/11/17 10:48 RED CELLS LEUKO REDUCED AS1 TRANSFUSED 04/11/17 1457 NRG Blood type T Indirect antibody screen panel - 04/11/17 10:48 ABO+Rh group OP NRG Transfusion band number [id number] NRG Blood group antibody screen NEGATIVE NRG [...] culture - 04/14/17 20:25 Bacterial urine culture [id number] NRG COLONY COUNT 10,000/ML - 100,000/ML NRG [...] 31.0 g/dL 32.0-36.0 MCV 87.5 fL 80.0-97.0 [place]% 11.2 % 0.0-12.0 MPV 13.2 fL 7.4-10.0 Mauro% 60.8 % 37.0-80.0 Plt 102 K/uL 150-400 RBC 4.24 M/uL 3.60-5.00 RDW 15.5 % 11.6-14.8 WBC 5.65 K/uL 5.00-10.00 Mauro 3.44 K/uL 2.00-6.90 [place] 0.6 K/uL 0.0-0.9 Baso 0.1 K/uL 0.0-0.2 [...] ENTEROTOXIGENIC E COLI NOT DETECTED NOT DETECTED [id number] E COLI NOT DETECTED NOT DETECTED E [...] 249 ug/dL 273-456 UIBC 199 ug/dL 200-370 Free T4 - 02/13/18 17:51 Free T4 0.92 Testing performed at [facility], see scanned documents for reference ranges. ng/dL 0.81-1.61 Complete blood count (CBC) with automated white blood cell (WBC) differential - 02/22/18 17:36 Blood leukocytes automated count (number/volume) 6.2 10*3/uL 4.3-11.0 Blood erythrocytes automated count (number/volume) 3.94 10*6/uL 4.35-5.85 Venous blood hemoglobin measurement (mass/volume) 12.7 g/dL 11.5-16.0 Blood hematocrit (volume fraction) 39 % 35-52 Automated erythrocyte mean corpuscular volume 98 [foz_us] 80-99 Automated erythrocyte mean corpuscular hemoglobin (mass per erythrocyte) 32 pg 25-34 Automated erythrocyte mean corpuscular hemoglobin concentration measurement ( mass/volume) 33 g/dL 32-36 Automated erythrocyte distribution width ratio 11.9 % 10.0-14.5 Automated blood platelet count (count/volume) 196 10*3/uL 130-400 Automated blood platelet mean volume measurement 12.1 [foz_us] 7.4-10.4 Automated blood neutrophils/100 leukocytes 58 % 42-75 Automated blood lymphocytes/100 leukocytes 22 % 12-44 Blood monocytes/100 leukocytes 13 % 0-12 Automated blood eosinophils/100 leukocytes 6 % 0-10 Automated blood basophils/100 leukocytes 1 % 0-10 Blood neutrophils automated count (number/volume) 3.6 10*3 1.8-7.8 Blood lymphocytes automated count (number/volume) 1.3 10*3 1.0-4.0 Blood monocytes automated count (number/volume) 0.8 10*3 0.0-1.0 Automated eosinophil count 0.4 10*3/uL 0.0-0.3 Automated blood basophil count (count/volume) 0.1 10*3/uL 0.0-0.1 Comprehensive metabolic panel - 02/22/18 17:36 Serum or plasma sodium measurement (moles/volume) 138 mmol/L 135-145 Serum or plasma potassium measurement (moles/volume) 3.8 mmol/L 3.6-5.0 Serum or plasma chloride measurement (moles/volume) 103 mmol/L 98-107 Carbon dioxide 26 mmol/L 21-32 Serum or plasma anion gap determination (moles/volume) 9 mmol/L 5-14 Serum or plasma urea nitrogen measurement (mass/volume) 14 mg/dL 7-18 Serum or plasma creatinine measurement (mass/volume) 0.79 mg/dL 0.60-1.30 Serum or plasma urea nitrogen/creatinine mass ratio 18 NRG Serum or plasma creatinine measurement with calculation of estimated glomerular filtration rate > NRG Serum or plasma glucose measurement (mass/volume) 94 mg/dL 70-105 Serum or plasma calcium measurement (mass/volume) 10.0 mg/dL 8.5-10.1 Serum or plasma total bilirubin measurement (mass/volume) 0.4 mg/dL 0.1-1.0 Serum or plasma alkaline phosphatase measurement (enzymatic activity/volume) 82 U/L 40-136 Serum or plasma aspartate aminotransferase measurement (enzymatic activity/ volume) 20 U/L 5-34 Serum or plasma alanine aminotransferase measurement (enzymatic activity/volume ) 12 U/L 0-55 Serum or plasma protein measurement (mass/volume) 7.1 g/dL 6.4-8.2 Serum or plasma albumin measurement (mass/volume) 4.3 g/dL 3.2-4.5 CALCIUM CORRECTED 9.8 mg/dL 8.5-10.1 Magnesium - 02/22/18 17:36 Magnesium 2.3 mg/dL 1.8-2.4 Complete urinalysis with reflex to culture - 02/22/18 17:44 Urine color determination YELLOW NRG Urine clarity determination VERY CLOUDY NRG Urine pH measurement by test strip 6.5 5-9 Specific gravity of urine by test [...] erythrocyte count by microscopy (number/high power field) NONE NRG Automated urine sediment leukocyte count by microscopy (number/high power field ) > [HPF] NRG Bacteria detection in urine sediment by light microscopy LARGE NRG Squamous epithelial cells detection in urine sediment by light microscopy >50 NRG Crystals detection in urine sediment by light microscopy NONE NRG Casts detection in urine sediment by light microscopy NONE NRG Mucus detection in urine sediment by light microscopy NEGATIVE NRG Complete urinalysis with reflex to culture YES NRG Renal epithelial cells detection in urine sediment by light microscopy 5-10 NRG Bacterial urine culture - 02/22/18 17:44 Bacterial urine culture [id number] NRG COLONY COUNT >100,000/ML NRG FTX;REPORTABLE ESBL PRODUCING STRAIN, RESISTANT TO NRG FREE TEXT ENTRY 2 PENICILLINS, CEPHALOSPORINS,AZTREONAM NRG FREE TEXT ENTRY 3 RML SENT SENSITIVITY REPORT 02/24 12:05 NR RML Sensitivity Panel - 02/22/18 17:44 Gentamicin susceptibility test by minimum inhibitory concentration > NRG Trimethoprim/sulfamethoxazole susceptibility test by minimum inhibitoryconcentration > NRG Levofloxacin susceptibility test by minimum inhibitory concentration > NRG Ampicillin susceptibility test by minimum inhibitory concentration > NRG Cefazolin susceptibility test by minimum inhibitory concentration > NRG Ceftriaxone susceptibility test by minimum inhibitory concentration > NRG Ciprofloxacin susceptibility test by minimum inhibitory concentration > NRG Meropenem susceptibility test by minimum inhibitory concentration < = NRG Nitrofurantoin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
[2018-03-10 16:59] LABS: BASOPHILS % (AUTO) 0 % (0-10); EOSINOPHILS # (AUTO) 0.6 10^3/uL (0.0-0.3); EOSINOPHILS % (AUTO) 2 % (0-10); HEMATOCRIT 45 % (35-52); HEMOGLOBIN 14.8 G/DL (11.5-16.0); LYMPHOCYTES % (AUTO) 3 % (12-44); MEAN CORPUSCULAR HEMOGLOBIN 32 PG (25-34); MEAN CORPUSCULAR HGB CONC 33 G/DL (32-36); MEAN CORPUSCULAR VOLUME 97 FL (80-99); MEAN PLATELET VOLUME 11.9 FL (7.4-10.4); MONOCYTES # (AUTO) 0.9 X 10^3 (0.0-1.0); MONOCYTES % (AUTO) 3 % (0-12); NEUTROPHILS # (AUTO) 27.5 X 10^3 (1.8-7.8); NEUTROPHILS % (AUTO) 92 % (42-75); PLATELET COUNT 358 10^3/uL (130-400); RED BLOOD COUNT 4.62 10^6/uL (4.35-5.85); RED CELL DISTRIBUTION WIDTH 12.4 % (10.0-14.5)
[2018-03-10] MEDS ORDERED: RT-ALBUTEROL/IPRATROPIUM 3 ML (DUONEB) VIAL INH ONE (17:00)
[2018-03-10 17:15] LABS: PROTHROMBIN TIME PATIENT 12.7 SEC (12.2-14.7)
[2018-03-10 17:20] LABS: ALANINE AMINOTRANSFERASE 18 U/L (0-55); ALBUMIN 4.4 GM/DL (3.2-4.5); ALKALINE PHOSPHATASE 103 U/L (40-136); BILIRUBIN,TOTAL 0.3 MG/DL (0.1-1.0); BUN/CREATININE RATIO 15; CALCIUM 10.4 MG/DL (8.5-10.1); CARBON DIOXIDE 18 MMOL/L (21-32); CHLORIDE 106 MMOL/L (98-107); CREATININE SERUM 0.84 MG/DL (0.60-1.30); GFR ESTIMATED > 60; GLUCOSE 102 MG/DL (70-105); POTASSIUM 4.6 MMOL/L (3.6-5.0); SODIUM 137 MMOL/L (135-145)
--- NOTE | 2018-03-10 17:24 | ED General ---
General Chief Complaint: Respiratory Problems Stated Complaint: WEAK, UNABLE TO WALK Source of Information: Patient Exam Limitations: No Limitations History of Present Illness Date Seen by Provider: Mar 10, 2018 Time Seen by Provider: 16:50 Initial Comments Here with report of respiratory distress. Arrives from the [facility] by P[place] with her daughter. Apparently today was having a little shortness of breath earlier but after lunch was much worse. She is also sweating. Is in a fair amount of distress. She was placed on oxygen which did help ultimately it was decided to come to the emergency department for evaluation. Daughter wanted to come here so she brought her by POV. Does arrive in respiratory distress. Patient does answer some simple questions but is limited due to clinical condition and underlying medical status. Timing/Duration: 12 Hours, Getting Worse Severity: Moderate, Severe Modifying Factors: worse with Movement; improves with Rest Associated Systoms: No Chest Pain, No Cough; Diaphoresis, Fever/Chills; No Nausea/Vomiting, No Seizure; Shortness of Air, Weakness Allergies and Home Medications Allergies Coded Allergies: Penicillins (Verified Allergy, Intermediate, HIVES, CAN TAKE ROCEPHIN, 18/03) codeine (Verified Allergy, Unknown, 02/09/15) morphine (Verified Allergy, Unknown, PATIENT TAKES VICODIN AT HOME PER VIN, 02/09/15) propoxyphene (Verified Allergy, Unknown, 12/18/11) Home Medications Acetaminophen 325 Mg Tablet, 650 MG PO Q4H PRN for PAIN-MILD, (Reported) Albuterol Sulfate 2.5 Mg/3 Ml Vial.neb, 2.5 MG NEB Q6H PRN for SHORTNESS OF BREATH, (Reported) Aspirin 81 Mg Tablet.dr, 81 MG PO DAILY, (Reported) C,E,Zinc,Copper 11/Qoakj4c/Lut 1 Each Capsule, 1 CAP PO DAILY, (Reported) Cholecalciferol (Vitamin D3) 5,000 Unit Capsule, 5,000 UNIT PO DAILY, (Reported) Clopidogrel Bisulfate 75 Mg Tablet, 75 MG PO DAILY, (Reported) Colestipol HCl 1 Gm Tablet, 1 GM PO TID Prescribed by: DALILA CASIANO on 03/09/18 1306 Cyanocobalamin 1,000 Mcg/Ml Inj, 1,000 MCG IM MONTHLY, (Reported) Duloxetine HCl 30 Mg Capsule.dr, 30 MG PO BID, (Reported) Ferrous Sulfate 325 Mg Tablet, 325 MG PO DAILY, (Reported) Fluticasone Propionate 16 Gm [place].susp, 2 SPRAYS NS HS, (Reported) Folic Acid 1 Mg Tablet, 1 MG PO DAILY, (Reported) Latanoprost 2.5 Ml Drops, 1 DROP OU HS, (Reported) Levothyroxine Sodium 100 Mcg Tablet, 100 MCG PO 0500, (Reported) Magnesium Hydroxide 400 Mg/5 Ml Oral.susp, 30 ML PO Q12H PRN for CONSTIPATION- 7TH LINE, (Reported) Metoprolol Succinate 50 Mg Tab.er.24h, 50 MG PO DAILY, (Reported) Mineral Oil/Petrolatum,White 120 Gm Cream..g., TP BID, (Reported) APPLY TO ARMS AND BUTTOCKS Mirabegron 25 Mg Tab.er.24h, 25 MG PO HS, (Reported) Multivitamin with Minerals 1 Each Tablet, 1 TAB PO DAILY, (Reported) Nitrofurantoin Monohyd/M-Cryst 100 Mg Capsule, 1 TAB PO DAILY Prescribed by: DALILA CASIANO on 03/09/18 1306 Ondansetron HCl 4 Mg Tab, 4 MG PO Q4H PRN for NAUSEA/VOMITING-1ST LINE, ( Reported) Simvastatin 40 Mg Tablet, 40 MG PO DAILY, (Reported) Sucralfate 1 Gm Tablet, 1 GM PO QID, (Reported) Sulfasalazine 500 Mg Tablet, 500 MG PO QID, (Reported) Patient Home Medication List Home Medication List Reviewed: Yes Review of Systems Review of Systems Constitutional: see HPI, chills; No fever; weakness EENTM: no symptoms reported Respiratory: cough, dyspnea on exertion, short of breath, wheezing Cardiovascular: No chest pain, No edema Gastrointestinal: No abdominal pain, No nausea, No vomiting Genitourinary: no symptoms reported Musculoskeletal: no symptoms reported Skin: no symptoms reported Psychiatric/Neurological: No Symptoms Reported All Other Systems Reviewed Negative Unless Noted: Yes Past Xesytad-Ftsotm-Glwome Hx Past Med/Social Hx: Reviewed Nursing Past Med/Soc Hx Patient Social History Alcohol Use: Denies Use Recreational Drug Use: No Smoking Status: Former Smoker Type Used: Cigarettes Former Smoker, Quit: Sep 07, 2017 Recent Foreign Travel: No Contact w/Someone Who Travel: No Recent Hopitalizations: Yes (BLOOD TRANSFUSION) Immunizations Up To Date Date of Pneumonia Vaccine: Dec 19, 2015 Date of Influenza Vaccine: Jan 16, 2018 Seasonal Allergies Seasonal Allergies: No Past Medical History Surgeries: Yes (COLON RESECTION) Appendectomy, Gallbladder, Hysterectomy Respiratory: Yes Chronic Bronchitis, COPD Currently Using CPAP: No Cardiac: Yes (CHF) High Cholesterol, Hypertension Neurological: Yes Headaches /Migraines, Stroke, TIA Reproductive Disorders: No Female Reproductive Disorders: Denies Genitourinary: Yes Bladder Infection, Renal Failure Gastrointestinal: Yes Gastroesophageal Reflux, Obstructive Bowel, Diverticulosis Musculoskeletal: Yes Arthritis, Chronic Back Pain Endocrine: Yes Hypothyroidsim Loss of Vision: Denies Hearing Impairment: Denies Cancer: No Psychosocial: Yes Depression Integumentary: No Blood Disorders: Yes (ANEMIA) Adverse Reaction/Blood Tranf: No Family Medical History Reviewed Nursing Family Hx Patient reports no known family medical history. No Pertinent Family Hx Physical Exam-Suspected Sepsis Physical Exam Vital Signs Vital Signs - First Documented 03/10/18 16:46 Temp 97.5 Pulse 121 Resp 26 B/P (MAP) 109/82 (91) Pulse Ox 94 O2 Delivery Nasal Cannula O2 Flow Rate 5.00 Capillary Refill : Height, Weight, BMI Height: 5'4.00" Weight: 130lbs. 3.0oz. 59.730399wx; 22.4 BMI Method:Stated General Appearance: WD/WN, Moderate Distress (respiratory) HEENT: PERRL/EOMI, Pharynx Normal Neck: Non Tender, Supple Respiratory: Accessory Muscle Use, Decreased Breath Sounds, Expiration, Wheezing Cardiovascular: No Murmur, Tachycardia Gastrointestinal: Non Tender, Soft Back: Normal Inspection, No CVA Tenderness, No Vertebral Tenderness Extremity: Normal Range of Motion, Non Tender Neurologic/Psychiatric: Alert, Motor Weakness, Other (oriented to person, place and situation.) Skin: warm/dry Focused Exam Lactate Level 03/10/18 16:53: Lactic Acid Level 1.19 Lactic Acid Level Laboratory Tests Test 03/10/18 16:53 Lactic Acid Level 1.19 MMOL/L (0.50-2.00) Progress/Results/Core Measures Suspected Sepsis SIRS Temperature: Pulse: Respiratory Rate: Laboratory Tests 03/10/18 16:53: White Blood Count 30.0H Blood Pressure / Mean: 03/10/18 16:53: Lactic Acid Level 1.19 Laboratory Tests 03/10/18 16:53: Creatinine 0.84, INR Comment 1.0, Platelet Count 358, Total Bilirubin 0.3 Results/Orders Lab Results Laboratory Tests Test 03/10/18 16:53 Range/Units White Blood Count 30.0 H 4.3-11.0 10^3/uL Red Blood Count 4.62 4.35-5.85 10^6/uL Hemoglobin 14.8 11.5-16.0 G/DL Hematocrit 45 35-52 % Mean Corpuscular Volume 97 80-99 FL Mean Corpuscular Hemoglobin 32 25-34 PG Mean Corpuscular Hemoglobin Concent 33 32-36 G/DL Red Cell Distribution Width 12.4 10.0-14.5 % Platelet Count 358 130-400 10^3/uL Mean Platelet Volume 11.9 H 7.4-10.4 FL Neutrophils (%) (Auto) 92 H 42-75 % Lymphocytes (%) (Auto) 3 L 12-44 % Monocytes (%) (Auto) 3 0-12 % Eosinophils (%) (Auto) 2 0-10 % Basophils (%) (Auto) 0 0-10 % Neutrophils # (Auto) 27.5 H 1.8-7.8 X 10^3 Lymphocytes # (Auto) 1.0 1.0-4.0 X 10^3 Monocytes # (Auto) 0.9 0.0-1.0 X 10^3 Eosinophils # (Auto) 0.6 H 0.0-0.3 10^3/uL Basophils # (Auto) 0.0 0.0-0.1 10^3/uL Prothrombin Time 12.7 12.2-14.7 SEC INR Comment 1.0 0.8-1.4 Activated Partial Thromboplast Time 40 H 24-35 SEC Sodium Level 137 135-145 MMOL/L Potassium Level 4.6 3.6-5.0 MMOL/L Chloride Level 106 98-107 MMOL/L Carbon Dioxide Level 18 L 21-32 MMOL/L Anion Gap 13 5-14 MMOL/L Blood Urea Nitrogen 13 7-18 MG/DL Creatinine 0.84 0.60-1.30 MG/DL Estimat Glomerular Filtration Rate > 60 BUN/Creatinine Ratio 15 Glucose Level 102 70-105 MG/DL Lactic Acid Level 1.19 0.50-2.00 MMOL/L Calcium Level 10.4 H 8.5-10.1 MG/DL Corrected Calcium 10.1 8.5-10.1 MG/DL Total Bilirubin 0.3 0.1-1.0 MG/DL Aspartate Amino Transf (AST/SGOT) 31 5-34 U/L Alanine Aminotransferase (ALT/SGPT) 18 0-55 U/L Alkaline Phosphatase 103 40-136 U/L Total Protein 8.0 6.4-8.2 GM/DL Albumin 4.4 3.2-4.5 GM/DL Micro Results Microbiology 03/10/18 Influenza Types A,B Antigen (ENRRIQUE) - Final, Complete My Orders Orders - MEMO TORRES MD Cbc With Automated Diff (03/10/18 16:53) Comprehensive Metabolic Panel (03/10/18 16:53) Blood Culture (03/10/18 16:53) Sputum Culture (03/10/18 16:53) Urinalysis (03/10/18 16:53) Urine Culture (03/10/18 16:53) Protime With Inr (03/10/18 16:53) Partial Thromboplastin Time (03/10/18 16:53) Chest 1 View, Ap/Pa Only (03/10/18 16:53) Saline Lock/Iv-Start (03/10/18 16:53) Saline Lock/Iv-Start (03/10/18 16:53) Ekg Tracing (03/10/18 16:53) Vital Signs Adult Sepsis Patie Q15M (03/10/18 16:53) O2 (03/10/18 16:53) Remove Rings In Anticipation O (03/10/18 16:53) Lactic Acid Analyzer (03/10/18 16:53) Influenza A And B Antigens (03/10/18 16:53) Saline Lock/Iv-Start (03/10/18 16:53) Ns Iv 500 Ml (Sodium Chloride 0.9%) (03/10/18 16:53) Albuterol/Ipra Inhalation Soln (Duoneb I (03/10/18 17:00) Svn Small Volume Nebulizer (03/10/18 16:53) Manual Differential (03/10/18 16:53) Meropenem (Merrem 500 Mg) (03/10/18 17:45) Fentanyl Injection (Sublimaze Injection (03/10/18 17:38) Medications Given in ED Current Medications Medications Dose Ordered Sig/Kemi Route Start Time Stop Time Status Last Admin Dose Admin Albuterol/ Ipratropium 3 ml ONCE ONCE INH 03/10/18 17:00 03/10/18 17:01 DC 03/10/18 16:59 3 ML Meropenem 500 mg/ Sodium Chloride 100 ml @ 200 mls/hr ONCE ONCE IV 03/10/18 17:45 03/10/18 18:14 03/10/18 17:50 200 MLS/HR Sodium Chloride 500 ml @ 0 mls/hr Q0M ONCE IV 03/10/18 16:53 03/10/18 16:56 DC 03/10/18 17:15 0 MLS/HR Vital Signs/I&O 03/10/18 03/10/18 03/10/18 16:46 16:47 16:59 Temp 97.5 Pulse 121 Resp 26 B/P (MAP) 109/82 (91) Pulse Ox 94 94 96 O2 Delivery Nasal Cannula Nasal Cannula Nasal Cannula O2 Flow Rate 5.00 5.00 5.00 Capillary Refill : Progress Note : Progress Note Seen and evaluated. IV, labs, chest x-ray, EKG, blood cultures and lactic acid ordered. DuoNeb and IV normal saline 500 mL bolus ordered. Monitor patient. Patient placed on oxygen and this did help. DuoNeb did help some. 1733 I did discuss the case with Dr. Hsu. White count is elevated at 30,000 she does have right lower lobe pneumonia. Patient is currently being treated for ESBL positive urinary tract infection with nitrofurantoin. She was previously in the hospital on meropenem. We will continue meropenem now which will cover both the urinary tract infection and pneumonia and we will add vancomycin. Discussed with family who agrees with plan. Admit, inpatient status to cardiac step down her Dr. Hsu request. ECG Initial ECG Impression Date: Mar 10, 2018 Initial ECG Impression Time: 17:02 Initial ECG Rate: 121 Initial ECG Rhythm: S.Tach Comment Sinus tachycardia with left atrial abnormality. Left bundle branch block noted. Similar to previous of 06/13/17. No evidence of ST elevation NE. Interpreted by me. Diagnostic Imaging Diagonstic Imaging: Xray Plain Films/CT/US/NM/MRI: chest Comments Right lower lobe pneumonia Reviewed: Reviewed by Me Departure Communication (Admissions) Time/Spoke to Admitting Phy: 17:33 Impression Primary Impression: Right lower lobe pneumonia Qualified Codes: J18.1 - Lobar pneumonia, unspecified organism Disposition: ADMITTED INPATIENT Condition: Stable Admissions Decision to Admit Reason: Admit from ER (General) Decision to Admit/Date: Mar 10, 2018 Time/Decision to Admit Time: 17:33 Departure-Patient Inst. Referrals: DALILA CASIANO DO (PCP/Family) Primary Care Physician MEMO TORRES MD Mar 10, 2018 17:23
[2018-03-10] MEDS ORDERED: fentaNYL INJECTION 100 MCG/2 ML AMP IVP STA (17:38)
[2018-03-10] MEDS ORDERED: MEROPENEM 500 MG in NS (IVPB) 100 ML IV ONE (17:45)
--- NOTE | 2018-03-10 18:04 | Diagnostic Imaging Report ---
INDICATION: Decreased oxygen saturation, shortness of air COMPARISON: 02/22/2018 TECHNIQUE: Single radiograph of the chest dated 03/10/2018. FINDINGS: The cardiac silhouette is within normal limits in size. No significant pulmonary vascular congestion. Bilateral interstitial opacities are identified, having developed since the prior examination, greatest within the right lung base. No pleural effusion. No pneumothorax. No acute osseous abnormality. IMPRESSION: Interval development of extensive bilateral interstitial opacities. Findings are favored to relate to interstitial pneumonia or viral pneumonitis. Interstitial edema felt less likely given lack of significant pulmonary vascular congestion. Dictated by: Dictated on workstation # [id number]
[2018-03-10 18:06] LABS: EOSINOPHILS % (MANUAL) 3 %; LYMPHOCYTES % (MANUAL) 7 %; MONOCYTES % (MANUAL) 2 %; NEUTROPHILS % (MANUAL) 88 %; RBC MORPH NORMAL
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
[2018-03-10 18:39] VITALS: BP 105/63
[2018-03-10 19:15] VITALS: BP 114/79
[2018-03-10 19:39] VITALS: BP 115/57
[2018-03-10] MEDS ORDERED: NS IV 1000 ML 1,000 ML ONE (19:43)
[2018-03-10] MEDS: NS IV 1000 ML 1,000 ML IV SCH (19:43)
[2018-03-10 20:00] VITALS: BP 113/54
[2018-03-10] MEDS ORDERED: RT-ALBUTEROL/IPRATROPIUM 3 ML (DUONEB) VIAL INH PRN (20:15)
[2018-03-10] MEDS ORDERED: VANCOMYCIN 1250 MG/NS 250 ML IVPB IV ONE ×2 (20:30)
[2018-03-10] MEDS ORDERED: fentaNYL INJECTION 100 MCG/2 ML AMP IV PRN (20:30)
[2018-03-10] MEDS ORDERED: ACETAMINOPHEN 325 MG TABLET PO PRN (20:30)
[2018-03-10] MEDS ORDERED: VANCOMYCIN 750 MG/VIAL IV ONE (20:52)
[2018-03-10] MEDS ORDERED: VANCOMYCIN 500 MG/VIAL IV ONE (20:52)
[2018-03-10] MEDS ORDERED: NS (IVPB) 250 ML ONE (20:52)
[2018-03-10] MEDS: RT-ALBUTEROL/IPRATROPIUM 3 ML (DUONEB) VIAL INH SCH (21:42)
[2018-03-11] VITALS (7 sets, daily range): BP systolic 97–123; BP diastolic 42–72
[2018-03-11] MEDS: MEROPENEM 500 MG in NS (IVPB) 100 ML IV SCH ×4 (00:01→21:33)
[2018-03-11] MEDS: RT-ALBUTEROL/IPRATROPIUM 3 ML (DUONEB) VIAL INH SCH ×6 (02:36→22:30)
[2018-03-11 04:16] LABS: BASOPHILS # (AUTO) 0.1 10^3/uL (0.0-0.1); BASOPHILS % (AUTO) 0 % (0-10); EOSINOPHILS # (AUTO) 0.2 10^3/uL (0.0-0.3); EOSINOPHILS % (AUTO) 1 % (0-10); HEMATOCRIT 36 % (35-52); HEMOGLOBIN 11.7 G/DL (11.5-16.0); LYMPHOCYTES # (AUTO) 0.8 X 10^3 (1.0-4.0); LYMPHOCYTES % (AUTO) 3 % (12-44); MEAN CORPUSCULAR HEMOGLOBIN 32 PG (25-34); MEAN CORPUSCULAR HGB CONC 32 G/DL (32-36); MEAN CORPUSCULAR VOLUME 99 FL (80-99); MONOCYTES # (AUTO) 1.2 X 10^3 (0.0-1.0); MONOCYTES % (AUTO) 4 % (0-12); NEUTROPHILS # (AUTO) 24.7 X 10^3 (1.8-7.8); NEUTROPHILS % (AUTO) 92 % (42-75); PLATELET COUNT 203 10^3/uL (130-400); RED BLOOD COUNT 3.67 10^6/uL (4.35-5.85); RED CELL DISTRIBUTION WIDTH 12.4 % (10.0-14.5); WHITE BLOOD COUNT 26.9 10^3/uL (4.3-11.0)
[2018-03-11 04:48] LABS: ALANINE AMINOTRANSFERASE 13 U/L (0-55); ALBUMIN 3.5 GM/DL (3.2-4.5); ALKALINE PHOSPHATASE 74 U/L (40-136); BILIRUBIN,TOTAL 0.3 MG/DL (0.1-1.0); BUN/CREATININE RATIO 20; CALCIUM 9.6 MG/DL (8.5-10.1); CARBON DIOXIDE 17 MMOL/L (21-32); CHLORIDE 110 MMOL/L (98-107); CREATININE SERUM 0.82 MG/DL (0.60-1.30); GFR ESTIMATED > 60; GLUCOSE 145 MG/DL (70-105); POTASSIUM 4.2 MMOL/L (3.6-5.0); SODIUM 138 MMOL/L (135-145)
[2018-03-11] MEDS: CLOPIDOGREL 75 MG (PLAVIX) TABLET PO SCH (08:39)
[2018-03-11] MEDS: NS IV 1000 ML 1,000 ML IV SCH ×2 (10:52→14:00)
--- NOTE | 2018-03-11 12:27 | History & Physical-Hospitalist ---
History of Present Illness HPI/Chief Complaint CC: AMS with hypoxia HPI: This is a 77-year-old white female [facility] patient of Dr. CASIANO that was just discharged recently due to ESBL UTI and [facility] back [place] the [facility] who presented to the ER with altered mental status and hypoxia. Patient was found to have bilateral pneumonia and history of ESBL requiring vancomycin and meropenem initiation empirically along with IV fluids. She has done well through the night. Daughters at the bedside. Home medications were restarted. She does use oxygen at night. Overall she is much improved and will transfer to fourth floor today. We will also order physical therapy to get out of bed up in a chair and begin activity. Source: patient, family, RN/MD, old records Exam Limitations: no limitations Date Seen 03/11/18 Time Seen by a Provider: 11:45 Attending Physician Celestina Casiano DO PCP Celestina Casiano DO Referring Physician Date of Admission Mar 10, 2018 at 17:57 Home Medications & Allergies Home Medications Reviewed patient Home Medication Reconciliation performed by pharmacy medication reconciliations watch technician and/or nursing. Patients Allergies have been reviewed. Allergies Allergies Coded Allergies Penicillins (Verified Allergy, Intermediate, HIVES, CAN TAKE ROCEPHIN, 12/18/11 ) codeine (Verified Allergy, Unknown, 02/09/15) morphine (Verified Allergy, Unknown, PATIENT TAKES VICODIN AT HOME PER VIN, 02/09/15) propoxyphene (Verified Allergy, Unknown, 12/18/11) Past Uuugybh-Pktpyh-Makzgf Hx Past Med/Social Hx: Reviewed Nursing Past Med/Soc Hx, Reviewed and Corrections made Patient Social History Marrital Status: single Employed/Student: retired Alcohol Use: Denies Use Recreational Drug Use: No Smoking Status: Former Smoker Former Smoker, Quit: Sep 07, 2017 Type Used: Cigarettes 2nd Hand Smoke Exposure: No Physical Abuse Screen: No Sexual Abuse: No Recent Foreign Travel: No Contact w/other who traveled: No Recent Hopitalizations: Yes (BLOOD TRANSFUSION) Recent Infectious Disease Expo: No Immunizations Up To Date Date of Pneumonia Vaccine: Dec 19, 2015 Date of Influenza Vaccine: Jan 16, 2018 Seasonal Allergies Seasonal Allergies: No Past Medical History Surgeries: Appendectomy, Gallbladder, Hysterectomy Respiratory: COPD Currently Using CPAP: No Cardiac: High Cholesterol, Hypertension Neurological: Headaches /Migraines, Stroke, TIA Reproductive: No Female Reproductive Disorders: Denies Genitourinary: Bladder Infection, Renal Failure Gastrointestinal: Gastroesophageal Reflux, Obstructive Bowel, Diverticulosis Musculoskeletal: Arthritis, Chronic Back Pain Endocrine: Hypothyroidsim Loss of Vision: Denies Hearing Impairment: Denies Psychosocial: Depression History of Blood Disorders: Yes (ANEMIA) Adverse Reaction to Blood Murphy: No Family History Reviewed Nursing Family Hx Patient reports no known family medical history. No Pertinent Family Hx Review of Systems Constitutional: see HPI, chills, dizziness, fever, malaise EENTM: no symptoms reported Respiratory: cough, dyspnea on exertion, short of breath, wheezing Cardiovascular: no symptoms reported Gastrointestinal: loss of appetite, nausea Genitourinary: decreased output Musculoskeletal: back pain Skin: no symptoms reported Psychiatric/Neurological: Depressed All Other Systems Reviewed Negative Unless Noted: Yes Physical Exam Physical Exam Vital Signs Vital Signs - First Documented 03/10/18 16:46 Temp 97.5 Pulse 121 Resp 26 B/P (MAP) 109/82 (91) Pulse Ox 94 O2 Delivery Nasal Cannula O2 Flow Rate 5.00 Capillary Refill : Less Than 3 Seconds Height, Weight, BMI Height: 5'3.00" Weight: 134lbs. 2.0oz. 60.523510hm; 23.8 BMI Method:Stated General Appearance: No Apparent Distress, WD/WN, Chronically ill, Thin Eyes: Bilateral Eye Normal Inspection, Bilateral Eye PERRL HEENT: PERRL/EOMI, Normal ENT Inspection, Pharynx Normal Neck: Full Range of Motion, Normal Inspection, Non Tender, Supple, Carotid Bruit Respiratory: Chest Non Tender, No Accessory Muscle Use, No Respiratory Distress , Crackles, Decreased Breath Sounds Cardiovascular: Regular Rate, Rhythm, No Edema, No Gallop, No JVD, No Murmur, Normal Peripheral Pulses Gastrointestinal: Normal Bowel Sounds, No Organomegaly, No Pulsatile Mass, Non Tender, Soft Back: Normal Inspection, No CVA Tenderness, No Vertebral Tenderness Extremity: Normal Capillary Refill, Normal Inspection, Normal Range of Motion, Non Tender, No Calf Tenderness, No Pedal Edema Neurologic/Psychiatric: Alert, Oriented x3, No Motor/Sensory Deficits, Normal Mood/Affect Skin: Normal Color, Warm/Dry Lymphatic: No Adenopathy Results Results/Procedures Labs Laboratory Tests 03/10/18 16:53 03/11/18 04:05 Patient resulted labs reviewed. Assessment/Plan Admission Diagnosis Bilateral pneumonia Sepsis Leukocytosis Recent UTI with ESBL Enterococcus placed on Karishma empirically since no UA collected prior to abx given Diarrhea with history of colitis Weakness with Fall Risk NH patient Hypertension History of CVA on plavix/aspirin GERD on PPI/Carafate Night time O2 dependency Plan: Empiric abx Transfer to 4th floor Home meds Monitor closely DNR is reasonable Admission Status: Inpatient Order (span 2 midnights) Reason for Inpatient Admission: Bilateral pneumonia facility acquired will require Vanc and Karishma Diagnosis/Problems Diagnosis/Problems (1) Right lower lobe pneumonia Status: Acute Qualifiers: Pneumonia type: due to unspecified organism Qualified Codes: J18.1 - Lobar pneumonia, unspecified organism (2) Leukocytosis Status: Acute Qualifiers: Leukocytosis type: leukemoid reaction Qualified Codes: D72.823 - Leukemoid reaction (3) GERD (gastroesophageal reflux disease) Status: Chronic Qualifiers: Esophagitis presence: without esophagitis Qualified Codes: K21.9 - Gastro- esophageal reflux disease without esophagitis (4) Debility Status: Chronic (5) Nocturnal hypoxemia Status: Chronic (6) Oxygen dependent Status: Chronic (7) History of CVA (cerebrovascular accident) Status: Chronic (8) Hypertension Status: Chronic Qualifiers: Hypertension type: essential hypertension Qualified Codes: I10 - Essential (primary) hypertension (9) Weakness generalized Status: Chronic (10) COPD (chronic obstructive pulmonary disease) Status: Chronic Qualifiers: COPD type: unspecified COPD Qualified Codes: J44.9 - Chronic obstructive pulmonary disease, unspecified (11) 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
[2018-03-11] MEDS ORDERED: HYDROcodone/APAP 5 MG/325 MG (LORTAB) TAB PO PRN (12:30)
[2018-03-11] MEDS ORDERED: ONDANSETRON 4 MG/2 ML (SDV) Z0FRAN IVP PRN (12:30)
[2018-03-11] MEDS ORDERED: CALCIUM CARBONATE 500 MG (TUMS) TAB.CHEW PO PRN (12:30)
[2018-03-11] MEDS ORDERED: DOCUSATE SODIUM 100 MG (COLACE) CAP PO PRN (12:30)
[2018-03-11] MEDS ORDERED: ACETAMINOPHEN 500 MG TAB (TYLENOL) PO PRN (12:30)
--- NOTE | 2018-03-11 13:20 | NUR ---
Pt transferred to room 413 via wheelchair on 2L NC with all personal belongings. Pt in no distress at this time. Verbalizes no complaints. Report given to Joseline Cronin RN.
--- NOTE | 2018-03-11 13:33 | NUR ---
Patient transferred to [facility]- per accompanied by ICU staff. Patient and family notified and understand transfer. Personal belongings with patient. Report given to THIS RN FROM SACK MAKER ADELFO.
[2018-03-11] MEDS: VANCOMYCIN INJECTION 1,000 MG in NS (IVPB) 250 ML IV SCH (20:07)
[2018-03-12] VITALS: BP 124/60
[2018-03-12] MEDS: RT-ALBUTEROL/IPRATROPIUM 3 ML (DUONEB) VIAL INH SCH ×5 (02:35→20:55)
[2018-03-12 04:00] VITALS: BP 131/63
[2018-03-12] MEDS: MEROPENEM 500 MG in NS (IVPB) 100 ML IV SCH ×3 (06:19→23:15)
[2018-03-12] MEDS: NS IV 1000 ML 1,000 ML IV SCH ×2 (06:19→20:53)
[2018-03-12 07:29] LABS: BASOPHILS % (AUTO) 0 % (0-10); EOSINOPHILS # (AUTO) 0.6 10^3/uL (0.0-0.3); EOSINOPHILS % (AUTO) 7 % (0-10); HEMATOCRIT 34 % (35-52); LYMPHOCYTES % (AUTO) 11 % (12-44); MEAN CORPUSCULAR HEMOGLOBIN 32 PG (25-34); MEAN CORPUSCULAR HGB CONC 32 G/DL (32-36); MEAN CORPUSCULAR VOLUME 99 FL (80-99); MEAN PLATELET VOLUME 11.9 FL (7.4-10.4); MONOCYTES # (AUTO) 0.7 X 10^3 (0.0-1.0); MONOCYTES % (AUTO) 7 % (0-12); NEUTROPHILS # (AUTO) 7.3 X 10^3 (1.8-7.8); NEUTROPHILS % (AUTO) 75 % (42-75); PLATELET COUNT 190 10^3/uL (130-400); RED BLOOD COUNT 3.43 10^6/uL (4.35-5.85); RED CELL DISTRIBUTION WIDTH 12.5 % (10.0-14.5); WHITE BLOOD COUNT 9.7 10^3/uL (4.3-11.0)
[2018-03-12 07:40] VITALS: BP 147/66
[2018-03-12 07:49] LABS: ALANINE AMINOTRANSFERASE 15 U/L (0-55); ALBUMIN 3.4 GM/DL (3.2-4.5); ALKALINE PHOSPHATASE 74 U/L (40-136); BILIRUBIN,TOTAL 0.2 MG/DL (0.1-1.0); BUN/CREATININE RATIO 20; CALCIUM 9.2 MG/DL (8.5-10.1); CARBON DIOXIDE 19 MMOL/L (21-32); CHLORIDE 112 MMOL/L (98-107); CREATININE SERUM 0.66 MG/DL (0.60-1.30); GFR ESTIMATED > 60; GLUCOSE 107 MG/DL (70-105); POTASSIUM 3.8 MMOL/L (3.6-5.0); SODIUM 141 MMOL/L (135-145); TOTAL PROTEIN 6.1 GM/DL (6.4-8.2)
[2018-03-12] MEDS: CLOPIDOGREL 75 MG (PLAVIX) TABLET PO SCH (09:22)
[2018-03-12] MEDS ORDERED: RT-ALBUTEROL SULF 2.5 MG/3 ML PRE-MIX VIAL IH PRN (11:45)
[2018-03-12] MEDS ORDERED: NON-FORMULARY MEDICATION 1 EA EA (Ondansetron HCl (Zofran) 4 MG) PO PRN (11:45)
[2018-03-12] MEDS ORDERED: ACETAMINOPHEN 325 MG TABLET PO PRN (11:45)
[2018-03-12 12:00] VITALS: BP 153/76
--- NOTE | 2018-03-12 12:06 | Progress Note-Hospitalist ---
Subjective HPI/CC On Admission Date Seen by Provider: Mar 12, 2018 Time Seen by Provider: 11:45 CC: AMS with hypoxia HPI: This is a 77-year-old white female [facility] patient of Dr. CASIANO that was just discharged recently due to ESBL UTI and sent back to the [facility] on skilled who presented to the ER with altered mental status and hypoxia. Patient was found to have bilateral pneumonia and history of ESBL requiring vancomycin and meropenem initiation empirically along with IV fluids. She has done well through the night. Daughters at the bedside. Home medications were restarted. She does use oxygen at night. Overall she is much improved and will transfer to fourth floor today. We will also order physical therapy to get out of bed up in a chair and begin activity. Subjective/Events-last exam Patient is feeling better. She has kind of a productive cough. She is not very interested in eating is drinking well. Review of Systems Pulmonary: Cough Neurological: Weakness Focused Exam Lactate Level 03/10/18 16:53: Lactic Acid Level 1.19 Objective Exam Vital Signs Vital Signs Date Time Temp Pulse Resp B/P (MAP) Pulse Ox O2 Delivery O2 Flow Rate FiO2 03/12/18 10:05 99 Nasal Cannula 2.00 03/12/18 07:40 97.9 93 18 147/66 (93) Capillary Refill : Less Than 3 Seconds General Appearance: Chronically ill HEENT: Other (Dry oral mucosa) Neck: Limited Range of Motion Respiratory: No Accessory Muscle Use, No Respiratory Distress, Decreased Breath Sounds Cardiovascular: Systolic Murmur, Gallop/S3, Tachycardia Gastrointestinal: Normal Bowel Sounds, Non Tender, Soft Rectal: Deferred Extremity: No Calf Tenderness, No Pedal Edema Neurologic/Psychiatric: Alert, Oriented x3, Normal Mood/Affect Skin: Normal Color Results/Procedures Lab Laboratory Tests 03/12/18 07:22 Patient resulted labs reviewed. Imaging: Reviewed Imaging Report Assessment/Plan Assessment and Plan Assess & Plan/Chief Complaint Bilateral pneumonia-we will recheck chest x-ray on vancomycin and meropenem Sepsis-resolving Leukocytosis-resolved Recent UTI with ESBL Enterococcus placed on Karishma empirically since no UA collected prior to abx given Diarrhea with history of jqorift-uysesd-ox'll restart sulfasalazine Weakness with Fall Risk NH patient Hypertension History of CVA on plavix/aspirin GERD on PPI/Carafate Night time O2 dependency-currently on 2 L by nasal cannula throughout the day Tachycardia will restart her beta ed and her home medications, will ice on telemetry. Clinical Quality Measures DVT/VTE Risk/Contraindication: Risk Factor Score Per Nursin RFS Level Per Nursing on Admit: 4+=Very High SONIA MCCRARY MD Mar 12, 2018 12:06
[2018-03-12] MEDS ORDERED: ONDANSETRON 4 MG (ZOFRAN) ORAL DISSOLVE TAB PO PRN (12:15)
--- NOTE | 2018-03-12 13:28 | Diagnostic Imaging Report ---
INDICATION: Followup pneumonia. TIME OF EXAM: 12:17 PM Correlation is made with prior chest from 03/10/2018. FINDINGS: The heart size is stable. There has been some improved aeration of both lungs. There has been decrease in prominence of interstitial markings particularly in the lung bases when compared with prior. No parenchymal consolidation is seen. No effusion or pneumothorax is identified. IMPRESSION: Improved aeration to both lungs when comparison examination from 2 days earlier. Dictated by: Dictated on workstation # [id number]
--- NOTE | 2018-03-12 13:46 | NUR ---
No alevism affiliation: pt demonstrated positive attitude and states staff have been kind. Pt said she has 2 sons and one daughter, all if which are close to her and supportive.
[2018-03-12] MEDS: SUCRALFATE 1 GM (CARAFATE) TAB PO SCH ×3 (14:20→20:52)
[2018-03-12] MEDS: sulfaSALAzine 500 MG (AZULFIDINE) TAB PO SCH ×3 (14:20→20:52)
[2018-03-12] MEDS: COLESTIPOL 1 GM (COLESTID) TAB PO SCH ×2 (14:20→20:53)
[2018-03-12 15:50] VITALS: BP 166/73
[2018-03-12 19:45] VITALS: BP 152/68
[2018-03-12] MEDS: DULoxetine 30 MG (CYMBALTA) CAP PO SCH (20:52)
[2018-03-12] MEDS: VANCOMYCIN INJECTION 1,000 MG in NS (IVPB) 250 ML IV SCH (20:53)
[2018-03-12] MEDS: LATANOPROST 0.005% (XALATAN) OPHTH SOLN 2.5 ML OU SCH (20:56)
[2018-03-12] MEDS ORDERED: NON-FORMULARY MEDICATION 1 EA EA (Mirabegron (Myrbetriq) 25 MG) PO SCH (21:00)
[2018-03-13 01:13] VITALS: BP 131/63
[2018-03-13] MEDS: RT-ALBUTEROL/IPRATROPIUM 3 ML (DUONEB) VIAL INH SCH ×5 (02:55→18:57)
[2018-03-13 04:00] VITALS: BP 150/69
[2018-03-13 06:03] LABS: HEMOGLOBIN 10.5 G/DL (11.5-16.0); MEAN PLATELET VOLUME 11.9 FL (7.4-10.4); RED BLOOD COUNT 3.31 10^6/uL (4.35-5.85); RED CELL DISTRIBUTION WIDTH 12.4 % (10.0-14.5); WHITE BLOOD COUNT 7.5 10^3/uL (4.3-11.0)
[2018-03-13] MEDS: LEVOTHYROXINE 100 MCG (LEVOTHROID) TAB PO SCH (06:31)
[2018-03-13] MEDS: MEROPENEM 500 MG in NS (IVPB) 100 ML IV SCH ×3 (06:32→21:38)
[2018-03-13 06:33] LABS: ALANINE AMINOTRANSFERASE 11 U/L (0-55); ALBUMIN 3.3 GM/DL (3.2-4.5); ALKALINE PHOSPHATASE 72 U/L (40-136); BILIRUBIN,TOTAL 0.2 MG/DL (0.1-1.0); BUN/CREATININE RATIO 12; CALCIUM 9.3 MG/DL (8.5-10.1); CARBON DIOXIDE 19 MMOL/L (21-32); CHLORIDE 113 MMOL/L (98-107); CREATININE SERUM 0.65 MG/DL (0.60-1.30); GFR ESTIMATED > 60; GLUCOSE 111 MG/DL (70-105); POTASSIUM 3.7 MMOL/L (3.6-5.0); SODIUM 142 MMOL/L (135-145); TOTAL PROTEIN 5.7 GM/DL (6.4-8.2)
[2018-03-13 06:37] LABS: INR 1.1 (0.8-1.4); PROTHROMBIN TIME PATIENT 14.2 SEC (12.2-14.7)
[2018-03-13 08:00] VITALS: BP 135/79
[2018-03-13] MEDS: SUCRALFATE 1 GM (CARAFATE) TAB PO SCH ×4 (08:47→21:36)
[2018-03-13] MEDS: COLESTIPOL 1 GM (COLESTID) TAB PO SCH ×3 (08:47→21:37)
[2018-03-13] MEDS: sulfaSALAzine 500 MG (AZULFIDINE) TAB PO SCH ×4 (08:47→21:36)
[2018-03-13] MEDS: CLOPIDOGREL 75 MG (PLAVIX) TABLET PO SCH (08:47)
[2018-03-13] MEDS: ASPIRIN E.C. 81 MG (ECOTRIN) TAB PO SCH (08:47)
[2018-03-13] MEDS: meTOproloL SUCCINATE 50 MG (TOPROL XL) TAB PO SCH (08:47)
[2018-03-13] MEDS: DULoxetine 30 MG (CYMBALTA) CAP PO SCH ×2 (08:48→21:36)
[2018-03-13] MEDS: SIMvastatin 40 MG (ZOCOR) TAB PO SCH (08:48)
[2018-03-13] MEDS ORDERED: CLOPIDOGREL 75 MG (PLAVIX) TABLET PO SCH (09:00)
[2018-03-13 12:00] VITALS: BP 144/82
--- NOTE | 2018-03-13 12:09 | Progress Note-Hospitalist ---
Subjective HPI/CC On Admission Date Seen by Provider: Mar 13, 2018 Time Seen by Provider: 11:15 CC: AMS with hypoxia HPI: This is a 77-year-old white female longterm patient of Dr. CASIANO that was just discharged recently due to ESBL UTI and sent back to the longterm on skilled who presented to the ER with altered mental status and hypoxia. Patient was found to have bilateral pneumonia and history of ESBL requiring vancomycin and meropenem initiation empirically along with IV fluids. She has done well through the night. Daughters at the bedside. Home medications were restarted. She does use oxygen at night. Overall she is much improved and will transfer to fourth floor today. We will also order physical therapy to get out of bed up in a chair and begin activity. Subjective/Events-last exam Patient looks like she's feeling better and asking if she is going to be going home tomorrow. She is afebrile but has some expiratory wheezes today. Chest x- ray from yesterday is looking better. Review of Systems Neurological: Weakness Focused Exam Lactate Level Objective Exam Vital Signs Vital Signs Date Time Temp Pulse Resp B/P (MAP) Pulse Ox O2 Delivery O2 Flow Rate FiO2 03/13/18 16:00 97.0 90 24 139/65 (89) 96 Nasal Cannula 2.00 03/13/18 07:28 28 Capillary Refill : Less Than 3 Seconds General Appearance: No Apparent Distress, WD/WN HEENT: Normal ENT Inspection Neck: Normal Inspection, Non Tender, Supple Respiratory: No Accessory Muscle Use, No Respiratory Distress, Decreased Breath Sounds, Wheezing Cardiovascular: Regular Rate, Rhythm, No Gallop, Systolic Murmur Gastrointestinal: Normal Bowel Sounds, Non Tender, Soft Rectal: Deferred Back: Normal Inspection Extremity: Non Tender, No Pedal Edema Results/Procedures Lab Laboratory Tests 03/13/18 05:42 Patient resulted labs reviewed. Imaging: Reviewed Imaging Report Assessment/Plan Assessment and Plan Assess & Plan/Chief Complaint Bilateral pneumonia-we will recheck chest x-ray on vancomycin and meropenem- chest x-ray is clear, sputum has multiple organisms, sensitive to meropenem Sepsis-resolving Leukocytosis-resolved Recent UTI with ESBL Enterococcus placed on Karishma empirically since no UA collected prior to abx given Diarrhea with history of jrfsgol-sjzuqy-[id number]'ll restart sulfasalazine Weakness with Fall Risk [facility] patient Hypertension History of CVA on plavix/aspirin GERD on PPI/Carafate Night time O2 dependency-currently on 2 L by nasal cannula throughout the day Tachycardia resolved after restarting her beta ed Possible discharge Clinical Quality Measures DVT/VTE Risk/Contraindication: Risk Factor Score Per Nursin RFS Level Per Nursing on Admit: 4+=Very High SONIA MCCRARY MD Mar 13, 2018 12:09
[2018-03-13 16:00] VITALS: BP 139/65
--- NOTE | 2018-03-13 18:30 | NUR ---
Pt. up to the bathroom and around in room with standby assistance. Did not walk in halls as patient was out of breath and needed to stay on oxygen. Addendum: 03/13/18 at 1923 by JHON LINTON RN Up with standby assistance and diogo.
[2018-03-13 20:00] VITALS: BP 134/62
[2018-03-13] MEDS: LATANOPROST 0.005% (XALATAN) OPHTH SOLN 2.5 ML OU SCH (21:37)
[2018-03-13] MEDS: VANCOMYCIN INJECTION 1,000 MG in NS (IVPB) 250 ML IV SCH (21:38)
[2018-03-14] VITALS: BP 134/64
[2018-03-14] MEDS: RT-ALBUTEROL/IPRATROPIUM 3 ML (DUONEB) VIAL INH SCH ×3 (02:52→15:57)
[2018-03-14 04:00] VITALS: BP 148/67
[2018-03-14] MEDS: LEVOTHYROXINE 100 MCG (LEVOTHROID) TAB PO SCH (05:19)
[2018-03-14] MEDS: MEROPENEM 500 MG in NS (IVPB) 100 ML IV SCH ×3 (05:19→22:36)
[2018-03-14] MEDS ORDERED: fluCOnazole (DIFLUCAN) 100 MG TAB PO ONE (07:45)
[2018-03-14 08:14] VITALS: BP 134/65
[2018-03-14] MEDS: sulfaSALAzine 500 MG (AZULFIDINE) TAB PO SCH ×4 (09:52→20:40)
[2018-03-14] MEDS: SUCRALFATE 1 GM (CARAFATE) TAB PO SCH ×4 (09:53→20:40)
[2018-03-14] MEDS: ASPIRIN E.C. 81 MG (ECOTRIN) TAB PO SCH (09:54)
[2018-03-14] MEDS: CLOPIDOGREL 75 MG (PLAVIX) TABLET PO SCH (09:54)
[2018-03-14] MEDS: SIMvastatin 40 MG (ZOCOR) TAB PO SCH (09:55)
[2018-03-14] MEDS: meTOproloL SUCCINATE 50 MG (TOPROL XL) TAB PO SCH (09:55)
[2018-03-14] MEDS: DULoxetine 30 MG (CYMBALTA) CAP PO SCH ×2 (09:56→20:40)
[2018-03-14] MEDS: COLESTIPOL 1 GM (COLESTID) TAB PO SCH ×3 (10:21→20:40)
[2018-03-14 11:54] VITALS: BP 132/71
--- NOTE | 2018-03-14 12:00 | NUR ---
LAB NOTIFIED THIS RN THAT PT HAS RESULTED MODERATE MRSA IN SPUTUM. PT NOW DROPLET ISOLATION WELL. NOTIFIED AKHIL HUGHES, AMBULATORY TECHNOLOGIST, [facility].
--- NOTE | 2018-03-14 12:54 | NUR ---
NAYA FROM [facility] CALLED ON PT STATUS. UPDATED ON MRSA SPUTUM AND DROPLET ISOLATION. ADVISED THAT DR. CASIANO HAS TO MAKE ORDERS STILL REGARDING MRSA. NO DETERMINED D/C DATE AT THIS TIME.
--- NOTE | 2018-03-14 14:41 | NUR ---
REVIEWED MED REC WITH MAR FROM [facility].
--- NOTE | 2018-03-14 15:48 | Physical Therapy Progress Note ---
Therapy Progress Note PT eval was completed on 03/12/2018 by Jcarlos Ibrahim. NIKITA ZHANG PT Mar 14, 2018 15:48
--- NOTE | 2018-03-14 16:25 | Physical Therapy Daily Note ---
PT Daily Note-Current Subjective Pt reports not feeling as well. States she is having a harder time breathing and feeling pretty weak. Pain Numeric Pain Scale: 0-No Pain Appearance Pt supine in bed with head elevated, easily aroused and agreeable to PT At end of session, pt's daughter present and attentive, pt with call light, phone and bedside table within reach. Mental Status Patient Orientation: Person, Place, Situation, Mumbles Attachments: Saline Lock, Oxygen, Other-See Comments tele Transfers Therapy Code Descriptions/Definitions Functional [place] Measure: 0=Not Assessed/NA 4=Minimal Assistance 1=Total Assistance 5=Supervision or Setup 2=Maximal Assistance 6=Modified [place] 3=Moderate Assistance 7=Complete [place] Therapy Quality Codes: 6 Independent with activity with or without an assistive device 5 Patient requires set up or clean up by helper. Patient completes activity by themselves 4 Supervision or touching assist (CGA). [place] provide cues , steadying assist 3 The helper provides less than half the effort to complete the activity 2 The helper provides more than half the effort to complete the activity 1 Dependent. The helper does all the effort to complete an activity 7 Patient refused to complete or attempt activity 9 The patient did not perform the activity before the current illness or injury 88 Not attempted due to Medical conditions or safety concerns Transfers (B, C, W/C) (FIM): 3 Scootin Rollin Supine to/from Sit: 3 Sit to/from Stand: 3 Pt requiring physical assist with gait belt and stabilizing feet. Pt unable to gain or maintain balance with FWW in standing. Per pt's dtr report, pt has not needed this much assist. Gait Training Gait (FIM): 3 Distance (FIM): 1=up to 49 ft Distance: 5 ft x2 Gait Level of Assist: 3 Gait Persons Needed: 1 Gait Assistive Device: FWW unable to maintain balance or maneuver LE's without physical assist Treatments transfer and gait training, bed mobility Assessment per pt's daughter's report, pt is performing more poorly today. Advised pt's nurse of increased SOA, increased fatigue, decline in ability to balance self. Also requested from nurse, with pt and dtr requesting, pt to have recliner in room and be up out of bed PT Plan Problem List Problem List: Activity Tolerance, Functional Strength, Safety, Balance, Gait, Transfer Treatment/Plan Treatment Plan: Continue Plan of Care Treatment Plan: Bed Mobility, Education, Functional Activity Mike, Functional Strength, Gait, Safety, Therapeutic Exercise Treatment Duration: Mar 21, 2018 Frequency: 6 times per week Estimated Hrs Per Day: .5 hour per day Patient and/or Family Agrees t: Yes Safety Risks/Education Patient Education: Gait Training, Transfer Techniques, Safety Issues Teaching Recipient: Patient Teaching Methods: Discussion Response to Teaching: Verbalize Understanding, Return Demonstration, Reinforcement Needed pt requiring constant verb inst for hand placement and safety during transitions Time/GCodes Time In: 1554 Time Out: 1614 Total Billed Treatment Time: 20 Total Billed Treatment 1 visit FA x20 min CAMMIE WINSTON COMPUTER SYSTEMS ANALYST Mar 14, 2018 16:25
[2018-03-14 16:35] VITALS: BP 136/70
[2018-03-14] MEDS ORDERED: RT-ALBUTEROL SULF 2.5 MG/3 ML PRE-MIX VIAL IH PRN (17:45)
--- NOTE | 2018-03-14 18:07 | NUR ---
PT RESPIRATORY EFFORT HAD INCREASED AND WAS COMPLAINING OF SOB. CALLED RT TO HAVE THEM GIVE PRN BREATHING TX. AKHIL ARRIVED. PT STATED SHE FEELS A LOT BETTER AFTER TX. MAT PROTOCOL WILL BE CHANGED TO Q4H AND Q2PRN PER RT.
--- NOTE | 2018-03-14 18:29 | Progress Note (SOAP) ---
Subjective Date Seen by a Provider: Mar 14, 2018 Time Seen by a Provider: 08:35 Subjective/Events-last exam Fwup pneumonia, COPD, recent ESBL UTI, weakness. Denies cough but does have some wheezing. Wants to go home. Objective Exam Vital Signs Date Time Temp Pulse Resp B/P (MAP) Pulse Ox O2 Delivery O2 Flow Rate FiO2 03/14/18 17:05 71 98 28 03/14/18 17:05 98 Nasal Cannula 2.00 03/14/18 16:35 98.0 75 18 136/70 (92) 98 Nasal Cannula 2.00 03/14/18 13:00 79 03/14/18 11:54 98.2 79 18 132/71 (91) 99 Nasal Cannula 2.00 03/14/18 09:00 Nasal Cannula 2.00 03/14/18 08:14 98.6 98 20 134/65 (88) 92 Nasal Cannula 3.00 03/14/18 07:10 93 Nasal Cannula 2.00 03/14/18 07:00 92 03/14/18 04:00 97.7 77 18 148/67 (94) 96 Nasal Cannula 3.00 03/14/18 02:55 97 Nasal Cannula 2.00 03/14/18 01:00 70 03/14/18 00:00 97.2 72 20 134/64 (87) 95 Nasal Cannula 2.00 03/13/18 21:00 Nasal Cannula 2.00 03/13/18 20:00 96.7 76 22 134/62 (86) 95 Nasal Cannula 2.00 03/13/18 19:00 81 03/13/18 19:00 97 Nasal Cannula 2.00 I & O 03/14/18 07:00 Intake Total 1990 ml Output Total 600 ml Balance 1390 ml Capillary Refill : Less Than 3 Seconds General Appearance: No Apparent Distress Neck: Supple Respiratory: Decreased Breath Sounds, Rhonci Cardiovascular: Regular Rate, Rhythm Gastrointestinal: normal bowel sounds, non tender, soft Extremity: Non Tender, No Calf Tenderness, No Pedal Edema Neurologic/Psychiatric: Alert, Oriented x3 Skin: Warm/Dry Results Lab Microbiology 03/10/18 Blood Culture - Preliminary, Resulted No growth 03/10/18 Gram Stain - Final, Complete 03/10/18 Sputum Culture - Final, Complete Usual upper respiratory parrish Enterococcus faecium YEAST Escherichia coli Staphylococcus aureus See Comments Assessment/Plan Assessment/Plan Assess & Plan/Chief Complaint 1. Pneumonia--continue vancomycin, meropenem, add diflucan due to yeast on sputum culture, may need SWING bed for prolonged abx 2. COPD--add prednisone low dose, continue oxygen, SVNs 3. Weakness--PT started 4. Hypertension--home meds restarted Clinical Quality Measures DVT/VTE Risk/Contraindication: Risk Factor Score Per Nursin RFS Level Per Nursing on Admit: 4+=Very High DALILA CASIANO DO Mar 14, 2018 18:29
[2018-03-14 20:00] VITALS: BP 138/65
[2018-03-14] MEDS ORDERED: TROUGH ORDER-PHARMACY XX ONE (20:00)
[2018-03-14] MEDS: LATANOPROST 0.005% (XALATAN) OPHTH SOLN 2.5 ML OU SCH (20:36)
[2018-03-14] MEDS: VANCOMYCIN INJECTION 1,000 MG in NS (IVPB) 250 ML IV SCH (20:40)
[2018-03-15 00:12] VITALS: BP 134/62
[2018-03-15] MEDS: RT-ALBUTEROL/IPRATROPIUM 3 ML (DUONEB) VIAL INH SCH ×7 (00:49→23:05)
[2018-03-15] MEDS: LEVOTHYROXINE 100 MCG (LEVOTHROID) TAB PO SCH (06:23)
[2018-03-15] MEDS: MEROPENEM 500 MG in NS (IVPB) 100 ML IV SCH ×3 (06:23→21:10)
[2018-03-15] MEDS: predniSONE 20 MG TAB PO SCH (06:23)
[2018-03-15 07:30] VITALS: BP 146/70
--- NOTE | 2018-03-15 07:56 | NUR ---
PTD VANCOMYCIN LABS: SCR 0.65 VANCOMYCIN TROUGH 03/14 -10.2 PLAN: INCREASE VANCOMYCIN TO 1,500MG IV DAILY AND GIVE THE NEXT DOSE AT 1700 TODAY, GROWING MRSA IN SPUTUM SO TARGET TROUGH LEVEL IS 15-20. WE WILL REPEAT A TROUGH LEVEL ON 03/17 @ 1600, HOLD IF GREATER THAN 20.
[2018-03-15] MEDS: sulfaSALAzine 500 MG (AZULFIDINE) TAB PO SCH ×4 (09:27→21:10)
[2018-03-15] MEDS: CLOPIDOGREL 75 MG (PLAVIX) TABLET PO SCH (09:27)
[2018-03-15] MEDS: DULoxetine 30 MG (CYMBALTA) CAP PO SCH ×2 (09:27→21:10)
[2018-03-15] MEDS: ASPIRIN E.C. 81 MG (ECOTRIN) TAB PO SCH (09:27)
[2018-03-15] MEDS: SUCRALFATE 1 GM (CARAFATE) TAB PO SCH ×4 (09:27→21:10)
[2018-03-15] MEDS: fluCOnazole (DIFLUCAN) 100 MG TAB PO SCH (09:28)
[2018-03-15] MEDS: meTOproloL SUCCINATE 50 MG (TOPROL XL) TAB PO SCH (09:28)
[2018-03-15] MEDS: COLESTIPOL 1 GM (COLESTID) TAB PO SCH ×2 (09:28→13:20)
[2018-03-15] MEDS: SIMvastatin 40 MG (ZOCOR) TAB PO SCH (09:28)
--- NOTE | 2018-03-15 09:29 | NUR ---
colestid med not available
--- NOTE | 2018-03-15 10:54 | Physical Therapy Daily Note ---
PT Daily Note-Current Subjective Patient agrees to PT. Family present in room with no mask of gown on. This PT educated patient on Droplet precautions and reason for protective wear as to not contaminate anyone outside of the room. However, family adamantly declined use/wear. Infection control notified. Pain Numeric Pain Scale: 0-No Pain Location: No Pain Reported Mental Status Patient Orientation: Normal For Age Attachments: Oxygen Transfers Therapy Code Descriptions/Definitions Functional [place] Measure: 0=Not Assessed/NA 4=Minimal Assistance 1=Total Assistance 5=Supervision or Setup 2=Maximal Assistance 6=Modified [place] 3=Moderate Assistance 7=Complete [place] Therapy Quality Codes: 6 Independent with activity with or without an assistive device 5 Patient requires set up or clean up by helper. Patient completes activity by themselves 4 Supervision or touching assist (CGA). [place] provide cues , steadying assist 3 The helper provides less than half the effort to complete the activity 2 The helper provides more than half the effort to complete the activity 1 Dependent. The helper does all the effort to complete an activity 7 Patient refused to complete or attempt activity 9 The patient did not perform the activity before the current illness or injury 88 Not attempted due to Medical conditions or safety concerns Transfers (B, C, W/C) (FIM): 4 Scootin Rollin Supine to/from Sit: 4 Sit to/from Stand: 4 Bed to/from Chair: 4 patient transferred bed to commode to recliner Gait Training Gait (FIM): 1 Distance (FIM): 1=up to 49 ft Distance: 25' Gait Level of Assist: 4 Gait Persons Needed: 1 Gait Assistive Device: FWW slow, step to gait sequence into shower Assessment Patient is incontinent urine 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 PT to continue to address function mobility. PT Plan Treatment/Plan Treatment Plan: Continue Plan of Care Treatment Plan: Bed Mobility, Education, Functional Activity Mike, Functional Strength, Gait, Safety, Therapeutic Exercise Treatment Duration: Mar 21, 2018 Frequency: 6 times per week Estimated Hrs Per Day: .5 hour per day Patient and/or Family Agrees t: Yes Time/GCodes Time In: 1031 Time Out: 1046 Total Billed Treatment Time: 15 Total Billed Treatment 1 visit FA 15 min GARY POLANCO PT Mar 15, 2018 10:54
--- NOTE | 2018-03-15 11:16 | NUR ---
CM/SS. Patient has established placement with [facility] and will return there when medically stable. She was admitted IP 03/06-03/09/18 and discharged for skilled care at SNF, then readmitted 03/10/18. Patient should return to [place] skilled status from this admission. Remains acute. Will continue intermittent reviews of patient progress as it pertains to finalizing discharge and post hospital care.
[2018-03-15 12:00] VITALS: BP 143/66
[2018-03-15 15:38] VITALS: BP 157/72
[2018-03-15 16:13] VITALS: BP 124/59
[2018-03-15] MEDS ORDERED: VANCOMYCIN 1500 MG/NS 500 ML IVPB IV SCH ×2 (17:00)
--- NOTE | 2018-03-15 17:28 | Progress Note (SOAP) ---
Subjective Date Seen by a Provider: Mar 15, 2018 Time Seen by a Provider: 12:40 Subjective/Events-last exam Fwup pneumonia, COPD, recent ESBL UTI, weakness. Sitting up in chair. Not as congested today. Objective Exam Vital Signs Date Time Temp Pulse Resp B/P (MAP) Pulse Ox O2 Delivery O2 Flow Rate FiO2 03/15/18 16:13 97.9 87 14 124/59 (80) 95 Nasal Cannula 2.00 03/15/18 14:37 92 Nasal Cannula 2.00 03/15/18 12:31 104 03/15/18 12:00 97.4 105 18 143/66 (91) 94 Nasal Cannula 2.00 03/15/18 11:58 94 Nasal Cannula 2.00 03/15/18 09:00 Nasal Cannula 2.00 03/15/18 07:30 97.1 90 18 146/70 (95) 94 Nasal Cannula 2.00 03/15/18 07:09 92 Nasal Cannula 2.00 03/15/18 07:00 69 03/15/18 03:02 98 Nasal Cannula 2.00 03/15/18 01:00 60 03/15/18 00:12 98.9 76 18 134/62 (86) 98 Nasal Cannula 2.00 03/14/18 21:00 Nasal Cannula 2.00 03/14/18 20:00 98.3 82 18 138/65 (89) 97 Nasal Cannula 2.00 03/14/18 19:00 79 I & O 03/15/18 07:00 Intake Total 1740 ml Output Total 300 ml Balance 1440 ml Capillary Refill : Less Than 3 Seconds General Appearance: No Apparent Distress Neck: Supple Respiratory: Lungs Clear Cardiovascular: Regular Rate, Rhythm Gastrointestinal: normal bowel sounds, non tender, soft Extremity: Non Tender, No Calf Tenderness, No Pedal Edema Neurologic/Psychiatric: Alert Skin: Warm/Dry Results Lab Laboratory Tests 03/14/18 20:04: Vancomycin Level Trough 10.2 Microbiology 03/10/18 Blood Culture - Preliminary, Resulted No growth 03/10/18 Gram Stain - Final, Complete 03/10/18 Sputum Culture - Final, Complete Usual upper respiratory parrish Enterococcus faecium YEAST Escherichia coli Staphylococcus aureus See Comments Assessment/Plan Assessment/Plan Assess & Plan/Chief Complaint 1. Pneumonia with MRSA in sputum culture--continue vancomycin, meropenem, difluan, SWING bed eval for prolonged abx 2. COPD--add prednisone low dose, continue oxygen, SVNs 3. Weakness--PT started 4. Hypertension--home meds restarted Clinical Quality Measures DVT/VTE Risk/Contraindication: Risk Factor Score Per Nursin RFS Level Per Nursing on Admit: 4+=Very High DALILA CASIANO DO Mar 15, 2018 17:28
[2018-03-15 19:50] VITALS: BP 141/63
[2018-03-15] MEDS: LATANOPROST 0.005% (XALATAN) OPHTH SOLN 2.5 ML OU SCH (21:09)
[2018-03-16 00:04] VITALS: BP 136/67
[2018-03-16] MEDS: RT-ALBUTEROL/IPRATROPIUM 3 ML (DUONEB) VIAL INH SCH ×3 (03:15→11:07)
[2018-03-16 04:04] VITALS: BP 135/58
[2018-03-16] MEDS: LEVOTHYROXINE 100 MCG (LEVOTHROID) TAB PO SCH (05:54)
[2018-03-16] MEDS: MEROPENEM 500 MG in NS (IVPB) 100 ML IV SCH (05:54)
[2018-03-16] MEDS: predniSONE 20 MG TAB PO SCH (05:54)
[2018-03-16 08:00] VITALS: BP 133/67
[2018-03-16] MEDS: meTOproloL SUCCINATE 50 MG (TOPROL XL) TAB PO SCH (09:01)
[2018-03-16] MEDS: DULoxetine 30 MG (CYMBALTA) CAP PO SCH (09:01)
[2018-03-16] MEDS: fluCOnazole (DIFLUCAN) 100 MG TAB PO SCH (09:01)
[2018-03-16] MEDS: SUCRALFATE 1 GM (CARAFATE) TAB PO SCH ×2 (09:01→12:44)
[2018-03-16] MEDS: CLOPIDOGREL 75 MG (PLAVIX) TABLET PO SCH (09:02)
[2018-03-16] MEDS: sulfaSALAzine 500 MG (AZULFIDINE) TAB PO SCH ×2 (09:02→12:44)
[2018-03-16] MEDS: SIMvastatin 40 MG (ZOCOR) TAB PO SCH (09:02)
[2018-03-16] MEDS: ASPIRIN E.C. 81 MG (ECOTRIN) TAB PO SCH (09:02)
--- NOTE | 2018-03-16 09:13 | NUR ---
Swing Bed Note: Qualifies for swing bed for continued need for multiple IV abx (Pneumonia) with continued need for Physical et Occupational therapies. Pt is a resident at [facility] and will return there after she has completed her needed medical course here. She appears that once her IV abx is completed here that she will benefit to continue her skilled therapies at [facility]. Anticipate admission to swing bed today. Thank you for this referral!
[2018-03-16 12:00] VITALS: BP 151/66
[2018-03-16] MEDS ORDERED: COLESTIPOL 1 GM (COLESTID) TAB PO SCH (13:00)
--- NOTE | 2018-03-16 14:05 | Discharge Summary ---
Diagnosis/Chief Complaint Date of Admission Mar 10, 2018 at 17:57 Date of Discharge Mar 16, 2018 at 13:10 Discharge Date: Mar 16, 2018 Discharge Diagnosis 1. Pneumonia with MRSA and Yeast in sputum culture--continue vancomycin, meropenem, diflucan, transfer to SWING bed 2. COPD--stable 3. Weakness--PT started, add OT on SWING bed 4. Hypertension--home meds restarted 5. Constipation--colestid dose decreased and is having BMs 6. History of CVA--on aspirin/plavix 7. GERD/History of Colitis--stable Discharge Summary Hospital Course Hospital Course This is a 77 year old female who had been discharged back to the [place] after inpatient treatment for ESBL UTI. She was brought back to the hospital with pneumonia. She was given Vancomycin and meropenem and started on nebulizer treatments and oxygen. Her sputum culture showed yeast so diflucan was added and also grew out MRSA. It was decided that she would need at least 10 days of IV antibiotics so a SWING bed evaluation was obtained. She had been started with PT for weakness. OT will be added on SWING bed. She will be transferred to SWING bed with her current antibiotics as well as PT and OT for strengthening. Labs Laboratory Tests 03/14/18 20:04: Procedures None. Discharge Physical Examination Allergies: Coded Allergies: Penicillins (Verified Allergy, Intermediate, HIVES, CAN TAKE ROCEPHIN, 18/03) codeine (Verified Allergy, Unknown, 02/09/15) morphine (Verified Allergy, Unknown, PATIENT TAKES VICODIN AT HOME PER VIN, 02/09/15) propoxyphene (Verified Allergy, Unknown, 12/18/11) Vitals & I&Os Vital Signs Date Time Temp Pulse Resp B/P (MAP) Pulse Ox O2 Delivery O2 Flow Rate FiO2 03/16/18 12:00 98.4 73 24 151/66 (94) 96 Nasal Cannula 2.00 03/14/18 17:05 28 General Appearance: Alert, Oriented X3, No Acute Distress Respiratory: Other (decreased aeration with wheezes) Cardiovascular: Regular Rate Abdominal: Normal Bowel Sounds, Soft, No Tenderness Extremities: No Clubbing, No Cyanosis, No Edema Psych/Mental Status: Mental Status NL Discharge Home Medications Reviewed and agree with Discharge Medication list on patient's Discharge Instruction sheet Instructions to Patient/Family Please see electronic discharge instructions given to patient. Clinical Quality Measures DVT/VTE Risk/Contraindication: Risk Factor Score Per Nursin RFS Level Per Nursing on Admit: 4+=Very High DALILA CASIANO DO Mar 16, 2018 14:05
[2018-03-16] MEDS ORDERED: RT-ALBUTEROL/IPRATROPIUM 3 ML (DUONEB) VIAL ONE ×2 (14:06→18:15)
--- NOTE | 2018-03-16 16:34 | Physical Therapy Evaluation ---
PT Evaluation-General Medical Diagnosis Admission Date Mar 10, 2018 at 17:57 Medical Diagnosis: (B) pneumonia Onset Date: Mar 10, 2018 Therapy Diagnosis Therapy Diagnosis: limited mobility Height/Weight Height (Feet): 5 Height (Inches): 3.00 Weight (Pounds): 132 Weight (Ounces): 5.0 Precautions Precautions/Isolations: Contact Isolation, Droplet Isolation, Fall Prevention Referral Physician: Aracelis Reason for Referral: Evaluation/Treatment, Strengthening, Gait Medical History Pertinent Medical History: Arthritis, CVA, Dementia, GERD, HTN, Hypothroidism Additional Medical History depression, anemic Current History Resident at [place], found to be dyspneic, taken via em[facility] to [facility] Reviewed History: Yes Social History Home: Group Home Current Living Status: Entry Into Home: Level Entry Prior/Core FIM Prior Level of Function Therapy Code Descriptions/Definitions Functional [place] Measure: 0=Not Assessed/NA 4=Minimal Assistance 1=Total Assistance 5=Supervision or Setup 2=Maximal Assistance 6=Modified [place] 3=Moderate Assistance 7=Complete [place] Therapy Quality Codes: 6 Independent with activity with or without an assistive device 5 Patient requires set up or clean up by helper. Patient completes activity by themselves 4 Supervision or touching assist (CGA). [place] provide cues , steadying assist 3 The helper provides less than half the effort to complete the activity 2 The helper provides more than half the effort to complete the activity 1 Dependent. The helper does all the effort to complete an activity 7 Patient refused to complete or attempt activity 9 The patient did not perform the activity before the current illness or injury 88 Not attempted due to Medical conditions or safety concerns Functional Abilities and Goals: Independent: Patient completed the activities by him/herself, with or without an assistive device, with no assistance from a helper. Needed Some Help: Patient needed partial assistance from another person to complete activities. Dependent: A helper completed the activities for the patient. Unknown: Not Applicable: Bed Mobility: 6 Transfers (B,C,W/C) (FIM): 6 Gait: 6 Stairs: 1 Indoor Mobility (Ambulation): Dependent Stairs: Unknown Prior Devices Use: Walker Prior Device Use: Pt reported using a walker, and was able to ambulate to the dining engel PT Evaluation-Current Subjective No issues voiced on arrival. Pt/Family Goals Return to [place]. Objective Patient Orientation: Person, Place, Time Problem Solving: Fair Attachments: Oxygen ROM/Strength ROM Upper Extremities WFL ROM Lower Extremities WFL Strength Upper Extremities WFL Strength Lower Extremities WFL Neuromuscular (Tone, Coordination, Reflexes) Intact Sensory Sensation Right Upper Extremit: Intact Sensation Left Upper Extremity: Intact Sensation Right Lower Extremit: Intact Sensation Left Lower Extremity: Intact Transfers Therapy Code Descriptions/Definitions Functional [place] Measure: 0=Not Assessed/NA 4=Minimal Assistance 1=Total Assistance 5=Supervision or Setup 2=Maximal Assistance 6=Modified [place] 3=Moderate Assistance 7=Complete [place] Transfers (B, C, W/C) (FIM): 3 Scootin Rollin Supine to/from Sit: 3 Sit to/from Stand: 3 Gait Mode of Locomotion: Walk Anticipated Mode of Locomotion: Walk Gait (FIM): 1 Distance (FIM): 7=823-05 ft Distance: 6ft Gait Level of Assist: 1 Gait Persons Needed: 1 Gait Assistive Device: FWW Comments/Gait Description Able to stand, ambulated 3 ft forward, and 3ft back to the bed. Stopped due to dyspnea. Balance Sitting Static: Good Sitting Dynamic: Good Standing Static: Good Standing Dynamic: Fair Assessment/Needs Pt to benefit from PT to aid in improving activity tolerance to allow her to return to ambulation in the [place]. Rehab Potential: Fair PT Short Term Goals Short Term Goals Time Frame: Mar 26, 2018 Transfers (B,C,W/C) (FIM): 5 Gait (FIM): 5 Distance (FIM): 3=150 ft Gait Distance Comment: 150ft Gait Level of Assist: 5 Gait Assistive Device: FWW PT Plan Problem List Problem List: Activity Tolerance, Functional Strength, Gait, Transfer, Bed Mobility Treatment/Plan Treatment Plan: Continue Plan of Care Treatment Plan: Bed Mobility, Education, Functional Activity Mike, Functional Strength, Gait, Safety, Therapeutic Exercise Treatment Duration: Mar 21, 2018 Frequency: 5 times per week Estimated Hrs Per Day: .25 hour per day Patient and/or Family Agrees t: Yes Time/GCodes Time In: 929 Time Out: 954 Total Billed Treatment Time: 25 Total Billed Treatment 1, evmodc 25 MORRIS WILSON PT Mar 16, 2018 16:34
[2018-03-17] MEDS ORDERED: TROUGH ORDER-PHARMACY XX ONE (16:00)
[2018-03-21] MEDS ORDERED: RT-ALBUTEROL/IPRATROPIUM 3 ML (DUONEB) VIAL ONE (14:26)
--- NOTE | 2018-03-21 15:24 | Physician Query Clarification ---
PQ-Conflicting Diagnosis Admission/Discharge Admission Date: Mar 10, 2018 at 17:57 Discharge Date: Mar 16, 2018 at 13:10 The medical record reflects the following clinical scenario: History/Risk Factors: pneumonia, UTI Clinical Findings: PNEUMONIA Treatment: Antibiotics Question: Do you agree with the impression of the sepsis per Dr Hsu. Please document a response below. 1. Sepsis due to MRSA and Yeast, with pneumonia 2. No Sepsis, only pneumonia due to yeast and MRSA 3. Other, please specify PHYSICIAN RESPONSE Do you agree w/Consulting Dx?: No Explanation of clincal finding Pneumonia with SIRS In responding to this query, please exercise your independent professional judgment. The purpose of this communication is to more accurately reflect the complexity of your patients condition. The fact that a question is asked does not imply that any particular answer is desired or expected. Thank you for your timely response to this clarification. Requestors name: [ ] Phone # [ ] THIS PHYSICIAN QUERY FORM IS A PERMANENT PART OF THE MEDICAL RECORD SUSAN CASTILLO Mar 21, 2018 15:24 DALILA CASIANO DO Mar 21, 2018 19:04
== END 2018-03-16 13:10 | disposition swing bed (61) | DRG 177 ==
LOC: EDUNIT# 16:45 → ER 16:47 → ICU 17:57 → 4TH 03-11 13:20
PROVIDERS: ADMIT Internal Medicine; ATTEND Family Medicine
DX: J15.212 Pneumonia due to Methicillin resistant Staphylococcus aureus (principal); R06.03 Acute respiratory distress; N39.0 Urinary tract infection, site not specified; J44.0 Chronic obstructive pulmonary disease with (acute) lower respiratory infection; B37.1 Pulmonary candidiasis; R19.7 Diarrhea, unspecified; I11.0 Hypertensive heart disease with heart failure; I50.9 Heart failure, unspecified; E78.00 Pure hypercholesterolemia, unspecified; K21.9 Gastro-esophageal reflux disease without esophagitis; E03.9 Hypothyroidism, unspecified; R09.02 Hypoxemia; F32.9 Major depressive disorder, single episode, unspecified; K57.90 Diverticulosis of intestine, part unspecified, without perforation or abscess without bleeding; G43.909 Migraine, unspecified, not intractable, without status migrainosus; M19.91 Primary osteoarthritis, unspecified site; M54.9 Dorsalgia, unspecified; K59.00 Constipation, unspecified; Z22.39 Carrier of other specified bacterial diseases; Z87.891 Personal history of nicotine dependence; Z99.81 Dependence on supplemental oxygen; Z90.49 Acquired absence of other specified parts of digestive tract; Z86.73 Personal history of transient ischemic attack (TIA), and cerebral infarction without residual deficits; Z79.82 Long term (current) use of aspirin; Z79.02 Long term (current) use of antithrombotics/antiplatelets; Z88.0 Allergy status to penicillin; Z88.5 Allergy status to narcotic agent
CPT/HCPCS: 36415; 71045; 80053; 80202; 83605; 83880; 85007; 85025; 85027; 85610; 85730; 87040; 87070; 87077; 87186; 87205; 87804; 93005; 94640; 94760; 96361; 96374; 96375

== ENCOUNTER 2018-03-16 09:19 | Inpatient (IN) | payer MEDICARE, MEDICAID ==
[~2018-03-16] VITALS: Ht 160 cm; Wt 60.0 kg
[2018-03-16] MEDS ORDERED: ONDANSETRON 4 MG (ZOFRAN) ORAL DISSOLVE TAB PO PRN (13:30)
[2018-03-16] MEDS ORDERED: ACETAMINOPHEN 325 MG TABLET PO PRN (13:30)
[2018-03-16] MEDS ORDERED: DOCUSATE SODIUM 100 MG (COLACE) CAP PO PRN (13:30)
[2018-03-16] MEDS ORDERED: HYDROcodone/APAP 5 MG/325 MG (LORTAB) TAB PO PRN (13:30)
[2018-03-16] MEDS ORDERED: RT-ALBUTEROL SULF 2.5 MG/3 ML PRE-MIX VIAL IH PRN (13:30)
[2018-03-16] MEDS ORDERED: CALCIUM CARBONATE 500 MG (TUMS) TAB.CHEW PO PRN (13:30)
--- NOTE | 2018-03-16 13:31 | NUR ---
MARIOLA OLIVEIRA admitted to swing bed status to room 413-1, with an admitting diagnosis of SWB RLL PNA, on 03/16/18 from acute inpatient status. PT/OT Therapy to evaluate patient for activity needs. MARIOLA OLIVEIRA and/or family introduced to surroundings, call light, bed controls, phone, TV, temperature control, lights, meal times, smoking policy, visitor policy, side rail policy, bathrooms, and showers. Patient rights given to patient in the handbook.. MARIOLA OLIVEIRA and/or family member verbalized understanding that [facility] is not responsible for the loss or damage to any personal effects or valuables that are kept in the patients possession during their hospitalization. The care plans were discussed with MARIOLA OLIVEIAR including Discharge Plannning. MARIOLA OLIVEIRA and/or family verbalizes understanding of the Interdisciplinary Patient Education. Patient and/or family were informed about the Rapid Response Team and its purpose. Call light with in reach and patient demonstrates understanding of how to use. MARIOLA OLIVEIRA reports no further needs at this time.
[2018-03-16] MEDS ORDERED: PATIENT MAY USE OWN MED,SINGLE MED PO SCH (14:00)
--- NOTE | 2018-03-16 14:11 | Physical Therapy Evaluation ---
PT Evaluation-General Medical Diagnosis Admission Date Mar 16, 2018 at 13:31 Medical Diagnosis: UTI/ARF Onset Date: Mar 09, 2018 Therapy Diagnosis Therapy Diagnosis: generalized weakness/debility Height/Weight Height (Feet): 5 Height (Inches): 3.00 Weight (Pounds): 132 Weight (Ounces): 5.0 Precautions Precautions/Isolations: Contact Isolation, Droplet Isolation, Fall Prevention, Standard Precautions Weight Bear Status Right Lower Extremity: Right Full Weight Bearing Left Lower Extremity: Left Full Weight Bearing Referral Physician: Cristopher Reason for Referral: Evaluation/Treatment Medical History Pertinent Medical History: Arthritis, CVA, Dementia, GERD, Hypothroidism Current History transfer to [facility] status Reviewed History: Yes Social History Home: Snf Prior/Core FIM Prior Level of Function Therapy Code Descriptions/Definitions Functional [place] Measure: 0=Not Assessed/NA 4=Minimal Assistance 1=Total Assistance 5=Supervision or Setup 2=Maximal Assistance 6=Modified [place] 3=Moderate Assistance 7=Complete [place] Therapy Quality Codes: 6 Independent with activity with or without an assistive device 5 Patient requires set up or clean up by helper. Patient completes activity by themselves 4 Supervision or touching assist (CGA). [place] provide cues , steadying assist 3 The helper provides less than half the effort to complete the activity 2 The helper provides more than half the effort to complete the activity 1 Dependent. The helper does all the effort to complete an activity 7 Patient refused to complete or attempt activity 9 The patient did not perform the activity before the current illness or injury 88 Not attempted due to Medical conditions or safety concerns Functional Abilities and Goals: Independent: Patient completed the activities by him/herself, with or without an assistive device, with no assistance from a helper. Needed Some Help: Patient needed partial assistance from another person to complete activities. Dependent: A helper completed the activities for the patient. Unknown: Not Applicable: Bed Mobility: 3 Transfers (B,C,W/C) (FIM): 3 Gait: 3 Indoor Mobility (Ambulation): Needed Some Help Stairs: Needed Some Help Prior Devices Use: Walker PT Evaluation-Current Subjective Patient agrees to PT. Pain Numeric Pain Scale: 0-No Pain Location: No Pain Reported Objective Patient Orientation: Person, Time, Situation Problem Solving: Fair Attachments: Oxygen (2L) ROM/Strength ROM Lower Extremities bilateral LE WFL Strenght Lower Extremities 3+/5 grossly bilaterally Integumentary/Posture Integumentary WFL Bowel Incontinence: No Bladder Incontinence: Yes Posture WFL Neuromuscular (Tone, Coordination, Reflexes) grossly intact Sensory Vision: Wears Glasses Hearing: Functional Sensation Right Lower Extremit: Impaired Sensation Left Lower Extremity: Impaired Transfers Therapy Code Descriptions/Definitions Functional [place] Measure: 0=Not Assessed/NA 4=Minimal Assistance 1=Total Assistance 5=Supervision or Setup 2=Maximal Assistance 6=Modified [place] 3=Moderate Assistance 7=Complete [place] Therapy Quality Codes: 6 Independent with activity with or without an assistive device 5 Patient requires set up or clean up by helper. Patient completes activity by themselves 4 Supervision or touching assist (CGA). [place] provide cues , steadying assist 3 The helper provides less than half the effort to complete the activity 2 The helper provides more than half the effort to complete the activity 1 Dependent. The helper does all the effort to complete an activity 7 Patient refused to complete or attempt activity 9 The patient did not perform the activity before the current illness or injury 88 Not attempted due to Medical conditions or safety concerns Transfers (B, C, W/C) (FIM): 3 Scootin Rollin Roll Left to Right (QC): 3 Supine to/from Sit: 3 Sit to/from Stand: 3 Sit to Lying (QC): 3 Lying to Sitting/Side of Bed(Q: 3 Sit to Stand (QC): 3 Chair/Ykx-vt-Dobzj Xfer(QC): 3 Car Transfer (QC): 3 Gait Does the Patient Walk?: Yes Mode of Locomotion: Walk Anticipated Mode of Locomotion: Walk Gait (FIM): 2 Distance (FIM): 6=254-75 ft Walk 10 feet (QC): 4 Walk 50 ft with 2 Turns(QC): 4 Walk 150 ft (QC): 88 Walking 10ft/uneven surface-QC: 88 Distance: 50' x 2 Gait Level of Assist: 4 Gait Persons Needed: 1 Gait Assistive Device: FWW Comments/Gait Description steady, slow, functional gait sequence Balance Sitting Static: Normal Sitting Dynamic: Normal Standing Static: Fair Standing Dynamic: Fair Assessment/Needs 77 y.o. female, will benefit from skilled PT to address functional strength and mobility to improve current LOF and to safely return to [place] at maximum LOF. Rehab Potential: Fair PT Detention Goals Non Ferrous Material Handler Goals PT Non Ferrous Material Handler Goals Time Frame: Mar 31, 2018 Transfers (B,C,W/C) (FIM): 4 Sit to Lying (QC): 4 Lying-Sitting on Side/Bed(QC): 4 Sit to Stand (QC): 4 Rollin Roll Left to Right (QC): 4 Chair/Odb-we-Hmbdf Xfer(QC): 4 Car Transfer (QC): 4 Does the Patient Walk: Yes Gait (FIM): 2 Gait distance (FIM): 8=965-19 ft Distance: 125' Walk 10 feet (QC): 4 Walk 10ft-Uneven Surface(QC): 4 Walk 50ft with 2 Turns (QC): 4 Walk 150 ft (QC): 9 Gait Level of Assist: 4 Gait Assistive Device: FWW PT Plan Problem List Problem List: Activity Tolerance, Safety, Balance, Gait, Bed Mobility Treatment/Plan Treatment Plan: Continue Plan of Care Treatment Plan: Bed Mobility, Education, Functional Activity Mike, Functional Strength, Gait, Safety, Therapeutic Exercise, Transfers Treatment Duration: Mar 31, 2018 Frequency: 5 times per week (5/6 wk) Estimated Hrs Per Day: .25 hour per day Patient and/or Family Agrees t: Yes Discharge Recommendations Therapy D/C Recommendations: Snf Placement, [facility] (TCU/[facility]) Time/GCodes Time In: 1341 Time Out: 1405 Total Billed Treatment Time: 24 Total Billed Treatment 1 visit EVModC 9 min GT 15 min GARY POLANCO PT Mar 16, 2018 14:11
--- NOTE | 2018-03-16 14:12 | NUR ---
Admission Drug Regimen Review: Date: 03/16/18 Time: 1412 Review Completed, No Issues found New medication started on swing bed of calmoseptine and colestid was changed to BID scheduled. This was confirmed with Dr. Nicholas as she entered the orders.
[2018-03-16] MEDS: MEROPENEM 500 MG in NS (IVPB) 100 ML IV SCH ×2 (14:32→21:43)
[2018-03-16] MEDS: RT-ALBUTEROL/IPRATROPIUM 3 ML (DUONEB) VIAL INH SCH ×3 (15:14→21:39)
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
--- NOTE | 2018-03-16 16:07 | Occupational Therapy Eval ---
OT Evaluation-General/PLF Medical Diagnosis Admission Date Mar 16, 2018 at 13:31 Medical Diagnosis: UTI/ARF Onset Date: Mar 09, 2018 Therapy Diagnosis Therapy Diagnosis: decreased self care skills Height/Weight Height (Feet): 5 Height (Inches): 3.00 Weight (Pounds): 132 Weight (Ounces): 5.0 Precautions Precautions/Isolations: Contact Isolation, Droplet Isolation, Fall Prevention, Standard Precautions Referral Physician: Cristopher Medical History Pertinent Medical History: Arthritis, CVA, Dementia, GERD, Hypothroidism Reviewed History: Yes Social History Home: [place] ADL-Prior Level of Function Therapy Code Descriptions/Definitions Functional [place] Measure: 0=Not Assessed/NA 4=Minimal Assistance 1=Total Assistance 5=Supervision or Setup 2=Maximal Assistance 6=Modified [place] 3=Moderate Assistance 7=Complete [place] Therapy Quality Codes: 6 Independent with activity with or without an assistive device 5 Patient requires set up or clean up by helper. Patient completes activity by themselves 4 Supervision or touching assist (CGA). [place] provide cues , steadying assist 3 The helper provides less than half the effort to complete the activity 2 The helper provides more than half the effort to complete the activity 1 Dependent. The helper does all the effort to complete an activity 7 Patient refused to complete or attempt activity 9 The patient did not perform the activity before the current illness or injury 88 Not attempted due to Medical conditions or safety concerns Functional Abilities and Goals: Independent: Patient completed the activities by him/herself, with or without an assistive device, with no assistance from a helper. Needed Some Help: Patient needed partial assistance from another person to complete activities. Dependent: A helper completed the activities for the patient. Unknown: Not Applicable: ADL PLOF Comments Pt states she was able to get up to restroom without assist, but required assist with bathing and dressing. Pt reports using a walker for mobility Self Care: Needed Some Help Functional Cognition: Needed Some Help OT Current Status Subjective Pt in bed, agrees to therapy. Pt denies pain. Mental Status/Objective Patient Orientation: Person Attachments: Oxygen Current Glasses/Contacts: Yes Hearing Aids: No Dentures/Partials: Yes Hand Dominance: Right Upper Extremity ROM Mildly decreased shoulder ROM. Remainder grossly functional Upper Extremity Coordination Fair ADL-Treatment ADL-Current Pt supine to sit with moderate assistance. Pt participated in UE assessment while seated EOB. Pt attempted to doff/don socks, but unable to complete. Sit to stand with minimal assistance and cues for hand placement. Pt transferred to [facility] with minimal assistance using FWW. Pt was incontinent of urine in brief. Total assist to change brief and complete toileting hygiene. Transfer back to EOB with FWW. Pt combed hair with SBA while seated EOB. Sit to supine with assist for bilateral LE. Pt resting in bed with needs met after session. Eating (FIM): 5 (Pt reports receiving assistance to open containers) Eating (QC): 5 Grooming (FIM): 5 Oral Hygiene (QC): 4 On/Off Footwear (QC): 1 Toilet/Commode Transfer (FIM): 4 Toilet Transfer (QC): 3 Education OT Patient Education: Rehab process Teaching Recipient: Patient Teaching Methods: Discussion Response to Teaching: Verbalize Understanding, Reinforcement Needed OT Short Term Goals Short Term Goals 1=Demonstrate adherence to instructed precautions during ADL tasks. 2=Patient will verbalize/demonstrate understanding of assistive devices/ modifications for ADL. 3=Patient will improve strength/tolerance for activity to enable patient to perform ADL's. OT Electric Shovel Operator Goals Shelter Goals Time Frame: Mar 30, 2018 Eating (FIM): 5 Eating (QC): 5 Groomin Oral Hygiene (QC): 5 Bathing(FIM): 4 Shower/Bathe Self (QC): 3 Upper Body Dressing(FIM): 4 Upper Body Dressing (QC): 3 Lower Body Dressing(FIM): 4 Lower Body Dressing (QC): 3 On/Off Footwear (QC): 3 Toileting(FIM): 4 Toileting Hygiene (QC): 3 Toilet/Commode Transfer(FIM): 4 Toilet/Commode Transfer (QC): 4 Additional Goals: 1-Demonstrate ADL Tasks, 2-Verbalize Understanding, 3- ImproveStrength/Mike 1=Demonstrate adherence to instructed precautions during ADL tasks. 2=Patient will verbalize/demonstrate understanding of assistive devices/ modifications for ADL. 3=Patient will improve strength/tolerance for activity to enable patient to perform ADL's. OT Education/Plan Problem List/Assessment Assessment: Decreased Activ Tolerance, Decreased UE Strength, Dependent Transfers, Impaired Funct Balance, Impaired Self-Care Skills Pt to benefit from skilled OT intervention for ADL training, transfers, strengthening, and safety education to increase level of independence and allow safe discharge Discharge Recommendations Plan/Recommendations: Continue POC Treatment Plan/Plan of Care Treatment,Training & Education: Yes Patient would benefit from OT for education, treatment and training to promote independence in ADL's, mobility, safety and/or upper extremity function for ADL' s. Plan of Care: ADL Retraining, Functional Mobility, UE Funct Exercise/Act Treatment Duration: Mar 30, 2018 Frequency: 5 times per week Estimated Hrs Per Day: .25 hour per day Rehab Potential: Fair Time/GCodes Start Time: 15:35 Stop Time: 15:58 Total Time Billed (hr/min): 23 Billed Treatment Time 1 visit, EVM(8minutes), ADL(15minutes) PILO DAVIES OT Mar 16, 2018 16:07
[2018-03-16] MEDS: SUCRALFATE 1 GM (CARAFATE) TAB PO SCH ×2 (17:19→21:40)
[2018-03-16] MEDS: VANCOMYCIN INJECTION 1,500 MG in NS IV 500 ML 500 ML IV SCH (17:19)
[2018-03-16] MEDS: sulfaSALAzine 500 MG (AZULFIDINE) TAB PO SCH ×2 (17:19→21:41)
[2018-03-16 18:00] VITALS: BP 152/69
[2018-03-16] MEDS: DULoxetine 30 MG (CYMBALTA) CAP PO SCH (21:40)
[2018-03-16] MEDS: COLESTIPOL 1 GM (COLESTID) TAB PO SCH (21:41)
[2018-03-16] MEDS: MENTHOL/ZINC OXIDE (CALMOSEPTINE) 113 GM TUBE TOP SCH (21:42)
[2018-03-16] MEDS: LATANOPROST 0.005% (XALATAN) OPHTH SOLN 2.5 ML OU SCH (23:17)
[2018-03-17] MEDS: RT-ALBUTEROL/IPRATROPIUM 3 ML (DUONEB) VIAL INH SCH ×4 (01:47→20:13)
[2018-03-17 06:00] VITALS: BP 153/67
[2018-03-17] MEDS: MEROPENEM 500 MG in NS (IVPB) 100 ML IV SCH ×2 (06:12→13:06)
[2018-03-17] MEDS: predniSONE 20 MG TAB PO SCH (06:12)
[2018-03-17] MEDS: LEVOTHYROXINE 100 MCG (LEVOTHROID) TAB PO SCH (06:12)
[2018-03-17] MEDS: DULoxetine 30 MG (CYMBALTA) CAP PO SCH ×2 (09:40→20:57)
[2018-03-17] MEDS: sulfaSALAzine 500 MG (AZULFIDINE) TAB PO SCH ×4 (09:40→20:57)
[2018-03-17] MEDS: CLOPIDOGREL 75 MG (PLAVIX) TABLET PO SCH (09:41)
[2018-03-17] MEDS: fluCOnazole (DIFLUCAN) 100 MG TAB PO SCH (09:41)
[2018-03-17] MEDS: SUCRALFATE 1 GM (CARAFATE) TAB PO SCH ×4 (09:41→20:57)
[2018-03-17] MEDS: ASPIRIN E.C. 81 MG (ECOTRIN) TAB PO SCH (09:41)
[2018-03-17] MEDS: meTOproloL SUCCINATE 50 MG (TOPROL XL) TAB PO SCH (09:41)
[2018-03-17] MEDS: SIMvastatin 40 MG (ZOCOR) TAB PO SCH (09:42)
[2018-03-17] MEDS: COLESTIPOL 1 GM (COLESTID) TAB PO SCH ×2 (09:42→20:57)
[2018-03-17] MEDS: MENTHOL/ZINC OXIDE (CALMOSEPTINE) 113 GM TUBE TOP SCH ×2 (09:43→20:57)
--- NOTE | 2018-03-17 11:59 | Progress Note-Hospitalist ---
Subjective HPI/CC On Admission Date Seen by Provider: Mar 17, 2018 Time Seen by Provider: 11:00 Subjective/Events-last exam Patient doing well Overall decline status noted Tolerating antibiotics Will be set for discharge on 03/21/18 per primary care provider plans Review of Systems Pulmonary: Cough Objective Exam Vital Signs Vital Signs Date Time Temp Pulse Resp B/P (MAP) Pulse Ox O2 Delivery O2 Flow Rate FiO2 03/17/18 09:50 64 96 28 03/17/18 09:00 Nasal Cannula 2.00 03/17/18 06:00 95.5 18 153/67 (95) Capillary Refill : Less Than 3 Seconds General Appearance: No Apparent Distress, WD/WN, Chronically ill Respiratory: Chest Non Tender, No Accessory Muscle Use, No Respiratory Distress , Crackles, Decreased Breath Sounds Neurologic/Psychiatric: Alert, Oriented x3, No Motor/Sensory Deficits, Depressed Affect Results/Procedures Lab Patient resulted labs reviewed. Assessment/Plan Assessment and Plan Assess & Plan/Chief Complaint Assessment: MRSA pneumonia Debility Weakness Plan: Continue medication as ordered Monitor closely DNR Diagnosis/Problems Diagnosis/Problems (1) MRSA pneumonia Status: Acute Qualifiers: Laterality: unspecified laterality Lung location: unspecified part of lung Qualified Codes: J15.212 - Pneumonia due to methicillin resistant Staphylococcus aureus (2) Oxygen dependent Status: Chronic (3) Debility Status: Chronic (4) Weakness generalized Status: Chronic (5) COPD (chronic obstructive pulmonary disease) Status: Chronic (6) GERD (gastroesophageal reflux disease) Status: Chronic Qualifiers: Esophagitis presence: without esophagitis Qualified Codes: K21.9 - Gastro- esophageal reflux disease without esophagitis Clinical Quality Measures DVT/VTE Risk/Contraindication: Risk Factor Score Per Nursin RAFAELA MOHR DO Mar 17, 2018 11:59
[2018-03-17] MEDS ORDERED: TROUGH ORDER-PHARMACY XX ONE (16:00)
[2018-03-17] MEDS: VANCOMYCIN INJECTION 1,500 MG in NS IV 500 ML 500 ML IV SCH (16:35)
[2018-03-17 18:00] VITALS: BP 144/66
[2018-03-17] MEDS: LATANOPROST 0.005% (XALATAN) OPHTH SOLN 2.5 ML OU SCH (20:57)
[2018-03-18] MEDS: RT-ALBUTEROL/IPRATROPIUM 3 ML (DUONEB) VIAL INH SCH ×4 (02:33→20:15)
[2018-03-18 06:00] VITALS: BP 152/72
[2018-03-18] MEDS: LEVOTHYROXINE 100 MCG (LEVOTHROID) TAB PO SCH (06:17)
[2018-03-18] MEDS: predniSONE 20 MG TAB PO SCH (06:17)
[2018-03-18] MEDS: meTOproloL SUCCINATE 50 MG (TOPROL XL) TAB PO SCH (08:59)
[2018-03-18] MEDS: SUCRALFATE 1 GM (CARAFATE) TAB PO SCH ×4 (08:59→22:07)
[2018-03-18] MEDS: CLOPIDOGREL 75 MG (PLAVIX) TABLET PO SCH (08:59)
[2018-03-18] MEDS: fluCOnazole (DIFLUCAN) 100 MG TAB PO SCH (08:59)
[2018-03-18] MEDS: COLESTIPOL 1 GM (COLESTID) TAB PO SCH ×2 (08:59→22:08)
[2018-03-18] MEDS: SIMvastatin 40 MG (ZOCOR) TAB PO SCH (08:59)
[2018-03-18] MEDS: sulfaSALAzine 500 MG (AZULFIDINE) TAB PO SCH ×4 (08:59→22:07)
[2018-03-18] MEDS: DULoxetine 30 MG (CYMBALTA) CAP PO SCH ×2 (08:59→22:07)
[2018-03-18] MEDS: ASPIRIN E.C. 81 MG (ECOTRIN) TAB PO SCH (08:59)
[2018-03-18] MEDS: MENTHOL/ZINC OXIDE (CALMOSEPTINE) 113 GM TUBE TOP SCH ×2 (09:00→22:08)
--- NOTE | 2018-03-18 12:49 | Progress Note-Hospitalist ---
Subjective HPI/CC On Admission Date Seen by Provider: Mar 18, 2018 Time Seen by Provider: 11:30 Subjective/Events-last exam Patient doing very well Tolerating medication well Denies any pain Bowels are moving Awaiting to complete antibiotics on 03/21/18 to go back to [facility] per primary care provider recommendations Check meds and labs We will check labs in the morning Review of Systems General: Fatigue Objective Exam Vital Signs Vital Signs Date Time Temp Pulse Resp B/P (MAP) Pulse Ox O2 Delivery O2 Flow Rate FiO2 03/18/18 08:37 95 Nasal Cannula 2.00 03/18/18 06:00 89.9 76 18 152/72 (98) 03/17/18 09:50 28 Capillary Refill : Less Than 3 Seconds General Appearance: No Apparent Distress, WD/WN, Chronically ill, Thin Respiratory: Chest Non Tender, Lungs Clear, Normal Breath Sounds, No Accessory Muscle Use, No Respiratory Distress Cardiovascular: Regular Rate, Rhythm, No Edema, No Gallop, No JVD, No Murmur, Normal Peripheral Pulses Neurologic/Psychiatric: Alert, Oriented x3, No Motor/Sensory Deficits, Normal Mood/Affect Results/Procedures Lab Patient resulted labs reviewed. Assessment/Plan Assessment and Plan Assess & Plan/Chief Complaint Assessment: MRSA pneumonia Debility Weakness Plan: Continue medication as ordered Monitor closely DNR We will check labs in the morning Diagnosis/Problems Diagnosis/Problems (1) MRSA pneumonia Status: Acute Qualifiers: Laterality: unspecified laterality Lung location: unspecified part of lung Qualified Codes: J15.212 - Pneumonia due to methicillin resistant Staphylococcus aureus (2) Oxygen dependent Status: Chronic (3) Debility Status: Chronic (4) Weakness generalized Status: Chronic (5) COPD (chronic obstructive pulmonary disease) Status: Chronic (6) GERD (gastroesophageal reflux disease) Status: Chronic Qualifiers: Esophagitis presence: without esophagitis Qualified Codes: K21.9 - Gastro- esophageal reflux disease without esophagitis Clinical Quality Measures DVT/VTE Risk/Contraindication: Risk Factor Score Per Nursin RAFAELA MOHR DO Mar 18, 2018 12:49
[2018-03-18] MEDS: VANCOMYCIN 1250 MG/NS 250 ML IVPB IV SCH ×2 (16:36)
[2018-03-18 18:00] VITALS: BP 137/63
[2018-03-18] MEDS: LATANOPROST 0.005% (XALATAN) OPHTH SOLN 2.5 ML OU SCH (22:08)
[2018-03-19] VITALS: BP 141/65
[2018-03-19] MEDS: RT-ALBUTEROL/IPRATROPIUM 3 ML (DUONEB) VIAL INH SCH ×3 (03:09→21:15)
[2018-03-19 04:00] VITALS: BP 145/67
[2018-03-19 04:57] LABS: BASOPHILS # (AUTO) 0.1 10^3/uL (0.0-0.1); BASOPHILS % (AUTO) 1 % (0-10); EOSINOPHILS # (AUTO) 0.2 10^3/uL (0.0-0.3); EOSINOPHILS % (AUTO) 3 % (0-10); HEMATOCRIT 39 % (35-52); HEMOGLOBIN 12.2 G/DL (11.5-16.0); LYMPHOCYTES # (AUTO) 2.3 X 10^3 (1.0-4.0); LYMPHOCYTES % (AUTO) 31 % (12-44); MEAN CORPUSCULAR HEMOGLOBIN 31 PG (25-34); MEAN CORPUSCULAR HGB CONC 31 G/DL (32-36); MEAN CORPUSCULAR VOLUME 100 FL (80-99); MEAN PLATELET VOLUME 11.8 FL (7.4-10.4); MONOCYTES % (AUTO) 13 % (0-12); NEUTROPHILS % (AUTO) 52 % (42-75); PLATELET COUNT 207 10^3/uL (130-400); RED BLOOD COUNT 3.91 10^6/uL (4.35-5.85); RED CELL DISTRIBUTION WIDTH 12.4 % (10.0-14.5); WHITE BLOOD COUNT 7.6 10^3/uL (4.3-11.0)
[2018-03-19 05:20] LABS: ALANINE AMINOTRANSFERASE 16 U/L (0-55); ALBUMIN 3.7 GM/DL (3.2-4.5); ALKALINE PHOSPHATASE 73 U/L (40-136); BILIRUBIN,TOTAL 0.2 MG/DL (0.1-1.0); BUN/CREATININE RATIO 14; CALCIUM 9.8 MG/DL (8.5-10.1); CARBON DIOXIDE 24 MMOL/L (21-32); CHLORIDE 103 MMOL/L (98-107); CREATININE SERUM 0.72 MG/DL (0.60-1.30); GFR ESTIMATED > 60; GLUCOSE 86 MG/DL (70-105); POTASSIUM 3.7 MMOL/L (3.6-5.0); SODIUM 139 MMOL/L (135-145); TOTAL PROTEIN 6.6 GM/DL (6.4-8.2)
[2018-03-19] MEDS: predniSONE 20 MG TAB PO SCH (06:28)
[2018-03-19] MEDS: LEVOTHYROXINE 100 MCG (LEVOTHROID) TAB PO SCH (06:28)
--- NOTE | 2018-03-19 09:03 | Physical Therapy Daily Note ---
PT Daily Note-Current Subjective pt reports feeling tired today but willing to work with physical therapy Pain Numeric Pain Scale: 0-No Pain Appearance Pt supine in bed with head elevated, easily aroused, O2/NC and purewic in place At end of session, pt sitting up in recliner with LE's elevated, bedside table, call light and phone within reach. Assisted pt with ordering breakfast. O2/nc and PureWick back in place Mental Status Patient Orientation: Person, Place, Eyes Open, Situation Attachments: Oxygen, Other-See Comments purewick Transfers Therapy Code Descriptions/Definitions Functional [place] Measure: 0=Not Assessed/NA 4=Minimal Assistance 1=Total Assistance 5=Supervision or Setup 2=Maximal Assistance 6=Modified [place] 3=Moderate Assistance 7=Complete [place] Therapy Quality Codes: 6 Independent with activity with or without an assistive device 5 Patient requires set up or clean up by helper. Patient completes activity by themselves 4 Supervision or touching assist (CGA). [place] provide cues , steadying assist 3 The helper provides less than half the effort to complete the activity 2 The helper provides more than half the effort to complete the activity 1 Dependent. The helper does all the effort to complete an activity 7 Patient refused to complete or attempt activity 9 The patient did not perform the activity before the current illness or injury 88 Not attempted due to Medical conditions or safety concerns Transfers (B, C, W/C) (FIM): 3 Scootin Rollin Roll Left to Right (QC): 4 Supine to/from Sit: 4 Sit to/from Stand: 3 Sit to Stand (QC): 3 slow movements, unsteady with sitting and initial standing balance. Slight SOA with exertion. Requiring instruction with each transition for hand placement and safety Weight Bearing Right Lower Extremity: Right Full Weight Bearing Left Lower Extremity: Left Full Weight Bearing Gait Training Does the Patient Walk?: Yes Distance (FIM): 4=751-97 ft Distance: 50x3 Gait Level of Assist: 4 Gait Persons Needed: 1 Gait Assistive Device: FWW slow shuffling gait, decreased trunk motion, min difficulty with running walker into objects in room. occasional retro LOB requiring min assist to correct Treatments safety, balance, gait and transfer training Assessment sitting standing and gait balance requiring CGA to min assist. fatigues easily. Decreased safety awareness with transfers PT Continuous Improvement Director Goals Continuous Improvement Director Goals PT Longterm Goals Time Frame: Mar 31, 2018 Transfers (B,C,W/C) (FIM): 4 Sit to Lying (QC): 4 Lying-Sitting on Side/Bed(QC): 4 Sit to Stand (QC): 4 Rollin Roll Left to Right (QC): 4 Chair/Wjx-qv-Rrukh Xfer(QC): 4 Car Transfer (QC): 4 Does the Patient Walk: Yes Gait (FIM): 2 Gait distance (FIM): 8=183-10 ft Distance: 125' Walk 10 feet (QC): 4 Walk 10ft-Uneven Surface(QC): 4 Walk 50ft with 2 Turns (QC): 4 Walk 150 ft (QC): 9 Gait Level of Assist: 4 Gait Assistive Device: FWW PT Plan Problem List Problem List: Activity Tolerance, Functional Strength, Safety, Balance, Gait, Transfer, Bed Mobility, ROM Treatment/Plan Treatment Plan: Continue Plan of Care Treatment Plan: Bed Mobility, Education, Functional Activity Mike, Functional Strength, Gait, Safety, Therapeutic Exercise, Transfers Treatment Duration: Mar 31, 2018 Frequency: 5 times per week (5/6 wk) Estimated Hrs Per Day: .25 hour per day Patient and/or Family Agrees t: Yes Safety Risks/Education Patient Education: Gait Training, Transfer Techniques, Safety Issues Teaching Recipient: Patient Teaching Methods: Demonstration, Discussion Response to Teaching: Verbalize Understanding, Return Demonstration, Reinforcement Needed Time/GCodes Time In: 824 Time Out: 857 Total Billed Treatment Time: 33 Total Billed Treatment 1 visit GT x18 min FA x15 min CAMMIE WINSTON PTA Mar 19, 2018 09:03
[2018-03-19] MEDS: SUCRALFATE 1 GM (CARAFATE) TAB PO SCH ×4 (09:32→20:56)
[2018-03-19] MEDS: meTOproloL SUCCINATE 50 MG (TOPROL XL) TAB PO SCH (09:32)
[2018-03-19] MEDS: fluCOnazole (DIFLUCAN) 100 MG TAB PO SCH (09:32)
[2018-03-19] MEDS: DULoxetine 30 MG (CYMBALTA) CAP PO SCH ×2 (09:32→20:56)
[2018-03-19] MEDS: ASPIRIN E.C. 81 MG (ECOTRIN) TAB PO SCH (09:32)
[2018-03-19] MEDS: SIMvastatin 40 MG (ZOCOR) TAB PO SCH (09:32)
[2018-03-19] MEDS: MENTHOL/ZINC OXIDE (CALMOSEPTINE) 113 GM TUBE TOP SCH ×2 (09:33→20:57)
[2018-03-19] MEDS: COLESTIPOL 1 GM (COLESTID) TAB PO SCH ×2 (09:33→20:55)
[2018-03-19] MEDS: sulfaSALAzine 500 MG (AZULFIDINE) TAB PO SCH ×4 (09:33→20:56)
[2018-03-19] MEDS: CLOPIDOGREL 75 MG (PLAVIX) TABLET PO SCH (09:33)
--- NOTE | 2018-03-19 11:52 | Progress Note-Hospitalist ---
Subjective HPI/CC On Admission Date Seen by Provider: Mar 19, 2018 Time Seen by Provider: 11:00 Subjective/Events-last exam Patient doing about the same Labs reviewed Set to discharge on 03/21/18 per primary care provider Getting out of bed in chair now Objective Exam Vital Signs Vital Signs Date Time Temp Pulse Resp B/P (MAP) Pulse Ox O2 Delivery O2 Flow Rate FiO2 03/19/18 09:00 Nasal Cannula 2.00 03/19/18 07:21 64 96 28 03/19/18 04:00 97.2 18 145/67 (93) Capillary Refill : Less Than 3 Seconds General Appearance: No Apparent Distress, WD/WN, Chronically ill Respiratory: Chest Non Tender, Lungs Clear, Normal Breath Sounds, No Accessory Muscle Use, No Respiratory Distress Cardiovascular: Regular Rate, Rhythm, No Edema, No Gallop, No JVD, No Murmur, Normal Peripheral Pulses Neurologic/Psychiatric: Alert, Oriented x3, No Motor/Sensory Deficits, Normal Mood/Affect Results/Procedures Lab Laboratory Tests 03/19/18 04:10 Patient resulted labs reviewed. Assessment/Plan Assessment and Plan Assess & Plan/Chief Complaint Assessment: MRSA pneumonia Debility Weakness Plan: Continue medication as ordered Monitor closely DNR DC NH 03/21/18 Diagnosis/Problems Diagnosis/Problems (1) MRSA pneumonia Status: Acute Qualifiers: Laterality: unspecified laterality Lung location: unspecified part of lung Qualified Codes: J15.212 - Pneumonia due to methicillin resistant Staphylococcus aureus (2) Oxygen dependent Status: Chronic (3) Debility Status: Chronic (4) Weakness generalized Status: Chronic (5) COPD (chronic obstructive pulmonary disease) Status: Chronic (6) GERD (gastroesophageal reflux disease) Status: Chronic Qualifiers: Esophagitis presence: without esophagitis Qualified Codes: K21.9 - Gastro- esophageal reflux disease without esophagitis Clinical Quality Measures DVT/VTE Risk/Contraindication: Risk Factor Score Per Nursin RAFAELA MOHR DO Mar 19, 2018 11:52
--- NOTE | 2018-03-19 13:58 | Occupational Ther Daily Note ---
OT Current Status-Daily Note Subjective Pt alert, sitting in recliner. Pt agrees to therapy. No c/o pain. Mental Status/Objective Patient Orientation: Person, Time Therapy Code Descriptions/Definitions Functional [place] Measure: 0=Not Assessed/NA 4=Minimal Assistance 1=Total Assistance 5=Supervision or Setup 2=Maximal Assistance 6=Modified [place] 3=Moderate Assistance 7=Complete [place] Attachments: Arnold Catheter, IV, Oxygen ADL-Treatment Therapy Code Descriptions/Definitions Functional [place] Measure: 0=Not Assessed/NA 4=Minimal Assistance 1=Total Assistance 5=Supervision or Setup 2=Maximal Assistance 6=Modified [place] 3=Moderate Assistance 7=Complete [place] Therapy Quality Codes: 6 Independent with activity with or without an assistive device 5 Patient requires set up or clean up by helper. Patient completes activity by themselves 4 Supervision or touching assist (CGA). [place] provide cues , steadying assist 3 The helper provides less than half the effort to complete the activity 2 The helper provides more than half the effort to complete the activity 1 Dependent. The helper does all the effort to complete an activity 7 Patient refused to complete or attempt activity 9 The patient did not perform the activity before the current illness or injury 88 Not attempted due to Medical conditions or safety concerns Other Treatment Nrsg stated that pt already had shower and has device for urination. Pt requested to go back to bed from recliner. Pt requires verbal cues for hand placement with sit to stand. Using FWW pt able to ambulate with min A to bed. Pt had multiple LOB backwards with ambulation. Max A for EOB to supine. Assist to position self in bed. After therapy, pt lying in bed with call light/ phone in reach. All needs met in needs. OT Short Term Goals Short Term Goals 1=Demonstrate adherence to instructed precautions during ADL tasks. 2=Patient will verbalize/demonstrate understanding of assistive devices/ modifications for ADL. 3=Patient will improve strength/tolerance for activity to enable patient to perform ADL's. OT Half-Way Goals Half-Way Goals Time Frame: Mar 30, 2018 Eating (FIM): 5 Eating (QC): 5 Groomin Oral Hygiene (QC): 5 Bathing(FIM): 4 Shower/Bathe Self (QC): 3 Upper Body Dressing(FIM): 4 Upper Body Dressing (QC): 3 Lower Body Dressing(FIM): 4 Lower Body Dressing (QC): 3 On/Off Footwear (QC): 3 Toileting(FIM): 4 Toileting Hygiene (QC): 3 Toilet/Commode Transfer(FIM): 4 Toilet/Commode Transfer (QC): 4 Additional Goals: 1-Demonstrate ADL Tasks, 2-Verbalize Understanding, 3- ImproveStrength/Mike 1=Demonstrate adherence to instructed precautions during ADL tasks. 2=Patient will verbalize/demonstrate understanding of assistive devices/ modifications for ADL. 3=Patient will improve strength/tolerance for activity to enable patient to perform ADL's. OT Education/Plan Problem List/Assessment Pt to benefit from skilled OT intervention for ADL training, transfers, strengthening, and safety education to increase level of independence and allow safe discharge Discharge Recommendations Plan/Recommendations: Continue POC Treatment Plan/Plan of Care Patient would benefit from OT for education, treatment and training to promote independence in ADL's, mobility, safety and/or upper extremity function for ADL' s. Plan of Care: ADL Retraining, Functional Mobility, UE Funct Exercise/Act Treatment Duration: Mar 30, 2018 Frequency: 5 times per week Estimated Hrs Per Day: .25 hour per day Rehab Potential: Fair Time/GCodes Start Time: 13:45 Stop Time: 14:00 Total Time Billed (hr/min): 15 Billed Treatment Time 1 visit-FA 1 (15 min) NIKITA CANCHOLA Mar 19, 2018 13:58
--- NOTE | 2018-03-19 15:17 | NUR ---
Pastoral Care Visit.
[2018-03-19] MEDS: VANCOMYCIN 1250 MG/NS 250 ML IVPB IV SCH ×2 (17:10)
[2018-03-19 18:00] VITALS: BP 131/79
[2018-03-19] MEDS: LATANOPROST 0.005% (XALATAN) OPHTH SOLN 2.5 ML OU SCH (20:56)
[2018-03-20 04:38] VITALS: BP 132/63
[2018-03-20] MEDS: LEVOTHYROXINE 100 MCG (LEVOTHROID) TAB PO SCH (06:15)
[2018-03-20] MEDS: predniSONE 20 MG TAB PO SCH (06:16)
[2018-03-20] MEDS: RT-ALBUTEROL/IPRATROPIUM 3 ML (DUONEB) VIAL INH SCH ×2 (08:13→14:43)
[2018-03-20] MEDS: COLESTIPOL 1 GM (COLESTID) TAB PO SCH ×2 (08:16→20:53)
[2018-03-20] MEDS: DULoxetine 30 MG (CYMBALTA) CAP PO SCH ×2 (08:16→20:53)
[2018-03-20] MEDS: sulfaSALAzine 500 MG (AZULFIDINE) TAB PO SCH ×4 (08:17→20:53)
[2018-03-20] MEDS: CLOPIDOGREL 75 MG (PLAVIX) TABLET PO SCH (08:17)
[2018-03-20] MEDS: MENTHOL/ZINC OXIDE (CALMOSEPTINE) 113 GM TUBE TOP SCH ×2 (08:17→20:54)
[2018-03-20] MEDS: ASPIRIN E.C. 81 MG (ECOTRIN) TAB PO SCH (08:17)
[2018-03-20] MEDS: SUCRALFATE 1 GM (CARAFATE) TAB PO SCH ×4 (08:17→20:53)
[2018-03-20] MEDS: fluCOnazole (DIFLUCAN) 100 MG TAB PO SCH (08:17)
[2018-03-20] MEDS: SIMvastatin 40 MG (ZOCOR) TAB PO SCH (08:17)
[2018-03-20] MEDS: meTOproloL SUCCINATE 50 MG (TOPROL XL) TAB PO SCH (08:17)
--- NOTE | 2018-03-20 08:53 | Physical Therapy Daily Note ---
PT Daily Note-Current Subjective Patient is in bed and agrees to PT. Pain Numeric Pain Scale: 0-No Pain Location: No Pain Reported Mental Status Patient Orientation: Person, Time, Situation Attachments: Oxygen Transfers Therapy Code Descriptions/Definitions Functional [place] Measure: 0=Not Assessed/NA 4=Minimal Assistance 1=Total Assistance 5=Supervision or Setup 2=Maximal Assistance 6=Modified [place] 3=Moderate Assistance 7=Complete [place] Therapy Quality Codes: 6 Independent with activity with or without an assistive device 5 Patient requires set up or clean up by helper. Patient completes activity by themselves 4 Supervision or touching assist (CGA). [place] provide cues , steadying assist 3 The helper provides less than half the effort to complete the activity 2 The helper provides more than half the effort to complete the activity 1 Dependent. The helper does all the effort to complete an activity 7 Patient refused to complete or attempt activity 9 The patient did not perform the activity before the current illness or injury 88 Not attempted due to Medical conditions or safety concerns Transfers (B, C, W/C) (FIM): 4 Scootin Rollin Roll Left to Right (QC): 4 Supine to/from Sit: 4 Sit to/from Stand: 4 Sit to Lying (QC): 4 Sit to Stand (QC): 4 Chair/Iyh-he-Oluhf Xfer(QC): 4 Bed to/from Chair: 4 Weight Bearing Right Lower Extremity: Right Full Weight Bearing Left Lower Extremity: Left Full Weight Bearing Gait Training Does the Patient Walk?: Yes Gait (FIM): 2 Distance (FIM): 0=775-67 ft Distance: 100' Walk 10 feet (QC): 4 Walk 50 ft with 2 Turns(QC): 4 Gait Level of Assist: 4 Gait Persons Needed: 1 Gait Assistive Device: FWW slightly unsteady with PT correcting Exercises Supine Ex: Ankle pumps, Heel Slides Supine Reps: 15 Seated Therapy Exercises: Ankle pumps, Long arc quads, Hip flexion Seated Reps: 15 Assessment Patient requires time to complete all functional tasks. Plan dismissal tomorrow. PT Building Construction Engineer Goals Mcc Goals PT Building Construction Engineer Goals Time Frame: Mar 31, 2018 Transfers (B,C,W/C) (FIM): 4 Sit to Lying (QC): 4 Lying-Sitting on Side/Bed(QC): 4 Sit to Stand (QC): 4 Rollin Roll Left to Right (QC): 4 Chair/Swg-pt-Rnmnv Xfer(QC): 4 Car Transfer (QC): 4 Does the Patient Walk: Yes Gait (FIM): 2 Gait distance (FIM): 3=196-83 ft Distance: 125' Walk 10 feet (QC): 4 Walk 10ft-Uneven Surface(QC): 4 Walk 50ft with 2 Turns (QC): 4 Walk 150 ft (QC): 9 Gait Level of Assist: 4 Gait Assistive Device: FWW PT Plan Treatment/Plan Treatment Plan: Continue Plan of Care Treatment Plan: Bed Mobility, Education, Functional Activity Mike, Functional Strength, Gait, Safety, Therapeutic Exercise, Transfers Treatment Duration: Mar 31, 2018 Frequency: 5 times per week (5/6 wk) Estimated Hrs Per Day: .25 hour per day Patient and/or Family Agrees t: Yes Time/GCodes Time In: 745 Time Out: 808 Total Billed Treatment Time: 23 Total Billed Treatment 1 visit GT 12 min EX 11 min GARY POLANCO PT Mar 20, 2018 08:53
--- NOTE | 2018-03-20 12:18 | Progress Note-Hospitalist ---
Subjective HPI/CC On Admission Date Seen by Provider: Mar 20, 2018 Time Seen by Provider: 10:00 Subjective/Events-last exam Patient doing well No pain is reported Eating and drinking well No cough No shortness of breath Review of Systems General: Fatigue Objective Exam Vital Signs Vital Signs Date Time Temp Pulse Resp B/P (MAP) Pulse Ox O2 Delivery O2 Flow Rate FiO2 03/20/18 09:00 Nasal Cannula 2.00 03/20/18 08:13 93 03/20/18 04:38 99.2 69 20 132/63 (86) 03/19/18 07:21 28 Capillary Refill : Less Than 3 Seconds General Appearance: No Apparent Distress, WD/WN, Chronically ill, Thin Respiratory: Chest Non Tender, Lungs Clear, Normal Breath Sounds, No Accessory Muscle Use, No Respiratory Distress Cardiovascular: Regular Rate, Rhythm, No Edema, No Gallop, No JVD, No Murmur, Normal Peripheral Pulses Neurologic/Psychiatric: Alert, Oriented x3, No Motor/Sensory Deficits, Normal Mood/Affect Results/Procedures Lab Patient resulted labs reviewed. Assessment/Plan Assessment and Plan Assess & Plan/Chief Complaint Assessment: MRSA pneumonia Debility Weakness Plan: Continue medication as ordered Monitor closely DNR DC NH 03/21/18 Diagnosis/Problems Diagnosis/Problems (1) MRSA pneumonia Status: Acute Qualifiers: Laterality: unspecified laterality Lung location: unspecified part of lung Qualified Codes: J15.212 - Pneumonia due to methicillin resistant Staphylococcus aureus (2) Oxygen dependent Status: Chronic (3) Debility Status: Chronic (4) Weakness generalized Status: Chronic (5) COPD (chronic obstructive pulmonary disease) Status: Chronic (6) GERD (gastroesophageal reflux disease) Status: Chronic Qualifiers: Esophagitis presence: without esophagitis Qualified Codes: K21.9 - Gastro- esophageal reflux disease without esophagitis Clinical Quality Measures DVT/VTE Risk/Contraindication: Risk Factor Score Per Nursin RAFAELA MOHR DO Mar 20, 2018 12:18
--- NOTE | 2018-03-20 12:25 | Occupational Ther Daily Note ---
OT Current Status-Daily Note Subjective Pt sitting in chair, agrees to treatment. Mental Status/Objective Therapy Code Descriptions/Definitions Functional [place] Measure: 0=Not Assessed/NA 4=Minimal Assistance 1=Total Assistance 5=Supervision or Setup 2=Maximal Assistance 6=Modified [place] 3=Moderate Assistance 7=Complete [place] Attachments: Oxygen ADL-Treatment Pt completed grooming tasks while seated in chair. Pt washed face and combed hair with set up. Pt requests to use restroom. Sit to stand with minimal assistance. Pt was incontinent of urine while sitting in chair. Chair linens were changed. Gait to restroom with FWW. Transfer to toilet with minimal assistance. Pt required assist for hygiene. Pt's gown was wet, so was changed with mod assist. Pt washed hands with SBA. Return to chair with minimal assistance. Pt sitting in chair with needs met after session. Therapy Code Descriptions/Definitions Functional [place] Measure: 0=Not Assessed/NA 4=Minimal Assistance 1=Total Assistance 5=Supervision or Setup 2=Maximal Assistance 6=Modified [place] 3=Moderate Assistance 7=Complete [place] Therapy Quality Codes: 6 Independent with activity with or without an assistive device 5 Patient requires set up or clean up by helper. Patient completes activity by themselves 4 Supervision or touching assist (CGA). [place] provide cues , steadying assist 3 The helper provides less than half the effort to complete the activity 2 The helper provides more than half the effort to complete the activity 1 Dependent. The helper does all the effort to complete an activity 7 Patient refused to complete or attempt activity 9 The patient did not perform the activity before the current illness or injury 88 Not attempted due to Medical conditions or safety concerns Grooming (FIM): 5 Toileting (FIM): 2 Toileting Hygiene (QC): 2 Toilet/Commode Transfer (FIM): 4 Toilet Transfer (QC): 3 OT Short Term Goals Short Term Goals 1=Demonstrate adherence to instructed precautions during ADL tasks. 2=Patient will verbalize/demonstrate understanding of assistive devices/ modifications for ADL. 3=Patient will improve strength/tolerance for activity to enable patient to perform ADL's. OT Associate Director Of Development Goals Associate Director Of Development Goals Time Frame: Mar 30, 2018 Eating (FIM): 5 Eating (QC): 5 Groomin Oral Hygiene (QC): 5 Bathing(FIM): 4 Shower/Bathe Self (QC): 3 Upper Body Dressing(FIM): 4 Upper Body Dressing (QC): 3 Lower Body Dressing(FIM): 4 Lower Body Dressing (QC): 3 On/Off Footwear (QC): 3 Toileting(FIM): 4 Toileting Hygiene (QC): 3 Toilet/Commode Transfer(FIM): 4 Toilet/Commode Transfer (QC): 4 Additional Goals: 1-Demonstrate ADL Tasks, 2-Verbalize Understanding, 3- ImproveStrength/Mike 1=Demonstrate adherence to instructed precautions during ADL tasks. 2=Patient will verbalize/demonstrate understanding of assistive devices/ modifications for ADL. 3=Patient will improve strength/tolerance for activity to enable patient to perform ADL's. OT Education/Plan Problem List/Assessment Pt to benefit from skilled OT intervention for ADL training, transfers, strengthening, and safety education to increase level of independence and allow safe discharge Discharge Recommendations Plan/Recommendations: Continue POC Treatment Plan/Plan of Care Patient would benefit from OT for education, treatment and training to promote independence in ADL's, mobility, safety and/or upper extremity function for ADL' s. Plan of Care: ADL Retraining, Functional Mobility, UE Funct Exercise/Act Treatment Duration: Mar 30, 2018 Frequency: 5 times per week Estimated Hrs Per Day: .25 hour per day Rehab Potential: Fair Time/GCodes Start Time: 09:48 Stop Time: 10:04 Total Time Billed (hr/min): 16 Billed Treatment Time 1 visit, ADL(16minutes) PILO DAVIES OT Mar 20, 2018 12:25
[2018-03-20] MEDS: VANCOMYCIN 1250 MG/NS 250 ML IVPB IV SCH ×2 (17:00)
[2018-03-20 17:41] VITALS: BP 136/64
[2018-03-20] MEDS: LATANOPROST 0.005% (XALATAN) OPHTH SOLN 2.5 ML OU SCH (20:54)
[2018-03-21 06:00] VITALS: BP 135/63
[2018-03-21] MEDS: LEVOTHYROXINE 100 MCG (LEVOTHROID) TAB PO SCH (06:27)
[2018-03-21] MEDS: predniSONE 20 MG TAB PO SCH (06:27)
[2018-03-21] MEDS: RT-ALBUTEROL/IPRATROPIUM 3 ML (DUONEB) VIAL INH SCH ×2 (08:57→08:59)
[2018-03-21] MEDS: sulfaSALAzine 500 MG (AZULFIDINE) TAB PO SCH (10:13)
[2018-03-21] MEDS: SUCRALFATE 1 GM (CARAFATE) TAB PO SCH (10:13)
[2018-03-21] MEDS: DULoxetine 30 MG (CYMBALTA) CAP PO SCH (10:13)
[2018-03-21] MEDS: SIMvastatin 40 MG (ZOCOR) TAB PO SCH (10:14)
[2018-03-21] MEDS: CLOPIDOGREL 75 MG (PLAVIX) TABLET PO SCH (10:14)
[2018-03-21] MEDS: ASPIRIN E.C. 81 MG (ECOTRIN) TAB PO SCH (10:14)
[2018-03-21] MEDS: MENTHOL/ZINC OXIDE (CALMOSEPTINE) 113 GM TUBE TOP SCH (10:14)
[2018-03-21] MEDS: meTOproloL SUCCINATE 50 MG (TOPROL XL) TAB PO SCH (10:14)
[2018-03-21] MEDS: fluCOnazole (DIFLUCAN) 100 MG TAB PO SCH (10:14)
[2018-03-21] MEDS: COLESTIPOL 1 GM (COLESTID) TAB PO SCH (10:27)
--- NOTE | 2018-03-21 12:10 | Physical Therapy Daily Note ---
PT Daily Note-Current Subjective Pt. agreeable to Rx. sitting up in recliner. Pain Location: No Pain Reported Mental Status Patient Orientation: Person, Place Attachments: Oxygen Transfers Therapy Code Descriptions/Definitions Functional [place] Measure: 0=Not Assessed/NA 4=Minimal Assistance 1=Total Assistance 5=Supervision or Setup 2=Maximal Assistance 6=Modified [place] 3=Moderate Assistance 7=Complete [place] Therapy Quality Codes: 6 Independent with activity with or without an assistive device 5 Patient requires set up or clean up by helper. Patient completes activity by themselves 4 Supervision or touching assist (CGA). [place] provide cues , steadying assist 3 The helper provides less than half the effort to complete the activity 2 The helper provides more than half the effort to complete the activity 1 Dependent. The helper does all the effort to complete an activity 7 Patient refused to complete or attempt activity 9 The patient did not perform the activity before the current illness or injury 88 Not attempted due to Medical conditions or safety concerns Transfers (B, C, W/C) (FIM): 3 Scootin Rollin Sit to/from Stand: 3 needs instruction nad mi n to mod assist for safety and use of hands for sit to stand as well as weight shift, very retropulsive upon stance Weight Bearing Right Lower Extremity: Right Full Weight Bearing Left Lower Extremity: Left Full Weight Bearing Gait Training Gait (FIM): 2 Distance (FIM): 5=981-68 ft (50ftx2) Gait Level of Assist: 3 Gait Persons Needed: 1 Gait Assistive Device: FWW pt. toddles and needs min assist for stability Exercises Seated Therapy Exercises: Ankle pumps, Sit to stand, Long arc quads, Hip flexion, Hip abd/add Seated Reps: 10 (x2) Assessment Current Status: Good Progress PT Splicer Machine Operator Goals Splicer Machine Operator Goals PT Splicer Machine Operator Goals Time Frame: Mar 31, 2018 Transfers (B,C,W/C) (FIM): 4 Gait (FIM): 2 Gait distance (FIM): 5=886-08 ft Distance: 125' Gait Level of Assist: 4 Gait Assistive Device: FWW PT Plan Treatment/Plan Treatment Plan: Continue Plan of Care Treatment Plan: Bed Mobility, Education, Functional Activity Mike, Functional Strength, Gait, Safety, Therapeutic Exercise, Transfers Treatment Duration: Mar 31, 2018 Frequency: 5 times per week (5/6 wk) Estimated Hrs Per Day: .25 hour per day Patient and/or Family Agrees t: Yes Safety Risks/Education Patient Education: Gait Training, Transfer Techniques, Correct Positioning, Disease Process, Safety Issues Teaching Recipient: Patient Teaching Methods: Demonstration, Discussion Response to Teaching: Verbalize Understanding, Return Demonstration, Reinforcement Needed Time/GCodes Time In: 1125 Time Out: 1150 Total Billed Treatment Time: 25 Total Billed Treatment 1,EX10m,GT15m G Codes Necessary: No NICHOLAS CASSIDY CMA OR LPN Mar 21, 2018 12:10
[2018-03-21] MEDS ORDERED: LINE600T5 PO (12:51)
[2018-03-21] MEDS ORDERED: COLE1TAB PO (12:51)
[2018-03-21] MEDS ORDERED: NF-COLE1GM PO (12:51)
--- NOTE | 2018-03-21 13:20 | Therapy Team Discharge Summary ---
Therapy Discharge Summary Discharge Recommendations Date of Discharge Therapy D/C Recommendations: Correction Placement, Long-Term (TCU/NH) Occupational Therapy Pt admitted to [facility] status following acute hospitalization for UTI/ARF. On admission pt required SBA for eating and grooming and min assist with transfers. Skilled OT intervention focused on ADL training and transfers. At discharge pt is requiring min assist with toilet transfer, max assist with toileting and SBA for grooming. Goals were addressed, but not met. Pt discharging this date back to [facility]. D/C SWB OT at this time. Decreased Activ Tolerance, Decreased UE Strength, Dependent Transfers, Impaired Funct Balance, Impaired Self-Care Skills PT Intermediate Goals Dye Mixer Goals PT Intermediate Goals Time Frame: Mar 31, 2018 Transfers (B,C,W/C) (FIM): 4 Sit to Lying (QC): 4 Lying-Sitting on Side/Bed(QC): 4 Sit to Stand (QC): 4 Rollin Chair/Edo-jk-Lvhtx Xfer(QC): 4 Does the Patient Walk: Yes Gait (FIM): 2 Gait distance (FIM): 9=514-27 ft Distance: 125' Walk 50ft with 2 Turns (QC): 4 Walk 150 ft (QC): 9 Gait Level of Assist: 4 Gait Assistive Device: FWW OT Dye Mixer Goals Dye Mixer Goals Time Frame: Mar 30, 2018 Eating (FIM): 5 Eating (QC): 5 Groomin Oral Hygiene (QC): 5 Bathing(FIM): 4 Upper Body Dressing(FIM): 4 Lower Body Dressing(FIM): 4 Toileting(FIM): 4 Toileting Hygiene (QC): 3 Toilet/Commode Transfer(FIM): 4 Toilet/Commode Transfer (QC): 4 Additional Goals: 1-Demonstrate ADL Tasks, 2-Verbalize Understanding, 3- ImproveStrength/Mike 1=Demonstrate adherence to instructed precautions during ADL tasks. 2=Patient will verbalize/demonstrate understanding of assistive devices/ modifications for ADL. 3=Patient will improve strength/tolerance for activity to enable patient to perform ADL's. PILO DAVIES OT Mar 21, 2018 13:20
--- NOTE | 2018-03-21 13:42 | NUR ---
CM/SS. Patient discharged back to established placement with [facility] via their transport. Physician did not complete skilled orders/instructions, Unit RN called [facility] and reports they stated they can get verbal orders for PT/OT and go forward with skilled status. Therefore, intention is that patient will be under Medicare skilled benefits. Unit RN handled all transfer arrangements directly with [facility]. Addendum: 03/21/18 at 1354 by MARK NORRIS Echocardiographer confirmed with Unit RN that [facility] accepted verbal orders for skilled care and will followup with PCP for written as needed.
--- NOTE | 2018-03-21 14:26 | NUR ---
MARIOLA OLIVEIR[place] [facility] [place] family present at the time discharge and report given to Chavo SMITH, given verbal orders for skilled services pt/ot, have patient discuss with dr omalley for orders for pulmonary rehab, f/u with dr bill in a week, updated on new orders colestid bid, zyvox 600mg bid for 5 days, MARIOLA OLIVEIRA belongings sent with patient. Skin dry and intact; no breakdown noted. Vital signs are stable at time of discharge. Condition is stable at time of discharge. Discharge instructions and copies of H&P, discharge summary, physician's order, lab reports, consultation reports, other dictated reports, diagnostic imaging reports, Advance Directive, eMAR, vital signs, intake and output sent with patient. Patient discharged from [facility] on 03/21/17 at 1330 . MARIOLA OLIVEIRA left floor via wheel chair, accompanied by daughter and staff. MARIOLA OLIVEIRA and family/DPOA(present at time of discharge) verbalize understanding of discharge to [facility].
--- NOTE | 2018-03-21 19:03 | Discharge Summary ---
Diagnosis/Chief Complaint Date of Admission Mar 16, 2018 at 13:31 Date of Discharge Mar 21, 2018 at 14:34 Discharge Diagnosis 1. Pneumonia with MRSA and Yeast in sputum culture--improved 2. COPD--stable 3. Weakness--back to ID with PT/OT 4. Hypertension--stable 5. Constipation--resolved 6. History of CVA--on aspirin/plavix 7. GERD/History of Colitis--stable Discharge Summary Hospital Course Hospital Course This is a 77 year old female initially admitted to acute care for pneumonia with MRSA and yeast in her sputum. She was admitted to [facility] bed for further IV antibiotics with PT and OT for strengthening. Once she had recieved 10 days of antibiotics, she was discharged back to the shelter to continue zyvox for 5 days and resume PT and OT. She will followup with me in 2 weeks. Labs Laboratory Tests 03/19/18 04:10: Red Blood Count 3.91L, Mean Corpuscular Volume 100H, Mean Corpuscular Hemoglobin Concent 31L, Mean Platelet Volume 11.8H, Monocytes (%) (Auto) 13H Procedures None. Discharge Physical Examination Allergies: Coded Allergies: Penicillins (Verified Allergy, Intermediate, HIVES, CAN TAKE ROCEPHIN, 18/03) codeine (Verified Allergy, Unknown, 02/09/15) morphine (Verified Allergy, Unknown, PATIENT TAKES VICODIN AT HOME PER VIN, 02/09/15) propoxyphene (Verified Allergy, Unknown, 12/18/11) Vitals & I&Os Vital Signs Date Time Temp Pulse Resp B/P (MAP) Pulse Ox O2 Delivery O2 Flow Rate FiO2 03/21/18 09:00 Nasal Cannula 2.00 03/21/18 08:59 92 03/21/18 06:00 98.7 68 20 135/63 (87) 03/19/18 07:21 28 General Appearance: Alert, Oriented X3, Cooperative, No Acute Distress Respiratory: Clear to Auscultation Cardiovascular: Regular Rate Abdominal: Normal Bowel Sounds, Soft, No Tenderness Extremities: No Clubbing, No Cyanosis, No Edema Psych/Mental Status: Mental Status NL, Mood NL Discharge Home Medications Reviewed and agree with Discharge Medication list on patient's Discharge Instruction sheet Instructions to Patient/Family Please see electronic discharge instructions given to patient. Clinical Quality Measures DVT/VTE Risk/Contraindication: Risk Factor Score Per Nursin DALILA CASIANO DO Mar 21, 2018 19:03
--- NOTE | 2018-03-22 09:40 | Therapy Team Discharge Summary ---
Therapy Discharge Summary Discharge Recommendations Date of Discharge Mar 21, 2018 at 14:34 Therapy D/C Recommendations: Correction Placement, Shelter (TCU/NH) Physical Therapy Patient admitted due to UTI/ARF. Patient is currently requiring minimal assist with all mobility and ambulates with FWW ~100' with minimal assist. PT address functional strength and mobility and patient will return to NH for continued care and therapies. Occupational Therapy Decreased Activ Tolerance, Decreased UE Strength, Dependent Transfers, Impaired Funct Balance, Impaired Self-Care Skills PT Nursing Home Goals Manager Imaging Goals PT Nursing Home Goals Time Frame: Mar 31, 2018 Transfers (B,C,W/C) (FIM): 4 Sit to Lying (QC): 4 Lying-Sitting on Side/Bed(QC): 4 Sit to Stand (QC): 4 Rollin Chair/Aam-ae-Tkoqs Xfer(QC): 4 Does the Patient Walk: Yes Gait (FIM): 2 Gait distance (FIM): 7=448-47 ft Distance: 125' Walk 50ft with 2 Turns (QC): 4 Walk 150 ft (QC): 9 Gait Level of Assist: 4 Gait Assistive Device: FWW OT Nursing Home Goals Manager Imaging Goals Time Frame: Mar 30, 2018 Eating (FIM): 5 Eating (QC): 5 Groomin Oral Hygiene (QC): 5 Bathing(FIM): 4 Upper Body Dressing(FIM): 4 Lower Body Dressing(FIM): 4 Toileting(FIM): 4 Toileting Hygiene (QC): 3 Toilet/Commode Transfer(FIM): 4 Toilet/Commode Transfer (QC): 4 Additional Goals: 1-Demonstrate ADL Tasks, 2-Verbalize Understanding, 3- ImproveStrength/Mike 1=Demonstrate adherence to instructed precautions during ADL tasks. 2=Patient will verbalize/demonstrate understanding of assistive devices/ modifications for ADL. 3=Patient will improve strength/tolerance for activity to enable patient to perform ADL's. GARY POLANCO PT Mar 22, 2018 09:39
== END 2018-03-21 14:34 | DRG 178 ==
LOC: 4TH 13:31
PROVIDERS: ADMIT Family Medicine; ATTEND Family Medicine
DX: J15.212 Pneumonia due to Methicillin resistant Staphylococcus aureus (principal); J44.0 Chronic obstructive pulmonary disease with (acute) lower respiratory infection; K21.9 Gastro-esophageal reflux disease without esophagitis; R53.81 Other malaise; R53.1 Weakness; I10 Essential (primary) hypertension; K59.00 Constipation, unspecified; Z86.73 Personal history of transient ischemic attack (TIA), and cerebral infarction without residual deficits; Z99.81 Dependence on supplemental oxygen
CPT/HCPCS: 36415; 80053; 80202; 85025; 94640; 94760